=== PATIENT | female | born 1970 | race Caucasian/White ===

== ENCOUNTER → 2016-06-27 | Outpatient (CLI) | payer OTHER ==
[~2016-06-27] MED LIST: ADAL1INJ INJ; AZAT50TA17 PO; CALC-20 PO; CHOL2000 PO; CPR500 PO; DIPH-416 PO; EFF75 PO; FLUD0.1T10 PO; IMD/2 PO; MISCCAP80 PO; MULT-506 PO; OMEP20TA PO; ONDA8TAB7 PO; OXYC-57 PO; PEDICHW50 PO; POLY150C PO; PRD10 PO; PRED20TA PO; RMCI IV; [UNRECOGNIZED DRUG - CODE] PO
[2016-06-27 19:09] LABS: BLOOD UREA NITROGEN 22 mg/dl (7-18); BUN/CREATININE RATIO 31.3 (10-20); CARBON DIOXIDE 25 mmol/L (21-32); CHLORIDE 103 mmol/L (98-107); CREATININE 0.69 mg/dl (0.60-1.20); GLUCOSE 77 mg/dl (70-99); SODIUM 138 mmol/L (136-145)
[2016-06-27 19:10] LABS: PHOSPHORUS 2.8 mg/dl (2.5-4.9)
== END | disposition home or self-care (01) ==
LOC: C.LABSPEC 16:55
PROVIDERS: ATTEND Family Medicine
DX: K51.00 Ulcerative (chronic) pancolitis without complications (principal); K63.2 Fistula of intestine; R19.8 Other specified symptoms and signs involving the digestive system and abdomen

== ENCOUNTER → 2016-07-13 | Outpatient (CLI) | payer OTHER | END | disposition home or self-care (01) | LOC: C.LABSPEC 13:26 | PROVIDERS: ATTEND Obstetrics & Gynecology | DX: N89.8 Other specified noninflammatory disorders of vagina (principal) ==

== ENCOUNTER → 2016-07-18 | Outpatient (CLI) | payer OTHER ==
[2016-07-18 21:28] LABS: ALT/SGPT 40 U/L (12-78); BLOOD UREA NITROGEN 19 mg/dl (7-18); BUN/CREATININE RATIO 27.3 (10-20); CALCIUM 8.8 mg/dl (8.5-10.1); CARBON DIOXIDE 26 mmol/L (21-32); CHLORIDE 101 mmol/L (98-107); GLUCOSE 89 mg/dl (70-99); MAGNESIUM 2.2 mg/dl (1.8-2.4); POTASSIUM 3.7 mmol/L (3.5-5.1); SODIUM 137 mmol/L (136-145)
[2016-07-18 21:30] LABS: ALB/GLOB RATIO 0.6 (0.9-2); ALKALINE PHOSPHATASE 170 U/L (45-117); AST/SGOT 41 U/L (15-37); PHOSPHORUS 3.4 mg/dl (2.5-4.9)
== END | disposition home or self-care (01) ==
LOC: C.LABSPEC 10:23
PROVIDERS: ATTEND Family Medicine
DX: K50.90 Crohn's disease, unspecified, without complications (principal); R19.8 Other specified symptoms and signs involving the digestive system and abdomen; K51.00 Ulcerative (chronic) pancolitis without complications; K63.2 Fistula of intestine

== ENCOUNTER → 2016-08-09 | Outpatient (CLI) | payer OTHER ==
[2016-08-09 22:15] LABS: BLOOD UREA NITROGEN 21 mg/dl (7-18); BUN/CREATININE RATIO 27.9 (10-20); CALCIUM 8.8 mg/dl (8.5-10.1); CARBON DIOXIDE 26 mmol/L (21-32); CHLORIDE 99 mmol/L (98-107); CREATININE 0.76 mg/dl (0.60-1.20); GLUCOSE 109 mg/dl (70-99); MAGNESIUM 1.9 mg/dl (1.8-2.4); PHOSPHORUS 3.3 mg/dl (2.5-4.9); POTASSIUM 3.6 mmol/L (3.5-5.1); SODIUM 134 mmol/L (136-145)
== END | disposition home or self-care (01) ==
LOC: C.LABSPEC 15:15
PROVIDERS: ATTEND Internal Medicine
DX: K50.90 Crohn's disease, unspecified, without complications (principal); R19.8 Other specified symptoms and signs involving the digestive system and abdomen; K51.00 Ulcerative (chronic) pancolitis without complications; K63.2 Fistula of intestine

== ENCOUNTER → 2016-08-29 | Outpatient (CLI) | payer OTHER ==
[2016-08-29 19:36] LABS: BLOOD UREA NITROGEN 19 mg/dl (7-18); BUN/CREATININE RATIO 26.3 (10-20); CALCIUM 8.7 mg/dl (8.5-10.1); CARBON DIOXIDE 31 mmol/L (21-32); CHLORIDE 103 mmol/L (98-107); CREATININE 0.71 mg/dl (0.60-1.20); GLUCOSE 73 mg/dl (70-99); MAGNESIUM 2.3 mg/dl (1.8-2.4); POTASSIUM 3.7 mmol/L (3.5-5.1); SODIUM 139 mmol/L (136-145)
[2016-08-29 19:38] LABS: ALB/GLOB RATIO 0.6 (0.9-2); ALKALINE PHOSPHATASE 111 U/L (45-117); ALT/SGPT 30 U/L (12-78); AST/SGOT 22 U/L (15-37)
== END | disposition home or self-care (01) ==
LOC: C.LABSPEC 16:59
PROVIDERS: ATTEND Family Medicine
DX: K50.90 Crohn's disease, unspecified, without complications (principal); R19.8 Other specified symptoms and signs involving the digestive system and abdomen; K51.00 Ulcerative (chronic) pancolitis without complications; K63.2 Fistula of intestine

== ENCOUNTER → 2016-09-19 | Outpatient (CLI) | payer OTHER ==
[2016-09-19 19:35] LABS: BLOOD UREA NITROGEN 19 mg/dl (7-18); BUN/CREATININE RATIO 23.7 (10-20); CALCIUM 8.6 mg/dl (8.5-10.1); CARBON DIOXIDE 26 mmol/L (21-32); CHLORIDE 104 mmol/L (98-107); CREATININE 0.81 mg/dl (0.60-1.20); GLUCOSE 82 mg/dl (70-99); MAGNESIUM 2.1 mg/dl (1.8-2.4); POTASSIUM 3.7 mmol/L (3.5-5.1); SODIUM 138 mmol/L (136-145)
[2016-09-19 19:36] LABS: PHOSPHORUS 3.3 mg/dl (2.5-4.9)
== END | disposition home or self-care (01) ==
LOC: C.LAB 18:40
PROVIDERS: ATTEND Family Medicine
DX: K51.00 Ulcerative (chronic) pancolitis without complications (principal); K63.2 Fistula of intestine

== ENCOUNTER → 2016-09-20 | Outpatient (CLI) | payer OTHER ==
--- NOTE | 2016-09-21 12:48 | MAMMOGRAPHY REPORT ---
BILATERAL DIGITAL SCREENING MAMMOGRAM TOMOSYNTHESIS WITH CAD: 09/20/2016 CLINICAL HISTORY: Routine screening. Patient has no complaints. TECHNIQUE: Breast tomosynthesis in addition to standard 2D mammography was performed. Current study was also evaluated with a Computer Aided Detection (CAD) system. COMPARISON: Comparison is made to exams dated: 09/15/2015 mammogram, 09/11/2014 mammogram, 09/18/2013 lisette mogram, 09/09/2013 mammogram, 08/31/2011 mammogram, and 02/21/2011 mammogram - [facility] nter. BREAST COMPOSITION: The tissue of both breasts is heterogeneously dense, which may obscure small ma sses. FINDINGS: There are stable benign-appearing calcifications within the left breast. No suspicious sp iculated or irregular mass, architectural distortion or cluster of new, suspicious microcalcificatio ns is seen. IMPRESSION: ACR BI-RADS CATEGORY 1: NEGATIVE There is no mammographic evidence of malignancy. A 1 year screening mammogram is recommended. The p atient will receive written notification of the results. Approximately 10% of breast cancers are not detected with mammography. A negative mammographic repor t should not delay biopsy if a clinically suggestive mass is present. Betty Mak M.D. ay/:09/21/2016 07:32:18 Pulverizer Mill Operator: Diana DUARTE)(Jessica), [facility] letter sent: Normal 1/2 BI-RADS Code: ACR BI-RADS Category 1: Negative
== END | disposition home or self-care (01) ==
LOC: C.MAMM 16:21
PROVIDERS: ATTEND Obstetrics & Gynecology
DX: Z12.31 Encounter for screening mammogram for malignant neoplasm of breast (principal)

== ENCOUNTER → 2016-10-11 | Outpatient (CLI) | payer OTHER ==
[2016-10-11 19:47] LABS: ALT/SGPT 52 U/L (12-78); AST/SGOT 52 U/L (15-37); BLOOD UREA NITROGEN 18 mg/dl (7-18); BUN/CREATININE RATIO 22.7 (10-20); CALCIUM 8.9 mg/dl (8.5-10.1); CARBON DIOXIDE 28 mmol/L (21-32); CHLORIDE 102 mmol/L (98-107); CREATININE 0.79 mg/dl (0.60-1.20); GLUCOSE 86 mg/dl (70-99); MAGNESIUM 2.2 mg/dl (1.8-2.4); POTASSIUM 3.8 mmol/L (3.5-5.1); SODIUM 138 mmol/L (136-145)
[2016-10-11 19:50] LABS: ALB/GLOB RATIO 0.6 (0.9-2); ALKALINE PHOSPHATASE 161 U/L (45-117); PHOSPHORUS 3.5 mg/dl (2.5-4.9)
--- NOTE | 2016-10-24 14:12 | CODING QUERY NO DIAGNOSIS ---
Valid Physician Order Needed A valid physician order must be submitted in order to properly bill for the service(s) provided, including date of service(s), valid diagnosis, and physician signature. If these tests are done on a recurring basis the original physician order must be submitted in order to code and bill for the service(s) provided. Please fax us the original, signed physician order so that we may expedite billing to [phone] DOS 10/11/2016 * SERUM PHOSPHORUS * MAGNESIUM * CMP * CALCIUM, IONIZED (FREE) Thank you José [facility] Information Management
== END | disposition home or self-care (01) ==
LOC: C.LABSPEC 18:45
PROVIDERS: ATTEND Internal Medicine
DX: E46 Unspecified protein-calorie malnutrition (principal)

== ENCOUNTER → 2016-10-31 | Outpatient (CLI) | payer OTHER ==
[2016-10-31 20:25] LABS: BLOOD UREA NITROGEN 15 mg/dl (7-18); BUN/CREATININE RATIO 26.2 (10-20); CALCIUM 8.3 mg/dl (8.5-10.1); CARBON DIOXIDE 26 mmol/L (21-32); CHLORIDE 105 mmol/L (98-107); CREATININE 0.56 mg/dl (0.60-1.20); GLUCOSE 69 mg/dl (70-99); MAGNESIUM 2.1 mg/dl (1.8-2.4); POTASSIUM 3.5 mmol/L (3.5-5.1); SODIUM 139 mmol/L (136-145)
[2016-10-31 20:26] LABS: PHOSPHORUS 3.7 mg/dl (2.5-4.9)
== END | disposition home or self-care (01) ==
LOC: C.LABSPEC 16:03
PROVIDERS: ATTEND Internal Medicine
DX: K50.90 Crohn's disease, unspecified, without complications (principal); R19.8 Other specified symptoms and signs involving the digestive system and abdomen; K51.00 Ulcerative (chronic) pancolitis without complications; K63.2 Fistula of intestine

== ENCOUNTER → 2016-11-28 | Outpatient (CLI) | payer OTHER ==
[~2016-11-28] MED LIST changes: -CPR500 PO; -OMEP20TA PO; -ONDA8TAB7 PO; -OXYC-57 PO; -POLY150C PO; -PRD10 PO; -PRED20TA PO; -RMCI IV
[2016-11-28 19:50] LABS: ALT/SGPT 34 U/L (12-78); AST/SGOT 35 U/L (15-37); BLOOD UREA NITROGEN 17 mg/dl (7-18); BUN/CREATININE RATIO 25.5 (10-20); CALCIUM 8.4 mg/dl (8.5-10.1); CARBON DIOXIDE 25 mmol/L (21-32); CHLORIDE 105 mmol/L (98-107); CREATININE 0.65 mg/dl (0.60-1.20); GLUCOSE 70 mg/dl (70-99); MAGNESIUM 2.1 mg/dl (1.8-2.4); POTASSIUM 3.2 mmol/L (3.5-5.1); SODIUM 139 mmol/L (136-145)
[2016-11-28 19:53] LABS: ALB/GLOB RATIO 0.6 (0.9-2); ALKALINE PHOSPHATASE 138 U/L (45-117); PHOSPHORUS 2.9 mg/dl (2.5-4.9)
== END | disposition home or self-care (01) ==
LOC: C.LABSPEC 19:33
PROVIDERS: ATTEND Family Medicine
DX: R19.8 Other specified symptoms and signs involving the digestive system and abdomen (principal); K51.00 Ulcerative (chronic) pancolitis without complications; K63.2 Fistula of intestine

== ENCOUNTER → 2016-12-23 | Outpatient (CLI) | payer OTHER ==
[2016-12-23 16:44] LABS: BLOOD UREA NITROGEN 15 mg/dl (7-18); BUN/CREATININE RATIO 23.5 (10-20); CALCIUM 8.3 mg/dl (8.5-10.1); CARBON DIOXIDE 26 mmol/L (21-32); CHLORIDE 104 mmol/L (98-107); CREATININE 0.65 mg/dl (0.60-1.20); GLUCOSE 87 mg/dl (70-99); MAGNESIUM 1.9 mg/dl (1.8-2.4); POTASSIUM 3.4 mmol/L (3.5-5.1); SODIUM 139 mmol/L (136-145)
== END | disposition home or self-care (01) ==
LOC: C.LABSPEC 16:14
PROVIDERS: ATTEND Family Medicine
DX: K50.90 Crohn's disease, unspecified, without complications (principal); R19.8 Other specified symptoms and signs involving the digestive system and abdomen

== ENCOUNTER → 2017-01-02 | Outpatient (CLI) | payer OTHER | END | disposition home or self-care (01) | LOC: C.LABSPEC 15:37 | PROVIDERS: ATTEND Obstetrics & Gynecology | DX: N89.8 Other specified noninflammatory disorders of vagina (principal) ==

== ENCOUNTER → 2017-01-23 | Outpatient (CLI) | payer OTHER ==
[2017-01-23 19:54] LABS: ALT/SGPT 33 U/L (12-78); AST/SGOT 32 U/L (15-37); BLOOD UREA NITROGEN 22 mg/dl (7-18); CALCIUM 8.5 mg/dl (8.5-10.1); CARBON DIOXIDE 26 mmol/L (21-32); CHLORIDE 102 mmol/L (98-107); CREATININE 0.84 mg/dl (0.60-1.20); GLUCOSE 127 mg/dl (70-99); POTASSIUM 3.3 mmol/L (3.5-5.1); SODIUM 137 mmol/L (136-145)
[2017-01-23 19:56] LABS: ALB/GLOB RATIO 0.6 (0.9-2); ALKALINE PHOSPHATASE 106 U/L (45-117); PHOSPHORUS 3.4 mg/dl (2.5-4.9)
== END | disposition home or self-care (01) ==
LOC: C.LABSPEC 14:41
PROVIDERS: ATTEND Family Medicine
DX: K50.90 Crohn's disease, unspecified, without complications (principal); R19.8 Other specified symptoms and signs involving the digestive system and abdomen; K51.00 Ulcerative (chronic) pancolitis without complications; K63.2 Fistula of intestine

== ENCOUNTER → 2017-02-22 | Outpatient (CLI) | payer OTHER ==
[2017-02-22 21:16] LABS: ALT/SGPT 29 U/L (12-78); BLOOD UREA NITROGEN 19 mg/dl (7-18); BUN/CREATININE RATIO 30.2 (10-20); CALCIUM 8.9 mg/dl (8.5-10.1); CARBON DIOXIDE 27 mmol/L (21-32); CHLORIDE 106 mmol/L (98-107); CREATININE 0.63 mg/dl (0.60-1.20); GLUCOSE 80 mg/dl (70-99); MAGNESIUM 1.9 mg/dl (1.8-2.4); POTASSIUM 3.6 mmol/L (3.5-5.1); SODIUM 138 mmol/L (136-145)
[2017-02-22 21:19] LABS: ALB/GLOB RATIO 0.5 (0.9-2); ALKALINE PHOSPHATASE 110 U/L (45-117); AST/SGOT 27 U/L (15-37); PHOSPHORUS 2.6 mg/dl (2.5-4.9)
== END | disposition home or self-care (01) ==
LOC: C.LABSPEC 12:36
PROVIDERS: ATTEND Family Medicine
DX: K51.00 Ulcerative (chronic) pancolitis without complications (principal); K63.2 Fistula of intestine

== ENCOUNTER → 2017-03-13 | Outpatient (CLI) | payer OTHER ==
[2017-03-13 19:26] LABS: BLOOD UREA NITROGEN 20 mg/dl (7-18); BUN/CREATININE RATIO 18.3 (10-20); CALCIUM 9.4 mg/dl (8.5-10.1); CARBON DIOXIDE 26 mmol/L (21-32); CHLORIDE 98 mmol/L (98-107); GLUCOSE 145 mg/dl (70-99); MAGNESIUM 1.9 mg/dl (1.8-2.4); PHOSPHORUS 3.1 mg/dl (2.5-4.9); POTASSIUM 3.5 mmol/L (3.5-5.1); SODIUM 134 mmol/L (136-145)
== END | disposition home or self-care (01) ==
LOC: C.LABSPEC 12:19
PROVIDERS: ATTEND Internal Medicine
DX: K50.90 Crohn's disease, unspecified, without complications (principal); R19.8 Other specified symptoms and signs involving the digestive system and abdomen; K51.00 Ulcerative (chronic) pancolitis without complications; K63.2 Fistula of intestine

== ENCOUNTER → 2017-03-27 | Outpatient (CLI) | payer OTHER ==
[2017-03-27 20:10] LABS: ALT/SGPT 28 U/L (12-78); BLOOD UREA NITROGEN 19 mg/dl (7-18); BUN/CREATININE RATIO 18.9 (10-20); CALCIUM 8.6 mg/dl (8.5-10.1); CARBON DIOXIDE 24 mmol/L (21-32); CHLORIDE 103 mmol/L (98-107); CREATININE 1.01 mg/dl (0.60-1.20); GLUCOSE 154 mg/dl (70-99); MAGNESIUM 1.8 mg/dl (1.8-2.4); POTASSIUM 3.4 mmol/L (3.5-5.1); SODIUM 138 mmol/L (136-145)
[2017-03-27 20:12] LABS: ALB/GLOB RATIO 0.6 (0.9-2); ALKALINE PHOSPHATASE 112 U/L (45-117); AST/SGOT 34 U/L (15-37); PHOSPHORUS 3.1 mg/dl (2.5-4.9)
== END | disposition home or self-care (01) ==
LOC: C.LABSPEC 19:51
PROVIDERS: ATTEND Internal Medicine
DX: K50.90 Crohn's disease, unspecified, without complications (principal); R19.8 Other specified symptoms and signs involving the digestive system and abdomen; K51.00 Ulcerative (chronic) pancolitis without complications; K63.2 Fistula of intestine

== ENCOUNTER → 2017-04-10 | Outpatient (CLI) | payer OTHER ==
[2017-04-10 21:30] LABS: BLOOD UREA NITROGEN 19 mg/dl (7-18); BUN/CREATININE RATIO 23.2 (10-20); CALCIUM 8.7 mg/dl (8.5-10.1); CARBON DIOXIDE 25 mmol/L (21-32); CHLORIDE 103 mmol/L (98-107); CREATININE 0.84 mg/dl (0.60-1.20); GLUCOSE 122 mg/dl (70-99); MAGNESIUM 1.8 mg/dl (1.8-2.4); PHOSPHORUS 3.3 mg/dl (2.5-4.9); POTASSIUM 3.3 mmol/L (3.5-5.1); SODIUM 138 mmol/L (136-145)
== END | disposition home or self-care (01) ==
LOC: C.LABSPEC 11:37
PROVIDERS: ATTEND Internal Medicine
DX: K50.90 Crohn's disease, unspecified, without complications (principal); R19.8 Other specified symptoms and signs involving the digestive system and abdomen; K51.00 Ulcerative (chronic) pancolitis without complications; K63.2 Fistula of intestine

== ENCOUNTER → 2017-05-22 | Outpatient (CLI) | payer BC ==
[2017-05-22 21:46] LABS: BLOOD UREA NITROGEN 20 mg/dl (7-18); CALCIUM 9.2 mg/dl (8.5-10.1); CARBON DIOXIDE 21 mmol/L (21-32); CHLORIDE 107 mmol/L (98-107); CREATININE 0.73 mg/dl (0.60-1.20); GLUCOSE 132 mg/dl (70-99); PHOSPHORUS 4.2 mg/dl (2.5-4.9); POTASSIUM 4.2 mmol/L (3.5-5.1); SODIUM 138 mmol/L (136-145)
== END | disposition home or self-care (01) ==
LOC: C.LABSPEC 11:45
PROVIDERS: ATTEND Internal Medicine
DX: K50.90 Crohn's disease, unspecified, without complications (principal); R19.8 Other specified symptoms and signs involving the digestive system and abdomen; K51.00 Ulcerative (chronic) pancolitis without complications; K63.2 Fistula of intestine

== ENCOUNTER → 2017-05-30 | Outpatient (CLI) | payer BC ==
[~2017-05-30] MED LIST changes: +CEFT1INJ57 IV; +CETI10CA PO; +FLUT0.15; +HYDR-5688 PO; +NORETAB29 PO; +POTA10CA28 PO; +[UNRECOGNIZED DRUG - CODE] PO; -[UNRECOGNIZED DRUG - CODE] PO; +[UNRECOGNIZED DRUG - OTHER] SQ
[2017-05-30 17:47] LABS: BLOOD UREA NITROGEN 14 mg/dl (7-18); CALCIUM 8.5 mg/dl (8.5-10.1); CARBON DIOXIDE 26 mmol/L (21-32); CREATININE 0.59 mg/dl (0.60-1.20); GLUCOSE 82 mg/dl (70-99); PHOSPHORUS 2.7 mg/dl (2.5-4.9); POTASSIUM 3.6 mmol/L (3.5-5.1); SODIUM 138 mmol/L (136-145)
== END | disposition home or self-care (01) ==
LOC: C.LABSPEC 12:48
PROVIDERS: ATTEND Internal Medicine
DX: K50.90 Crohn's disease, unspecified, without complications (principal); R19.8 Other specified symptoms and signs involving the digestive system and abdomen; K63.2 Fistula of intestine

== ENCOUNTER → 2017-07-04 | Outpatient (CLI) | payer OTHER ==
[~2017-07-04] MED LIST changes: -CEFT1INJ57 IV; -DIPH-416 PO; -FLUT0.15; -HYDR-5688 PO; -MULT-506 PO; -NORETAB29 PO; +[UNRECOGNIZED DRUG - CODE] PO; -[UNRECOGNIZED DRUG - CODE] PO; -[UNRECOGNIZED DRUG - OTHER] SQ
[2017-07-04 15:41] LABS: ALBUMIN 3.2 gm/dl (3.4-5.0); ALT/SGPT 38 U/L (12-78); BLOOD UREA NITROGEN 15 mg/dl (7-18); CALCIUM 8.9 mg/dl (8.5-10.1); CARBON DIOXIDE 23 mmol/L (21-32); CREATININE 0.63 mg/dl (0.60-1.20); GLUCOSE 85 mg/dl (70-99); POTASSIUM 3.8 mmol/L (3.5-5.1); SODIUM 135 mmol/L (136-145)
[2017-07-04 15:44] LABS: ALKALINE PHOSPHATASE 103 U/L (45-117); AST/SGOT 32 U/L (15-37); TOTAL PROTEIN 8.6 gm/dl (6.4-8.2)
== END | disposition home or self-care (01) ==
LOC: C.LAB 13:00
PROVIDERS: ATTEND Internal Medicine
DX: K91.2 Postsurgical malabsorption, not elsewhere classified (principal); Z78.9 Other specified health status; K50.013 Crohn's disease of small intestine with fistula

== ENCOUNTER → 2017-07-31 | Outpatient (CLI) | payer OTHER | END | disposition home or self-care (01) | LOC: C.LABSPEC 13:11 | PROVIDERS: ATTEND Obstetrics & Gynecology | DX: N89.8 Other specified noninflammatory disorders of vagina (principal) ==

== ENCOUNTER → 2018-01-15 | Outpatient (CLI) | payer OTHER ==
[~2018-01-15] MED LIST changes: -ADAL1INJ INJ; -AZAT50TA17 PO; +CEFT1INJ57 IV; -CETI10CA PO; +FLUT0.15; +HYDR-5688 PO; -MISCCAP80 PO; +NORETAB29 PO; +[UNRECOGNIZED DRUG - CODE] PO; -[UNRECOGNIZED DRUG - CODE] PO; +[UNRECOGNIZED DRUG - OTHER] SQ
[2018-01-15 21:31] LABS: BLOOD UREA NITROGEN 16 mg/dl (7-18); CALCIUM 9.1 mg/dl (8.5-10.1); CARBON DIOXIDE 27 mmol/L (21-32); CREATININE 0.75 mg/dl (0.60-1.20); GLUCOSE 44 mg/dl (70-99); PHOSPHORUS 4.5 mg/dl (2.5-4.9); SODIUM 136 mmol/L (136-145)
== END | disposition home or self-care (01) ==
LOC: C.LABSPEC 10:47
PROVIDERS: ATTEND Family Medicine
DX: Z45.2 Encounter for adjustment and management of vascular access device (principal); K50.90 Crohn's disease, unspecified, without complications; K91.2 Postsurgical malabsorption, not elsewhere classified; R19.8 Other specified symptoms and signs involving the digestive system and abdomen

== ENCOUNTER 2020-05-14 15:34 | Inpatient (IN) ==
[2020-05-14] MEDS ORDERED: DAPTOmycin 350 MG in SYRINGE 0 ML IV STA (16:14)
[2020-05-14] MEDS ORDERED: SODIUM CHLORIDE 0.9% 1000ML 1,000 ML IV SCH (16:15)
--- NOTE | 2020-05-14 16:18 | Emergency Department Note ---
Impression & Plan Bacteremia, Immunocompromised, Anemia, Short gut syndrome ED Provider Note NAME: TIAN MEEK AGE: 49 SEX: F : 1970 ARRIVES VIA: Walk-In INFORMANT: [Patient] ED PROVIDER(S): [Jordi Lui MD] CHIEF COMPLAINT: Infection HISTORY OF PRESENT ILLNESS: The patient is a 49-year-old female with Crohn's disease. She is immunocompromised. She has short gut syndrome and thus, 3 times a week she receives IV TPN. The patient has had a left chest wall port for about a year and a half. Over the last month, the patient has had some fatigue and some intermittent fe vers. She has felt better then felt worse. Yesterday, she had lab work done. She has 2 of 2 cultures obtained yesterday from her port growing gram-positive bacteria. The staph aureus and MRSA PCR's were negative. She was sent to the hospital for admission. There has been no cough or congestion. No urinary complaints. She states that over the same month timeframe, she has had some mouth ulcers. The patient is eating and drinking at baseline. She has had a prior episode of a line infecti on when she had a PICC line in the right arm. Of note, the patient had an outpatient Covid test today, results pending. She has had no known Covid exposures and has had 2 - Covid test previously. REVIEW OF SYSTEMS: See HPI for pertinent positives and negatives. A total of ten systems were reviewed and were otherwise negative. PMHx/PSHx: See Below SOCIAL HISTORY: See Below. PHYSICAL EXAM: GENERAL: Patient is in no acute distress. HEENT: No acute trauma, normocephalic atraumatic, mucous membranes moist, no nasal congestion, no scleral icterus. Few scattered mouth ulcers seen. No throat erythema or exudate. NECK: No stridor, bilateral anterior cervical adenopathy, no meningismus, trachea is midline. LUNGS: No respiratory distress or increased accessory muscle use. No obvious wheezing. HEART: Regular rate and rhythm, equal radial pulses bilaterally. Chest: She has a port in the left chest wall, it is already accessed. There is no surrounding erythema. ABDOMEN: Soft, nontender, bowel sounds positive, no hernias, no peritonitis. EXTREMITIES: No cyanosis or edema, full range of motion of all the joints without pain or difficulty, no signs for acute trauma. NEUROLOGIC: Oriented x 3, no acute motor or sensory deficits, no focal weakness. SKIN: No rash, no jaundice, no diaphoresis. DIFFERENTIAL DIAGNOSIS: Sepsis, UTI, pneumonia, metabolic, electrolyte abnormalities, cardiac sources, port infection, immunocompromise, intracerebral event, toxicologic, neurologic, as well as other pathologies. EMERGENCY DEPARTMENT COURSE/PROCEDURES: ECG: Indication was possible sepsis. The ECG shows a normal sinus rhythm with a rate 83. There is no ST elevation, no PVCs. The QTc is 427. Continuous Cardiac Monitoring: An order was placed for continuous cardiac monitoring. The monitor shows a rate of 75 with normal sinus rhythm. MEDICAL DECISION MAKING: There is no leukocytosis. The patient is anemic. This hemoglobin value is lower than her last values. There is a normal platelet count. No coagulopathy. No significant electrolyte abnormality or kidney failure. Lactic acid level is not elevated making sepsis less likely. There is some elevation to her alk phos, the bilirubin though is normal. Procalcitonin level is not elevated. Urinalysis does not show infection. Coronavirus testing is negative. Chest film does not show pneumonia or CHF. On exam, the patient was not toxic or febrile. I did review the patient's laboratory work performed as an outpatient. She had 2 of 2 blood cultures return positive. These cultures were obtained from her p ort. Gram-positive cocci was seen although, staph aureus and MRSA PCR's were negative. The patient has had fever on and off for a month. She has positive blood cultures as an outpatient. She is immunocompromised. She very well may have a port infection/bacteremia. I do think the patient requires a hospital stay. She was given IV saline for hydration, she received 1 L. She was given IV daptomycin as antibiotic coverage. I spoke to the patient, I talked with case management. The on-call hospitalist was consulted. Past Med/Surg History Medical History Anxiety Crohns disease Depression On total parenteral nutrition 3 nights per week Short bowel syndrome Surgical History History of esophagogastroduodenoscopy (EGD) History of intestinal surgery 1988 - removed rectum, anus and large intestine and 14 inches small intestine and ileostomy 2016 removed small bowel (left 4 ft of bowel) History of vascular access device left side of chest Hx laparoscopic cholecystectomy Hx of colonoscopy Family History (Updated 01/06/20 @ 13:03 by Tanisha Hollis) Grandfather (Paternal) Colorectal cancer, Onset Age: 80 Mother History of thyroid disorder Giron syndrome Grandfather (Maternal) Leukemia Father Hx of CABG Other No pertinent family history Denies family history of Ovarian cancer Breast cancer Social History Smoking Status: Never smoker Second Hand Exposure: No; Hx Alcohol Use: No Hx Substance Use: No Preferred Language: Slovenian Communication Ability: Effective Analytical Engineer Required: No Beliefs That Will Affect Care: None Current Living Situation: Spouse Feels Safe at Home: Yes Assistive Devices: Glasses Allergies Allergies Allergy/AdvReac Type Severity Reaction Status Date / Time Iodinated Contrast Media Allergy Intermediate Hives Verified 05/14/20 17:30 grass pollen-perennial rye, Allergy Unknown Unknown rxn Verified 05/14/20 17:30 standar mold Allergy Unknown Unknown rxn Verified 05/14/20 17:30 vancomycin Allergy Unknown HIVES Verified 05/14/20 17:30 Dust Allergy Unknown Unknown rxn Uncoded 05/14/20 17:30 Home Meds Home Medications Medication Instructions Recorded Confirmed Calcium 600 + D(3) 2 tab PO QAM 05/23/18 05/14/20 [facility] 1 cap PO QAM 05/23/18 05/14/20 azathioprine 50 mg PO QAM 05/23/18 05/14/20 cholecalciferol (vitamin D3) 5,000 units PO QAM 05/23/18 05/14/20 fludrocortisone 0.1 mg PO QAM 05/23/18 05/14/20 potassium chloride 20 meq PO BID 05/23/18 05/14/20 teduglutide 2.76 mg SUBCUT QAM 05/23/18 05/14/20 venlafaxine 75 mg PO BID 05/23/18 05/14/20 acetaminophen [Tylenol Extra 1,000 mg PO Q6 PRN 05/14/20 05/14/20 Strength] adalimumab [Humira(CF) Pen] 0 mg SUBCUT WK 05/14/20 05/14/20 multivitamin 1 tab PO DAILY 05/14/20 05/14/20 Previous Rx's Medication Instructions Recorded loperamide 2 mg capsule 4 mg PO BID #240 cap 07/22/19 losartan 25 mg tablet 25 mg PO DAILY #90 tab 08/28/19 Results & Data (ED) Vital Signs Vital Signs - 24 hr 05/14/20 15:40 05/14/20 16:38 05/14/20 16:40 Temperature 36.4 C L Temperature Source Temporal Artery Scan Pulse Rate 95 H 89 91 H Pulse Rate from SpO2 Sensor Respiratory Rate 18 18 21 Respiratory Effort / Characteristics Non-Labored Spontaneous Respiratory Depth Normal Blood Pressure 127/79 Blood Pressure Mean 95 Blood Pressure Position Sitting Pulse Oximetry 100 Oxygen Delivery Method Room Air Sepsis Recent Fever Within 48 Hours No Sepsis New/Unexplained Change in Mental Status No Sepsis Action Taken by Nursing No Action Required 05/14/20 16:48 05/14/20 16:50 05/14/20 17:00 Temperature Temperature Source Pulse Rate 88 82 85 Pulse Rate from SpO2 Sensor Respiratory Rate 22 18 16 Respiratory Effort / Characteristics Respiratory Depth Blood Pressure 124/84 138/81 Blood Pressure Mean 96 91 Blood Pressure Position Pulse Oximetry Oxygen Delivery Method Sepsis Recent Fever Within 48 Hours Sepsis New/Unexplained Change in Mental Status Sepsis Action Taken by Nursing 05/14/20 17:01 05/14/20 17:10 05/14/20 17:20 Temperature Temperature Source Pulse Rate 84 83 78 Pulse Rate from SpO2 Sensor 82 85 84 Respiratory Rate 21 21 14 Respiratory Effort / Characteristics Respiratory Depth Blood Pressure Blood Pressure Mean Blood Pressure Position Pulse Oximetry 100 Oxygen Delivery Method Sepsis Recent Fever Within 48 Hours Sepsis New/Unexplained Change in Mental Status Sepsis Action Taken by Nursing 05/14/20 17:30 05/14/20 17:31 05/14/20 17:40 Temperature Temperature Source Pulse Rate 87 85 89 Pulse Rate from SpO2 Sensor 82 82 Respiratory Rate 17 24 Respiratory Effort / Characteristics Respiratory Depth Blood Pressure 115/72 Blood Pressure Mean 78 Blood Pressure Position Pulse Oximetry Oxygen Delivery Method Sepsis Recent Fever Within 48 Hours Sepsis New/Unexplained Change in Mental Status Sepsis Action Taken by Nursing 05/14/20 17:50 05/14/20 18:00 05/14/20 18:01 Temperature Temperature Source Pulse Rate 85 82 80 Pulse Rate from SpO2 Sensor 80 82 81 Respiratory Rate 19 15 17 Respiratory Effort / Characteristics Respiratory Depth Blood Pressure 119/74 Blood Pressure Mean 88 Blood Pressure Position Pulse Oximetry 100 100 Oxygen Delivery Method Sepsis Recent Fever Within 48 Hours Sepsis New/Unexplained Change in Mental Status Sepsis Action Taken by Nursing 05/14/20 18:10 05/14/20 18:20 05/14/20 18:30 Temperature Temperature Source Pulse Rate 84 82 83 Pulse Rate from SpO2 Sensor 84 84 83 Respiratory Rate 12 16 17 Respiratory Effort / Characteristics Respiratory Depth Blood Pressure 129/78 Blood Pressure Mean 96 Blood Pressure Position Pulse Oximetry 93 100 97 Oxygen Delivery Method Sepsis Recent Fever Within 48 Hours Sepsis New/Unexplained Change in Mental Status Sepsis Action Taken by Nursing 05/14/20 18:31 05/14/20 18:40 05/14/20 18:50 Temperature Temperature Source Pulse Rate 88 95 H 84 Pulse Rate from SpO2 Sensor 84 83 83 Respiratory Rate 16 13 14 Respiratory Effort / Characteristics Respiratory Depth Blood Pressure Blood Pressure Mean Blood Pressure Position Pulse Oximetry 93 96 100 Oxygen Delivery Method Sepsis Recent Fever Within 48 Hours Sepsis New/Unexplained Change in Mental Status Sepsis Action Taken by Nursing 05/14/20 19:00 05/14/20 19:01 05/14/20 19:10 Temperature Temperature Source Pulse Rate 82 82 80 Pulse Rate from SpO2 Sensor 82 82 81 Respiratory Rate 16 16 15 Respiratory Effort / Characteristics Respiratory Depth Blood Pressure 128/82 Blood Pressure Mean 97 Blood Pressure Position Pulse Oximetry 100 100 100 Oxygen Delivery Method Sepsis Recent Fever Within 48 Hours Sepsis New/Unexplained Change in Mental Status Sepsis Action Taken by Nursing 05/14/20 19:20 05/14/20 19:30 05/14/20 19:31 Temperature Temperature Source Pulse Rate 80 81 82 Pulse Rate from SpO2 Sensor 79 78 76 Respiratory Rate 20 16 19 Respiratory Effort / Characteristics Respiratory Depth Blood Pressure 127/80 Blood Pressure Mean 88 Blood Pressure Position Pulse Oximetry 100 93 Oxygen Delivery Method Sepsis Recent Fever Within 48 Hours Sepsis New/Unexplained Change in Mental Status Sepsis Action Taken by Nursing 05/14/20 19:40 05/14/20 19:50 05/14/20 20:00 Temperature Temperature Source Pulse Rate 78 85 75 Pulse Rate from SpO2 Sensor 78 86 75 Respiratory Rate 17 17 18 Respiratory Effort / Characteristics Respiratory Depth Blood Pressure 122/76 Blood Pressure Mean 89 Blood Pressure Position Pulse Oximetry 100 100 100 Oxygen Delivery Method Sepsis Recent Fever Within 48 Hours Sepsis New/Unexplained Change in Mental Status Sepsis Action Taken by Nursing 05/14/20 20:01 05/14/20 20:10 05/14/20 20:20 Temperature Temperature Source Pulse Rate 79 80 76 Pulse Rate from SpO2 Sensor 78 81 76 Respiratory Rate 17 20 18 Respiratory Effort / Characteristics Respiratory Depth Blood Pressure Blood Pressure Mean Blood Pressure Position Pulse Oximetry 100 100 100 Oxygen Delivery Method Sepsis Recent Fever Within 48 Hours Sepsis New/Unexplained Change in Mental Status Sepsis Action Taken by Nursing 05/14/20 20:30 05/14/20 20:31 Temperature Temperature Source Pulse Rate 76 77 Pulse Rate from SpO2 Sensor 76 77 Respiratory Rate 20 19 Respiratory Effort / Characteristics Respiratory Depth Blood Pressure 133/83 Blood Pressure Mean 99 Blood Pressure Position Pulse Oximetry 100 100 Oxygen Delivery Method Sepsis Recent Fever Within 48 Hours Sepsis New/Unexplained Change in Mental Status Sepsis Action Taken by Retirement Medications Current Medication List: was personally reviewed by me Laboratory Data Attestation: I reviewed the patient's lab results. Result diagrams: 05/14/20 16:54 05/14/20 16:54 Lab Results 05/14/20 05/14/20 05/14/20 Range/Units 16:54 16:54 16:54 WBC 8.45 (4.8-10.8) K/uL RBC 3.49 L (4.2-5.4) M/uL Hgb 9.5 L (12.0-16.0) g/dL Hct 30.0 L (37-47) % MCV 86.0 (80-100) fL MCH 27.2 (25-34) pg MCHC 31.7 L (32-36) g/dL RDW Std Deviation 46.3 (36.4-46.3) fL RDW Coeff of Aleta 14.8 H (11.5-14.5) % Plt Count 318 (130-400) K/uL MPV 9.5 (7.4-10.4) fL Immature Gran % (Auto) 0.1 % Neut % (Auto) 57.4 % Lymph % (Auto) 32.8 % [place] % (Auto) 6.7 % Eos % (Auto) 2.5 % Baso % (Auto) 0.5 % Neut # (Auto) 4.85 (1.4-6.5) K/uL Lymph # (Auto) 2.77 (1.2-3.4) K/uL [place] # (Auto) 0.57 (0.11-0.59) K/uL Eos # (Auto) 0.21 (0-0.5) K/uL Baso # (Auto) 0.04 (0-0.2) K/uL Immature Gran # (Auto) 0.01 (0.00-0.02) K/uL PT 10.2 (9.0-12.0) Seconds INR 1.0 (0.9-1.1) APTT 25.6 (21.0-31.0) Seconds PTT Ratio 0.9 Sodium 135 L (136-145) mmol/L Potassium 3.7 (3.5-5.1) mmol/L Chloride 100 (98-107) mmol/L Carbon Dioxide 32 (21-32) mmol/L Anion Gap 3.0 (3-11) BUN 17 (7-18) mg/dl Creatinine 0.68 (0.6-1.2) mg/dl Est Cr Clr Drug Dosing 86.4 ml/min Est GFR ( Amer) 119.0 Est GFR (Non-Af Amer) 102.7 BUN/Creatinine Ratio 25.4 H (10-20) Glucose 76 (70-99) mg/dl Lactate (0.4-2.0) mmol/L Calcium 9.2 (8.5-10.1) mg/dl Magnesium 1.9 (1.8-2.4) mg/dl Total Bilirubin 0.1 L (0.2-1) mg/dl AST 30 (15-37) U/L ALT 35 (12-78) U/L Alkaline Phosphatase 183 H (45-117) U/L Total Protein 8.2 (6.4-8.2) gm/dl Albumin 2.7 L (3.4-5.0) gm/dl Globulin 5.5 H (2.5-4.0) gm/dl Albumin/Globulin Ratio 0.5 L (0.9-2) Procalcitonin (0-0.5) ng/ml Urine Color Urine Appearance (Clear) Urine pH (4.5-7.5) Ur Specific [place] (1.000-1.030) Urine Protein (Negative) Urine Glucose (UA) (Negative) Urine Ketones (Negative) Urine Blood (Negative) Urine Nitrite (Negative) Urine Bilirubin (Negative) Urine Urobilinogen (Negative) Ur Leukocyte Esterase (Negative) Urine WBC (Auto) (0-5) /hpf Urine RBC (Auto) (0-4) /hpf U Hyaline Cast (Auto) (0-5) /lpf U Epithel Cells (Auto) (0-5) /lpf Urine Bacteria (Auto) (Negative) COVID-19 Eval Order SARS-CoV-2, RNA, NAAT (NEGATIVE) 05/14/20 05/14/20 05/14/20 Range/Units 16:54 16:54 16:54 WBC (4.8-10.8) K/uL RBC (4.2-5.4) M/uL Hgb (12.0-16.0) g/dL Hct (37-47) % MCV (80-100) fL MCH (25-34) pg MCHC (32-36) g/dL RDW Std Deviation (36.4-46.3) fL RDW Coeff of Aleta (11.5-14.5) % Plt Count (130-400) K/uL MPV (7.4-10.4) fL Immature Gran % (Auto) % Neut % (Auto) % Lymph % (Auto) % [place] % (Auto) % Eos % (Auto) % Baso % (Auto) % Neut # (Auto) (1.4-6.5) K/uL Lymph # (Auto) (1.2-3.4) K/uL [place] # (Auto) (0.11-0.59) K/uL Eos # (Auto) (0-0.5) K/uL Baso # (Auto) (0-0.2) K/uL Immature Gran # (Auto) (0.00-0.02) K/uL PT (9.0-12.0) Seconds INR (0.9-1.1) APTT (21.0-31.0) Seconds PTT Ratio Sodium (136-145) mmol/L Potassium (3.5-5.1) mmol/L Chloride (98-107) mmol/L Carbon Dioxide (21-32) mmol/L Anion Gap (3-11) BUN (7-18) mg/dl Creatinine (0.6-1.2) mg/dl Est Cr Clr Drug Dosing ml/min Est GFR ( Amer) Est GFR (Non-Af Amer) BUN/Creatinine Ratio (10-20) Glucose (70-99) mg/dl Lactate 0.9 (0.4-2.0) mmol/L Calcium (8.5-10.1) mg/dl Magnesium (1.8-2.4) mg/dl Total Bilirubin (0.2-1) mg/dl AST (15-37) U/L ALT (12-78) U/L Alkaline Phosphatase (45-117) U/L Total Protein (6.4-8.2) gm/dl Albumin (3.4-5.0) gm/dl Globulin (2.5-4.0) gm/dl Albumin/Globulin Ratio (0.9-2) Procalcitonin 0.07 (0-0.5) ng/ml Urine Color Dark Yellow Urine Appearance Cloudy A (Clear) Urine pH 5.0 (4.5-7.5) Ur Specific [place] 1.020 (1.000-1.030) Urine Protein Negative (Negative) Urine Glucose (UA) Negative (Negative) Urine Ketones Negative (Negative) Urine Blood Negative (Negative) Urine Nitrite Negative (Negative) Urine Bilirubin Negative (Negative) Urine Urobilinogen Negative (Negative) Ur Leukocyte Esterase Negative (Negative) Urine WBC (Auto) 0 (0-5) /hpf Urine RBC (Auto) 0-4 (0-4) /hpf U Hyaline Cast (Auto) 0 (0-5) /lpf U Epithel Cells (Auto) 0-5 (0-5) /lpf Urine Bacteria (Auto) Negative (Negative) COVID-19 Eval Order SARS-CoV-2, RNA, NAAT (NEGATIVE) 05/14/20 05/14/20 Range/Units 16:54 16:54 WBC (4.8-10.8) K/uL RBC (4.2-5.4) M/uL Hgb (12.0-16.0) g/dL Hct (37-47) % MCV (80-100) fL MCH (25-34) pg MCHC (32-36) g/dL RDW Std Deviation (36.4-46.3) fL RDW Coeff of Aleta (11.5-14.5) % Plt Count (130-400) K/uL MPV (7.4-10.4) fL Immature Gran % (Auto) % Neut % (Auto) % Lymph % (Auto) % [place] % (Auto) % Eos % (Auto) % Baso % (Auto) % Neut # (Auto) (1.4-6.5) K/uL Lymph # (Auto) (1.2-3.4) K/uL [place] # (Auto) (0.11-0.59) K/uL Eos # (Auto) (0-0.5) K/uL Baso # (Auto) (0-0.2) K/uL Immature Gran # (Auto) (0.00-0.02) K/uL PT (9.0-12.0) Seconds INR (0.9-1.1) APTT (21.0-31.0) Seconds PTT Ratio Sodium (136-145) mmol/L Potassium (3.5-5.1) mmol/L Chloride (98-107) mmol/L Carbon Dioxide (21-32) mmol/L Anion Gap (3-11) BUN (7-18) mg/dl Creatinine (0.6-1.2) mg/dl Est Cr Clr Drug Dosing ml/min Est GFR ( Amer) Est GFR (Non-Af Amer) BUN/Creatinine Ratio (10-20) Glucose (70-99) mg/dl Lactate (0.4-2.0) mmol/L Calcium (8.5-10.1) mg/dl Magnesium (1.8-2.4) mg/dl Total Bilirubin (0.2-1) mg/dl AST (15-37) U/L ALT (12-78) U/L Alkaline Phosphatase (45-117) U/L Total Protein (6.4-8.2) gm/dl Albumin (3.4-5.0) gm/dl Globulin (2.5-4.0) gm/dl Albumin/Globulin Ratio (0.9-2) Procalcitonin (0-0.5) ng/ml Urine Color Urine Appearance (Clear) Urine pH (4.5-7.5) Ur Specific [place] (1.000-1.030) Urine Protein (Negative) Urine Glucose (UA) (Negative) Urine Ketones (Negative) Urine Blood (Negative) Urine Nitrite (Negative) Urine Bilirubin (Negative) Urine Urobilinogen (Negative) Ur Leukocyte Esterase (Negative) Urine WBC (Auto) (0-5) /hpf Urine RBC (Auto) (0-4) /hpf U Hyaline Cast (Auto) (0-5) /lpf U Epithel Cells (Auto) (0-5) /lpf Urine Bacteria (Auto) (Negative) COVID-19 Eval [facility] [place], RNA, NAAT NEGATIVE (NEGATIVE) Administered Medications Discontinued Medications Daptomycin 350 mg/ Syringe 7 mls @ 3.5 mls/min IV NOW STA; Protocol Stop: 05/14/20 16:15 Last Admin: 05/14/20 16:59 Dose: 3.5 mls/min Documented by: [id number] Sodium Chloride (Nss 1000ml) 1,000 mls @ 999 mls/hr IV .Q1H1M CHELA Stop: 05/14/20 17:15 Last Admin: 05/14/20 16:59 Dose: 999 mls/hr Documented by: [id number] Imaging Data Radiologist's Impression: XR chest 1V portable CLINICAL HISTORY: SEPSIS COMPARISON STUDY: 05/24/2019 FINDINGS: The cardiac and mediastinal contours remain stable. A left subclavian A-Port catheter remains unchanged in position. There is no failure. There is no focal pulmonary consolidation. There are no pleural effusions.[ IMPRESSION: No active disease in the chest. Discharge Plan Visit Data Chief Complaint: Infection Stated Complaint: INFECTION, FEVER ED Provider: Jordi Lui Discharge Problem: Bacteremia, Immunocompromised, Anemia, Short gut syndrome Patient Disposition: Admitted As Inpatient Condition: Good Forms Stand Alone Forms: My [facility] Prescriptions Prescriptions: No Action loperamide 2 mg capsule 4 mg PO BID Qty: 240 RF: 5 losartan 25 mg tablet 25 mg PO DAILY Qty: 90 RF: 3 venlafaxine 75 mg tablet 75 mg PO BID RF: 0 azathioprine 50 mg tablet 50 mg PO QAM RF: 0 fludrocortisone 0.1 mg tablet 0.1 mg PO QAM RF: 0 potassium chloride 10 mEq tablet,ER particles/crystals 20 meq PO BID RF: 0 Calcium 600 + D(3) 600 mg calcium- 200 unit Capsule 2 tab PO QAM RF: 0 cholecalciferol (vitamin D3) 5,000 unit tablet 5,000 units PO QAM RF: 0 teduglutide 5 mg kit 2.76 mg subcut QAM RF: 0 [facility] 10 billion cell -200 mg Capsule 1 cap PO QAM RF: 0 multivitamin Tablet 1 tab PO DAILY RF: 0 acetaminophen [Tylenol Extra Strength] 500 mg Tablet 1,000 mg PO Q6 PRN (Reason: Fever Or Pain) RF: 0 Humira(CF) Pen 40 mg/0.4 mL pen injector kit 0 mg SUBCUT WK RF: 0 Referrals Referrals: Patricio Malhotra III, MD [Primary Care Provider] - Discharge Problem: Anemia Qualifiers: Anemia type: unspecified type Qualified Code(s): D64.9 - Anemia, unspecified
--- NOTE | 2020-05-14 16:46 | XRay Report ---
XR chest 1V portable CLINICAL HISTORY: SEPSIS COMPARISON STUDY: 05/24/2019 FINDINGS: The cardiac and mediastinal contours remain stable. A left subclavian A-Port catheter remai ns unchanged in position. There is no failure. There is no focal pulmonary consolidation. There are n o pleural effusions.[ IMPRESSION: No active disease in the chest. ACT 112: Negative or not required by law. Electronically signed by: Edwin Broderick M.D. 05/14/2020 4:45 PM
[2020-05-14 17:11] LABS: Basophils # (auto) 0.04 K/uL (0-0.2); Basophils % (auto) 0.5 %; Eosinophils # (auto) 0.21 K/uL (0-0.5); Eosinophils % (auto) 2.5 %; Hemoglobin 9.5 g/dL (12.0-16.0); Immature Granulocytes # (auto) 0.01 K/uL (0.00-0.02); Immature Granulocytes % (auto) 0.1 %; Lymphocytes # (auto) 2.77 K/uL (1.2-3.4); Lymphocytes % (auto) 32.8 %; Mean Corpuscular Hemoglobin 27.2 pg (25-34); Mean Corpuscular Hgb Conc 31.7 g/dL (32-36); Mean Platelet Volume 9.5 fL (7.4-10.4); Monocytes # (auto) 0.57 K/uL (0.11-0.59); Monocytes % (auto) 6.7 %; Neutrophils # (auto) 4.85 K/uL (1.4-6.5); Neutrophils % (auto) 57.4 %; Platelet Count 318 K/uL (130-400); RDW Coefficient of Variation 14.8 % (11.5-14.5); RDW Standard Deviation 46.3 fL (36.4-46.3); Red Blood Count 3.49 M/uL (4.2-5.4); White Blood Count 8.45 K/uL (4.8-10.8)
[2020-05-14 17:17] LABS: Appearance Urine Cloudy (Clear); Bacteria Urine Automated Negative (Negative); Bilirubin Urine Negative (Negative); Blood Urine Negative (Negative); Cast Urine Automated 0 /lpf (0-5); Color Urine Dark Yellow; Epithelial Cell Urine Auto 0-5 /lpf (0-5); Glucose Urine UA Negative (Negative); Ketones Urine Negative (Negative); Leukocyte Esterase Urine Negative (Negative); Nitrite Urine Negative (Negative); Protein Urine Negative (Negative); RBC Urine Automated 0-4 /hpf (0-4); Urobilinogen Urine Negative (Negative); WBC Urine Automated 0 /hpf (0-5)
[2020-05-14 17:28] LABS: Partial Thromboplastin Ratio 0.9; Partial Thromboplastin Time 25.6 Seconds (21.0-31.0); Prothrombin Time 10.2 Seconds (9.0-12.0)
[2020-05-14 17:31] LABS: Albumin Level 2.7 gm/dl (3.4-5.0); BUN Creatinine Ratio 25.4 (10-20); Calcium 9.2 mg/dl (8.5-10.1); Creatinine Clr Calc Pharmacy 86.4 ml/min; Est GFR (Non-African American) 102.7; Magnesium 1.9 mg/dl (1.8-2.4); Potassium 3.7 mmol/L (3.5-5.1)
[2020-05-14 17:33] LABS: Albumin Globulin Ratio 0.5 (0.9-2); Bilirubin,Total 0.1 mg/dl (0.2-1); Globulin 5.5 gm/dl (2.5-4.0); Total Protein 8.2 gm/dl (6.4-8.2)
--- NOTE | 2020-05-14 18:05 | History & Physical Report ---
Date of Service May 14, 2020 Assessment & Plan (1) Infected venous access port: 49-year-old female with past medical history Crohn's disease, short bowel syndrome with procedure in 2016 who gets TPN 3 times per week, anxiety, depression, hypertension presents with concerns of L chest wall port infection. L Chest Wall Port Infection Blood cultures 2 of 2 done May 13, 2020 gram-positive cocci clusters preliminary. The Staph Aureus and MRSA PCR's were negative on serology Repeat blood cultures from admission pending IV daptomycin Appreciate vascular surgery consult for placement of new line We will order echo, pending Mouth sores Nystatin swish and swallow 5 mL p.o. 4 times daily Crohn's disease Continue Humira as directed, azathioprine 50 mg daily Short-bowel syndrome Continue teduglutide 2.76 mg SQ daily, calcium/cholecalciferol/potassium chloride/multivitamin/Culturelle/loperamide tabs as directed Patient gets TPN 3 times nightly per week Monday IVF NSS@80 mls/hr Hypertension Continue losartan 25 mg daily Anxiety/depression Continue venlafaxine 75 mg twice daily, FEN/GI: NSS at 80. Regular diet DVT prophylaxis: Lovenox SQ CODE STATUS: Full code Dispo: Med Surg History of Present Illness Chief Complaint: line infection Primary Care Provider: Patricio Malhotra MD 49-year-old female with past medical history Crohn's disease, short bowel syndrome with procedure in 2016 who gets TPN 3 times per week, anxiety, depression presents with concerns of line infection. Patient follows with gastroenterology Dr. Brown. Patient notes that she has had symptoms intermittently for about the past month or so of low grade fevers (high 99F), fatigue, mouth sores (for which Dr. Brown performed EGD to see possible extension of Crohn's, which was negative). Patient notes that she had a line infection in her right arm PICC line about 2 years ago and has had a left chest wall port since December 2017. Blood cultures 2 of 2 done yesterday May 13, 2020 gram-positive cocci clusters preliminary. The Staph Aureus and MRSA PCR's were negative on serology. Patient otherwise denies any chills, sweats, nausea, vomiting, diarrhea, urinary symptoms, urinary symptoms, chest pain, shortness of breath, known sick contacts or recent travel anywhere. Notes some decreased appetite. Patient with no other acute congestive complaints. Pertinent labs: Hemoglobin 9.5, alk phos 183, albumin 2.7. Lactate and pro-Rush WNL. CBC CMP otherwise largely unremarkable. Chest x-ray: No active disease in the chest. UA unremarkable ER course: IV daptomycin, NSS 1 L Allergies Allergy/AdvReac Type Severity Reaction Status Date / Time Iodinated Contrast Media Allergy Intermediate Hives Verified 05/14/20 17:30 grass pollen-perennial rye, Allergy Unknown Unknown rxn Verified 05/14/20 17:30 standar mold Allergy Unknown Unknown rxn Verified 05/14/20 17:30 vancomycin Allergy Unknown HIVES Verified 05/14/20 17:30 Dust Allergy Unknown Unknown rxn Uncoded 05/14/20 17:30 Home Medications Medication Instructions Recorded Confirmed Type Calcium 600 + D(3) 2 tab PO QAM 05/23/18 05/14/20 History [facility] 1 cap PO QAM 05/23/18 05/14/20 History azathioprine 50 mg PO QAM 05/23/18 05/14/20 History cholecalciferol (vitamin D3) 5,000 units PO QAM 05/23/18 05/14/20 History fludrocortisone 0.1 mg PO QAM 05/23/18 05/14/20 History potassium chloride 20 meq PO BID 05/23/18 05/14/20 History teduglutide 2.76 mg SUBCUT QAM 05/23/18 05/14/20 History venlafaxine 75 mg PO BID 05/23/18 05/14/20 History loperamide 2 mg capsule 4 mg PO BID #240 cap 07/22/19 05/14/20 Rx losartan 25 mg tablet 25 mg PO DAILY #90 tab 08/28/19 05/14/20 Rx acetaminophen [Tylenol Extra 1,000 mg PO Q6 PRN 05/14/20 05/14/20 History Strength] adalimumab [Humira(CF) Pen] 0 mg SUBCUT WK 05/14/20 05/14/20 History multivitamin 1 tab PO DAILY 05/14/20 05/14/20 History Past Med/Surg History Medical History Anxiety Crohns disease Depression On total parenteral nutrition 3 nights per week Short bowel syndrome Surgical History History of esophagogastroduodenoscopy (EGD) History of intestinal surgery 1988 - removed rectum, anus and large intestine and 14 inches small intestine and ileostomy 2016 removed small bowel (left 4 ft of bowel) History of vascular access device left side of chest Hx laparoscopic cholecystectomy Hx of colonoscopy Family History (Updated 01/06/20 @ 13:03 by Tanisha Hollis) Grandfather (Paternal) Colorectal cancer, Onset Age: 80 Mother History of thyroid disorder Giron syndrome Grandfather (Maternal) Leukemia Father Hx of CABG Other No pertinent family history Denies family history of Ovarian cancer Breast cancer Social History Smoking Status: Never smoker Second Hand Exposure: No; Do You Dip or Chew Tobacco: No; Hx Alcohol Use: No Hx Substance Use: No Preferred Language: Turkmen Communication Ability: Effective Awning Maker Required: No Beliefs That Will Affect Care: None Current Living Situation: Spouse Other Information That Helps Us Care for You: No Feels Safe at Home: Yes Assistive Devices: None Review of Systems Review of Systems: All systems reviewed & are unremarkable except as noted in HPI & below Physical Exam Constitutional: WD/WN, vitals as above Eyes: PERRL, conjunctivae normal, anicteric sclerae ENMT: Mouth: + oral mucosal abnormality (Mouth sores) Respiratory: normal respiratory effort, lungs clear to auscultation Cardiovascular: RRR, no murmur, no edema Chest (Breasts): Additional Comments: Left chest port without any surrounding erythema, no TTP Gastrointestinal (Abdomen): normal bowel sounds, soft, nontender, no hepatosplenomegaly Skin: no rashes, warm and dry Psychiatric: A+Ox3, euthymic affect Results & Data Results & Data ([facility]) Vital Signs (Past 12 Hours) Vital Signs Temp Pulse Resp BP Pulse Ox 05/14/20 17:40 89 05/14/20 17:31 85 24 05/14/20 17:30 87 17 115/72 05/14/20 17:20 78 14 05/14/20 17:10 83 21 05/14/20 17:01 84 21 100 05/14/20 17:00 85 16 138/81 05/14/20 16:50 82 18 05/14/20 16:48 88 22 124/84 05/14/20 16:40 91 H 21 05/14/20 16:38 89 18 05/14/20 15:40 36.4 C L 95 H 18 127/79 100 Laboratory Results Laboratory Results - last 24 hr 05/14/20 05/14/20 05/14/20 16:54 16:54 16:54 WBC 8.45 RBC 3.49 L Hgb 9.5 L Hct 30.0 L MCV 86.0 MCH 27.2 MCHC 31.7 L RDW Std Deviation 46.3 RDW Coeff of Aleta 14.8 H Plt Count 318 MPV 9.5 Immature Gran % (Auto) 0.1 Neut % (Auto) 57.4 Lymph % (Auto) 32.8 Cecil % (Auto) 6.7 Eos % (Auto) 2.5 Baso % (Auto) 0.5 Neut # (Auto) 4.85 Lymph # (Auto) 2.77 Cecil # (Auto) 0.57 Eos # (Auto) 0.21 Baso # (Auto) 0.04 Immature Gran # (Auto) 0.01 PT 10.2 INR 1.0 APTT 25.6 PTT Ratio 0.9 Sodium 135 L Potassium 3.7 Chloride 100 Carbon Dioxide 32 Anion Gap 3.0 BUN 17 Creatinine 0.68 Est Cr Clr Drug Dosing 86.4 Est GFR ( Amer) 119.0 Est GFR (Non-Af Amer) 102.7 BUN/Creatinine Ratio 25.4 H Glucose 76 Lactate Calcium 9.2 Magnesium 1.9 Total Bilirubin 0.1 L AST 30 ALT 35 Alkaline Phosphatase 183 H Total Protein 8.2 Albumin 2.7 L Globulin 5.5 H Albumin/Globulin Ratio 0.5 L Procalcitonin Urine Color Urine Appearance Urine pH Ur Specific [place] Urine Protein Urine Glucose (UA) Urine Ketones Urine Blood Urine Nitrite Urine Bilirubin Urine Urobilinogen Ur Leukocyte Esterase Urine WBC (Auto) Urine RBC (Auto) U Hyaline Cast (Auto) U Epithel Cells (Auto) Urine Bacteria (Auto) COVID-19 Eval Order SARS-CoV-2, RNA, NAAT 05/14/20 05/14/20 05/14/20 16:54 16:54 16:54 WBC RBC Hgb Hct MCV MCH MCHC RDW Std Deviation RDW Coeff of Aleta Plt Count MPV Immature Gran % (Auto) Neut % (Auto) Lymph % (Auto) Cecil % (Auto) Eos % (Auto) Baso % (Auto) Neut # (Auto) Lymph # (Auto) Cecil # (Auto) Eos # (Auto) Baso # (Auto) Immature Gran # (Auto) PT INR APTT PTT Ratio Sodium Potassium Chloride Carbon Dioxide Anion Gap BUN Creatinine Est Cr Clr Drug Dosing Est GFR ( Amer) Est GFR (Non-Af Amer) BUN/Creatinine Ratio Glucose Lactate 0.9 Calcium Magnesium Total Bilirubin AST ALT Alkaline Phosphatase Total Protein Albumin Globulin Albumin/Globulin Ratio Procalcitonin 0.07 Urine Color Dark Yellow Urine Appearance Cloudy A Urine pH 5.0 Ur Specific [place] 1.020 Urine Protein Negative Urine Glucose (UA) Negative Urine Ketones Negative Urine Blood Negative Urine Nitrite Negative Urine Bilirubin Negative Urine Urobilinogen Negative Ur Leukocyte Esterase Negative Urine WBC (Auto) 0 Urine RBC (Auto) 0-4 U Hyaline Cast (Auto) 0 U Epithel Cells (Auto) 0-5 Urine Bacteria (Auto) Negative COVID-19 Eval Order SARS-CoV-2, RNA, NAAT 05/14/20 05/14/20 16:54 16:54 WBC RBC Hgb Hct MCV MCH MCHC RDW Std Deviation RDW Coeff of Aleta Plt Count MPV Immature Gran % (Auto) Neut % (Auto) Lymph % (Auto) Cecil % (Auto) Eos % (Auto) Baso % (Auto) Neut # (Auto) Lymph # (Auto) Cecil # (Auto) Eos # (Auto) Baso # (Auto) Immature Gran # (Auto) PT INR APTT PTT Ratio Sodium Potassium Chloride Carbon Dioxide Anion Gap BUN Creatinine Est Cr Clr Drug Dosing Est GFR ( Amer) Est GFR (Non-Af Amer) BUN/Creatinine Ratio Glucose Lactate Calcium Magnesium Total Bilirubin AST ALT Alkaline Phosphatase Total Protein Albumin Globulin Albumin/Globulin Ratio Procalcitonin Urine Color Urine Appearance Urine pH Ur Specific [place] Urine Protein Urine Glucose (UA) Urine Ketones Urine Blood Urine Nitrite Urine Bilirubin Urine Urobilinogen Ur Leukocyte Esterase Urine WBC (Auto) Urine RBC (Auto) U Hyaline Cast (Auto) U Epithel Cells (Auto) Urine Bacteria (Auto) COVID-19 Eval [facility] SARS-CoV-2, RNA, NAAT NEGATIVE Code Status & VTE Plan Code Status FULL Supervising Physician Co-Signing Physician Notes Patient seen and examined, chart reviewed, case discussed with and I agree with his assessment and plan as documented above. Briefly, patient is a 49yo female with history of Crohns colitis, short gut syndrome receiving TPN three times weekly. Patient with intermittent fevers ongoing for the last month. Blood cultures drawn yesterday from the port +2/2 for staph aureus. On exam patient is afebrile, HD stable, nontoxic in appearance Port in left chest wall without erythema, nontender No murmur Lungs CTA Abd - +BS, soft, NT/ND Ext - No edema Labs and images reviewed. [id number] Covid-19 Rapid antigen testing NEGATIVE Assessment/Plan - 49yo C female with history of Crohns, short gut syndrome on TPA presenting with bacteremia -Follow cultures until clear -Continue Daptomycin for now, sensitivities/specificities pending - adjust antibiotics accordingly -Vascular surgery consultation appreciated - ?port removal and temporary access placement -Check 2D echo -Remainder of plan as above Resident Activity Tracking Resident Involvement: Resident Care Provided Care Provided: Adult [facility]
[2020-05-14] MEDS ORDERED: ONDANSETRON INJ 2 MG/ML 2 ML VIAL IV PRN (21:33)
[2020-05-14] MEDS ORDERED: ALUMINUM/MAGNESIUM SUSP 30 ML UDC PO PRN (21:33)
--- NOTE | 2020-05-14 21:46 | Billing Data ---
Date of Service May 14, 2020 Coding Level of Care Code 22527 Initial Inpt Care Lvl 3
[2020-05-14] MEDS: SODIUM CHLORIDE 0.9% 1000ML 1,000 ML IV SCH (21:55)
[2020-05-14] MEDS: NYSTATIN SUSP 500,000 U/5 ML UDC PO SCH (22:34)
[2020-05-14] MEDS: LOPERAMIDE HCL 2 MG CAP PO SCH (22:34)
[2020-05-14] MEDS: POTASSIUM CHLORIDE CRTAB 20 MEQ TABCR PO SCH (22:34)
[2020-05-14] MEDS: VENLAFAXINE HCL 37.5 MG TAB PO SCH (22:34)
[2020-05-15 06:59] LABS: Basophils # (auto) 0.04 K/uL (0-0.2); Basophils % (auto) 0.7 %; Eosinophils # (auto) 0.25 K/uL (0-0.5); Eosinophils % (auto) 4.2 %; Hematocrit (blood only) 29.8 % (37-47); Hemoglobin 9.4 g/dL (12.0-16.0); Immature Granulocytes # (auto) 0.01 K/uL (0.00-0.02); Immature Granulocytes % (auto) 0.2 %; Lymphocytes # (auto) 2.48 K/uL (1.2-3.4); Lymphocytes % (auto) 41.6 %; Mean Corpuscular Hemoglobin 27.3 pg (25-34); Mean Corpuscular Hgb Conc 31.5 g/dL (32-36); Mean Corpuscular Volume 86.6 fL (80-100); Mean Platelet Volume 9.6 fL (7.4-10.4); Monocytes # (auto) 0.56 K/uL (0.11-0.59); Monocytes % (auto) 9.4 %; Neutrophils # (auto) 2.62 K/uL (1.4-6.5); Neutrophils % (auto) 43.9 %; Platelet Count 299 K/uL (130-400); RDW Coefficient of Variation 14.9 % (11.5-14.5); RDW Standard Deviation 46.8 fL (36.4-46.3); Red Blood Count 3.44 M/uL (4.2-5.4); White Blood Count 5.96 K/uL (4.8-10.8)
[2020-05-15 07:25] LABS: BUN Creatinine Ratio 16.8 (10-20); Calcium 8.3 mg/dl (8.5-10.1); Creatinine Clr Calc Pharmacy 81.6 ml/min; Est GFR (Non-African American) 98.3; Potassium 3.6 mmol/L (3.5-5.1)
--- NOTE | 2020-05-15 07:45 | Electrocardiogram Report ---
Test Reason : Blood Pressure : / mmHG Vent. Rate : 083 BPM Atrial Rate : 083 BPM P-R Int : 152 ms QRS Dur : 072 ms QT Int : 364 ms P-R-T Axes : 071 081 066 degrees QTc Int : 427 ms Normal sinus rhythm Normal ECG When compared with ECG of 23-MAY-2018 13:18, No significant change was found Confirmed by Sandeep Escamilla ([id number]) on 05/15/2020 7:45:09 AM Referred By: Patricio Malhotra Confirmed By:Fuad Escamilla
[2020-05-15] MEDS: CALCIUM 600MG + VIT D 400 IU TAB PO SCH (08:09)
[2020-05-15] MEDS: LOSARTAN POTASSIUM 25 MG TAB PO SCH (08:10)
[2020-05-15] MEDS: VENLAFAXINE HCL 37.5 MG TAB PO SCH ×2 (08:11→20:39)
[2020-05-15] MEDS: FLUDROCORTISONE ACETATE 0.1 MG TAB PO SCH (08:12)
[2020-05-15] MEDS: POTASSIUM CHLORIDE CRTAB 20 MEQ TABCR PO SCH ×2 (08:13→20:39)
[2020-05-15] MEDS: azaTHIOprine 50 MG TAB PO SCH (08:13)
[2020-05-15] MEDS: NYSTATIN SUSP 500,000 U/5 ML UDC PO SCH ×4 (08:14→20:39)
[2020-05-15] MEDS: MULTIVITAMIN TAB PO SCH (08:14)
[2020-05-15] MEDS: CHOLECALCIFEROL 1,000 UNITS 25 MCG TAB PO SCH (08:15)
[2020-05-15] MEDS: ADVANCED PROBIOTIC 1250 MG CAPSULE PO SCH (08:15)
--- NOTE | 2020-05-15 08:15 | XCELERA ---
[id number]
--- NOTE | 2020-05-15 08:47 | Surgery Consultation ---
Date of Consultation May 15, 2020 Assessment & Plan (1) Bacteremia: Await final culture results, consider ID consult prior to considering port removal. She should have temporary access established, preferably PICC line, with permanent line replacement at a later time. History of Present Illness Attending Physician: Shay Cruz MD History of Present Illness 49 y/o female admitted last evening for bacteremia and A-port. Port was placed 2 years ago for TPN for short gut syndrome resulting from resection for Crohn's. She was having some fevers and malaise a few weeks ago, and had regular appt with Dr. Brown on Monday and cultures were ordered. She has been feeling fine over the past few days. Allergies Allergy/AdvReac Type Severity Reaction Status Date / Time Iodinated Contrast Media Allergy Intermediate Hives Verified 05/14/20 17:30 grass pollen-perennial rye, Allergy Unknown Unknown rxn Verified 05/14/20 17:30 standar mold Allergy Unknown Unknown rxn Verified 05/14/20 17:30 vancomycin Allergy Unknown HIVES Verified 05/14/20 17:30 Dust Allergy Unknown Unknown rxn Uncoded 05/14/20 17:30 Home Medications Medication Instructions Recorded Confirmed Type Calcium 600 + D(3) 2 tab PO QAM 05/23/18 05/14/20 History [facility] 1 cap PO QAM 05/23/18 05/14/20 History azathioprine 50 mg PO QAM 05/23/18 05/14/20 History cholecalciferol (vitamin D3) 5,000 units PO QAM 05/23/18 05/14/20 History fludrocortisone 0.1 mg PO QAM 05/23/18 05/14/20 History potassium chloride 20 meq PO BID 05/23/18 05/14/20 History teduglutide 2.76 mg SUBCUT QAM 05/23/18 05/14/20 History venlafaxine 75 mg PO BID 05/23/18 05/14/20 History loperamide 2 mg capsule 4 mg PO BID #240 cap 07/22/19 05/14/20 Rx losartan 25 mg tablet 25 mg PO DAILY #90 tab 08/28/19 05/14/20 Rx acetaminophen [Tylenol Extra 1,000 mg PO Q6 PRN 05/14/20 05/14/20 History Strength] adalimumab [Humira(CF) Pen] 0 mg SUBCUT WK 05/14/20 05/14/20 History multivitamin 1 tab PO DAILY 05/14/20 05/14/20 History Patient History Medical History Anxiety Crohns disease Depression On total parenteral nutrition 3 nights per week Short bowel syndrome Surgical History History of esophagogastroduodenoscopy (EGD) History of intestinal surgery 1988 - removed rectum, anus and large intestine and 14 inches small intestine and ileostomy 2016 removed small bowel (left 4 ft of bowel) History of vascular access device left side of chest Hx laparoscopic cholecystectomy Hx of colonoscopy Family History Grandfather (Paternal) Colorectal cancer, Onset Age: 80 Mother History of thyroid disorder Giron syndrome Grandfather (Maternal) Leukemia Father Hx of CABG Other No pertinent family history Denies family history of Ovarian cancer Breast cancer Social History Smoking Status: Never smoker Second Hand Exposure: No; Do You Dip or Chew Tobacco: No; Hx Alcohol Use: No Hx Substance Use: No Preferred Language: Nauruan Communication Ability: Effective Pot Lining Supervisor Required: No Beliefs That Will Affect Care: None Current Living Situation: Spouse Other Information That Helps Us Care for You: No Feels Safe at Home: Yes Assistive Devices: None Review of Systems Constitutional: + fever (a few weeks ago) and + fatigue Physical Exam Constitutional: WD/WN, vitals as above Chest (Breasts): Chest: normal inspection of chest and + vascular access device or port (accessed, skin normal) Results & Data ([facility]) Vital Signs (Past 12 Hours) Vital Signs Temp Pulse Resp BP Pulse Ox 05/15/20 07:51 36.7 C 76 16 112/77 100 05/14/20 21:30 37.1 C 83 18 134/81 98 PG Care Time/CCT Total # of Minutes Spent Total Time Spent with Patient: Total time spent is greater than 50% in coordination of care (as documented) at patient's floor/unit and/or counseling patient: Coding Level of Care Code 09174 Office/OBS Consult Lvl 2 Diagnoses Bacteremia R78.81
[2020-05-15] MEDS ORDERED: ENOXAPARIN INJ 40 MG/0.4 ML SYR SQ SCH (09:00)
[2020-05-15] MEDS: SODIUM CHLORIDE 0.9% 1000ML 1,000 ML IV SCH ×2 (09:25→23:20)
--- NOTE | 2020-05-15 09:41 | Hospitalist Progress Note ---
Date of Service May 15, 2020 Assessment & Plan (1) Infected venous access port: 49-year-old female with past medical history Crohn's disease, short bowel syndrome with procedure in 2016 who gets TPN 3 times per week, anxiety, depression, hypertension presents with concerns of L chest wall port infection. Left Chest Wall Port Infection - To note, patient with hx of PICC line in right arm that became infected about 2 years ago --> subsequent placement of the current left chest wall port in L cephalic vein in early December 2017 - Blood cultures / obtained 05/13/20 growing coag neg staph, not lugdunensis - Repeat blood cultures 05/14/20 with gram positive cocci clusters on preliminary results - Plan to follow cultures until clear - IV daptomycin started in ED --> will continue with IV daptomycin pending speciation and sensitivities; plan to adjust accordingly - General surgery consulted, appreciate their recommendations - Per GI 05/15/20: "likely she will need to have her port removed and we are discussing the possibility of a August catheter which may be more beneficial long-term. I do not place these however we will check into the situation with the possibility of it being done here or [place]. Normally she would require 5 to 7 days of antibiotics with the port removed prior to placing any new access." - TTE 05/15/20: there is no evidence of a mass or vegetation. This does not rule out endocarditis. Left ventricular systolic function is normal. Right ventricular systolic pressure is normal. No significant valvular heart disease. EF 60-65%. - CBC qAM Mouth sores - Per patient, at appointment on 05/13/20, Dr. Brown ordered an inhaled corticosteroid that patient is to inhale into her mouth but not inhale into the lungs to help control the mouth lesions Crohn's disease - Continue Humira as directed, azathioprine 50 mg daily Short-bowel syndrome - Continue teduglutide 2.76 mg SQ daily, calcium/cholecalciferol/potassium chloride/multivitamin/Culturelle/loperamide tabs as directed - Patient gets TPN 3x per week () - Will plan to hold TPN at this time given the bacteremia; encouraged patient to eat PO as able - Pt agreeable to consult with nutrition to determine best options for po intake given short-bowel syndrome and current hold of TPN - IVF 80cc/hr - May consider PICC if needed for TPN pending plan for port salvage vs removal - BMP qAM Hypertension - Continue losartan 25 mg daily Anxiety/depression - Continue venlafaxine 75 mg twice daily FEN/GI: NSS at 80. Regular diet; nutrition consult DVT prophylaxis: Lovenox SQ CODE STATUS: Full code Dispo: Med Surg Admission and Anticipated Discharge Date Admission Date: May 14, 2020 Supervising Physician Co-Signing Physician Notes Attending attestation Pt seen and examined in concert with Dr. Alaniz. In agreement with the documented findings as noted in the resident documentation with any exceptions or additions as noted here. 49 y/o female h/o Crohn's dz w/ short bowel and ileostomy on TPN w/ bacteremia Sitting in bed without acute complaint. On examination, S1/S2 nl RRR no MCG. CTAB. Abd NT/ND BS+ve. Mild port wall erythema L chest wall port infection - surgical consultation appreciated - direction re: port management will determine further access, TPN due next on Monday. Continue daptomycin, f/u BCx Oral ulcerations - likely 2/2 Crohn's considering course. Symptomatic management and ICS per GI recs Else see resident documentation as noted. Subjective Cathi Phillips is a 49 yo female with PMHx of Crohn's disease, short bowel syndrome with procedure in 2015 who gets TPN 3x/week (TPN administered through port in left lateral chest wall; port originally placed in December 2017), anxiety, depression, hypertension, who was admitted to the hospital with bacteremia secondary to left chest wall port infection. Patient states that for the past month, she has had multiple vague intermittent symptoms including fatigue. The fatigue has been worsening. On April 08, patient noted that she was febrile with Tmax of 101.2; the fever resolved that day. She also had a day of nausea w/ one episode of vomiting around the time of the fever. Patient has been overall doing fair and just monitoring her symptoms. She typically gets TPN on and states that M/W/F are her "good days;" however, over the past 1-2 weeks she has noted that even M/W/F have not been very good days due to fatigue and overall malaise. Patient had a regularly scheduled f/u appointment with her GI physician, Dr. Brown, 2 days ago (12/2) and at that time she brought these concerns/symptoms to his attention. Patient states that she had blood cultures ordered by him that day and was then notified that 2/2 of the blood cultures were positive for gram-positive cocci clusters on preliminary testing. She was then sent to the hospital for admission for further evaluation and treatment. While in the ED, patient was started on IV daptomycin. She was seen and evaluated at bedside this morning. Patient states that she overall feels fair. She does report some persistent fatigue. She also complains of mouth sores; patient does note that these lesions have been evaluated by Dr. Brown and "she was prescribed an inhaled corticosteroid that she should not completely inhale but just keep in her mouth." She denies current fever, chills, CP, SOB, abdominal pain, nausea, vomiting, leg pain, leg weakness, numbness, or tingling. Review of Systems Constitutional: + fatigue; no fever, no chills and no weakness Ear, Nose, Mouth, Throat: + mouth lesions Respiratory: no cough and no dyspnea Cardiovascular: no chest pain Gastrointestinal: no abdominal pain, no nausea and no vomiting Integumentary: no rash, no erythema and no skin swelling Neurologic: no dizziness, no headache(s) and no confusion Physical Exam Physical Exam: GENERAL: No acute distress. Well developed and well nourished. Vital signs reviewed. EYES: EOMI. Anicteric sclerae. HENT: Moist mucous membranes. There are 2 distinct mouth ulcerated, non- bleeding, lesions noted - 1 on the inner bottom lip and 1 on the left inner buccal mucosa. RESPIRATORY: Clear to auscultation bilaterally. No wheezing, rales, or rhonchi. CARDIOVASCULAR: Regular rate and rhythm. No murmurs. CHEST WALL: Port in place in left lateral upper chest wall. There is no surrounding erythema, swelling, rash, or irritation noted. ABDOMEN: Soft and non-tender. There is an ileostomy bag in place in the RLQ with normal stool output per patient. Normal bowel sounds. EXTREMITIES: No edema. Non-tender. SKIN: Warm, dry. No rashes or lesions. NEUROLOGIC: A/O x4. No focal neurological deficits. PSYCHIATRIC: Cooperative. Appropriate mood and affect. Results & Data Results & Data ([facility]) Vital Signs (Past 12 Hours) Vital Signs Temp Pulse Resp BP Pulse Ox 05/15/20 07:51 36.7 C 76 16 112/77 100 Resident Activity Tracking Resident Involvement: Resident Care Provided Care Provided: Adult Hospital Medicine
[2020-05-15] MEDS: LOPERAMIDE HCL 2 MG CAP PO SCH ×2 (11:05→20:39)
[2020-05-15] MEDS ORDERED: TEDUGLUTIDE 5 MG SQ SCH ×4 (13:00)
[2020-05-15] MEDS: TEDUGLUTIDE 5 MG SQ SCH (14:34)
[2020-05-15] MEDS: DAPTOmycin 325 MG in SYRINGE 0 ML IV SCH (16:12)
[2020-05-15] MEDS ORDERED: TPN/PPN CONSULT PHARMACY STA (18:39)
[2020-05-16] MEDS: TEDUGLUTIDE 5 MG SQ SCH (16:00)
[2020-05-16] MEDS: DAPTOmycin 325 MG in SYRINGE 0 ML IV SCH (17:00)
[2020-05-16] MEDS: NYSTATIN SUSP 500,000 U/5 ML UDC PO SCH ×4 (17:12→21:35)
--- NOTE | 2020-05-16 17:19 | Hospitalist Progress Note ---
Date of Service May 16, 2020 Assessment & Plan (1) Infected venous access port: 49 y/o F w/ hx of short bowel syndrome s/p resection (2016) 2/2 Crohn disease (home TPN 3x/wk, currently held), anxiety, depression, hypertension who presents with coag neg staph likely from L chest wall A port infection. left chest wall venous access port infection - hx of R PICC line infection ~2 years ago --> placement of the current left chest wall port in L cephalic vein in early December 2017 - Blood cultures outpatient 05/13/20 growing coag neg staph, not staph lugdunensis - Repeat blood cultures 05/14/20 also growing coag neg staph. sensitivities result: resistant to erythromycin, otherwise sensitive to other antibiotics - IV daptomycin started in ED --> will continue with IV daptomycin pending speciation and sensitivities; plan to adjust accordingly - General surgery consulted, appreciate their recommendations - "likely she will need to have her port removed and we are discussing thepossibility of a August catheter which may be more beneficial long-term. I do not place these however we will check into the situation with the possibility of it being done here or [place]. Normally she would require 5 to 7 days of antibiotics with the port removed prior to placing any new access." - TTE 05/15/20: there is no evidence of a mass or vegetation. This does not rule out endocarditis. Left ventricular systolic function is normal. Right ventricular systolic pressure is normal. No significant valvular heart disease. EF 60-65%. - 05/16/20. ID consult placed. will obtain a set of BC both at peripheral and at port site to check for colonization of the port since patient has been on IV abx now. ID consult will likely be on 05/18/20. Discussed plan w/ gen surg. - sensitivities as per above. will consider narrowing from IV dapto Crohn disease, on immunosuppression - continue home azathioprine. outpatient schedule [facility] short-bowel syndrome - continue teduglutide 2.76 mg SQ daily and multivitamins - had been on //Mon TPN, held at this time given the bacteremia hypertension - continue losartan 25 mg PO daily anemia - Hb 10.2 today, 9.4 yesterday. stable. daily cbc anxiety/depression - continue home venlafaxine 75 mg BID mouth sores - continue analgesic mouth spray FEN/GI: NSS at 80. Regular diet; nutrition consult DVT prophylaxis: Lovenox SQ CODE STATUS: Full code Dispo: Med Surg (2) Short gut syndrome: (3) Sore mouth: (4) Bacteremia: (5) Hypertension: (6) Crohns disease: (7) Anxiety: (8) Depression: (9) Immunocompromised: Admission and Anticipated Discharge Date Admission Date: May 14, 2020 Supervising Physician Co-Signing Physician Notes Attending attestation Pt seen and examined in concert with Dr. Weller. In agreement with the documented findings as noted in the resident documentation with any exceptions or additions as noted here. 49 y/o female h/o Crohn's dz w/ short bowel and ileostomy on TPN w/ bacteremia Sitting in bed without acute complaint. On examination, S1/S2 nl RRR no MCG. CTAB. Abd NT/ND BS+ve. Mild port wall erythema improving L chest wall port infection - surgical consultation appreciated - ID consultation for support. Follow up final C/S today and narrow abx per ID direction. TPN due next on Monday. Continue daptomycin. Oral ulcerations - likely 2/2 Crohn's considering course. Symptomatic management and ICS per GI recs Else see resident documentation as noted. Subjective Fatigue is improved today. No new complaints. States that ostomy output feels slightly increased, w/ somewhat-liquid consistency output. No fever/chills, headache, numbness, or tingling. Tolerating PO intake. Review of Systems Review of Systems: Constitutional: Denies fever, chills Cardiovascular: Denies chest pain Respiratory: Denies shortness of breath, difficulty breathing Gastrointestinal: Denies abdominal pain, nausea, vomiting, constipation, diarrhea, bloody stool. Genitourinary: Denies urinary symptoms, dysuria, hematuria Musculoskeletal: Denies weakness, muscle aches/pain Neurological: Denies headache, numbness, tingling Physical Exam Physical Exam: General: Alert and oriented, No acute distress. HEENT: Normocephalic, normal gross hearing, moist oral mucosa. Cardiovascular: Normal rate, Regular rhythm, No murmurs, rubs, or gallops. Respiratory: Clear to auscultation bilaterally. Breath sounds are equal. No respiratory distress. Gastrointestinal: Soft, Non-tender, Non-distended. Ileostomy in right abdomen. No erythema or leakage. Integumentary: Very mild erythema at L chest wall port site, slightly improved from prior day's exam. Results & Data Results & Data ([facility]) Vital Signs (Past 12 Hours) 36.7C. 64 pulse. 16 respiratory rate. 110/72. Laboratory Results CBC: Hb 10.2. no leukocytosis. BMP: normal electrolytes. normal kidney function Resident Activity Tracking Resident Involvement: Resident Care Provided Care Provided: Adult Hospital Medicine
[2020-05-16 17:35] LABS: BUN Creatinine Ratio 16.8 (10-20); Calcium 8.8 mg/dl (8.5-10.1); Creatinine Clr Calc Pharmacy 74.4 ml/min; Est GFR (African American) 101.9; Est GFR (Non-African American) 87.9; Potassium 3.8 mmol/L (3.5-5.1)
[2020-05-16 18:11] LABS: Basophils # (auto) 0.04 K/uL (0-0.2); Basophils % (auto) 0.5 %; Eosinophils # (auto) 0.31 K/uL (0-0.5); Eosinophils % (auto) 4.1 %; Hemoglobin 10.2 g/dL (12.0-16.0); Immature Granulocytes # (auto) 0.01 K/uL (0.00-0.02); Immature Granulocytes % (auto) 0.1 %; Lymphocytes # (auto) 3.26 K/uL (1.2-3.4); Lymphocytes % (auto) 42.7 %; Mean Corpuscular Hemoglobin 27.3 pg (25-34); Mean Corpuscular Hgb Conc 31.9 g/dL (32-36); Mean Corpuscular Volume 85.8 fL (80-100); Mean Platelet Volume 9.4 fL (7.4-10.4); Monocytes # (auto) 0.69 K/uL (0.11-0.59); Neutrophils # (auto) 3.33 K/uL (1.4-6.5); Neutrophils % (auto) 43.6 %; Platelet Count 342 K/uL (130-400); RDW Coefficient of Variation 14.9 % (11.5-14.5); RDW Standard Deviation 46.5 fL (36.4-46.3); Red Blood Count 3.73 M/uL (4.2-5.4); White Blood Count 7.64 K/uL (4.8-10.8)
[2020-05-16] MEDS: HEPARIN 100 UNIT/ML 5ML FLUSH FLUSH PRN (19:11)
[2020-05-16] MEDS: POTASSIUM CHLORIDE CRTAB 20 MEQ TABCR PO SCH ×2 (21:15→21:33)
[2020-05-16] MEDS: CALCIUM 600MG + VIT D 400 IU TAB PO SCH (21:15)
[2020-05-16] MEDS: VENLAFAXINE HCL 37.5 MG TAB PO SCH ×2 (21:16→21:30)
[2020-05-16] MEDS: LOPERAMIDE HCL 2 MG CAP PO SCH ×2 (21:21→21:32)
[2020-05-16] MEDS: LOSARTAN POTASSIUM 25 MG TAB PO SCH (21:26)
[2020-05-16] MEDS: FLUDROCORTISONE ACETATE 0.1 MG TAB PO SCH (21:30)
[2020-05-16] MEDS: azaTHIOprine 50 MG TAB PO SCH (21:32)
[2020-05-16] MEDS: MULTIVITAMIN TAB PO SCH (21:33)
[2020-05-16] MEDS: ADVANCED PROBIOTIC 1250 MG CAPSULE PO SCH (21:35)
[2020-05-16] MEDS: SODIUM CHLORIDE 0.9% 1000ML 1,000 ML IV SCH ×2 (21:36→23:07)
[2020-05-16] MEDS: CHOLECALCIFEROL 1,000 UNITS 25 MCG TAB PO SCH (21:36)
--- NOTE | 2020-05-17 06:44 | Surgery Progress Note ---
Date of Service May 17, 2020 Assessment & Plan (1) Bacteremia: Patient continues on IV antibiotics Repeat blood cultures have been performedperipherally and via the port If positive we will likely have to remove her port Continue IV antibiotics for now as ordered-prior cultures do not show MRSA but do show coag negative formerly [facility], [facility] Infectious disease consult pending Admission and Anticipated Discharge Date Admission Date: May 14, 2020 Results & Data ([facility]) Vital Signs (Past 12 Hours) Vital Signs Temp Pulse Resp BP Pulse Ox 05/16/20 23:07 37.1 C 79 16 115/76 98 PG Care Time/CCT Total # of Minutes Spent Total Time Spent with Patient: Total time spent is greater than 50% in coordination of care (as documented) at patient's floor/unit and/or counseling patient: Coding Level of Care Code None Diagnoses Bacteremia R78.81
--- NOTE | 2020-05-17 07:24 | Hospitalist Progress Note ---
Date of Service May 17, 2020 Assessment & Plan (1) Infected venous access port: Cathi Phillips is a 49 y/o female with h/o short bowel syndrome (s/p resection in 2015 2/2 Crohn disease - home TPN 3x/wk), anxiety, depression and hypertension who was admitted with bacteremia. Bacteremia - most likely source: left chest wall port - hx of R PICC line infection ~2 years ago --> placement of the current left chest wall port in L cephalic vein in early December 2017 - Blood cultures outpatient 05/13/20 growing coag neg staph - Repeat blood cultures 05/14/20 also growing coag neg staph sensitive to daptomycin - repeat blood cx obtained from peripheral IV site as well as port to assess for port colonization - IV daptomycin started in ED --> will continue with IV daptomycin, pending new cx results - TTE 05/15/20 showed no evidence of mass or vegetation, otherwise normal with EF 60-65% - General surgery consulted, appreciate recs, considering port replacement - ID consulted, will likely assess patient on 05/18 - trend CBC daily, follow cx's as above Short-Bowel Syndrome, Crohn's disease - s/p short bowel resection due to Crohn's disease - continue teduglutide 2.76 mg SQ daily and multivitamins - had been on TPN, held at this time given the bacteremia and possible port colonization - continue home azathioprine. outpatient schedule Humira HTN - continue losartan 25 mg PO daily Chronic Normocytic Anemia - Hgb 10.2 --> 9.9 today, stable - baseline Hgb 10-11 - likely anemia of chronic disease, as she is on chronic TPN and getting necessary vitamins/nutrients from that - no signs of active bleeding - trend CBC daily Anxiety/Depression - continue home venlafaxine 75 mg BID Oral Ulcerations - suspect 2/2 Crohn's disease, continue analgesic mouth spray FEN/GI: NSS at 80. Regular diet; nutrition consult DVT prophylaxis: Lovenox SQ CODE STATUS: Full code Dispo: Med Surg (2) Short gut syndrome: (3) Sore mouth: (4) Bacteremia: (5) Hypertension: (6) Crohns disease: (7) Anxiety: (8) Depression: (9) Immunocompromised: Admission and Anticipated Discharge Date Admission Date: May 14, 2020 Supervising Physician Co-Signing Physician Notes Attending attestation Pt seen and examined in concert with Dr. Allison. In agreement with the documented findings as noted in the resident documentation with any exceptions or additions as noted here. 49 y/o female h/o Crohn's dz w/ short bowel and ileostomy on TPN w/ bacteremia Resting in chair without complaint. On examination, S1/S2 nl RRR no MCG. CTAB. Abd NT/ND BS+ve. Mild port wall erythema resolved L chest wall port infection - surgical consultation - ID consultation pending. Repeated Cx from port and periphery pending. Continue daptomycin. Oral ulcerations - likely 2/2 Crohn's considering course. Symptomatic management and ICS per GI recs Else see resident documentation as noted. Subjective No acute events overnight. Patient reports tolerating full diet overall but is happy she has IVFs to supplement. She is also trying to mix isotonic fluids to drink, using water/Gatorade/salt mixture. Ambulating and voiding without difficulty. Denies fever/chills, chest pain, SOB, pain/redness around port site, N/V, abdominal pain. Review of Systems Review of Systems: Pertinent positives and negatives mentioned in HPI Physical Exam Constitutional: WD/WN, vitals as above sitting comfortably in chair reading a book Respiratory: normal respiratory effort, lungs clear to auscultation Cardiovascular: RRR, no murmur, no edema Chest (Breasts): Additional Comments: left chest port in place without drainage, no surrounding erythema, no TTP Gastrointestinal (Abdomen): normal bowel sounds, soft, nontender, no hepatosplenomegaly Skin: no rashes, warm and dry Psychiatric: A+Ox3, euthymic affect Results & Data Results & Data ([facility]) Vital Signs (Past 12 Hours) Vital Signs Temp Pulse Resp BP Pulse Ox 05/17/20 07:19 36.7 C 76 16 110/67 99 05/16/20 23:07 37.1 C 79 16 115/76 98 Resident Activity Tracking Resident Involvement: Resident Care Provided Care Provided: Adult Hospital Medicine
[2020-05-17 07:38] LABS: Basophils # (auto) 0.04 K/uL (0-0.2); Basophils % (auto) 0.7 %; Eosinophils # (auto) 0.24 K/uL (0-0.5); Hematocrit (blood only) 31.1 % (37-47); Hemoglobin 9.9 g/dL (12.0-16.0); Immature Granulocytes # (auto) 0.01 K/uL (0.00-0.02); Immature Granulocytes % (auto) 0.2 %; Lymphocytes # (auto) 2.15 K/uL (1.2-3.4); Lymphocytes % (auto) 35.7 %; Mean Corpuscular Hemoglobin 27.2 pg (25-34); Mean Corpuscular Hgb Conc 31.8 g/dL (32-36); Mean Corpuscular Volume 85.4 fL (80-100); Mean Platelet Volume 9.1 fL (7.4-10.4); Monocytes # (auto) 0.51 K/uL (0.11-0.59); Monocytes % (auto) 8.5 %; Neutrophils # (auto) 3.07 K/uL (1.4-6.5); Neutrophils % (auto) 50.9 %; Platelet Count 291 K/uL (130-400); RDW Coefficient of Variation 14.7 % (11.5-14.5); Red Blood Count 3.64 M/uL (4.2-5.4); White Blood Count 6.02 K/uL (4.8-10.8)
[2020-05-17 08:19] LABS: BUN Creatinine Ratio 16.3 (10-20); Calcium 8.9 mg/dl (8.5-10.1); Creatinine Clr Calc Pharmacy 81.6 ml/min; Est GFR (Non-African American) 98.3; Potassium 3.9 mmol/L (3.5-5.1)
[2020-05-17] MEDS: CALCIUM 600MG + VIT D 400 IU TAB PO SCH (08:36)
[2020-05-17] MEDS: POTASSIUM CHLORIDE CRTAB 20 MEQ TABCR PO SCH ×2 (08:37→20:59)
[2020-05-17] MEDS: VENLAFAXINE HCL 37.5 MG TAB PO SCH ×2 (08:37→20:59)
[2020-05-17] MEDS: azaTHIOprine 50 MG TAB PO SCH (08:38)
[2020-05-17] MEDS: LOSARTAN POTASSIUM 25 MG TAB PO SCH (08:38)
[2020-05-17] MEDS: ADVANCED PROBIOTIC 1250 MG CAPSULE PO SCH (08:39)
[2020-05-17] MEDS: CHOLECALCIFEROL 1,000 UNITS 25 MCG TAB PO SCH (08:39)
[2020-05-17] MEDS: FLUDROCORTISONE ACETATE 0.1 MG TAB PO SCH (08:40)
[2020-05-17] MEDS: MULTIVITAMIN TAB PO SCH (08:41)
[2020-05-17] MEDS: NYSTATIN SUSP 500,000 U/5 ML UDC PO SCH ×4 (08:42→20:59)
[2020-05-17] MEDS: LOPERAMIDE HCL 2 MG CAP PO SCH ×2 (08:44→21:01)
[2020-05-17] MEDS: SODIUM CHLORIDE 0.9% 1000ML 1,000 ML IV SCH ×2 (10:56→21:05)
[2020-05-17] MEDS: DAPTOmycin 325 MG in SYRINGE 0 ML IV SCH (15:31)
[2020-05-18 06:33] LABS: Basophils # (auto) 0.04 K/uL (0-0.2); Basophils % (auto) 0.6 %; Eosinophils # (auto) 0.33 K/uL (0-0.5); Eosinophils % (auto) 4.7 %; Hematocrit (blood only) 30.8 % (37-47); Hemoglobin 9.3 g/dL (12.0-16.0); Immature Granulocytes # (auto) 0.02 K/uL (0.00-0.02); Immature Granulocytes % (auto) 0.3 %; Mean Corpuscular Hemoglobin 26.1 pg (25-34); Mean Corpuscular Hgb Conc 30.2 g/dL (32-36); Mean Corpuscular Volume 86.3 fL (80-100); Mean Platelet Volume 9.2 fL (7.4-10.4); Monocytes # (auto) 0.52 K/uL (0.11-0.59); Monocytes % (auto) 7.3 %; Neutrophils # (auto) 3.27 K/uL (1.4-6.5); Neutrophils % (auto) 46.1 %; Platelet Count 309 K/uL (130-400); RDW Coefficient of Variation 14.6 % (11.5-14.5); RDW Standard Deviation 45.9 fL (36.4-46.3); Red Blood Count 3.57 M/uL (4.2-5.4); White Blood Count 7.08 K/uL (4.8-10.8)
[2020-05-18 06:57] LABS: BUN Creatinine Ratio 15.1 (10-20); Calcium 8.6 mg/dl (8.5-10.1); Creatinine Clr Calc Pharmacy 77.3 ml/min; Est GFR (African American) 106.8; Est GFR (Non-African American) 92.1; Potassium 3.7 mmol/L (3.5-5.1)
[2020-05-18] MEDS: SODIUM CHLORIDE 0.9% 1000ML 1,000 ML IV SCH ×2 (09:24→15:44)
[2020-05-18] MEDS: TEDUGLUTIDE 5 MG SQ SCH (09:55)
--- NOTE | 2020-05-18 10:26 | Surgery Progress Note ---
Date of Service May 18, 2020 Assessment & Plan (1) Bacteremia: Distant positive blood cultures For ID consult later this morning Tentatively scheduled for port removal later today and will need IV/p.o. antibiotics and reculturing When negative we will asked Dr. Stevenson to proceed with catheter placement I have discussed this with his PA Candis but no official consult is in Admission and Anticipated Discharge Date Admission Date: May 14, 2020 Results & Data ([facility]) Vital Signs (Past 12 Hours) Vital Signs Temp Pulse Resp BP Pulse Ox 05/18/20 07:33 36.6 C 81 16 126/77 99 05/18/20 00:46 37.2 C 85 14 116/74 98 PG Care Time/CCT Total # of Minutes Spent Total Time Spent with Patient: Total time spent is greater than 50% in coordination of care (as documented) at patient's floor/unit and/or counseling patient: Coding Level of Care Code 99422 Inpt Consult Level 3 Diagnoses Bacteremia R78.81
[2020-05-18] MEDS ORDERED: fentaNYL citrate 100 MCG/2 ML VIAL ONE (11:46)
[2020-05-18] MEDS ORDERED: MIDAZOLAM HCL 1 MG/ML 2ML VIAL ONE (11:46)
[2020-05-18] MEDS ORDERED: PROPOFOL IV EMULSION 10 MG/ML 20 ML VIAL IV ONE (11:46)
--- NOTE | 2020-05-18 12:33 | Anesthesiology Consultation ---
Date of Service May 18, 2020 Assessment & Plan Chart Review Chart Review: Acceptable Risk for Surgery and Patient NOT seen in Pre Admission Testing Consults Requested none ASA ASA3 Proposed Anesthesia Anesthesia Type: MAC History Surgery Operation Date: 05/18/20 14:00 Proposed Procedures p Infusaport Removal - Lucius Gary MD, FACS Height/Weight Height: 5 ft 4 in Weight: 58 kg Allergies Allergy/AdvReac Type Severity Reaction Status Date / Time Iodinated Contrast Media Allergy Intermediate Hives Verified 05/14/20 17:30 grass pollen-perennial rye, Allergy Unknown Unknown rxn Verified 05/14/20 17:30 standar mold Allergy Unknown Unknown rxn Verified 05/14/20 17:30 vancomycin Allergy Unknown HIVES Verified 05/14/20 17:30 Dust Allergy Unknown Unknown rxn Uncoded 05/14/20 17:30 Medications Home Medications Medication Instructions Recorded Confirmed Last Taken Calcium 600 + D(3) 2 tab PO QAM 05/23/18 05/14/20 05/14/20 09:00 [facility] 1 cap PO QAM 05/23/18 05/14/20 05/14/20 09:00 azathioprine 50 mg PO QAM 05/23/18 05/14/20 05/24/19 cholecalciferol (vitamin D3) 5,000 units PO QAM 05/23/18 05/14/20 05/14/20 09:00 fludrocortisone 0.1 mg PO QAM 05/23/18 05/14/20 05/14/20 09:00 potassium chloride 20 meq PO BID 05/23/18 05/14/20 05/14/20 09:00 teduglutide 2.76 mg SUBCUT QAM 05/23/18 05/14/20 05/14/20 09:00 venlafaxine 75 mg PO BID 05/23/18 05/14/20 05/14/20 09:00 loperamide 2 mg capsule 4 mg PO BID #240 cap 07/22/19 05/14/20 05/14/20 09:00 losartan 25 mg tablet 25 mg PO DAILY #90 tab 08/28/19 05/14/20 05/14/20 09:00 acetaminophen [Tylenol Extra 1,000 mg PO Q6 PRN 05/14/20 05/14/20 Unknown Strength] adalimumab [Humira(CF) Pen] 0 mg SUBCUT WK 05/14/20 05/14/20 05/11/20 multivitamin 1 tab PO DAILY 05/14/20 05/14/20 Unknown Active Medications Generic Name Dose Route Start Last Admin Trade Name Freq PRN Reason Stop Dose Admin Azathioprine 50 mg 05/15/20 09:00 05/17/20 08:38 Azathioprine 50 Mg Tab PO 06/14/20 08:59 50 mg QAM CHELA Administration Fludrocortisone Acetate 0.1 mg 05/15/20 09:00 05/17/20 08:40 Fludrocortisone Acetate 0.1 Mg Tab PO 06/14/20 08:59 0.1 mg QAM CHELA Administration Heparin Sodium (Porcine) 5 ml 05/15/20 22:56 05/16/20 19:11 Heparin 100 Unit/Ml 5ml Flush FLUSH 06/14/20 22:55 5 ml PRN PRN Administration Flush Daptomycin 325 mg/ Syringe 6.5 mls @ 3.25 mls/min 05/15/20 16:00 05/17/20 15:31 IV 05/29/20 15:59 3.25 mls/min Q24H CHELA Administration Protocol Sodium Chloride 1,000 mls @ 80 mls/hr 05/14/20 21:33 05/18/20 09:24 Nss 1000ml IV 06/13/20 21:32 80 mls/hr .[id number] CHELA Administration Lactobacillus Acidoph/Casei/Rhamnos 2 cap 05/15/20 09:00 05/17/20 08:39 Advanced Probiotic 1250 Mg Capsule PO 06/14/20 08:59 2 cap QAM CHELA Administration Loperamide HCl 4 mg 05/14/20 21:33 05/17/20 21:01 Loperamide Hcl 2 Mg Cap PO 06/13/20 21:32 4 mg BID CHELA Administration Losartan Potassium 25 mg 05/15/20 09:00 05/17/20 08:38 Losartan Potassium 25 Mg Tab PO 06/14/20 08:59 25 mg DAILY CHELA Administration Miscellaneous 1 ea 05/15/20 08:00 05/17/20 22:16 Teduglutide (Do Not Tube): Order Awaiting Action N/A 06/14/20 07:59 Not Given QS CHELA Multivitamins 1 tab 05/15/20 09:00 05/17/20 08:41 Multivitamin Tab PO 06/14/20 08:59 1 tab DAILY CHELA Administration Multivitamins/Minerals 2 tab 05/15/20 09:00 05/17/20 08:36 Calcium 600mg + Vit D 400 Iu Tab PO 06/14/20 08:59 2 tab QAM CHELA Administration Nystatin 5 ml 05/14/20 21:33 05/17/20 20:59 Nystatin Susp 500,000 U/5 Ml Udc PO 06/13/20 21:32 5 ml QID CHELA Administration Potassium Chloride 20 meq 05/14/20 21:33 05/17/20 20:59 Potassium Chloride Crtab 20 Meq Tabcr PO 06/13/20 21:32 20 meq BID CHELA Administration Teduglutide 2.76 mg 05/18/20 10:00 05/18/20 09:55 Teduglutide 5mg Kit SQ 05/19/20 23:59 2.76 mg DAILY CHELA Administration Venlafaxine HCl 75 mg 05/14/20 21:33 05/17/20 20:59 Venlafaxine Hcl 37.5 Mg Tab PO 06/13/20 21:32 75 mg BID CHELA Administration Vitamin D 5,000 units 05/15/20 09:00 05/17/20 08:39 Cholecalciferol 1,000 Units 25 Mcg Tab PO 06/14/20 08:59 5,000 units QAM CHELA Administration NPO Date Last Intake of Fluids: 05/18/20 Time Last Intake of Fluids: 06:00 Date Last Intake of Solids: 05/17/20 Time Last Intake of Solids: 18:00 Past Medical History Medical History Anxiety Crohns disease Depression On total parenteral nutrition 3 nights per week Short bowel syndrome Exercise / Class Metabolic Activity III < 4 Walking/Shop/Light housework Past Family History Family History Grandfather (Paternal) Colorectal cancer, Onset Age: 80 Mother History of thyroid disorder Giron syndrome Grandfather (Maternal) Leukemia Father Hx of CABG Other No pertinent family history Denies family history of Ovarian cancer Breast cancer Past Surgical History Surgical History History of esophagogastroduodenoscopy (EGD) History of intestinal surgery 1988 - removed rectum, anus and large intestine and 14 inches small intestine and ileostomy 2016 removed small bowel (left 4 ft of bowel) History of vascular access device left side of chest Hx laparoscopic cholecystectomy Hx of colonoscopy Past Anesthesia History No Hx of Anesthesia Complications and No Family Hx of Anesthesia Complications History of PONV No Hx of PONV and No Hx of Motion Sickness Social History Smoking Status: Never smoker Do You Dip or Chew Tobacco: No Hx Alcohol Use: No Hx Substance Use: No substance use type: does not use Physical Exam Vital Signs Last Vital Signs Temp 36.6 C 05/18/20 07:33 Pulse 81 05/18/20 07:33 Resp 16 05/18/20 07:33 BP 126/77 05/18/20 07:33 Pulse Ox 99 05/18/20 07:33 Testing Laboratory Results 05/18/20 06:10 05/18/20 06:10 PT 10.2 Seconds (9.0-12.0) 05/14/20 16:54 INR 1.0 (0.9-1.1) 05/14/20 16:54 APTT 25.6 Seconds (21.0-31.0) 05/14/20 16:54 Urine Color Dark Yellow 05/14/20 16:54 Urine Appearance Cloudy (Clear) A 05/14/20 16:54 Urine pH 5.0 (4.5-7.5) 05/14/20 16:54 Ur Specific [place] 1.020 (1.000-1.030) 05/14/20 16:54 Urine Protein Negative (Negative) 05/14/20 16:54 Urine Glucose (UA) Negative (Negative) 05/14/20 16:54 Urine Ketones Negative (Negative) 05/14/20 16:54 Urine Nitrite Negative (Negative) 05/14/20 16:54 Ur Leukocyte Esterase Negative (Negative) 05/14/20 16:54 Urine WBC (Auto) 0 /hpf (0-5) 05/14/20 16:54 Urine RBC (Auto) 0-4 /hpf (0-4) 05/14/20 16:54 U Hyaline Cast (Auto) 0 /lpf (0-5) 05/14/20 16:54 U Epithel Cells (Auto) 0-5 /lpf (0-5) 05/14/20 16:54 Urine Bacteria (Auto) Negative (Negative) 05/14/20 16:54 05/16/20 19:05 Aerobic Blood Culture - Preliminary Blood Coag negative Staphylococcus Anaerobic Blood Culture - Preliminary No growth in Anaerobic bottle after 24 hours. 05/16/20 19:10 Aerobic Blood Culture - Preliminary Blood Coag negative Staphylococcus Anaerobic Blood Culture - Preliminary No growth in Anaerobic bottle after 24 hours. 05/14/20 16:54 Aerobic Blood Culture - Final Blood Coag neg staph not lugdunensis Anaerobic Blood Culture - Final Coag neg staph not lugdunensis 05/14/20 16:47 Aerobic Blood Culture - Final Blood Coag neg staph not lugdunensis Anaerobic Blood Culture - Final Coag neg staph not lugdunensis
[2020-05-18] MEDS ORDERED: ATROPINE SULFATE 0.1 MG/ML 10ML SYR IV PRN (13:28)
[2020-05-18] MEDS ORDERED: ePHEDrine sulfate 50 MG/ML AMP IV PRN (13:28)
[2020-05-18] MEDS ORDERED: LIDOCAINE HCL 1% 20 ML VIAL ONE (14:05)
[2020-05-18] MEDS ORDERED: LIDOCAINE HCL 2% 2 ML VIAL/AMP(20MG/ML) INFIL ONE (14:31)
[2020-05-18] MEDS ORDERED: ONDANSETRON INJ 2 MG/ML 2 ML VIAL ONE (14:31)
--- NOTE | 2020-05-18 14:46 | Post Operative Brief Note ---
PG Immediate Post Op with CF Date of Surgery May 18, 2020 Pre & Post Diagnosis Operation Date: 05/18/20 14:00 Pre-Op Diagnosis: Bacteremia Post-Op Diagnosis: Bacteremia I identified the patient and participated in the time-out.: Yes Procedure Operation Date: 05/18/20 14:00 Actual Procedures p Infusaport Removal(Left) - Lucius Gary MD, FACS Surgeon Lucius Gary MD, FACS Director Of Alumni Relations nurses Estimated Blood Loss 5 Findings Consistent with Post-Op Diagnosis Specimens Specimen Description: Culture 1: Catheter Tip A: Port
--- NOTE | 2020-05-18 15:06 | Anesthesiology Progress Note ---
Date of Service May 18, 2020 Anesthesia Post Procedure Vital Signs Vital Signs: Temp Pulse Pulse Resp BP BP Pulse Ox 05/18/20 15:00 72 15 100/60 100 05/18/20 14:50 36.4 C L 78 10 L 99/54 L 100 05/18/20 12:57 36.9 C 86 18 115/72 100 05/18/20 07:33 36.6 C 81 16 126/77 99 05/18/20 00:46 37.2 C 85 14 116/74 98 05/17/20 15:32 37.6 C H 90 18 104/69 97 Transfer of Care Handoff Completed per policy Notes Mental Status: alert / awake / arousable Patient Amnestic to Procedure: Yes Nausea / Vomiting: adequately controlled Pain: adequately controlled Airway Patency, RR, SpO2: stable & adequate BP & HR: stable & adequate Hydration State: stable & adequate Anesthetic Complications: no major complications apparent
[2020-05-18] MEDS ORDERED: HYDROCODONE/ACETAMOPHEN 5/325MG TAB PO PRN ×2 (15:32)
[2020-05-18] MEDS ORDERED: ONDANSETRON INJ 2 MG/ML 2 ML VIAL IV PRN (15:32)
[2020-05-18] MEDS: DAPTOmycin 325 MG in SYRINGE 0 ML IV SCH (15:43)
[2020-05-18] MEDS: NYSTATIN SUSP 500,000 U/5 ML UDC PO SCH ×4 (15:44→21:22)
[2020-05-18] MEDS: CALCIUM 600MG + VIT D 400 IU TAB PO SCH (16:27)
[2020-05-18] MEDS: LOSARTAN POTASSIUM 25 MG TAB PO SCH (16:27)
[2020-05-18] MEDS: VENLAFAXINE HCL 37.5 MG TAB PO SCH ×2 (16:28→21:22)
[2020-05-18] MEDS: FLUDROCORTISONE ACETATE 0.1 MG TAB PO SCH (16:28)
[2020-05-18] MEDS: POTASSIUM CHLORIDE CRTAB 20 MEQ TABCR PO SCH ×2 (16:29→21:22)
[2020-05-18] MEDS: azaTHIOprine 50 MG TAB PO SCH (16:29)
[2020-05-18] MEDS: MULTIVITAMIN TAB PO SCH (16:30)
[2020-05-18] MEDS: ADVANCED PROBIOTIC 1250 MG CAPSULE PO SCH (16:30)
[2020-05-18] MEDS: CHOLECALCIFEROL 1,000 UNITS 25 MCG TAB PO SCH (16:30)
--- NOTE | 2020-05-18 16:32 | Hospitalist Progress Note ---
Date of Service May 18, 2020 Assessment & Plan (1) Infected venous access port: Cathi Phillips is a 49 y/o female with h/o short bowel syndrome (s/p resection in 2016 2/2 Crohn disease - home TPN 3x/wk), anxiety, depression and hypertension who was admitted with bacteremia. Bacteremia - most likely source: left chest wall port - hx of R PICC line infection ~2 years ago --> placement of the current left chest wall port in L cephalic vein in early December 2017 - Blood cultures outpatient 05/13/20 growing coag neg staph - Repeat blood cultures 05/14/20 also growing coag neg staph sensitive to daptomycin - repeat blood cx obtained from peripheral IV site as well as port to assess for port colonization - IV daptomycin started in ED --> will continue with IV daptomycin, pending new cx results - TTE 05/15/20 showed no evidence of mass or vegetation, otherwise normal with EF 60-65% - General surgery consulted, appreciate recs, considering port replacement - Per surgery recommendatiosn 05/18: tentatively scheduled for port removal later today, IV/PO abx and reculturing, when cultures neg will ask Dr. Stevenson to proceed w/ cath placement - ID consulted 05/18 and recommendations as follows: "- D/C daptomycin, start Cefazolin 2g IV q8h - Central venous catheter removal (completed 05/18 per gen surg) - Repeat blood cx after line removal (tomorrow). Assuming they remain negative, anticipate a 14 day course of therapy. If they continue to be positive, then would sugest JUAN. she may need an even more prolonged course of therapy (hopefully not). - Hold Humira unti abx course compeltion. Probably OK to continue azathioprine given her normal WBC." - trend CBC daily, follow cx's as above Short-Bowel Syndrome, Crohn's disease - s/p short bowel resection due to Crohn's disease - continue teduglutide 2.76 mg SQ daily and multivitamins - had been on //Mon TPN, held at this time given the bacteremia and possible port colonization - continue home azathioprine. outpatient schedule Humira (see recommendations per ID above) HTN - continue losartan 25 mg PO daily Chronic Normocytic Anemia - Hgb 10.2 --> 9.9 today, stable - baseline Hgb 10-11 - likely anemia of chronic disease, as she is on chronic TPN and getting necessary vitamins/nutrients from that - no signs of active bleeding - trend CBC daily Anxiety/Depression - continue home venlafaxine 75 mg BID Oral Ulcerations - suspect 2/2 Crohn's disease, continue analgesic mouth spray FEN/GI: NSS at 80. Regular diet; nutrition consult DVT prophylaxis: Lovenox SQ CODE STATUS: Full code Dispo: Med Surg (2) Short gut syndrome: (3) Sore mouth: (4) Bacteremia: (5) Hypertension: (6) Crohns disease: (7) Anxiety: (8) Depression: (9) Immunocompromised: Admission and Anticipated Discharge Date Admission Date: May 14, 2020 Supervising Physician Co-Signing Physician Notes I personally examined the patient and verified all marcos points of history and exam, discussed case, and agree with decision making with Dr Alaniz. feeling ok post op vitals noted nad heent nc at mmm breathing unlabored no accessory muscles good effort skin no rashes no pallor or icterus chest wall dressing c/d/i no tracking erythema. no joint pain no neck/back pain (did have some neck pain last week but got better on its own and with manipulative medicine) staph bacteremia - clinically improving. awaiting ID input. continue abx. strongly consider JUAN. Subjective Patient was seen and evaluated at bedside this morning. Reports no acute events overnight. She has no new complaints or concerns today. Patient denies fever/chills, chest pain, SOB, pain/redness around port site, N/V, abdominal pain, lightheadedness, dizziness, leg pain, or leg swelling. Review of Systems Constitutional: no fever and no chills Respiratory: no cough and no dyspnea Cardiovascular: no chest pain Gastrointestinal: no abdominal pain, no nausea and no vomiting Musculoskeletal: no joint pain and no swelling Physical Exam Physical Exam: GENERAL: No acute distress. Well developed and well nourished. Vital signs reviewed. EYES: EOMI. Anicteric sclerae. HENT: Moist mucous membranes. RESPIRATORY: Clear to auscultation bilaterally. No wheezing, rales, or rhonchi. CARDIOVASCULAR: Regular rate and rhythm. No murmurs. CHEST WALL: Port in place in left lateral upper chest wall. There is no surrounding erythema, swelling, rash, or irritation noted. ABDOMEN: Soft and non-tender. Normal bowel sounds. EXTREMITIES: No edema. Non-tender. NEUROLOGIC: A/O x4. No focal neurological deficits. PSYCHIATRIC: Cooperative. Appropriate mood and affect. Results & Data Results & Data ([facility]) Vital Signs (Past 12 Hours) Vital Signs Temp Pulse Pulse Pulse Pulse Resp BP 05/18/20 15:52 37 C 81 16 05/18/20 15:25 36.7 C 74 16 05/18/20 15:10 36.7 C 71 18 05/18/20 15:00 72 15 05/18/20 14:50 36.4 C L 78 10 L 05/18/20 12:57 36.9 C 86 18 115/72 05/18/20 07:33 36.6 C 81 16 126/77 BP Pulse Ox 05/18/20 15:52 118/74 100 05/18/20 15:25 101/57 L 05/18/20 15:10 101/60 100 05/18/20 15:00 100/60 100 05/18/20 14:50 99/54 L 100 05/18/20 12:57 100 05/18/20 07:33 99 Resident Activity Tracking Resident Involvement: Resident Care Provided Care Provided: Adult Hospital Medicine
[2020-05-18] MEDS: LOPERAMIDE HCL 2 MG CAP PO SCH ×2 (16:40→21:22)
--- NOTE | 2020-05-18 16:53 | Billing Data ---
Date of Service May 18, 2020 Coding Level of Care Code 27686 Subseq Hosp Care Lvl 3
--- NOTE | 2020-05-18 19:07 | Operative Report (OR) ---
DATE OF OPERATION: 05/18/2020 NAME OF OPERATION: Port removal. PREOPERATIVE DIAGNOSIS: Bacteremia. POSTOPERATIVE DIAGNOSIS: Bacteremia. STAFF SURGEON: Lucius Gary MD. ANESTHESIA: 1% plain lidocaine with sedation. DESCRIPTION OF PROCEDURE: The patient was brought in the operating room and placed on the operating table in supine position. Her left chest was prepped and draped in usual fashion. She was given sedation, 1% plain lidocaine was used to anesthetize skin and subcutaneous tissue. Incision made through the old scar, carrying dissection down removing the catheter, oversewing the tunnel, sending the tip of the catheter for culture. Port was dissected away from surrounding subcutaneous tissue. It was well incorporated in the pocket. There was an opening in the skin where the needle had been placed almost creating a sinus tract to the port. The deep tissue was reapproximated using 2-0 plain suture and then the skin reapproximated using 5-0 Prolene suture. Dressing applied and patient was transferred to recovery room in stable condition. I attest to the content of the Intraoperative Record and any orders documented therein. Any exception s are noted below.
[2020-05-18] MEDS: ACETAMINOPHEN 325 MG TAB PO PRN (23:25)
[2020-05-19] MEDS: SODIUM CHLORIDE 0.9% 1000ML 1,000 ML IV SCH ×2 (04:02→13:53)
[2020-05-19] MEDS: ceFAZolin 2000MG 2,000 MG/15 ML SYR IV SCH ×3 (05:59→21:41)
[2020-05-19 06:44] LABS: Basophils # (auto) 0.02 K/uL (0-0.2); Basophils % (auto) 0.3 %; Eosinophils # (auto) 0.25 K/uL (0-0.5); Eosinophils % (auto) 3.2 %; Hematocrit (blood only) 32.3 % (37-47); Hemoglobin 10.2 g/dL (12.0-16.0); Immature Granulocytes # (auto) 0.02 K/uL (0.00-0.02); Immature Granulocytes % (auto) 0.3 %; Lymphocytes # (auto) 2.68 K/uL (1.2-3.4); Lymphocytes % (auto) 34.2 %; Mean Corpuscular Hemoglobin 27.1 pg (25-34); Mean Corpuscular Hgb Conc 31.6 g/dL (32-36); Mean Corpuscular Volume 85.9 fL (80-100); Mean Platelet Volume 9.5 fL (7.4-10.4); Monocytes # (auto) 0.55 K/uL (0.11-0.59); Neutrophils # (auto) 4.32 K/uL (1.4-6.5); Platelet Count 334 K/uL (130-400); RDW Coefficient of Variation 14.7 % (11.5-14.5); RDW Standard Deviation 46.2 fL (36.4-46.3); Red Blood Count 3.76 M/uL (4.2-5.4); White Blood Count 7.84 K/uL (4.8-10.8)
[2020-05-19 07:12] LABS: BUN Creatinine Ratio 11.7 (10-20); Calcium 8.8 mg/dl (8.5-10.1); Creatinine Clr Calc Pharmacy 61.2 ml/min; Est GFR (African American) 80.5; Est GFR (Non-African American) 69.4; Potassium 3.6 mmol/L (3.5-5.1)
[2020-05-19] MEDS: VENLAFAXINE HCL 37.5 MG TAB PO SCH ×2 (09:31→21:43)
[2020-05-19] MEDS: TEDUGLUTIDE 5 MG SQ SCH (09:31)
[2020-05-19] MEDS: NYSTATIN SUSP 500,000 U/5 ML UDC PO SCH ×4 (09:32→21:42)
[2020-05-19] MEDS: POTASSIUM CHLORIDE CRTAB 20 MEQ TABCR PO SCH ×2 (09:32→21:42)
[2020-05-19] MEDS: LOPERAMIDE HCL 2 MG CAP PO SCH ×2 (09:36→21:45)
[2020-05-19] MEDS: FLUDROCORTISONE ACETATE 0.1 MG TAB PO SCH (10:30)
[2020-05-19] MEDS: CHOLECALCIFEROL 1,000 UNITS 25 MCG TAB PO SCH (10:30)
[2020-05-19] MEDS: CALCIUM 600MG + VIT D 400 IU TAB PO SCH (10:30)
[2020-05-19] MEDS: MULTIVITAMIN TAB PO SCH (10:31)
[2020-05-19] MEDS: LOSARTAN POTASSIUM 25 MG TAB PO SCH (10:31)
[2020-05-19] MEDS: ADVANCED PROBIOTIC 1250 MG CAPSULE PO SCH (10:32)
[2020-05-19] MEDS: ACETAMINOPHEN 325 MG TAB PO PRN (10:36)
[2020-05-19] MEDS: azaTHIOprine 50 MG TAB PO SCH (12:39)
--- NOTE | 2020-05-19 14:08 | Hospitalist Progress Note ---
Date of Service May 19, 2020 Assessment & Plan (1) Infected venous access port: Cathi Phillips is a 49 y/o female with h/o short bowel syndrome (s/p resection in 2016 2/2 Crohn disease - home TPN 3x/wk), anxiety, depression and hypertension who was admitted with bacteremia. Bacteremia - most likely source: left chest wall port - hx of R PICC line infection ~2 years ago --> placement of the current left chest wall port in L cephalic vein in early December 2017 - Blood cultures outpatient 05/13/20 growing coag neg staph - Repeat blood cultures 05/14/20 also growing coag neg staph sensitive to daptomycin - repeat blood cx obtained from peripheral IV site as well as port to assess for port colonization - IV daptomycin started in ED --> will continue with IV daptomycin, pending new cx results - TTE 05/15/20 showed no evidence of mass or vegetation, otherwise normal with EF 60-65% - General surgery consulted, appreciate recs, considering port replacement - Per surgery recommendations 05/18: tentatively scheduled for port removal later today, IV/PO abx and reculturing, when cultures neg will ask Dr. Stevenson to proceed w/ cath placement - Port removed 05/18 per general surgery - ID consulted 05/18 and recommendations as follows: "- D/C daptomycin, start Cefazolin 2g IV q8h - Central venous catheter removal (completed 05/18 per gen surg) - Repeat blood cx after line removal (tomorrow). Assuming they remain negative, anticipate a 14 day course of therapy. If they continue to be positive, then would sugest JUAN. she may need an even more prolonged course of therapy (hopefully not). - Hold Humira unti abx course compeltion. Probably OK to continue azathioprine given her normal WBC." - trend CBC daily, follow cx's as above - Repeat blood cultures obtained this morning (05/19) -- if negative, will plan to place PICC tomorrow with plan for 14 day course of abx therapy; if positive, will consider JUAN. Patient acknowledges and agrees with plan. Short-Bowel Syndrome, Crohn's disease - s/p short bowel resection due to Crohn's disease - continue teduglutide 2.76 mg SQ daily and multivitamins - had been on TPN, held at this time given the bacteremia and possible port colonization - continue home azathioprine. outpatient schedule Humira (see recommendations per ID above) - Patient states that she is optimistic and hopeful to be able to ultimately decrease need for TPN and to rely more heavily on PO nutritional intake. Will continue to work with nutrition/dietian. HTN - continue losartan 25 mg PO daily Chronic Normocytic Anemia - Hgb 10.2 --> 9.9 today, stable - baseline Hgb 10-11 - likely anemia of chronic disease, as she is on chronic TPN and getting necessary vitamins/nutrients from that - no signs of active bleeding - trend CBC daily Anxiety/Depression - continue home venlafaxine 75 mg BID Oral Ulcerations - suspect 2/2 Crohn's disease, continue analgesic mouth spray FEN/GI: NSS at 80. Regular diet; nutrition consult DVT prophylaxis: Lovenox SQ CODE STATUS: Full code Dispo: Med Surg (2) Short gut syndrome: (3) Sore mouth: (4) Bacteremia: (5) Hypertension: (6) Crohns disease: (7) Anxiety: (8) Depression: (9) Immunocompromised: Admission and Anticipated Discharge Date Admission Date: May 14, 2020 Supervising Physician Co-Signing Physician Notes I personally examined the patient and verified all marcos points of history and exam, discussed case, and agree with decision making with Dr Alaniz. feeling fairly well. just waiting on repeat blood cultures vitals noted nad heent nc at mmm breathing unlabored no accessory muscles good effort skin no rashes no pallor or icterus no focal neuro deficits staph bacteremia - clinically improving. follow blood cultures from today - if (+) then JUAN if (-) then hopefully home tomorrow 14 days ancef. otherwise as above Subjective Patient was seen and evaluated at bedside this morning. Reports no acute events overnight. She does report some "generalized puffiness" this morning but attributes this to the IVF. She does report doing ~15 minutes of aerobic exercise in room yesterday w/o symptoms. Patient denies fever/chills, chest pain, SOB, dyspnea on exertion, N/V, abdominal pain, lightheadedness, dizziness, leg pain, or leg swelling. She has been tolerating PO intake well w/o difficulty; she would like to discuss with nutrition/dietitian recommendations to optimize nutrition again. She otherwise has no new complaints or concerns today. Review of Systems Constitutional: no fever, no chills and no fatigue Respiratory: no cough and no dyspnea Cardiovascular: no chest pain Gastrointestinal: no abdominal pain, no nausea and no vomiting Musculoskeletal: no joint pain and no swelling Physical Exam Physical Exam: GENERAL: No acute distress. Well developed and well nourished. Vital signs reviewed. EYES: EOMI. Anicteric sclerae. HENT: Moist mucous membranes. RESPIRATORY: Clear to auscultation bilaterally. No wheezing, rales, or rhonchi. CARDIOVASCULAR: Regular rate and rhythm. No murmurs. ABDOMEN: Soft and non-tender. Normal bowel sounds. EXTREMITIES: No edema. Non-tenderness to deep palpation/squeeze to bilateral calf. NEUROLOGIC: A/O x4. No focal neurological deficits. PSYCHIATRIC: Cooperative. Appropriate mood and affect. Results & Data Results & Data ([facility]) Vital Signs (Past 12 Hours) Vital Signs Temp Pulse Pulse Resp BP Pulse Ox 05/19/20 07:54 36.6 C 74 16 115/71 100 05/19/20 03:54 36.6 C 80 14 105/66 100 Resident Activity Tracking Resident Involvement: Resident Care Provided Care Provided: Adult Hospital Medicine
--- NOTE | 2020-05-19 18:06 | Billing Data ---
Date of Service May 19, 2020 Coding Level of Care Code 43390 Subseq Hosp Care Lvl 3
[2020-05-20] MEDS: SODIUM CHLORIDE 0.9% 1000ML 1,000 ML IV SCH ×2 (02:28→13:28)
[2020-05-20] MEDS: ceFAZolin 2000MG 2,000 MG/15 ML SYR IV SCH ×3 (05:28→21:40)
[2020-05-20 06:16] LABS: Basophils # (auto) 0.04 K/uL (0-0.2); Basophils % (auto) 0.6 %; Eosinophils % (auto) 4.4 %; Hematocrit (blood only) 29.7 % (37-47); Hemoglobin 9.4 g/dL (12.0-16.0); Immature Granulocytes # (auto) 0.01 K/uL (0.00-0.02); Immature Granulocytes % (auto) 0.1 %; Lymphocytes # (auto) 2.65 K/uL (1.2-3.4); Lymphocytes % (auto) 38.5 %; Mean Corpuscular Hgb Conc 31.6 g/dL (32-36); Mean Corpuscular Volume 85.3 fL (80-100); Mean Platelet Volume 9.1 fL (7.4-10.4); Monocytes # (auto) 0.74 K/uL (0.11-0.59); Monocytes % (auto) 10.8 %; Neutrophils # (auto) 3.14 K/uL (1.4-6.5); Neutrophils % (auto) 45.6 %; Platelet Count 273 K/uL (130-400); RDW Coefficient of Variation 14.5 % (11.5-14.5); RDW Standard Deviation 45.2 fL (36.4-46.3); Red Blood Count 3.48 M/uL (4.2-5.4); White Blood Count 6.88 K/uL (4.8-10.8)
[2020-05-20 07:00] LABS: BUN Creatinine Ratio 14.9 (10-20); Calcium 8.4 mg/dl (8.5-10.1); Creatinine Clr Calc Pharmacy 73.5 ml/min; Est GFR (African American) 100.3; Est GFR (Non-African American) 86.6; Potassium 3.8 mmol/L (3.5-5.1)
[2020-05-20] MEDS: LOSARTAN POTASSIUM 25 MG TAB PO SCH (09:06)
[2020-05-20] MEDS: azaTHIOprine 50 MG TAB PO SCH (09:07)
[2020-05-20] MEDS: VENLAFAXINE HCL 37.5 MG TAB PO SCH ×2 (09:07→21:34)
[2020-05-20] MEDS: LOPERAMIDE HCL 2 MG CAP PO SCH ×2 (09:07→21:39)
[2020-05-20] MEDS: CHOLECALCIFEROL 1,000 UNITS 25 MCG TAB PO SCH (09:07)
[2020-05-20] MEDS: FLUDROCORTISONE ACETATE 0.1 MG TAB PO SCH (09:08)
[2020-05-20] MEDS: MULTIVITAMIN TAB PO SCH (09:08)
[2020-05-20] MEDS: POTASSIUM CHLORIDE CRTAB 20 MEQ TABCR PO SCH ×2 (09:08→21:35)
[2020-05-20] MEDS: CALCIUM 600MG + VIT D 400 IU TAB PO SCH (09:09)
[2020-05-20] MEDS: NYSTATIN SUSP 500,000 U/5 ML UDC PO SCH ×4 (09:09→21:34)
[2020-05-20] MEDS: ADVANCED PROBIOTIC 1250 MG CAPSULE PO SCH (09:09)
[2020-05-20] MEDS: TEDUGLUTIDE 5 MG SQ SCH (10:13)
--- NOTE | 2020-05-20 12:50 | Discharge Summary ---
Date of Service May 21, 2020 Admission HPI Per Admitting Provider 49-year-old female with past medical history Crohn's disease, short bowel syndrome with procedure in 2016 who gets TPN 3 times per week, anxiety, depression presents with concerns of line infection. Patient follows with gastroenterology Dr. Brown. Patient notes that she has had symptoms intermittently for about the past month or so of low grade fevers (high 99F), fatigue, mouth sores (for which Dr. Brown performed EGD to see possible extension of Crohn's, which was negative). Patient notes that she had a line infection in her right arm PICC line about 2 years ago and has had a left chest wall port since December 2017. Blood cultures 2 of 2 done yesterday May 13, 2020 gram-positive cocci clusters preliminary. The Staph Aureus and MRSA PCR's were negative on serology. Patient otherwise denies any chills, sweats, nausea, vomiting, diarrhea, urinary symptoms, urinary symptoms, chest pain, shortness of breath, known sick contacts or recent travel anywhere. Notes some decreased appetite. Patient with no other acute congestive complaints. Pertinent labs: Hemoglobin 9.5, alk phos 183, albumin 2.7. Lactate and pro-Rush WNL. CBC CMP otherwise largely unremarkable. Chest x-ray: No active disease in the chest. UA unremarkable ER course: IV daptomycin, NSS 1 L Admission Exam Per Admitting Provider Constitutional: WD/WN, vitals as above Eyes: PERRL, conjunctivae normal, anicteric sclerae ENMT: Mouth: + oral mucosal abnormality (Mouth sores) Respiratory: normal respiratory effort, lungs clear to auscultation Cardiovascular: RRR, no murmur, no edema Chest (Breasts): Additional Comments: Left chest port without any surrounding erythema, no TTP Gastrointestinal (Abdomen): normal bowel sounds, soft, nontender, no hepatosplenomegaly Skin: no rashes, warm and dry Psychiatric: A+Ox3, euthymic affect Principal Diagnosis bacteremia Discharge Exam GENERAL: No acute distress. Well developed and well nourished. Vital signs reviewed. EYES: EOMI. Anicteric sclerae. HENT: Moist mucous membranes. RESPIRATORY: Able to speak in full sentences without increased respiratory effort. No respiratory distress. NEUROLOGIC: A/O x4. No focal neurological deficits. PSYCHIATRIC: Cooperative. Appropriate mood and affect. Discharge Data Allergies Allergy/AdvReac Type Severity Reaction Status Date / Time Iodinated Contrast Media Allergy Intermediate Hives Verified 05/14/20 17:30 grass pollen-perennial rye, Allergy Unknown Unknown rxn Verified 05/14/20 17:30 standar mold Allergy Unknown Unknown rxn Verified 05/14/20 17:30 vancomycin Allergy Unknown HIVES Verified 05/14/20 17:30 Dust Allergy Unknown Unknown rxn Uncoded 05/14/20 17:30 Consultations 05/14/20 17:01 ED Decision to Admit Stat 05/14/20 21:47 Consult General Surgery Routine 05/16/20 17:49 Consult Infectious Diseases Routine Procedures Performed Operation Date: 05/18/20 14:00 Actual Procedures p Infusaport Removal(Left) - Lucius Gary MD, [facility] Hospital Course (1) Infected venous access port: Cathi Phillips is a 49 y/o female with h/o short bowel syndrome (s/p resection in 2015 2/2 Crohn disease - home TPN 3x/wk), anxiety, depression and hypertension who was admitted with bacteremia. Bacteremia - most likely source: left chest wall port - hx of R PICC line infection ~2 years ago --> placement of the current left chest wall port in L cephalic vein in early December 2017 - Blood cultures outpatient 05/13/20 growing coag neg staph - Repeat blood cultures 05/14/20 also growing coag neg staph sensitive to daptomycin - repeat blood cx obtained from peripheral IV site as well as port to assess for port colonization 05/15 - both positive - TTE 05/15/20 showed no evidence of mass or vegetation, otherwise normal with EF 60-65% - IV daptomycin started in ED continued until 05/18 after ID consult and recommendations to change abx from IV daptomycin to IV Cefazolin - General surgery consulted during hospitalization and left chest wall port removed 05/18/20 - ID consulted 05/18 and recommended removal of catheter/port, change of abx from daptomycin to Cefazolin, repeat blood cultures, and if blood cx (-) then completing 14 day course of abx but if blood cx (+) pursuing JUAN for possible extended duration of therapy - Hold Humira until abx course compeltion. Probably OK to continue azathioprine given her normal WBC. - Repeat blood cultures obtained morning of 05/19 were negative at 48 hours - PICC line placed 05/21/20; will continue with IV Cefazolin 2g IV q8h for duration of tx to total 14 days as outpatient - Discussed possible catheter placement next week with patient; thorough discussion with patient and patient would like to delay placement of new catheter (currently scheduled for 05/25/20) for the following reasons: 1. She would like to try to decrease the need for TPN and encourage more nutrition PO 2. Patient would like to be further out from the tx of bacteremia prior to new long-term catheter placement - Patient was advised that she needs to follow up in 1 month and the PICC line needs to be removed prior to August 19, 2020. Patient acknowledges and agrees with plan. Short-Bowel Syndrome, Crohn's disease - s/p short bowel resection due to Crohn's disease - continue teduglutide 2.76 mg SQ daily and multivitamins - had been on T//Mon TPN, held during admission. - continued home azathioprine. outpatient schedule [facility] (see recommendations per ID above) - Nutrition/dietary services was consulted and met with patient to discuss optimization of nutrition - Patient states that she is optimistic and hopeful to be able to ultimately de crease need for TPN and to rely more heavily on PO nutritional intake. HTN - continue losartan 25 mg PO daily Chronic Normocytic Anemia - Hgb 10.2 --> 9.9 today, stable - baseline Hgb 10-11 - likely anemia of chronic disease, as she is on chronic TPN and getting necessary vitamins/nutrients from that - no signs of active bleeding throughout hospitalization Anxiety/Depression - continue home venlafaxine 75 mg BID Oral Ulcerations - suspect 2/2 Crohn's disease, continue analgesic mouth spray FEN/GI: NSS at 80. Regular diet; nutrition consult DVT prophylaxis: Lovenox SQ CODE STATUS: Full code Dispo: Med Surg (2) Short gut syndrome: (3) Sore mouth: (4) Bacteremia: (5) Hypertension: (6) Crohns disease: (7) Anxiety: (8) Depression: (9) Immunocompromised: Total Time Total Time Spent Total Time Spent (In Minutes): <30 Discharge Plan Discharge Items Patient Disposition: Home - Home Health Services Reason For Visit: LINE INFECTION Discharge Diagnosis: bacteremia Condition on Discharge: Good Activity: Resume your previous activity Bathing Comment: may shower Non-emergency contact: Primary Care Provider Call non-emergency contact if: you have any medication questions, your symptoms worsen, your pain is worsening and you have a fever Follow-up/Referrals: Lucius Gary MD, FACS [Physician] - 06/03/20 10:30 am (Please call to schedule follow up in clinic with Dr. Gary within 2 weeks) Patricio Malhotra III, MD [Primary Care Provider] - Moise Quintero MD [Physician] - (Office will call to schedule for TPN cath placement.Need to stop at out pt. lab to get COVID swab before leaving hospital DR QUINTERO'S OFFICE WITH CALL WITH HOSPITAL FOLLOW UP VISIT.) Diet: Regular Addtl Attending Provider Instructions: Cathi Phillips, It was our pleasure to care for you at [facility] from 05/14/20-05/21/20. You presented to the hospital after having positive blood cultures as ordered by Dr. Brown due to approximately one month of vague symptoms including fever. You were started on IV antibiotics (daptomycin) for the bacteremia, which is a bacterial infection in the blood. You were seen and evaluated by general surgery, who removed the infected left chest wall port. You were also evaluated by infectious disease, virtually, and their recommendations included switching the antibiotic from IV Daptomycin to IV Cefazolin. As we discussed, your most recent blood cultures (drawn yesterday, 05/19) have come back negative after preliminary evaluation. At that point, we discussed with you the risks/benefits of proceeding with PICC line placement. You now have a PICC line which will allow you to continue to receive the IV antibiotics and also restart TPN as needed; the PICC line should be removed by August 19, 2020. At this point, we feel that it is safe for you to be discharged. Please continue the IV antibiotics, Cefazolin 2g IV every 8 hours for a total duration of 14 days. You should hold your Humira until the antibiotics are completed. If the blood cultures that were negative today end up turning positive within the next few days, you will be contacted and it would be recommended that you follow up with cardiology to receive a JUAN, the ultrasound of your heart through the esophagus, to evaluate for extension of the infection into a heart valve. As we have discussed, this would not change your treatment but it would extended the needed duration of IV antibiotic therapy. Please follow up with your primary care physician within 1 week. Return to the ED if you develop a fever, worsening pain, nausea, vomiting, or concerning symptoms. Regarding the port removal/post-surgical care: Please change your dressing daily with dry gauze and adhere with medical tape. Call your doctor if: * Temperature above 101 degrees * Pain not relieved by pain medicine ordered * There is increased drainage or redness from any incision * You have any unanswered questions or concerns [phone]. FOLLOW UP VISIT: If not already scheduled, please call the office for a follow-up visit within 2 weeks OFFICE PHONE NUMBER: Dr. Gary Office Pending Studies at Discharge: Yes Studies:: blood cultures, final results pending Stand-Alone Forms: My [facility] Medications and DC Order Prescriptions: New cefazolin 1 gram recon soln 2 g IV Q8H 14 Days RF: 0 Continued loperamide 2 mg capsule 4 mg PO BID Qty: 240 RF: 5 losartan 25 mg tablet 25 mg PO DAILY Qty: 90 RF: 3 venlafaxine 75 mg tablet 75 mg PO BID RF: 0 azathioprine 50 mg tablet 50 mg PO QAM RF: 0 fludrocortisone 0.1 mg tablet 0.1 mg PO QAM RF: 0 potassium chloride 10 mEq tablet,ER particles/crystals 20 meq PO BID RF: 0 Calcium 600 + D(3) 600 mg calcium- 200 unit Capsule 2 tab PO QAM RF: 0 cholecalciferol (vitamin D3) 5,000 unit tablet 5,000 units PO QAM RF: 0 teduglutide 5 mg kit 2.76 mg subcut QAM RF: 0 Culturelle Digestive Health 10 billion cell -200 mg Capsule 1 cap PO QAM RF: 0 multivitamin Tablet 1 tab PO DAILY RF: 0 acetaminophen [Tylenol Extra Strength] 500 mg Tablet 1,000 mg PO Q6 PRN (Reason: Fever Or Pain) RF: 0 Discontinued Humira(CF) Pen 40 mg/0.4 mL pen injector kit 0 mg SUBCUT WK RF: 0 Discharge Orders: Discharge Order (Routine); Ordered 05/21/20 Ordered By: Hue Pickering/Other Patient Handouts: Peripherally Inserted Central ..., Cefazolin injection Admission Data Admit Date/Time: 05/14/20 18:45 Attending Provider: Minesh Mac Admit Provider: Dipak Patel Primary Care Provider: Patricio Malhotra III Other Providers: [place] ; Shay Cruz ; Genoveva Holloway ; Lucius Gary ; Vasquez Garcia ; Lino Mcgowan ; Josue Holloway I. ; Luigi Levy II ; Pily Rascon ; Homer Santillan Other Interventions: Discharge Summary Assessment (RN) Last Done: 05/21/20 12:16 Supervising Physician Co-Signing Physician Notes I personally examined the patient and verified all marcos points of history and exam, discussed case, and agree with decision making with Dr Alaniz. feeling good. picc in. vitals noted nad heent nc at mmm breathing unlabored no accessory muscles good effort skin no rashes no pallor or icterus no focal neuro deficits staph bacteremia - stable for home. ancef x14 days. outpt f/u otherwise as above Resident Activity Tracking Resident Involvement: Resident Care Provided Care Provided: Adult Hospital Medicine
--- NOTE | 2020-05-20 18:50 | Hospitalist Progress Note ---
Date of Service May 20, 2020 Assessment & Plan (1) Infected venous access port: Cathi Phillips is a 49 y/o female with h/o short bowel syndrome (s/p resection in 2016 2/2 Crohn disease - home TPN 3x/wk), anxiety, depression and hypertension who was admitted with bacteremia. Bacteremia - most likely source: left chest wall port - hx of R PICC line infection ~2 years ago --> placement of the current left chest wall port in L cephalic vein in early December 2017 - Blood cultures outpatient 05/13/20 growing coag neg staph - Repeat blood cultures 05/14/20 also growing coag neg staph sensitive to daptomycin - repeat blood cx obtained from peripheral IV site as well as port to assess for port colonization - IV daptomycin started in ED --> will continue with IV daptomycin, pending new cx results - TTE 05/15/20 showed no evidence of mass or vegetation, otherwise normal with EF 60-65% - General surgery consulted, appreciate recs, considering port replacement - Per surgery recommendations 05/18: tentatively scheduled for port removal later today, IV/PO abx and reculturing, when cultures neg will ask Dr. Stevenson to proceed w/ cath placement - Port removed 05/18 per general surgery - ID consulted 05/18 and recommendations as follows: "- D/C daptomycin, start Cefazolin 2g IV q8h - Central venous catheter removal (completed 05/18 per gen surg) - Repeat blood cx after line removal (tomorrow). Assuming they remain negative, anticipate a 14 day course of therapy. If they continue to be positive, then would sugest JUAN. she may need an even more prolonged course of therapy (hopefully not). - Hold Humira unti abx course compeltion. Probably OK to continue azathioprine given her normal WBC." - trend CBC daily, follow cx's as above - Repeat blood cultures obtained 05/19, preliminary results show no growth - Plan to place PICC and d/c home with 14 day course of abx - PICC unable to be placed today (05/20) per IV team; will attempt PICC placement again tomorrow - per IV team, encourage PO hydration tonight - Patient advised that she will be called if the blood cultures obtained 05/19 result in positive growth; at that time, would recommend outpatient JUAN to determine ? seeding vs vegetation and need for prolonged course of IV abx Short-Bowel Syndrome, Crohn's disease - s/p short bowel resection due to Crohn's disease - continue teduglutide 2.76 mg SQ daily and multivitamins - had been on //Mon TPN, held at this time given the bacteremia and possible port colonization - continue home azathioprine. outpatient schedule [facility] (see recommendations per ID above) - Patient states that she is optimistic and hopeful to be able to ultimately decrease need for TPN and to rely more heavily on PO nutritional intake. Will continue to work with nutrition/dietitian. HTN - continue losartan 25 mg PO daily Chronic Normocytic Anemia - Hgb 9.4 today, stable - baseline Hgb 10-11 - likely anemia of chronic disease, as she is on chronic TPN and getting necessary vitamins/nutrients from that - no signs of active bleeding - trend CBC daily Anxiety/Depression - continue home venlafaxine 75 mg BID Oral Ulcerations - suspect 2/2 Crohn's disease, continue analgesic mouth spray FEN/GI: NSS at 80. Regular diet; nutrition consult DVT prophylaxis: Lovenox SQ CODE STATUS: Full code Dispo: Med Surg (2) Short gut syndrome: (3) Sore mouth: (4) Bacteremia: (5) Hypertension: (6) Crohns disease: (7) Anxiety: (8) Depression: (9) Immunocompromised: Admission and Anticipated Discharge Date Admission Date: May 14, 2020 Supervising Physician Co-Signing Physician Notes I personally examined the patient and verified all marcos points of history and exam, discussed case, and agree with decision making with Dr Alaniz. feeling fairly well. discussed PICC again. blood cultures negative thus far. IV abx can start at home tomorrow. vitals noted nad heent nc at mmm breathing unlabored no accessory muscles good effort skin no rashes no pallor or icterus no focal neuro deficits staph bacteremia - clinically improving. follow blood cultures from yesterday - but so far appearing that 14 days ancef will suffice. home once IV access and abx set up. 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 otherwise as above Subjective Patient seen and evaluated at bedside this morning. She has no specific concerns, complaints, or questions at this time. Patient states that she feels well. Denies SOB, CP, fever, chills, abdominal pain, n/v, leg pain, or leg s welling. Review of Systems Constitutional: no fever and no chills Respiratory: no cough and no dyspnea Cardiovascular: no chest pain Gastrointestinal: no abdominal pain, no nausea and no vomiting Musculoskeletal: no joint pain and no swelling Physical Exam Physical Exam: GENERAL: No acute distress. Well developed and well nourished. Vital signs reviewed. EYES: EOMI. Anicteric sclerae. HENT: Moist mucous membranes. RESPIRATORY: Able to speak in full sentences without increased respiratory effort. No respiratory distress. NEUROLOGIC: A/O x4. No focal neurological deficits. PSYCHIATRIC: Cooperative. Appropriate mood and affect. Results & Data Results & Data ([facility]) Vital Signs (Past 12 Hours) Vital Signs Temp Pulse Pulse Resp BP BP Pulse Ox 05/20/20 15:30 37.1 C 93 H 16 108/71 100 05/20/20 07:45 37.1 C 82 16 110/69 98 Resident Activity Tracking Resident Involvement: Resident Care Provided Care Provided: Adult [facility] Medicine
--- NOTE | 2020-05-20 19:20 | Billing Data ---
Date of Service May 20, 2020 Coding Level of Care Code 22997 Subseq Hosp Care Lvl 2
[2020-05-21] MEDS: SODIUM CHLORIDE 0.9% 1000ML 1,000 ML IV SCH (02:07)
[2020-05-21] MEDS: ceFAZolin 2000MG 2,000 MG/15 ML SYR IV SCH ×2 (05:15→13:06)
[2020-05-21] MEDS: CALCIUM 600MG + VIT D 400 IU TAB PO SCH (08:08)
[2020-05-21] MEDS: NYSTATIN SUSP 500,000 U/5 ML UDC PO SCH (08:08)
[2020-05-21] MEDS: FLUDROCORTISONE ACETATE 0.1 MG TAB PO SCH (08:09)
[2020-05-21] MEDS: azaTHIOprine 50 MG TAB PO SCH (08:09)
[2020-05-21] MEDS: VENLAFAXINE HCL 37.5 MG TAB PO SCH (08:09)
[2020-05-21] MEDS: ADVANCED PROBIOTIC 1250 MG CAPSULE PO SCH (08:09)
[2020-05-21] MEDS: CHOLECALCIFEROL 1,000 UNITS 25 MCG TAB PO SCH (08:10)
[2020-05-21] MEDS: POTASSIUM CHLORIDE CRTAB 20 MEQ TABCR PO SCH (08:10)
[2020-05-21] MEDS: LOSARTAN POTASSIUM 25 MG TAB PO SCH (08:10)
[2020-05-21] MEDS: MULTIVITAMIN TAB PO SCH (08:10)
[2020-05-21] MEDS: LOPERAMIDE HCL 2 MG CAP PO SCH (08:12)
[2020-05-21] MEDS: TEDUGLUTIDE 5 MG SQ SCH (08:57)
[2020-05-21] MEDS: HEPARIN 100 UNIT/ML 5ML FLUSH FLUSH PRN (13:07)
--- NOTE | 2020-05-21 19:46 | Billing Data ---
Date of Service May 21, 2020 Coding Level of Care Code D/C Day Management <30 mins
== END 2020-05-21 13:35 | disposition home health service (06) | DRG 315 ==
LOC: ED 15:34 → 3N 18:45 → SUATTDRO 18:45 → 3N 21:06

== ENCOUNTER 2020-11-12 11:40 | Inpatient (IN) ==
[2020-11-12] MEDS ORDERED: SODIUM CHLORIDE 0.9% 1000ML 2,000 ML IV ONE (12:07)
[2020-11-12] MEDS ORDERED: ACETAMINOPHEN 1,000 MG/100 ML VIAL IV STA (12:07)
[2020-11-12] MEDS ORDERED: methylPREDNISolone 125 MG/2 ML VIAL IV STA (12:30)
[2020-11-12] MEDS ORDERED: diphenhydrAMINE 50 MG/ML VIAL IV STA (12:30)
[2020-11-12 12:44] LABS: Basophils # (auto) 0.02 K/uL (0-0.2); Basophils % (auto) 0.3 %; Eosinophils # (auto) 0.06 K/uL (0-0.5); Eosinophils % (auto) 0.9 %; Hematocrit (blood only) 37.9 % (37-47); Hemoglobin 12.3 g/dL (12.0-16.0); Immature Granulocytes # (auto) 0.01 K/uL (0.00-0.02); Immature Granulocytes % (auto) 0.2 %; Lymphocytes % (auto) 4.7 %; Mean Corpuscular Hemoglobin 26.1 pg (25-34); Mean Corpuscular Hgb Conc 32.5 g/dL (32-36); Mean Corpuscular Volume 80.3 fL (80-100); Mean Platelet Volume 9.3 fL (7.4-10.4); Monocytes # (auto) 0.34 K/uL (0.11-0.59); Monocytes % (auto) 5.4 %; Neutrophils % (auto) 88.5 %; Platelet Count 214 K/uL (130-400); RDW Coefficient of Variation 17.3 % (11.5-14.5); RDW Standard Deviation 51.6 fL (36.4-46.3); Red Blood Count 4.72 M/uL (4.2-5.4); White Blood Count 6.33 K/uL (4.8-10.8)
[2020-11-12 12:45] LABS: iSTAT Creatinine 0.8 mg/dl (0.6-1.3); iSTAT Hemoglobin 13.6 g/dl (12.0-16.0); iSTAT Ionized Calcium 1.17 mmol/l (1.12-1.32); iSTAT Potassium 3.9 mmol/L (3.3-5.0)
[2020-11-12 12:54] LABS: Partial Thromboplastin Ratio 0.9; Partial Thromboplastin Time 22.8 Seconds (21.0-31.0)
[2020-11-12 13:01] LABS: Alanine Aminotransferase 33 U/L (12-78); Aspartate Aminotransferase 30 U/L (15-37); BUN Creatinine Ratio 19.5 (10-20); Blood Urea Nitrogen 18 mg/dl (7-18); Calcium 9.4 mg/dl (8.5-10.1); Carbon Dioxide 27 mmol/L (21-32); Chloride 101 mmol/L (98-107); Creatinine Clr Calc Pharmacy 62.5 ml/min; Est GFR (African American) 83.1 ml/min; Est GFR (Non-African American) 71.7 ml/min; Glucose 140 mg/dl (70-99); Magnesium 1.6 mg/dl (1.8-2.4); Potassium 3.9 mmol/L (3.5-5.1); Sodium 136 mmol/L (136-145)
--- NOTE | 2020-11-12 13:04 | Electrocardiogram Report ---
Test Reason : Blood Pressure : / mmHG Vent. Rate : 129 BPM Atrial Rate : 129 BPM P-R Int : 138 ms QRS Dur : 072 ms QT Int : 290 ms P-R-T Axes : 068 081 072 degrees QTc Int : 424 ms Sinus tachycardia Biatrial enlargement Abnormal ECG When compared with ECG of 19-JUN-2020 23:10, No significant change was found Confirmed by Rene Brown ([id number]) on 11/12/2020 1:04:25 PM Referred By: Confirmed By:Rene Brown
[2020-11-12 13:06] LABS: Albumin Globulin Ratio 0.5 (0.9-2); Alkaline Phosphatase 150 U/L (45-117); Bilirubin,Total 0.2 mg/dl (0.2-1); Globulin 5.5 gm/dl (2.5-4.0); Total Protein 8.5 gm/dl (6.4-8.2); Troponin I < 0.015 ng/ml (0-0.045)
--- NOTE | 2020-11-12 13:43 | Emergency Department Note ---
History of Present Illness General Chief complaint: Illness Stated complaint: CHILLS,FEVER,BODY ACHE,VOMITING,SEVERE PAIN,VAG DC Time Seen by Provider: 11/12/20 12:07 History of Present Illness Provider complaint: Fever and chills Onset (ago): day(s) 2 Maximum Pain Intensity: 2 Current Pain Intensity: 2 Quality: + aching Associated symptoms: + fever/chills (T max 102) and + nausea/vomiting (nausea no vomitting) 50-year-old female presents emergency department for fever. Patient reports her fever began yesterday. Patient reports a T-max of 1-2.2. Patient is reporting abdominal pain. Pain is located in the left lower quadrant. Patient is also reporting vaginal discharge. No cough. Patient is vaccinated against COVID-19 however she is on immunosuppressants. Patient has had a history of line sepsis in the past. Home Medications Medication Instructions Recorded Confirmed Type [facility] 1 cap PO QAM 05/23/18 11/12/20 History azathioprine [Imuran] 50 mg PO QAM 05/23/18 11/12/20 History cholecalciferol (vitamin D3) 5,000 units PO QAM 05/23/18 11/12/20 History potassium chloride 20 meq PO BID 05/23/18 11/12/20 History venlafaxine 75 mg PO BID 05/23/18 11/12/20 History acetaminophen [Tylenol Extra 1,000 mg PO Q6 PRN 05/14/20 11/12/20 History Strength] Gattex 30-Vial 5 mg SUBCUT QAM 06/20/20 11/12/20 History Humira(CF) Pen 40 mg SUBCUT WK 06/20/20 11/12/20 History Total Parenteral Nutrition 1 dose PO [id number] 06/29/20 11/12/20 History loperamide 2 mg capsule 4 mg PO BID #240 cap 07/29/20 11/12/20 Rx metronidazole 0.75 % vaginal gel 1 appful VAGINAL DAILY 5 Days #70 g 10/07/20 11/12/20 Rx pediatric multivitamin no.76 1 tab PO QAM 11/12/20 11/12/20 History [Flintstones Complete] Allergies Allergy/AdvReac Type Severity Reaction Status Date / Time Iodinated Contrast Media Allergy Intermediate Hives Verified 07/31/20 07:02 grass pollen-perennial rye, Allergy Unknown Unknown rxn Verified 07/31/20 07:02 standar mold Allergy Unknown Unknown rxn Verified 07/31/20 07:02 vancomycin Allergy Unknown HIVES Verified 07/31/20 07:02 Dust Allergy Unknown Unknown rxn Uncoded 07/30/20 09:00 Past Med/Surg History Medical History Anemia Anxiety Crohns disease Depression History of esophageal ulcer HTN (hypertension) Ileostomy in place On total parenteral nutrition 3 nights per week Restless legs syndrome Rosacea Short bowel syndrome Vitamin B12 deficiency Surgical History History of esophagogastroduodenoscopy (EGD) History of intestinal surgery 1988 - removed rectum, anus and large intestine and 14 inches small intestine and ileostomy 2015 removed small bowel (left 4 ft of bowel) History of removal of Port-a-Cath (05/18/20) Port removal. Dr. Gary 05/18/2020 History of vascular access device left chest port - recently removed r/t bacteremia (hospitalized [facility] 05/2020) Hx laparoscopic cholecystectomy Hx of colonoscopy S/P PICC central line placement Rt arm Family History Grandfather (Paternal) Colorectal cancer, Onset Age: 80 Mother History of thyroid disorder Giron syndrome Grandfather (Maternal) Leukemia Father Hx of CABG Other No pertinent family history Denies family history of Ovarian cancer Breast cancer Social History Smoking Status: Never smoker Second Hand Exposure: No; Hx Alcohol Use: No Hx Substance Use: No Preferred Language: Tamazight Communication Ability: Effective Visual Impairment: No Limitations Information Technology Analyst Required: No Beliefs That Will Affect Care: None marital status: Current Living Situation: Spouse Feels Safe at Home: Yes Assistive Devices: Glasses Review of Systems A total of 10 systems reviewed and were otherwise negative Physical Exam Vital Signs Vital Signs - 24 hr 11/12/20 12:00 11/12/20 12:14 11/12/20 12:16 Temperature 38.1 C H Temperature Source Temporal Artery Scan Pulse Rate 154 H 130 H 128 H Pulse Rate [Left Finger] Pulse Rate from SpO2 Sensor 131 H 128 H Pulse Rhythm Pulse Rhythm [Left Finger] Pulse Strength [Left Finger] Respiratory Rate 18 24 20 Respiratory Effort / Characteristics Respiratory Depth Respiratory Pattern Blood Pressure 138/87 151/86 H Blood Pressure [Left Arm] Blood Pressure Mean 104 107 Blood Pressure Mean [Left Arm] Blood Pressure Position [Left Arm] Pulse Oximetry 98 97 97 Oxygen Delivery Method Room Air Sepsis Recent Fever Within 48 Hours Yes Sepsis New/Unexplained Change in Mental Status N/A Sepsis Action Taken by Nursing No Action Required 11/12/20 12:20 11/12/20 12:22 11/12/20 12:23 Temperature Temperature Source Pulse Rate 140 H 141 H Pulse Rate [Left Finger] 140 H Pulse Rate from SpO2 Sensor 140 H Pulse Rhythm Regular Pulse Rhythm [Left Finger] Pulse Strength [Left Finger] Respiratory Rate 22 21 22 Respiratory Effort / Characteristics Non-Labored Spontaneous Respiratory Depth Normal Respiratory Pattern Regular Blood Pressure Blood Pressure [Left Arm] 151/86 H Blood Pressure Mean Blood Pressure Mean [Left Arm] 107 Blood Pressure Position [Left Arm] Sitting Pulse Oximetry 97 97 97 Oxygen Delivery Method Room Air Room Air Sepsis Recent Fever Within 48 Hours Sepsis New/Unexplained Change in Mental Status Sepsis Action Taken by Nursing 11/12/20 12:25 11/12/20 12:30 11/12/20 12:31 Temperature Temperature Source Pulse Rate 130 H 129 H Pulse Rate [Left Finger] Pulse Rate from SpO2 Sensor 130 H 130 H Pulse Rhythm Pulse Rhythm [Left Finger] Pulse Strength [Left Finger] Respiratory Rate 20 19 23 Respiratory Effort / Characteristics Non-Labored Spontaneous Respiratory Depth Respiratory Pattern Blood Pressure 154/83 H Blood Pressure [Left Arm] Blood Pressure Mean 106 Blood Pressure Mean [Left Arm] Blood Pressure Position [Left Arm] Pulse Oximetry 97 96 96 Oxygen Delivery Method Room Air Sepsis Recent Fever Within 48 Hours Sepsis New/Unexplained Change in Mental Status Sepsis Action Taken by Nursing 11/12/20 12:40 11/12/20 12:50 11/12/20 13:00 Temperature Temperature Source Pulse Rate 126 H 130 H 124 H Pulse Rate [Left Finger] Pulse Rate from SpO2 Sensor 125 H 129 H 125 H Pulse Rhythm Pulse Rhythm [Left Finger] Pulse Strength [Left Finger] Respiratory Rate 19 27 H 25 H Respiratory Effort / Characteristics Non-Labored Spontaneous Respiratory Depth Respiratory Pattern Blood Pressure 150/81 H Blood Pressure [Left Arm] Blood Pressure Mean 104 Blood Pressure Mean [Left Arm] Blood Pressure Position [Left Arm] Pulse Oximetry 98 97 97 Oxygen Delivery Method Room Air Sepsis Recent Fever Within 48 Hours Sepsis New/Unexplained Change in Mental Status Sepsis Action Taken by Nursing 11/12/20 13:01 11/12/20 13:10 11/12/20 13:30 Temperature Temperature Source Pulse Rate 125 H 130 H Pulse Rate [Left Finger] Pulse Rate from SpO2 Sensor 125 H 131 H Pulse Rhythm Pulse Rhythm [Left Finger] Pulse Strength [Left Finger] Respiratory Rate 27 H 26 H 20 Respiratory Effort / Characteristics Non-Labored Spontaneous Non-Labored Spontaneous Respiratory Depth Respiratory Pattern Blood Pressure Blood Pressure [Left Arm] Blood Pressure Mean Blood Pressure Mean [Left Arm] Blood Pressure Position [Left Arm] Pulse Oximetry 97 96 98 Oxygen Delivery Method Room Air Room Air Sepsis Recent Fever Within 48 Hours Sepsis New/Unexplained Change in Mental Status Sepsis Action Taken by Nursing 11/12/20 13:32 11/12/20 13:40 11/12/20 14:19 Temperature Temperature Source Pulse Rate 124 H 126 H Pulse Rate [Left Finger] Pulse Rate from SpO2 Sensor 124 H 126 H Pulse Rhythm Pulse Rhythm [Left Finger] Pulse Strength [Left Finger] Respiratory Rate 30 H 23 20 Respiratory Effort / Characteristics Non-Labored Spontaneous Respiratory Depth Respiratory Pattern Blood Pressure Blood Pressure [Left Arm] Blood Pressure Mean Blood Pressure Mean [Left Arm] Blood Pressure Position [Left Arm] Pulse Oximetry 95 95 98 Oxygen Delivery Method Room Air Sepsis Recent Fever Within 48 Hours Sepsis New/Unexplained Change in Mental Status Sepsis Action Taken by Nursing 11/12/20 14:30 11/12/20 14:47 11/12/20 14:50 Temperature Temperature Source Pulse Rate 115 H 115 H Pulse Rate [Left Finger] Pulse Rate from SpO2 Sensor 115 H 114 H Pulse Rhythm Pulse Rhythm [Left Finger] Pulse Strength [Left Finger] Respiratory Rate 20 14 15 Respiratory Effort / Characteristics Non-Labored Spontaneous Respiratory Depth Respiratory Pattern Blood Pressure 133/77 Blood Pressure [Left Arm] Blood Pressure Mean 95 Blood Pressure Mean [Left Arm] Blood Pressure Position [Left Arm] Pulse Oximetry 98 96 95 Oxygen Delivery Method Room Air Sepsis Recent Fever Within 48 Hours Sepsis New/Unexplained Change in Mental Status Sepsis Action Taken by Nursing 11/12/20 14:51 11/12/20 15:00 11/12/20 15:01 Temperature 37.7 C H Temperature Source Oral Pulse Rate 119 H 115 H Pulse Rate [Left Finger] Pulse Rate from SpO2 Sensor 119 H 115 H Pulse Rhythm Pulse Rhythm [Left Finger] Pulse Strength [Left Finger] Respiratory Rate 22 17 Respiratory Effort / Characteristics Respiratory Depth Respiratory Pattern Blood Pressure 127/74 Blood Pressure [Left Arm] Blood Pressure Mean 91 Blood Pressure Mean [Left Arm] Blood Pressure Position [Left Arm] Pulse Oximetry 96 95 Oxygen Delivery Method Sepsis Recent Fever Within 48 Hours Sepsis New/Unexplained Change in Mental Status Sepsis Action Taken by Nursing 11/12/20 15:10 11/12/20 15:13 11/12/20 15:20 Temperature Temperature Source Pulse Rate 115 H 116 H Pulse Rate [Left Finger] Pulse Rate from SpO2 Sensor 115 H 115 H Pulse Rhythm Pulse Rhythm [Left Finger] Pulse Strength [Left Finger] Respiratory Rate 13 20 20 Respiratory Effort / Characteristics Non-Labored Spontaneous Respiratory Depth Respiratory Pattern Blood Pressure Blood Pressure [Left Arm] Blood Pressure Mean Blood Pressure Mean [Left Arm] Blood Pressure Position [Left Arm] Pulse Oximetry 94 95 97 Oxygen Delivery Method Room Air Sepsis Recent Fever Within 48 Hours Sepsis New/Unexplained Change in Mental Status Sepsis Action Taken by Nursing 11/12/20 15:30 11/12/20 15:31 11/12/20 15:40 Temperature Temperature Source Pulse Rate 113 H 114 H 113 H Pulse Rate [Left Finger] Pulse Rate from SpO2 Sensor 113 H 114 H 113 H Pulse Rhythm Pulse Rhythm [Left Finger] Pulse Strength [Left Finger] Respiratory Rate 17 20 15 Respiratory Effort / Characteristics Non-Labored Respiratory Depth Respiratory Pattern Blood Pressure 120/75 Blood Pressure [Left Arm] Blood Pressure Mean 90 Blood Pressure Mean [Left Arm] Blood Pressure Position [Left Arm] Pulse Oximetry 95 95 96 Oxygen Delivery Method Room Air Sepsis Recent Fever Within 48 Hours Sepsis New/Unexplained Change in Mental Status Sepsis Action Taken by Nursing 11/12/20 16:00 11/12/20 16:28 11/12/20 16:30 Temperature Temperature Source Pulse Rate 107 H 101 H Pulse Rate [Left Finger] Pulse Rate from SpO2 Sensor Pulse Rhythm Pulse Rhythm [Left Finger] Pulse Strength [Left Finger] Respiratory Rate 18 20 16 Respiratory Effort / Characteristics Non-Labored Spontaneous Non-Labored Spontaneous Respiratory Depth Respiratory Pattern Blood Pressure 127/73 133/80 Blood Pressure [Left Arm] Blood Pressure Mean 91 97 Blood Pressure Mean [Left Arm] Blood Pressure Position [Left Arm] Pulse Oximetry 98 98 Oxygen Delivery Method Room Air Room Air Sepsis Recent Fever Within 48 Hours Sepsis New/Unexplained Change in Mental Status Sepsis Action Taken by Nursing 11/12/20 16:31 11/12/20 16:40 11/12/20 16:50 Temperature Temperature Source Pulse Rate 103 H 110 H 107 H Pulse Rate [Left Finger] Pulse Rate from SpO2 Sensor Pulse Rhythm Pulse Rhythm [Left Finger] Pulse Strength [Left Finger] Respiratory Rate 15 17 16 Respiratory Effort / Characteristics Respiratory Depth Respiratory Pattern Blood Pressure Blood Pressure [Left Arm] Blood Pressure Mean Blood Pressure Mean [Left Arm] Blood Pressure Position [Left Arm] Pulse Oximetry Oxygen Delivery Method Sepsis Recent Fever Within 48 Hours Sepsis New/Unexplained Change in Mental Status Sepsis Action Taken by Nursing 11/12/20 17:00 11/12/20 17:01 11/12/20 17:10 Temperature Temperature Source Pulse Rate 106 H 105 H 104 H Pulse Rate [Left Finger] Pulse Rate from SpO2 Sensor Pulse Rhythm Pulse Rhythm [Left Finger] Pulse Strength [Left Finger] Respiratory Rate 11 L 13 17 Respiratory Effort / Characteristics Non-Labored Respiratory Depth Respiratory Pattern Blood Pressure 126/80 Blood Pressure [Left Arm] Blood Pressure Mean 95 Blood Pressure Mean [Left Arm] Blood Pressure Position [Left Arm] Pulse Oximetry 98 Oxygen Delivery Method Room Air Sepsis Recent Fever Within 48 Hours Sepsis New/Unexplained Change in Mental Status Sepsis Action Taken by Nursing 11/12/20 17:24 11/12/20 17:30 11/12/20 17:40 Temperature Temperature Source Pulse Rate 95 H 97 H 98 H Pulse Rate [Left Finger] Pulse Rate from SpO2 Sensor Pulse Rhythm Pulse Rhythm [Left Finger] Pulse Strength [Left Finger] Respiratory Rate 19 17 20 Respiratory Effort / Characteristics Non-Labored Spontaneous Respiratory Depth Respiratory Pattern Blood Pressure Blood Pressure [Left Arm] Blood Pressure Mean Blood Pressure Mean [Left Arm] Blood Pressure Position [Left Arm] Pulse Oximetry 98 Oxygen Delivery Method Room Air Sepsis Recent Fever Within 48 Hours Sepsis New/Unexplained Change in Mental Status Sepsis Action Taken by Nursing 11/12/20 17:50 11/12/20 18:00 11/12/20 18:08 Temperature Temperature Source Pulse Rate 91 H 99 H 91 H Pulse Rate [Left Finger] 91 H Pulse Rate from SpO2 Sensor Pulse Rhythm Pulse Rhythm [Left Finger] Regular Pulse Strength [Left Finger] Normal Respiratory Rate 15 19 15 Respiratory Effort / Characteristics Non-Labored Spontaneous Non-Labored Spontaneous Respiratory Depth Normal Respiratory Pattern Regular Blood Pressure 122/72 Blood Pressure [Left Arm] 122/72 Blood Pressure Mean 88 Blood Pressure Mean [Left Arm] 88 Blood Pressure Position [Left Arm] Lying Pulse Oximetry 98 99 Oxygen Delivery Method Room Air Room Air Sepsis Recent Fever Within 48 Hours Sepsis New/Unexplained Change in Mental Status Sepsis Action Taken by Nursing 11/12/20 18:10 11/12/20 18:30 11/12/20 18:36 Temperature 36.9 C Temperature Source Oral Pulse Rate 93 H Pulse Rate [Left Finger] Pulse Rate from SpO2 Sensor Pulse Rhythm Pulse Rhythm [Left Finger] Pulse Strength [Left Finger] Respiratory Rate 18 18 Respiratory Effort / Characteristics Non-Labored Spontaneous Respiratory Depth Respiratory Pattern Blood Pressure Blood Pressure [Left Arm] Blood Pressure Mean Blood Pressure Mean [Left Arm] Blood Pressure Position [Left Arm] Pulse Oximetry 98 Oxygen Delivery Method Room Air Sepsis Recent Fever Within 48 Hours Sepsis New/Unexplained Change in Mental Status Sepsis Action Taken by Nursing Physical Exam GENERAL: She is oriented to person, place, and time. She appears well-developed and well-nourished. She does not appear distressed. HENT: Exam performed. -Head: Normocephalic and atraumatic. -Right Ear: External ear normal. No mastoid tenderness. -Left Ear: External ear normal. No mastoid tenderness. -Mouth/Throat: The oropharynx is clear and moist. No trismus in the jaw. No dental abscesses or uvula swelling. No oropharyngeal exudate or tonsillar abscesses. EYES: Conjunctivae and EOM are normal. Pupils are equal, round, and reactive to light. Right eye exhibits no discharge. Left eye exhibits no discharge. No scleral icterus. NECK: Normal range of motion. Neck supple. No JVD present. No spinous process tenderness present. No carotid bruit present. No rigidity. No tracheal deviation and normal range of motion present. No Brudzinski's sign and no Kernig's sign noted. CV: Tachycardic rate, regular rhythm, normal heart sounds and intact distal pulses. There is no peripheral edema. Palpable radial pulses bue. PULM/CHEST: Effort normal and breath sounds normal. No respiratory distress. No stridor. She has no wheezes. She has no rales. -Chest Wall: Port in the right chest with no surrounding erythema or discharge. ABD: The abdomen is soft. Ileostomy present. Pain on palpation of the left lower quadrant. MUSC/SKEL: Normal range of motion. There is no peripheral edema, tenderness or deformity. LYMPH: No cervical adenopathy. NEURO: She is alert and oriented to person, place, and time. She has normal strength. No cranial nerve deficit or sensory deficit. Coordination and gait normal. GCS eye subscore is 4. GCS verbal subscore is 5. GCS motor subscore is 6. Cerebellar tests wnl. SKIN: Skin is warm and dry. She is not diaphoretic. PSYCH: She has a normal mood and affect. Behavior is normal. Judgment and thought content normal. Course Course 1207: The patient was evaluated in room A4. A complete history and physical exam was performed Cardiac monitoring: An order was placed for continuous cardiac monitoring. The monitor shows a rate of 140 with sinus tachycardia rhythm Sepsis protocols initiated. 1515: Patient's vitals have improved, tachycardia improved. Labs are within normal limits with the exception of a lactic acid of 2.9. Magnesium 1.6. Procalcitonin 0.3. Urinalysis within normal limits. CT of the abdomen showed hyperemia consistent with enteritis. There is also esophagitis. There is a marked bilateral hydrosalpinx.Chest x-ray negative. Pelvic exam was conducted with nursing female director of technology Aidee and showed copious amounts of white vaginal discharge. Patient states she is and does not think she is at risk for STI. Cultures for gonorrhea and chlamydia were sent. Given the patient's copious amount of white discharge And hydrosalpinx on CT, pelvic ultrasound will be ordered. Patient will be treated empirically for STI as well as line sepsis. Patient be treated with daptomycin IV piggyback, cefepime IV piggyback, and doxycycline IV piggyback. 1755: Vital signs stable. Repeat lactic acid within normal limits status post 30 cc/kg bolus. Ultrasound does show hydrosalpinx. Discussed case with Dr. Young Deluca [employer]. She agrees with the antibiotic choice for possible coverage against gonorrhea and chlamydia. I did explain to her that I thought it is more likely that the patient has a line sepsis and that I admit the patient to internal medicine with her on consult, she is in agreement. She does agree to be on consult. She does state that in a woman her age with a bilateral hydrosalpinx it could represent a malignancy. She states there is no emergent surgical intervention needed and she would evaluate the patient when the patient reaches the floor. Dr. Alex beltran any hospitalist team with patient Ruiz who accept the patient. Administered Medications Sodium Chloride (Nss 1000ml) 1,000 mls @ 80 mls/hr IV .[id number] CHELA Stop: 12/12/20 14:44 Last Admin: 11/12/20 14:49 Dose: 80 mls/hr Documented by: [id number] Discontinued Medications Diphenhydramine HCl (Diphenhydramine 50 Mg/Ml Vial) 25 mg IV NOW STA Stop: 11/12/20 12:31 Last Admin: 11/12/20 13:19 Dose: 25 mg Documented by: [id number] Acetaminophen (Ofirmev) 1,000 mg in 100 mls @ 400 mls/hr IV NOW STA Stop: 11/12/20 12:21 Last Infusion: 11/12/20 13:09 Dose: 0 mls/hr Documented by: [id number] Admin: 11/12/20 12:38 Dose: 400 mls/hr Documented by: [id number] Sodium Chloride (Nss 1000ml) 2,000 mls @ 999 mls/hr IV .[id number] ONE Stop: 11/12/20 14:07 Last Infusion: 11/12/20 13:13 Dose: 0 mls/hr Documented by: [id number] Admin: 11/12/20 12:27 Dose: 999 mls/hr Documented by: [id number] Daptomycin 350 mg/ Syringe 7 mls @ 3.5 mls/min IV NOW ONE; Protocol Stop: 11/12/20 15:13 Last Admin: 11/12/20 15:34 Dose: 3.5 mls/min Documented by: [id number] Cefepime HCl (Maxipime) 2,000 mg in 20 mls @ 5 mls/min IV NOW STA; Protocol Stop: 11/12/20 15:15 Last Admin: 11/12/20 15:19 Dose: 5 mls/min Documented by: [id number] Doxycycline Hyclate 100 mg/ (Dextrose) 110 mls @ 50 mls/hr IV NOW STA Stop: 11/12/20 17:23 Last Infusion: 11/12/20 18:03 Dose: 0 mls/hr Documented by: [id number] Admin: 11/12/20 15:36 Dose: 50 mls/hr Documented by: [id number] Magnesium Sulfate/Dextrose (Magnesium Sulfate / D5w) 1 gm in 100 mls @ 100 mls/hr IV NOW STA Stop: 11/12/20 17:12 Last Admin: 11/12/20 18:07 Dose: 100 mls/hr Documented by: [id number] Ioversol (Optiray 320 150ml) 89 ml IV ONCE ONE Stop: 11/12/20 13:45 Last Admin: 11/12/20 13:44 Dose: 89 ml Documented by: [id number] Ketorolac Tromethamine (Ketorolac Tromethamine 15 Mg/Ml Vial) 15 mg IV NOW STA Stop: 11/12/20 15:44 Last Admin: 11/12/20 16:28 Dose: 15 mg Documented by: [id number] Methylprednisolone (Methylprednisolone 125 Mg/2 Ml Vial) 125 mg IV NOW STA Stop: 11/12/20 12:31 Last Admin: 11/12/20 13:19 Dose: 125 mg Documented by: [id number] Critical Care Time Critical Care Time: Yes Total Critical Care Time: 64 I have personally spent greater than 64 minutes of critical care time in the direct management of this patient. This includes bedside care, interpretation of diagnostic studies, and testing, discussion with consultants, patient, and family members, and other required patient management activities. This 64 minutes is in excess of all separately billable procedures. Medical Decision Making Laboratory Data Result diagrams: 11/12/20 12:20 11/12/20 12:20 Lab Results 11/12/20 11/12/20 11/12/20 Range/Units 12:20 12:20 12:20 WBC 6.33 (4.8-10.8) K/uL RBC 4.72 (4.2-5.4) M/uL Hgb 12.3 (12.0-16.0) g/dL POC Hgb (12.0-16.0) g/dl Hct 37.9 (37-47) % POC Hct (37-47) % MCV 80.3 (80-100) fL MCH 26.1 (25-34) pg MCHC 32.5 (32-36) g/dL RDW Std Deviation 51.6 H (36.4-46.3) fL RDW Coeff of Aleta 17.3 H (11.5-14.5) % Plt Count 214 (130-400) K/uL MPV 9.3 (7.4-10.4) fL Immature Gran % (Auto) 0.2 % Neut % (Auto) 88.5 % Lymph % (Auto) 4.7 % [place] % (Auto) 5.4 % Eos % (Auto) 0.9 % Baso % (Auto) 0.3 % Neut # (Auto) 5.60 (1.4-6.5) K/uL Lymph # (Auto) 0.30 L (1.2-3.4) K/uL [place] # (Auto) 0.34 (0.11-0.59) K/uL Eos # (Auto) 0.06 (0-0.5) K/uL Baso # (Auto) 0.02 (0-0.2) K/uL Immature Gran # (Auto) 0.01 (0.00-0.02) K/uL PT (9.0-12.0) Seconds INR (0.9-1.1) APTT (21.0-31.0) Seconds PTT Ratio POC Sodium (135-144) mmol/L Sodium 136 (136-145) mmol/L POC Potassium (3.3-5.0) mmol/L Potassium 3.9 (3.5-5.1) mmol/L POC Chloride (101-112) mmol/L Chloride 101 (98-107) mmol/L Carbon Dioxide 27 (21-32) mmol/L POC Total CO2 (24-31) mmol/L Anion Gap 8.0 (3-11) POC Anion Gap (16-25) mmol/L POC BUN (7-18) mg/dl BUN 18 (7-18) mg/dl Creatinine 0.93 (0.6-1.2) mg/dl POC Creatinine (0.6-1.3) mg/dl Est Cr Clr Drug Dosing 62.5 ml/min Est GFR ( Amer) 83.1 ml/min Est GFR (Non-Af Amer) 71.7 ml/min BUN/Creatinine Ratio 19.5 (10-20) Glucose 140 H (70-99) mg/dl POC Glucose (other) (70-99) mg/dl Lactate (0.4-2.0) mmol/L Calcium 9.4 (8.5-10.1) mg/dl POC Ioniz Calcium [place] (1.12-1.32) mmol/l Magnesium 1.6 L (1.8-2.4) mg/dl Total Bilirubin 0.2 (0.2-1) mg/dl AST 30 (15-37) U/L ALT 33 (12-78) U/L Alkaline Phosphatase 150 H (45-117) U/L Troponin I < 0.015 (0-0.045) ng/ml Total Protein 8.5 H (6.4-8.2) gm/dl Albumin 3.0 L (3.4-5.0) gm/dl Globulin 5.5 H (2.5-4.0) gm/dl Albumin/Globulin Ratio 0.5 L (0.9-2) Procalcitonin 0.30 (0-0.5) ng/ml Urine Color Urine Appearance (Clear) Urine pH (4.5-7.5) Ur Specific [place] (1.000-1.030) Urine Protein (Negative) Urine Glucose (UA) (Negative) Urine Ketones (Negative) Urine Blood (Negative) Urine Nitrite (Negative) Urine Bilirubin (Negative) Urine Urobilinogen (Negative) Ur Leukocyte Esterase (Negative) Urine WBC (Auto) (0-5) /hpf Urine RBC (Auto) (0-4) /hpf U Hyaline Cast (Auto) (0-5) /lpf U Epithel Cells (Auto) (0-5) /lpf Urine Bacteria (Auto) (Negative) COVID-19 Eval Order SARS-CoV-2 (PCR) (Negative) Influ A Molecular Assay (Negative) Influ B Molecular Assay (Negative) 11/12/20 11/12/20 11/12/20 Range/Units 12:20 12:20 12:32 WBC (4.8-10.8) K/uL RBC (4.2-5.4) M/uL Hgb (12.0-16.0) g/dL POC Hgb 13.6 (12.0-16.0) g/dl Hct (37-47) % POC Hct 40 (37-47) % MCV (80-100) fL MCH (25-34) pg MCHC (32-36) g/dL RDW Std Deviation (36.4-46.3) fL RDW Coeff of Aleta (11.5-14.5) % Plt Count (130-400) K/uL MPV (7.4-10.4) fL Immature Gran % (Auto) % Neut % (Auto) % Lymph % (Auto) % [place] % (Auto) % Eos % (Auto) % Baso % (Auto) % Neut # (Auto) (1.4-6.5) K/uL Lymph # (Auto) (1.2-3.4) K/uL [place] # (Auto) (0.11-0.59) K/uL Eos # (Auto) (0-0.5) K/uL Baso # (Auto) (0-0.2) K/uL Immature Gran # (Auto) (0.00-0.02) K/uL PT 10.0 (9.0-12.0) Seconds INR 1.0 (0.9-1.1) APTT 22.8 (21.0-31.0) Seconds PTT Ratio 0.9 POC Sodium 137 (135-144) mmol/L Sodium (136-145) mmol/L POC Potassium 3.9 (3.3-5.0) mmol/L Potassium (3.5-5.1) mmol/L POC Chloride 97 L (101-112) mmol/L Chloride (98-107) mmol/L Carbon Dioxide (21-32) mmol/L POC Total CO2 27 (24-31) mmol/L Anion Gap (3-11) POC Anion Gap 18.0 (16-25) mmol/L POC BUN 18 (7-18) mg/dl BUN (7-18) mg/dl Creatinine (0.6-1.2) mg/dl POC Creatinine 0.8 (0.6-1.3) mg/dl Est Cr Clr Drug Dosing ml/min Est GFR ( Amer) ml/min Est GFR (Non-Af Amer) ml/min BUN/Creatinine Ratio (10-20) Glucose (70-99) mg/dl POC Glucose (other) 144 H (70-99) mg/dl Lactate 2.9 H* (0.4-2.0) mmol/L Calcium (8.5-10.1) mg/dl POC Ioniz Calcium Tamica 1.17 (1.12-1.32) mmol/l Magnesium (1.8-2.4) mg/dl Total Bilirubin (0.2-1) mg/dl AST (15-37) U/L ALT (12-78) U/L Alkaline Phosphatase (45-117) U/L Troponin I (0-0.045) ng/ml Total Protein (6.4-8.2) gm/dl Albumin (3.4-5.0) gm/dl Globulin (2.5-4.0) gm/dl Albumin/Globulin Ratio (0.9-2) Procalcitonin (0-0.5) ng/ml Urine Color Urine Appearance (Clear) Urine pH (4.5-7.5) Ur Specific [place] (1.000-1.030) Urine Protein (Negative) Urine Glucose (UA) (Negative) Urine Ketones (Negative) Urine Blood (Negative) Urine Nitrite (Negative) Urine Bilirubin (Negative) Urine Urobilinogen (Negative) Ur Leukocyte Esterase (Negative) Urine WBC (Auto) (0-5) /hpf Urine RBC (Auto) (0-4) /hpf U Hyaline Cast (Auto) (0-5) /lpf U Epithel Cells (Auto) (0-5) /lpf Urine Bacteria (Auto) (Negative) COVID-19 Eval Order SARS-CoV-2 (PCR) (Negative) Influ A Molecular Assay (Negative) Influ B Molecular Assay (Negative) 11/12/20 11/12/20 11/12/20 Range/Units 12:52 12:52 12:54 WBC (4.8-10.8) K/uL RBC (4.2-5.4) M/uL Hgb (12.0-16.0) g/dL POC Hgb (12.0-16.0) g/dl Hct (37-47) % POC Hct (37-47) % MCV (80-100) fL MCH (25-34) pg MCHC (32-36) g/dL RDW Std Deviation (36.4-46.3) fL RDW Coeff of Aleta (11.5-14.5) % Plt Count (130-400) K/uL MPV (7.4-10.4) fL Immature Gran % (Auto) % Neut % (Auto) % Lymph % (Auto) % [place] % (Auto) % Eos % (Auto) % Baso % (Auto) % Neut # (Auto) (1.4-6.5) K/uL Lymph # (Auto) (1.2-3.4) K/uL [place] # (Auto) (0.11-0.59) K/uL Eos # (Auto) (0-0.5) K/uL Baso # (Auto) (0-0.2) K/uL Immature Gran # (Auto) (0.00-0.02) K/uL PT (9.0-12.0) Seconds INR (0.9-1.1) APTT (21.0-31.0) Seconds PTT Ratio POC Sodium (135-144) mmol/L Sodium (136-145) mmol/L POC Potassium (3.3-5.0) mmol/L Potassium (3.5-5.1) mmol/L POC Chloride (101-112) mmol/L Chloride (98-107) mmol/L Carbon Dioxide (21-32) mmol/L POC Total CO2 (24-31) mmol/L Anion Gap (3-11) POC Anion Gap (16-25) mmol/L POC BUN (7-18) mg/dl BUN (7-18) mg/dl Creatinine (0.6-1.2) mg/dl POC Creatinine (0.6-1.3) mg/dl Est Cr Clr Drug Dosing ml/min Est GFR ( Amer) ml/min Est GFR (Non-Af Amer) ml/min BUN/Creatinine Ratio (10-20) Glucose (70-99) mg/dl POC Glucose (other) (70-99) mg/dl Lactate (0.4-2.0) mmol/L Calcium (8.5-10.1) mg/dl POC Ioniz Calcium Tamica (1.12-1.32) mmol/l Magnesium (1.8-2.4) mg/dl Total Bilirubin (0.2-1) mg/dl AST (15-37) U/L ALT (12-78) U/L Alkaline Phosphatase (45-117) U/L Troponin I (0-0.045) ng/ml Total Protein (6.4-8.2) gm/dl Albumin (3.4-5.0) gm/dl Globulin (2.5-4.0) gm/dl Albumin/Globulin Ratio (0.9-2) Procalcitonin (0-0.5) ng/ml Urine Color Urine Appearance (Clear) Urine pH (4.5-7.5) Ur Specific [place] (1.000-1.030) Urine Protein (Negative) Urine Glucose (UA) (Negative) Urine Ketones (Negative) Urine Blood (Negative) Urine Nitrite (Negative) Urine Bilirubin (Negative) Urine Urobilinogen (Negative) Ur Leukocyte Esterase (Negative) Urine WBC (Auto) (0-5) /hpf Urine RBC (Auto) (0-4) /hpf U Hyaline Cast (Auto) (0-5) /lpf U Epithel Cells (Auto) (0-5) /lpf Urine Bacteria (Auto) (Negative) COVID-19 Eval Order Covid19 at [facility] SARS-CoV-2 (PCR) NEGATIVE (Negative) Influ A Molecular Assay Negative (Negative) Influ B Molecular Assay Negative (Negative) 11/12/20 11/12/20 Range/Units 13:32 14:18 WBC (4.8-10.8) K/uL RBC (4.2-5.4) M/uL Hgb (12.0-16.0) g/dL POC Hgb (12.0-16.0) g/dl Hct (37-47) % POC Hct (37-47) % MCV (80-100) fL MCH (25-34) pg MCHC (32-36) g/dL RDW Std Deviation (36.4-46.3) fL RDW Coeff of Aleta (11.5-14.5) % Plt Count (130-400) K/uL MPV (7.4-10.4) fL Immature Gran % (Auto) % Neut % (Auto) % Lymph % (Auto) % [place] % (Auto) % Eos % (Auto) % Baso % (Auto) % Neut # (Auto) (1.4-6.5) K/uL Lymph # (Auto) (1.2-3.4) K/uL [place] # (Auto) (0.11-0.59) K/uL Eos # (Auto) (0-0.5) K/uL Baso # (Auto) (0-0.2) K/uL Immature Gran # (Auto) (0.00-0.02) K/uL PT (9.0-12.0) Seconds INR (0.9-1.1) APTT (21.0-31.0) Seconds PTT Ratio POC Sodium (135-144) mmol/L Sodium (136-145) mmol/L POC Potassium (3.3-5.0) mmol/L Potassium (3.5-5.1) mmol/L POC Chloride (101-112) mmol/L Chloride (98-107) mmol/L Carbon Dioxide (21-32) mmol/L POC Total CO2 (24-31) mmol/L Anion Gap (3-11) POC Anion Gap (16-25) mmol/L POC BUN (7-18) mg/dl BUN (7-18) mg/dl Creatinine (0.6-1.2) mg/dl POC Creatinine (0.6-1.3) mg/dl Est Cr Clr Drug Dosing ml/min Est GFR ( Amer) ml/min Est GFR (Non-Af Amer) ml/min BUN/Creatinine Ratio (10-20) Glucose (70-99) mg/dl POC Glucose (other) (70-99) mg/dl Lactate 1.9 (0.4-2.0) mmol/L Calcium (8.5-10.1) mg/dl POC Ioniz Calcium Tamica (1.12-1.32) mmol/l Magnesium (1.8-2.4) mg/dl Total Bilirubin (0.2-1) mg/dl AST (15-37) U/L ALT (12-78) U/L Alkaline Phosphatase (45-117) U/L Troponin I (0-0.045) ng/ml Total Protein (6.4-8.2) gm/dl Albumin (3.4-5.0) gm/dl Globulin (2.5-4.0) gm/dl Albumin/Globulin Ratio (0.9-2) Procalcitonin (0-0.5) ng/ml Urine Color Yellow Urine Appearance Clear (Clear) Urine pH 6.5 (4.5-7.5) Ur Specific [place] 1.015 (1.000-1.030) Urine Protein Negative (Negative) Urine Glucose (UA) Negative (Negative) Urine Ketones Negative (Negative) Urine Blood Trace H (Negative) Urine Nitrite Negative (Negative) Urine Bilirubin Negative (Negative) Urine Urobilinogen Negative (Negative) Ur Leukocyte Esterase Negative (Negative) Urine WBC (Auto) 0 (0-5) /hpf Urine RBC (Auto) 0-4 (0-4) /hpf U Hyaline Cast (Auto) 1-5 (0-5) /lpf U Epithel Cells (Auto) 0-5 (0-5) /lpf Urine Bacteria (Auto) Negative (Negative) COVID-19 Eval Order SARS-CoV-2 (PCR) (Negative) Influ A Molecular Assay (Negative) Influ B Molecular Assay (Negative) Imaging Data Radiologist's Impression: Chest X-Ray 11/12/20 12:08 SINGLE VIEW CHEST CLINICAL HISTORY: Sepsis. FINDINGS: An AP, portable, upright chest radiograph is compared to study dated 06/19/2020. A right-sided central venous catheter is new from previous. The cardiomediastinal silhouette is unremarkable. The lungs and pleural spaces are clear. No pneumothorax is seen. The bony thorax is grossly intact. IMPRESSION: No active disease in the chest. ACT 112: Negative or not required by law. Electronically signed by: Jordi Bailey M.D. 11/12/2020 3:43 PM Abdomen/Pelvis CT 11/12/20 12:28 CT SCAN OF THE ABDOMEN AND PELVIS WITH IV CONTRAST CLINICAL HISTORY: Left lower quadrant abdominal pain. Fever and tachycardia. COMPARISON STUDY: Abdominal CT dated 12/05/2017. TECHNIQUE: Following the IV administration of 89 cc of Optiray 320, CT scan of the abdomen and pelvis is performed from the lung bases to the proximal femora. Images are reviewed in the axial, sagittal, and coronal planes. IV contrast was administered without complication. A dose lowering technique was utilized adhering to the principles of ALARA. CT DOSE: 328.57 mGycm FINDINGS: Lung bases: The heart is normal in size and without pericardial effusion. The lung bases are clear. Circumferential wall thickening is noted in the distal esophagus. Liver: The contrast-enhanced liver is normal in size, contour, and attenuation. There is mild central intrahepatic biliary ductal dilatation. The hepatic veins and portal veins are patent. Gallbladder: Surgically absent noting clips in the gallbladder fossa. Spleen: Normal in size and attenuation. Pancreas: Unremarkable. Adrenal glands: Unremarkable. Kidneys: The contrast enhanced kidneys are normal in size and without hydrone phrosis. The kidneys enhance symmetrically. Abdominal vasculature: The abdominal aorta is normal in course and caliber. 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 A small parastomal hernia contains nonobstructed small bowel. There is no evidence of bowel obstruction. Mild distention of the small bowel is similar to previous and likely related to proctocolectomy. Question full thickening of the small bowel with mucosal hyperemia. Peritoneum: There is no intraperitoneal free air or abdominal ascites. Lymphadenopathy: There are numerous prominent mesenteric lymph nodes which measure up to 8 mm in short axis. Pelvic viscera: The bladder is distended but otherwise normal in appearance. The uterus is heterogeneous. There is evidence of bilateral hydrosalpinx in the pelvis. The left tube measures up to 3 cm diameter. Skeletal structures: No lytic or blastic lesions are seen. IMPRESSION: 1. There is postoperative change from proctocolectomy with right lower quadrant ileostomy. 2. There is no evidence of high-grade bowel obstruction. 3. There is nonspecific distention of the small bowel loops, likely related to previous proctocolectomy. 4. Fold thickening is suggested throughout the small bowel with mild mucosal hyperemia. Additionally, there are numerous prominent mesenteric lymph nodes. These findings are of indeterminant significance and similar to the 12/05/2017 examination. Correlate clinically for evidence of a nonspecific enteritis. 5. Circumferential wall thickening is noted in the distal esophagus. Correlate clinically for evidence of esophagitis. 6. There is marked bilateral hydrosalpinx, which represents a significant change from 2018. Consider gynecology assessment and pelvic ultrasound in follow-up. 7. A small parastomal hernia contains a segment of small bowel. 8. Additional findings as above. ACT 112: Negative or not required by law. Electronically signed by: Jordi Bailey M.D. 11/12/2020 2:21 PM Pelvis Ultrasound 11/12/20 14:32 ULTRASOUND OF THE PELVIS CLINICAL HISTORY: Hydrosalpinx. COMPARISON STUDY: Pelvic CT dated 11/12/2020. TECHNIQUE: Real-time, grayscale, and color flow sonography of the pelvis is performed both transabdominally and endovaginally. Images are reviewed in the transverse and longitudinal planes. The endovaginal examination was performed for better assessment of the adnexa. FINDINGS: Uterus: The uterus is normal in size and echotexture, measuring 8.3 x 4.2 x 5.6 cm. Nabothian cysts are noted in the cervix. There is trace fluid within the cervix. Endometrium: The endometrium is normal in appearance, and the endometrial stripe is normal in thickness measuring up to 0.7 cm. Ovaries: The right ovary was not visualized due to overlying bowel. The left ovary is normal as imaged, measuring 1.9 x 1.5 x 1.2 cm. There are small left ovarian follicles. Normal Doppler waveforms are shown within the left ovary. Pelvis: There is no free fluid in the cul-de-sac. There are markedly dilated tubular structures seen in the adnexa bilaterally, likely corresponding to hydrosalpinx seen by CT. IMPRESSION: 1. There are large dilated tubular structures in the adnexa bilaterally, likely representing hydrosalpinx. Nonemergent gynecology follow-up is recommended. 2. The uterus and left ovary are normal as imaged. 3. The right ovary was not visualized. ACT 112: Negative or not required by law. Electronically signed by: Jordi Bailey M.D. 11/12/2020 5:48 PM Transvaginal US 11/12/20 14:32 ULTRASOUND OF THE PELVIS CLINICAL HISTORY: Hydrosalpinx. COMPARISON STUDY: Pelvic CT dated 11/12/2020. TECHNIQUE: Real-time, grayscale, and color flow sonography of the pelvis is performed both transabdominally and endovaginally. Images are reviewed in the transverse and longitudinal planes. The endovaginal examination was performed for better assessment of the adnexa. FINDINGS: Uterus: The uterus is normal in size and echotexture, measuring 8.3 x 4.2 x 5.6 cm. Nabothian cysts are noted in the cervix. There is trace fluid within the cervix. Endometrium: The endometrium is normal in appearance, and the endometrial stripe is normal in thickness measuring up to 0.7 cm. Ovaries: The right ovary was not visualized due to overlying bowel. The left ovary is normal as imaged, measuring 1.9 x 1.5 x 1.2 cm. There are small left ovarian follicles. Normal Doppler waveforms are shown within the left ovary. Pelvis: There is no free fluid in the cul-de-sac. There are markedly dilated tubular structures seen in the adnexa bilaterally, likely corresponding to hydrosalpinx seen by CT. IMPRESSION: 1. There are large dilated tubular structures in the adnexa bilaterally, likely representing hydrosalpinx. Nonemergent gynecology follow-up is recommended. 2. The uterus and left ovary are normal as imaged. 3. The right ovary was not visualized. ACT 112: Negative or not required by law. Electronically signed by: Jordi Bailey M.D. 11/12/2020 5:48 PM ECG Data Indication: + other (sepsis) Rate (beats per minute): 129 Rhythm: + sinus tachycardia ECG Intervals/blocks: + Normal NE and + Normal QT-c ECG ST segments: + Normal ST segments MDM Narrative 1207: The patient was evaluated in room A4. A complete history and physical exam was performed Cardiac monitoring: An order was placed for continuous cardiac monitoring. The monitor shows a rate of 140 with sinus tachycardia rhythm Sepsis protocols initiated. 1515: Patient's vitals have improved, tachycardia improved. Labs are within normal limits with the exception of a lactic acid of 2.9. Magnesium 1.6. Procalcitonin 0.3. Urinalysis within normal limits. CT of the abdomen showed hyperemia consistent with enteritis. There is also esophagitis. There is a marked bilateral hydrosalpinx.Chest x-ray negative. Pelvic exam was conducted with nursing female director of technology Aidee and showed copious amounts of white vaginal discharge. Patient states she is and does not think she is at risk for STI. Cultures for gonorrhea and chlamydia were sent. Given the patient's copious amount of white discharge And hydrosalpinx on CT, pelvic ultrasound will be ordered. Patient will be treated empirically for STI as well as line sepsis. Patient be treated with daptomycin IV piggyback, cefepime IV piggyback, and doxycycline IV piggyback. 1755: Vital signs stable. Repeat lactic acid within normal limits status post 30 cc/kg bolus. Ultrasound does show hydrosalpinx. Discussed case with Dr. Young Deluca [employer]. She agrees with the antibiotic choice for possible coverage against gonorrhea and chlamydia. I did explain to her that I thought it is more likely that the patient has a line sepsis and that I admit the patient to internal medicine with her on consult, she is in agreement. She does agree to be on consult. She does state that in a woman her age with a bilateral hydrosalpinx it could represent a malignancy. She states there is no emergent surgical intervention needed and she would evaluate the patient when the patient reaches the floor. Dr. Alex beltran any hospitalist team with patient [facility] who accept the patient. Impression & Plan Sepsis, Hydrosalpinx, Vaginal discharge, Hypomagnesemia Discharge Plan Visit Data Chief Complaint: Illness Stated Complaint: CHILLS,FEVER,BODY ACHE,VOMITING,SEVERE PAIN,VAG DC ED Provider: Peewee Goldstein Discharge Problem: Sepsis, Hydrosalpinx, Vaginal discharge, Hypomagnesemia Forms Stand Alone Forms: [facility] Prescriptions Prescriptions: No Action loperamide 2 mg capsule 4 mg PO BID Qty: 240 RF: 5 metronidazole [Metrogel Vaginal] 0.75 % gel 1 appful vaginal DAILY 5 Days Qty: 70 RF: 0 Gattex 30-Vial 5 mg kit 5 mg SUBCUT QAM RF: 0 Humira(CF) Pen 40 mg/0.4 mL pen injector kit 40 mg SUBCUT WK RF: 0 venlafaxine 75 mg tablet 75 mg PO BID RF: 0 azathioprine [Imuran] 50 mg tablet 50 mg PO QAM RF: 0 potassium chloride 10 mEq tablet,ER particles/crystals 20 meq PO BID RF: 0 cholecalciferol (vitamin D3) 5,000 unit tablet 5,000 units PO QAM RF: 0 [facility] 10 billion cell -200 mg Capsule 1 cap PO QAM RF: 0 acetaminophen [Tylenol Extra Strength] 500 mg Tablet 1,000 mg PO Q6 PRN (Reason: Fever Or Pain) RF: 0 Total Parenteral Nutrition 1 dose PO 4XWK RF: 0 Flintstones Complete Tablet,Chewable 1 tab PO QAM RF: 0 Referrals Referrals: Patricio Malhotra III, MD [Primary Care Provider] - Discharge Problem: Sepsis Qualifiers: Sepsis type: sepsis due to unspecified organism Sepsis acute organ dysfunction status: unspecified Qualified Code(s): A41.9 - Sepsis, unspecified organism
[2020-11-12] MEDS ORDERED: OPTIRAY 320 150ml IV ONE (13:44)
[2020-11-12 13:46] LABS: Appearance Urine Clear (Clear); Bacteria Urine Automated Negative (Negative); Bilirubin Urine Negative (Negative); Blood Urine Trace (Negative); Color Urine Yellow; Epithelial Cell Urine Auto 0-5 /lpf (0-5); Glucose Urine UA Negative (Negative); Ketones Urine Negative (Negative); Leukocyte Esterase Urine Negative (Negative); Nitrite Urine Negative (Negative); Protein Urine Negative (Negative); RBC Urine Automated 0-4 /hpf (0-4); Specific Gravity Urine 1.015 (1.000-1.030); Urobilinogen Urine Negative (Negative); WBC Urine Automated 0 /hpf (0-5); pH Urine 6.5 (4.5-7.5)
[2020-11-12 13:50] LABS: Influenza A virus by PCR Negative (Negative); Influenza B virus by PCR Negative (Negative)
--- NOTE | 2020-11-12 14:22 | CT Scan Report ---
CT SCAN OF THE ABDOMEN AND PELVIS WITH IV CONTRAST CLINICAL HISTORY: Left lower quadrant abdominal pain. Fever and tachycardia. COMPARISON STUDY: Abdominal CT dated 12/05/2017. TECHNIQUE: Following the IV administration of 89 cc of Optiray 320, CT scan of the abdomen and pelvi s is performed from the lung bases to the proximal femora. Images are reviewed in the axial, sagittal , and coronal planes. IV contrast was administered without complication. A dose lowering technique wa s utilized adhering to the principles of ALARA. CT DOSE: 328.57 mGycm FINDINGS: Lung bases: The heart is normal in size and without pericardial effusion. The lung bases are clear. C ircumferential wall thickening is noted in the distal esophagus. Liver: The contrast-enhanced liver is normal in size, contour, and attenuation. There is mild central intrahepatic biliary ductal dilatation. The hepatic veins and portal veins are patent. Gallbladder: Surgically absent noting clips in the gallbladder fossa. Spleen: Normal in size and attenuation. Pancreas: Unremarkable. Adrenal glands: Unremarkable. Kidneys: The contrast enhanced kidneys are normal in size and without hydronephrosis. The kidneys enh ance symmetrically. Abdominal vasculature: The abdominal aorta is normal in course and caliber. Bowel: There is postoperative change consistent with proctocolectomy and right lower quadrant ileosto my. A small parastomal hernia contains nonobstructed small bowel. There is no evidence of bowel obstr uction. Mild distention of the small bowel is similar to previous and likely related to proctocolecto my. Question full thickening of the small bowel with mucosal hyperemia. Peritoneum: There is no intraperitoneal free air or abdominal ascites. Lymphadenopathy: There are numerous prominent mesenteric lymph nodes which measure up to 8 mm in shor t axis. Pelvic viscera: The bladder is distended but otherwise normal in appearance. The uterus is heterogene ous. There is evidence of bilateral hydrosalpinx in the pelvis. The left tube measures up to 3 cm kimberly meter. Skeletal structures: No lytic or blastic lesions are seen. IMPRESSION: 1. There is postoperative change from proctocolectomy with right lower quadrant ileostomy. 2. There is no evidence of high-grade bowel obstruction. 3. There is nonspecific distention of the small bowel loops, likely related to previous proctocolecto my. 4. Fold thickening is suggested throughout the small bowel with mild mucosal hyperemia. Additionally, there are numerous prominent mesenteric lymph nodes. These findings are of indeterminant significanc e and similar to the 12/05/2017 examination. Correlate clinically for evidence of a nonspecific enteri tis. 5. Circumferential wall thickening is noted in the distal esophagus. Correlate clinically for evidenc e of esophagitis. 6. There is marked bilateral hydrosalpinx, which represents a significant change from 2018. Consider gynecology assessment and pelvic ultrasound in follow-up. 7. A small parastomal hernia contains a segment of small bowel. 8. Additional findings as above. ACT 112: Negative or not required by law. Electronically signed by: Jordi Bailey M.D. 11/12/2020 2:21 PM
[2020-11-12] MEDS: SODIUM CHLORIDE 0.9% 1000ML 1,000 ML IV SCH (14:49)
[2020-11-12] MEDS ORDERED: CEFEPIME 2,000 MG/20 ML VIAL IV STA (15:12)
[2020-11-12] MEDS ORDERED: DOXYCYCLINE HYCLATE 100 MG in DEXTROSE 5% 100 ML IV STA (15:12)
[2020-11-12] MEDS ORDERED: DAPTOmycin 350 MG in SYRINGE 0 ML IV ONE (15:12)
[2020-11-12] MEDS ORDERED: KETOROLAC TROMETHAMINE 15 MG/ML VIAL IV STA (15:43)
--- NOTE | 2020-11-12 15:45 | XRay Report ---
SINGLE VIEW CHEST CLINICAL HISTORY: Sepsis. FINDINGS: An AP, portable, upright chest radiograph is compared to study dated 06/19/2020. A right-side d central venous catheter is new from previous. The cardiomediastinal silhouette is unremarkable. The lungs and pleural spaces are clear. No pneumothorax is seen. The bony thorax is grossly intact. IMPRESSION: No active disease in the chest. ACT 112: Negative or not required by law. Electronically signed by: Jordi Bailey M.D. 11/12/2020 3:43 PM
[2020-11-12] MEDS ORDERED: MAGNESIUM SULFATE / D5W 1 GM/100 ML BAG IV STA (16:13)
--- NOTE | 2020-11-12 17:50 | Ultrasound Report ---
ULTRASOUND OF THE PELVIS CLINICAL HISTORY: Hydrosalpinx. COMPARISON STUDY: Pelvic CT dated 11/12/2020. TECHNIQUE: Real-time, grayscale, and color flow sonography of the pelvis is performed both transabdom inally and endovaginally. Images are reviewed in the transverse and longitudinal planes. The endovagi nal examination was performed for better assessment of the adnexa. FINDINGS: Uterus: The uterus is normal in size and echotexture, measuring 8.3 x 4.2 x 5.6 cm. Nabothian cysts a re noted in the cervix. There is trace fluid within the cervix. Endometrium: The endometrium is normal in appearance, and the endometrial stripe is normal in thickne ss measuring up to 0.7 cm. Ovaries: The right ovary was not visualized due to overlying bowel. The left ovary is normal as image d, measuring 1.9 x 1.5 x 1.2 cm. There are small left ovarian follicles. Normal Doppler waveforms are shown within the left ovary. Pelvis: There is no free fluid in the cul-de-sac. There are markedly dilated tubular structures seen in the adnexa bilaterally, likely corresponding to hydrosalpinx seen by CT. IMPRESSION: 1. There are large dilated tubular structures in the adnexa bilaterally, likely representing hydrosal pinx. Nonemergent gynecology follow-up is recommended. 2. The uterus and left ovary are normal as imaged. 3. The right ovary was not visualized. ACT 112: Negative or not required by law. Electronically signed by: Jordi Bailey M.D. 11/12/2020 5:48 PM
--- NOTE | 2020-11-12 19:42 | History & Physical Report ---
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 Sepsis H/o line infection in 05/2020, immunocompromised due to Crohn's/immunomodulatory meds, presented with fever 38.1C and tachycardic 150s, VS improved since started on IVFs --> sepsis, suspect (i.e. PID) vs August catheter as source. - continue with broad-spectrum coverage given concern for line infection vs PID in immunocompromised host: - Daptomycin 350mg IV Q24H (6mg/kg) - Cefepime 2g IV Q8H - Doxycycline 100mg IV Q12H - Added Caspofungin (70mg IV x1 now followed by 50mg IV daily starting tomorrow) for fungal coverage - continue with mIVFs - NSS @100cc/hr - ordered blood cx through August catheter, as this was not obtained - follow all blood cx and adjust abx as necessary, would consider ID consult if there is line infection - CBC, CRP, procalcitonin in the AM Abnormal Vaginal Discharge/Hydrosalpinx Six weeks relapsing/remitting symptoms, acute-onset lower abdominal pain with bilateral LE joint pain, copious thick white vaginal discharge on speculum exam, hydrosalpinx on imaging --> suspect GC/CT infection with possible PID, is on differential for source of sepsis. - GC/CT pending - Tylenol 650mg PO Q6H PRN for abdominal pain - continue all abx as stated above (Cefepime/Doxycycline to cover for GC/CT) - COMPOUND MIXER consulted - appreciate recs Crohn's Disease - last Humira on 11/09, next not due until 11/16 (qweek injections) - hold Azathioprine for now in light of sepsis - continue home Loperamide 2mg PO BID - continue home KCl 20mEq PO BID TPN-dependent s/p bowel resections - hold TPN for now, pending w/u for line infection - continue with mIVFs as stated above Depression/Anxiety - continue home Venlafaxine 75mg PO BID FEN/GI: NPO, NSS @100cc/hr DVT Prophylaxis: Lovenox 40mg SQ Q24H Code Status: Full code Disposition: med/surg with tele (2) Vaginal discharge: (3) Hydrosalpinx: (4) Crohns disease: (5) Depression: (6) Anxiety: (7) On total parenteral nutrition: (8) Hypertension: (9) Short gut syndrome: (10) Hypomagnesemia: History of Present Illness Chief Complaint: fever, abdominal pain, abnormal vaginal discharge Primary Care Provider: Patricio Malhotra MD Cathi Phillips is a 50 yo female with PMHx that includes Crohn's disease (s/p proctocolectomy ~20 years ago and significant small bowel resection in 2015), short bowel syndrome, 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 Cathi reports onset of thick/white vaginal discharge and vaginal pruritus that she thought was a yeast infection. She took Monostat x1 but symptoms persisted so she saw WAX PATTERN ASSEMBLER ~1 month ago and was given Metronidazole intravaginally x1; symptoms persisted despite this, and despite another Monostat x1 several weeks ago. Then patient reports increase in amount of thick white discharge x several days, followed by acute-onset lower abdominal pain with associated bilateral hip/knee/ankle pain last night. She had NBNB emesis x1 and took Tylenol; all symptoms resolved within 1 hour and she was able to fall asleep. She then woke up this morning with fever of 101F and mild lower abdominal pain and bilateral hip pain that has persisted throughout the day, which prompted her to go to the ED for further evaluation. Patient reports irregular menstrual cycles for the last several years - LMP in 06/2020 with very light bleeding. In a monogamous relationship with x23 years; last sexually active ~6 weeks ago. Patient reports no recent changes to medications. Takes Humira weekly (last injection on Thursday 11/09). Denies previous/current tobacco use, reports occasional alcohol use every month, denies other drug use. In the ED, the patient was febrile to 38.1 and tachycardic to 154 bpm. There was copious thick, white vaginal discharge on speculum exam. Laboratory work-up was significant for lactate 2.9 (no leukocytosis), Procalcitonin .3, Mg 1.6 - CBC/CMP otherwise WNL. UA without signs of infection, vaginal GC/CT drawn and pending. Blood cx x2 drawn from peripheral sites but no blood cx drawn from August before starting broad spectrum abx. Imaging was significant for bilateral hydrosalpynx which was confirmed on pelvic/vaginal US. Patient was given Daptomycin/Cefepime/Doxycycline x1. Was also given 2L NSS bolus x1. VS subsequently improved; not febrile since admission and HR down to 90s. Allergies Allergy/AdvReac Type Severity Reaction Status Date / Time Iodinated Contrast Media Allergy Intermediate Hives Verified 07/31/20 07:02 grass pollen-perennial rye, Allergy Unknown Unknown rxn Verified 07/31/20 07:02 standar mold Allergy Unknown Unknown rxn Verified 07/31/20 07:02 vancomycin Allergy Unknown HIVES Verified 07/31/20 07:02 Dust Allergy Unknown Unknown rxn Uncoded 07/30/20 09:00 Home Medications Medication Instructions Recorded Confirmed Type [facility] 1 cap PO QAM 05/23/18 11/12/20 History azathioprine [Imuran] 50 mg PO QAM 05/23/18 11/12/20 History cholecalciferol (vitamin D3) 5,000 units PO QAM 05/23/18 11/12/20 History potassium chloride 20 meq PO BID 05/23/18 11/12/20 History venlafaxine 75 mg PO BID 05/23/18 11/12/20 History acetaminophen [Tylenol Extra 1,000 mg PO Q6 PRN 05/14/20 11/12/20 History Strength] Gattex 30-Vial 5 mg SUBCUT QAM 06/20/20 11/12/20 History Humira(CF) Pen 40 mg SUBCUT WK 06/20/20 11/12/20 History Total Parenteral Nutrition 1 dose PO 4XWK 06/29/20 11/12/20 History loperamide 2 mg capsule 4 mg PO BID #240 cap 07/29/20 11/12/20 Rx metronidazole 0.75 % vaginal gel 1 appful VAGINAL DAILY 5 Days #70 g 10/07/20 11/12/20 Rx pediatric multivitamin no.76 1 tab PO QAM 11/12/20 11/12/20 History [Flintstones Complete] Past Med/Surg History Medical History Anemia Anxiety Crohns disease Depression History of esophageal ulcer HTN (hypertension) Ileostomy in place On total parenteral nutrition 3 nights per week Restless legs syndrome Rosacea Short bowel syndrome Vitamin B12 deficiency Surgical History History of esophagogastroduodenoscopy (EGD) History of intestinal surgery 1988 - removed rectum, anus and large intestine and 14 inches small intestine and ileostomy 2015 removed small bowel (left 4 ft of bowel) History of removal of Port-a-Cath (05/18/20) Port removal. Dr. Gary 05/18/2020 History of vascular access device left chest port - recently removed r/t bacteremia (hospitalized [facility] 05/2020) Hx laparoscopic cholecystectomy Hx of colonoscopy S/P PICC central line placement Rt arm Family History Grandfather (Paternal) Colorectal cancer, Onset Age: 80 Mother History of thyroid disorder Giron syndrome Grandfather (Maternal) Leukemia Father Hx of CABG Other No pertinent family history Denies family history of Ovarian cancer Breast cancer Social History Smoking Status: Never smoker Second Hand Exposure: No; Hx Alcohol Use: Yes Hx Substance Use: No Preferred Language: Romanian Communication Ability: Effective Visual Impairment: No Limitations Wholesale Parts Salesperson Required: No Beliefs That Will Affect Care: None marital status: Current Living Situation: Spouse Other Information That Helps Us Care for You: No Feels Safe at Home: Yes Safety Concerns: Feels Safe At This Time Assistive Devices: Glasses Review of Systems Review of Systems: All systems reviewed & are unremarkable except as noted in HPI & below Physical Exam Constitutional: WD/WN, vitals as above Neck: trachea midline, no thyromegaly Respiratory: normal respiratory effort, lungs clear to auscultation Cardiovascular: RRR, no murmur, no edema Chest (Breasts): Chest: + vascular access device or port (August catheter with overlying dressing c/d/i, no surrounding erythema) Gastrointestinal (Abdomen): colostomy bag without surrounding erythema/discharge Skin: no rashes, warm and dry Psychiatric: A+Ox3, euthymic affect Results & Data Results & Data ([facility]) Vital Signs (Past 12 Hours) Vital Signs Temp Pulse Pulse Resp BP BP Pulse Ox 11/12/20 19:12 95 H 14 145/87 H 98 11/12/20 18:36 36.9 C 11/12/20 18:30 18 98 11/12/20 18:10 93 H 18 11/12/20 18:08 91 H 91 H 15 122/72 122/72 99 11/12/20 18:00 99 H 19 98 11/12/20 17:50 91 H 15 11/12/20 17:40 98 H 20 11/12/20 17:30 97 H 17 98 11/12/20 17:24 95 H 19 11/12/20 17:10 104 H 17 11/12/20 17:01 105 H 13 11/12/20 17:00 106 H 11 L 126/80 98 11/12/20 16:50 107 H 16 11/12/20 16:40 110 H 17 11/12/20 16:31 103 H 15 11/12/20 16:30 101 H 16 133/80 98 11/12/20 16:28 107 H 20 127/73 11/12/20 16:00 18 98 11/12/20 15:40 113 H 15 96 11/12/20 15:31 114 H 20 95 11/12/20 15:30 113 H 17 120/75 95 11/12/20 15:20 116 H 20 97 11/12/20 15:13 20 95 11/12/20 15:10 115 H 13 94 11/12/20 15:01 115 H 17 95 11/12/20 15:00 119 H 22 127/74 96 11/12/20 14:51 37.7 C H 11/12/20 14:50 115 H 15 95 11/12/20 14:47 115 H 14 133/77 96 06/03/21 14:30 20 98 11/12/20 14:19 20 98 11/12/20 13:40 126 H 23 95 11/12/20 13:32 124 H 30 H 95 11/12/20 13:30 20 98 11/12/20 13:10 130 H 26 H 96 11/12/20 13:01 125 H 27 H 97 11/12/20 13:00 124 H 25 H 150/81 H 97 11/12/20 12:50 130 H 27 H 97 11/12/20 12:40 126 H 19 98 11/12/20 12:31 129 H 23 96 11/12/20 12:30 130 H 19 154/83 H 96 11/12/20 12:25 20 97 11/12/20 12:23 140 H 22 151/86 H 97 11/12/20 12:22 141 H 21 97 11/12/20 12:20 140 H 22 97 11/12/20 12:16 128 H 20 97 11/12/20 12:14 130 H 24 151/86 H 97 11/12/20 12:00 38.1 C H 154 H 18 138/87 98 Code Status & VTE Plan Code Status Full code VTE Prophylaxis Plan VTE Prophylaxis will be ordered: Yes Supervising Physician Co-Signing Physician Notes Attending addendum: I have physically seen this patient, have supervised the medical residents activities, and agree with the H&P unless as otherwise noted. Assessment and Plan: Sepsis/history of line sepsis 05/2020/immunocompromised Blood cultures through August and peripherally Follow culture and sensitivity results Empiric treatment with daptomycin 350 mg IV every 24 hours, cefepime 2 g IV every 8 hours, doxycycline 100 mg IV every 12 hours. Caspofungin 70 mg IV now then 50 mg IV daily. History of TPN 4 times per week, and noted large volume vaginal discharge IV fluids Abnormal vaginal discharge/hydrosalpinx- Follow GC/CT studies Antibiotics and antifungals as noted above WAX PATTERN ASSEMBLER aware and will follow Crohn's disease- Next Humira dosing due on 11/16, will likely need to be delayed Hold azathioprine for now Remaining orders and notations as noted Resident Activity Tracking Resident Involvement: Resident Care Provided Care Provided: Adult Hospital Medicine (1) Sepsis Sepsis acute organ dysfunction status: unspecified Sepsis type: sepsis due to unspecified organism Qualified Code(s): A41.9 - Sepsis, unspecified organism
[2020-11-12] MEDS ORDERED: CASPOFUNGIN 70 MG in SODIUM CHLORIDE 0.9% 250 ML IV STA (20:03)
[2020-11-12] MEDS: ACETAMINOPHEN 325 MG TAB PO PRN (21:56)
[2020-11-12] MEDS: CEFEPIME 2,000 MG in SYRINGE 0 ML IV SCH (23:50)
[2020-11-12] MEDS: POTASSIUM CHLORIDE CRTAB 20 MEQ TABCR PO SCH (23:51)
[2020-11-12] MEDS: LOPERAMIDE HCL 2 MG CAP PO SCH (23:52)
[2020-11-12] MEDS: VENLAFAXINE HCL 37.5 MG TAB PO SCH (23:52)
[2020-11-12] MEDS: ENOXAPARIN INJ 40 MG/0.4 ML SYR SQ SCH (23:54)
--- NOTE | 2020-11-13 00:29 | OB/GYN Consultation ---
Date of Consultation November 13, 2020 Assessment & Plan (1) Hydrosalpinx: Upon my visit with patient and examination, she is already beginning to feel much better with the antibiotic regimen started in the ER (cefepime, daptomycin, doxycycline. She does not present as a typical PID case, given age, lack of recent intercourse, lack of high-risk sexual activity, monogamous relationship. We are pending a swab for gonorrhea chlamydia, however it is also possible for pelvic inflammatory disease to arise from the natural vaginal tino. It does sound like she has a history of PID from her remote IVF attempt. Would expect that the current broad-spectrum antibiotic regimen would be sufficient coverage if her pain is indeed from PID. It is unclear whether her hydrosalpinx is a new finding or developed because of pelvic adhesive disease. She is currently afebrile, vitals are stable, does not show leukocytosis, and there is no evidence of a pelvic abscess or tubo-ovarian abscess. In a case of tubo-ovarian abscess, would also raise concerns for malignancy as a causative factor of the TOA in a patient of her age. I do not suspect TOA in this patient given her imaging findings of hydrosalpinx rather than abscess or pyosalpinx. She already seems to be showing clinical improvement with the antibiotics. If she does not continue to improve, then should consider a repeat pelvic ultrasound to reevaluate the hydrosalpinx. However, if she continues to feel better, I would recommend routine outpatient follow-up with JOB PRINTER APPRENTICE after hospital discharge. JOB PRINTER APPRENTICE will continue to follow. Please call on-call SYSTEMS PROTECTION TECHNICIAN with questions. (2) Vaginal discharge: History of Present Illness Reason for Consultation: Pelvic pain Requesting Physician: Dr. Peewee Goldstein Attending Physician: Ovidio Garzon MD History of Present Illness 50-year-old G0 who presented to the emergency department today with complaints of fever, chills, nausea, left lower quadrant abdominal pain. Has also had vaginal discharge. Patient has a significant abdominal surgical history, with intestinal surgery in 1988, removing rectum anus and large intestine and 14 inches of small intestine and ileostomy. In 2015, she had another surgery removing small bowel, leaving 4 feet of bowel remaining. She had a central line infection 05/2020. Regarding her gynecologic history, she underwent attempt at in vitro fertilization in [place] in 1998. She was told that her cervix was shaped like a W, and therefore her physician was unable to implant the embryo. She states that because of these attempts, she developed a pelvic inflammatory disease at the time. She has a longstanding history of vaginal discharge. In reviewing notes from the JOB PRINTER APPRENTICE office, she was evaluated multiple times for copious malodorous vaginal discharge. She was referred to urogynecology and JOB PRINTER APPRENTICE oncology for evaluation of potential fistula. These results seem to have been inconclusive. More recently, she called the JOB PRINTER APPRENTICE office about a month ago to request treatment for her vaginal discharge. She had been using Monistat to no avail, and she tried vaginal MetroGel, which also did not help much. She states that the current vaginal discharge does not have the same terrible smell some previous episodes of discharge have had. She describes this discharge as coming and going. She is monogamous with her , last intercourse over 6 weeks ago. Does not feel like the discharge is related to intercourse. Welty itself is not pleasant, and has always been uncomfortable for her. She is not sure when her last period was, states this is also irregular. Allergies Allergy/AdvReac Type Severity Reaction Status Date / Time Iodinated Contrast Media Allergy Intermediate Hives Verified 07/31/20 07:02 grass pollen-perennial rye, Allergy Unknown Unknown rxn Verified 07/31/20 07:02 standar mold Allergy Unknown Unknown rxn Verified 07/31/20 07:02 vancomycin Allergy Unknown HIVES Verified 07/31/20 07:02 Dust Allergy Unknown Unknown rxn Uncoded 07/30/20 09:00 Home Medications Medication Instructions Recorded Confirmed Type [facility] 1 cap PO QAM 05/23/18 11/12/20 History azathioprine [Imuran] 50 mg PO QAM 05/23/18 11/12/20 History cholecalciferol (vitamin D3) 5,000 units PO QAM 05/23/18 11/12/20 History potassium chloride 20 meq PO BID 05/23/18 11/12/20 History venlafaxine 75 mg PO BID 05/23/18 11/12/20 History acetaminophen [Tylenol Extra 1,000 mg PO Q6 PRN 05/14/20 11/12/20 History Strength] Gattex 30-Vial 5 mg SUBCUT QAM 06/20/20 11/12/20 History Humira(CF) Pen 40 mg SUBCUT WK 06/20/20 11/12/20 History Total Parenteral Nutrition 1 dose PO 4XWK 06/29/20 11/12/20 History loperamide 2 mg capsule 4 mg PO BID #240 cap 07/29/20 11/12/20 Rx metronidazole 0.75 % vaginal gel 1 appful VAGINAL DAILY 5 Days #70 g 10/07/20 11/12/20 Rx pediatric multivitamin no.76 1 tab PO QAM 11/12/20 11/12/20 History [Flintstones Complete] Patient History Medical History Anemia Anxiety Crohns disease Depression History of esophageal ulcer HTN (hypertension) Ileostomy in place On total parenteral nutrition 3 nights per week Restless legs syndrome Rosacea Short bowel syndrome Vitamin B12 deficiency Surgical History History of esophagogastroduodenoscopy (EGD) History of intestinal surgery 1988 - removed rectum, anus and large intestine and 14 inches small intestine and ileostomy 2015 removed small bowel (left 4 ft of bowel) History of removal of Port-a-Cath (05/18/20) Port removal. Dr. Gary 05/18/2020 History of vascular access device left chest port - recently removed r/t bacteremia (hospitalized [facility] 05/2020) Hx laparoscopic cholecystectomy Hx of colonoscopy S/P PICC central line placement Rt arm Family History Grandfather (Paternal) Colorectal cancer, Onset Age: 80 Mother History of thyroid disorder Giron syndrome Grandfather (Maternal) Leukemia Father Hx of CABG Other No pertinent family history Denies family history of Ovarian cancer Breast cancer Social History Smoking Status: Never smoker Second Hand Exposure: No; Hx Alcohol Use: No Hx Substance Use: No Preferred Language: Barbadian Communication Ability: Effective Visual Impairment: No Limitations 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 ileostomy present. Pelvic exam: small amount of white vaginal discharge. Bladder is tender on bimanual exam. No blood. No cervical motion tenderness. Cervix/uterus feels like it is sitting against sacrum in the pelvis. Ext: no edema, no calf tenderness. Results & Data ([facility]) Vital Signs (Past 12 Hours) Vital Signs Temp Pulse Pulse Resp BP BP Pulse Ox 11/12/20 23:00 36.9 C 80 18 113/65 97 11/12/20 19:12 95 H 14 145/87 H 98 11/12/20 18:36 36.9 C 11/12/20 18:30 18 98 11/12/20 18:10 93 H 18 11/12/20 18:08 91 H 91 H 15 122/72 122/72 99 11/12/20 18:00 99 H 19 98 11/12/20 17:50 91 H 15 11/12/20 17:40 98 H 20 11/12/20 17:30 97 H 17 98 11/12/20 17:24 95 H 19 11/12/20 17:10 104 H 17 11/12/20 17:01 105 H 13 11/12/20 17:00 106 H 11 L 126/80 98 11/12/20 16:50 107 H 16 11/12/20 16:40 110 H 17 11/12/20 16:31 103 H 15 11/12/20 16:30 101 H 16 133/80 98 11/12/20 16:28 107 H 20 127/73 11/12/20 16:00 18 98 11/12/20 15:40 113 H 15 96 11/12/20 15:31 114 H 20 95 11/12/20 15:30 113 H 17 120/75 95 11/12/20 15:20 116 H 20 97 11/12/20 15:13 20 95 11/12/20 15:10 115 H 13 94 11/12/20 15:01 115 H 17 95 11/12/20 15:00 119 H 22 127/74 96 11/12/20 14:51 37.7 C H 11/12/20 14:50 115 H 15 95 11/12/20 14:47 115 H 14 133/77 96 11/12/20 14:30 20 98 11/12/20 14:19 20 98 11/12/20 13:40 126 H 23 95 11/12/20 13:32 124 H 30 H 95 11/12/20 13:30 20 98 11/12/20 13:10 130 H 26 H 96 11/12/20 13:01 125 H 27 H 97 11/12/20 13:00 124 H 25 H 150/81 H 97 11/12/20 12:50 130 H 27 H 97 11/12/20 12:40 126 H 19 98 11/12/20 12:31 129 H 23 96 11/12/20 12:30 130 H 19 154/83 H 96 Ultrasound shows bilateral hydrosalpinx. Right ovary not visualized due to overlying bowel. Left ovary appears normal. No free fluid in the cul-de-sac. CT scan reveals distended bladder, otherwise bladder is normal. Bilateral hydrosalpinx, left tube measuring up to 3 cm in diameter. Bowel shows postoperative changes consistent with proctocolectomy and right lower quadrant ileostomy. No bowel obstruction. Numerous prominent mesenteric lymph nodes which measure up to 8 mm. PG Care Time/CCT Total # of Minutes Spent Total Time Spent with Patient: Total time spent is greater than 50% in coordination of care (as documented) at patient's floor/unit and/or counseling patient: Coding Level of Care Code 24166 Inpt Consult Level 3 Diagnoses Hydrosalpinx N70.11 Vaginal discharge N89.8
[2020-11-13] MEDS: SODIUM CHLORIDE 0.9% 1000ML 1,000 ML IV SCH (03:14)
[2020-11-13] MEDS: DOXYCYCLINE HYCLATE 100 MG in DEXTROSE 5% 100 ML IV SCH ×2 (03:15→14:26)
[2020-11-13] MEDS: ACETAMINOPHEN 325 MG TAB PO PRN (04:17)
[2020-11-13] MEDS: CEFEPIME 2,000 MG in SYRINGE 0 ML IV SCH ×2 (06:40→14:26)
[2020-11-13 07:16] LABS: Basophils # (auto) 0.01 K/uL (0-0.2); Basophils % (auto) 0.2 %; Hematocrit (blood only) 32.9 % (37-47); Hemoglobin 10.4 g/dL (12.0-16.0); Immature Granulocytes # (auto) 0.01 K/uL (0.00-0.02); Immature Granulocytes % (auto) 0.2 %; Lymphocytes # (auto) 0.86 K/uL (1.2-3.4); Lymphocytes % (auto) 16.8 %; Mean Corpuscular Hemoglobin 25.9 pg (25-34); Mean Corpuscular Hgb Conc 31.6 g/dL (32-36); Mean Corpuscular Volume 81.8 fL (80-100); Mean Platelet Volume 9.4 fL (7.4-10.4); Monocytes # (auto) 0.17 K/uL (0.11-0.59); Monocytes % (auto) 3.3 %; Neutrophils # (auto) 4.07 K/uL (1.4-6.5); Neutrophils % (auto) 79.5 %; Platelet Count 231 K/uL (130-400); RDW Coefficient of Variation 17.8 % (11.5-14.5); RDW Standard Deviation 53.6 fL (36.4-46.3); Red Blood Count 4.02 M/uL (4.2-5.4); White Blood Count 5.12 K/uL (4.8-10.8)
--- NOTE | 2020-11-13 07:56 | Hospitalist Progress Note ---
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 Sepsis H/o line infection in 05/2020, immunocompromised due to Crohn's/immunomodulatory meds, presented with fever 38.1C and tachycardic 150s, VS improved since started on IVFs --> sepsis, suspect (i.e. PID) vs August catheter as source. - continue with broad-spectrum coverage given concern for line infection in immunocompromised host: day 2 - Daptomycin 350mg IV Q24H (6mg/kg) - Zosyn - Doxycycline 100mg IV Q12H - Fluconazole - ordered blood cx through August catheter, as this was not obtained -NGTD -follow all blood cx and adjust abx as necessary, would consider ID consult if there is line infection Abnormal Vaginal Discharge/Hydrosalpinx Six weeks relapsing/remitting symptoms, acute-onset lower abdominal pain with bilateral LE joint pain, copious thick white vaginal discharge on speculum exam, hydrosalpinx on imaging --> suspect GC/CT infection with possible PID, is on differential for source of sepsis. COMPOSING MACHINE OPERATOR was consulted -further imaging was obtained, confirming hydrosalpinx, -do not think PID is likely given lack of significant risk factors, -GC chlamydia pending. -Do not feel tubo-ovarian abscess is likely at this time. -Continue antibiotics as above Crohn's Disease - last Humira on 11/09, next not due until 11/16 (qweek injections) - hold Azathioprine for now in light of sepsis - continue home Loperamide 2mg PO BID - continue home KCl 20mEq PO BID - GI consulted following recommendations -Do not think patient's current presentation is related to her Crohn's disease flare -No expiration fever today weekend will perform EGD dysphagia grams TPN-dependent s/p bowel resections - hold TPN for now, pending w/u for line infection - continue with mIVFs as stated above Depression/Anxiety - continue home Venlafaxine 75mg PO BID FENa: N.p.o., LR at 100 Code Status: Full code DVT PPX: Lovenox 40 mg every 24 PT/OT: Not indicated at present Dispo: Pending clinical improvement Domenico Holloway MD PGY 2, FCM This chart was completed utilizing [employer] voice recognition software. Grammatical errors, random word insertions, pronoun errors, and in complete sentences are an occasional consequence of the system. Any questions or concerns about the content, text, or information contained within the body of this dictation should be addressed directly to the physician for clarification. FEN/GI: NPO, NSS @100cc/hr DVT Prophylaxis: Lovenox 40mg SQ Q24H Code Status: Full code Disposition: med/surg with tele (2) Vaginal discharge: (3) Hydrosalpinx: (4) Crohns disease: (5) Depression: (6) Anxiety: (7) On total parenteral nutrition: (8) Hypertension: (9) Short gut syndrome: (10) Hypomagnesemia: Admission and Anticipated Discharge Date Admission Date: November 12, 2020 Supervising Physician Co-Signing Physician Notes Resident Physician Supervision Note: I independently interviewed and examined the patient and verified the marcos history and physical, reviewed labs and image studies and agree with resident Dr. Domenico Holloway findings and care plan. Subjective Patient lying in bed this morning in no acute distress. Patient reports tolerating diet, voiding, stooling, sleeping well. Patient repeated a history similar to that as described in history and physical. Patient notes she been having abnormal vaginal discharge since her prior surgery and has had no significant changes. As noted in the COMPOSING MACHINE OPERATOR progress note she has no high risk behaviors or other indications of PID. Patient has never had extraintestinal manifestations of her Crohn's disease, but is reporting joint tenderness. Acute concerns relate diagnosis. Physical Exam Physical Exam: General: No acute distress HEENT: Normocephalic atraumatic Neck: No significant lymphadenopathy, trachea midline, normal to visual inspection Cardiac: Regular rate and rhythm, normal S1, normal S2, I did not appreciated any significant murmurs rubs or gallops, I did not appreciate any significant pedal edema, No calf tenderness, capillary refill is less than 3 seconds Respiratory: Clear to auscultation bilaterally with symmetrical chest rise, I did not appreciate any significant wheezes, rales, rhonchi, no increased work of breathing GI: Normal bowel sounds, soft, tender to palpation in the midline MSK: No sensory or motor changes, moves all extremities without issue, extremities are warm and well-perfused Skin: [place], clean, dry, intact. Results & Data Results & Data ([facility]) Vital Signs (Past 12 Hours) Vital Signs Temp Pulse Pulse Resp BP Pulse Ox 11/13/20 07:47 37.3 C 96 H 20 108/67 100 11/13/20 07:20 94 H 11/13/20 03:28 36.9 C 89 18 98/55 L 100 11/13/20 00:30 84 11/12/20 23:08 97 H 11/12/20 23:00 36.9 C 80 18 113/65 97 11/12/20 21:46 36.8 C 93 H 16 120/73 97 Laboratory Results 11/13/20 11/13/20 11/13/20 Range/Units 11:30 06:45 06:45 WBC (4.8-10.8) K/uL RBC (4.2-5.4) M/uL Hgb (12.0-16.0) g/dL Hct (37-47) % MCV (80-100) fL MCH (25-34) pg MCHC (32-36) g/dL RDW Std Deviation (36.4-46.3) fL RDW Coeff of Aleta (11.5-14.5) % Plt Count (130-400) K/uL MPV (7.4-10.4) fL Immature Gran % (Auto) % Neut % (Auto) % Lymph % (Auto) % Gage % (Auto) % Eos % (Auto) % Baso % (Auto) % Neut # (Auto) (1.4-6.5) K/uL Lymph # (Auto) (1.2-3.4) K/uL Gage # (Auto) (0.11-0.59) K/uL Eos # (Auto) (0-0.5) K/uL Baso # (Auto) (0-0.2) K/uL Immature Gran # (Auto) (0.00-0.02) K/uL Sodium 136 (136-145) mmol/L Potassium 3.1 L D (3.5-5.1) mmol/L Chloride 104 (98-107) mmol/L Carbon Dioxide 27 (21-32) mmol/L Anion Gap 5.0 (3-11) BUN 13 (7-18) mg/dl Creatinine 0.66 (0.6-1.2) mg/dl Est Cr Clr Drug Dosing 88.1 ml/min Est GFR ( Amer) 119.4 ml/min Est GFR (Non-Af Amer) 103.0 ml/min BUN/Creatinine Ratio 19.3 (10-20) Glucose 87 (70-99) mg/dl Calcium 8.0 L (8.5-10.1) mg/dl Phosphorus 2.1 L (2.5-4.9) mg/dl Magnesium 1.8 (1.8-2.4) mg/dl Total Bilirubin 0.2 (0.2-1) mg/dl AST 29 (15-37) U/L ALT 26 (12-78) U/L Alkaline Phosphatase 110 (45-117) U/L C-Reactive Protein 3.89 H (0-0.29) mg/dl Total Protein 7.0 (6.4-8.2) gm/dl Albumin 2.5 L (3.4-5.0) gm/dl Globulin 4.5 H (2.5-4.0) gm/dl Albumin/Globulin Ratio 0.6 L (0.9-2) Procalcitonin 0.45 (0-0.5) ng/ml C.trachomatis RNA Pending N.gonorrhoeae RNA Pending Reference Lab Comment Pending 11/13/20 11/12/20 Range/Units 06:45 14:40 WBC 5.12 (4.8-10.8) K/uL RBC 4.02 L (4.2-5.4) M/uL Hgb 10.4 L (12.0-16.0) g/dL Hct 32.9 L (37-47) % MCV 81.8 (80-100) fL MCH 25.9 (25-34) pg MCHC 31.6 L (32-36) g/dL RDW Std Deviation 53.6 H (36.4-46.3) fL RDW Coeff of Aleta 17.8 H (11.5-14.5) % Plt Count 231 (130-400) K/uL MPV 9.4 (7.4-10.4) fL Immature Gran % (Auto) 0.2 % Neut % (Auto) 79.5 % Lymph % (Auto) 16.8 % Gage % (Auto) 3.3 % Eos % (Auto) 0.0 % Baso % (Auto) 0.2 % Neut # (Auto) 4.07 (1.4-6.5) K/uL Lymph # (Auto) 0.86 L (1.2-3.4) K/uL Gage # (Auto) 0.17 (0.11-0.59) K/uL Eos # (Auto) 0.00 (0-0.5) K/uL Baso # (Auto) 0.01 (0-0.2) K/uL Immature Gran # (Auto) 0.01 (0.00-0.02) K/uL Sodium (136-145) mmol/L Potassium (3.5-5.1) mmol/L Chloride (98-107) mmol/L Carbon Dioxide (21-32) mmol/L Anion Gap (3-11) BUN (7-18) mg/dl Creatinine (0.6-1.2) mg/dl Est Cr Clr Drug Dosing ml/min Est GFR ( Amer) ml/min Est GFR (Non-Af Amer) ml/min BUN/Creatinine Ratio (10-20) Glucose (70-99) mg/dl Calcium (8.5-10.1) mg/dl Phosphorus (2.5-4.9) mg/dl Magnesium (1.8-2.4) mg/dl Total Bilirubin (0.2-1) mg/dl AST (15-37) U/L ALT (12-78) U/L Alkaline Phosphatase (45-117) U/L C-Reactive Protein (0-0.29) mg/dl Total Protein (6.4-8.2) gm/dl Albumin (3.4-5.0) gm/dl Globulin (2.5-4.0) gm/dl Albumin/Globulin Ratio (0.9-2) Procalcitonin (0-0.5) ng/ml C.trachomatis RNA Pending N.gonorrhoeae RNA Pending Reference Lab Comment Pending Medications Administered Current Inpatient Medications Acetaminophen (Acetaminophen 500 Mg Tab) 1,000 mg PO Q8H PRN PRN Reason: Pain or Fever Stop: 12/12/20 21:45 Enoxaparin Sodium (Enoxaparin Inj 40 Mg/0.4 Ml Syr) 40 mg SQ Q24H [facility]LA Stop: 12/12/20 21:59 Last Admin: 11/12/20 23:54 Dose: 40 mg Documented by: Fluconazole (Fluconazole 100 Mg Tab) 150 mg PO Q72H [facility]LA Stop: 11/16/20 20:01 Doxycycline Hyclate 100 mg/ (Dextrose) 110 mls @ 50 mls/hr IV Q12H [facility]LA Stop: 11/23/20 02:59 Last Admin: 11/13/20 14:26 Dose: 50 mls/hr Documented by: Piperacillin Sod/Tazobactam (Sod 3.375 gm/ Dextrose) 115 mls @ 28.75 mls/hr IV Q8H [facility]LA; Protocol Stop: 11/23/20 19:59 Daptomycin 350 mg/ Syringe 7 mls @ 3.5 mls/min IV Q24H [facility]LA; Protocol Stop: 11/16/20 14:59 Loperamide HCl (Loperamide Hcl 2 Mg Cap) 4 mg PO BID [facility] Stop: 12/12/20 21:59 Last Admin: 11/13/20 08:42 Dose: 4 mg Documented by: Miscellaneous Information (Daptomycin Consult Active) 1 ea N/A UD PRN PRN Reason: Consult Stop: 12/12/20 21:45 Miscellaneous Information (Piperacill/Tazobac Consult Active) 1 ea N/A UD PRN PRN Reason: Consult Stop: 12/13/20 14:14 Pantoprazole Sodium (Pantoprazole 40 Mg Tab) 40 mg PO QAM [facility] Stop: 12/13/20 11:59 Last Admin: 11/13/20 13:46 Dose: 40 mg Documented by: Potassium Chloride (Potassium Chloride Crtab 20 Meq Tabcr) 20 meq PO BID [facility]LA Stop: 12/12/20 21:59 Last Admin: 11/13/20 08:42 Dose: 20 meq Documented by: Teduglutide (Teduglutide 5mg Kit) 5 mg SQ QAM [facility] Stop: 12/13/20 08:59 Last Admin: 11/13/20 08:43 Dose: 5 mg Documented by: Venlafaxine HCl (Venlafaxine Hcl 37.5 Mg Tab) 75 mg PO BID [facility] Stop: 12/12/20 22:59 Last Admin: 11/13/20 08:42 Dose: 75 mg Documented by: Resident Activity Tracking Resident Involvement: Resident Care Provided Care Provided: Adult Hospital Medicine (1) Sepsis Sepsis acute organ dysfunction status: unspecified Sepsis type: sepsis due to unspecified organism Qualified Code(s): A41.9 - Sepsis, unspecified organism
[2020-11-13 08:11] LABS: Albumin Globulin Ratio 0.6 (0.9-2); Albumin Level 2.5 gm/dl (3.4-5.0); BUN Creatinine Ratio 19.3 (10-20); Bilirubin,Total 0.2 mg/dl (0.2-1); C Reactive Protein 3.89 mg/dl (0-0.29); Creatinine Clr Calc Pharmacy 88.1 ml/min; Est GFR (African American) 119.4 ml/min; Globulin 4.5 gm/dl (2.5-4.0); Magnesium 1.8 mg/dl (1.8-2.4); Phosphorus 2.1 mg/dl (2.5-4.9); Potassium 3.1 mmol/L (3.5-5.1)
[2020-11-13] MEDS ORDERED: LACTATED RINGER'S 1,000 ML IV SCH (08:15)
[2020-11-13] MEDS: VENLAFAXINE HCL 37.5 MG TAB PO SCH ×2 (08:42→20:18)
[2020-11-13] MEDS: POTASSIUM CHLORIDE CRTAB 20 MEQ TABCR PO SCH ×2 (08:42→20:17)
[2020-11-13] MEDS: LOPERAMIDE HCL 2 MG CAP PO SCH ×2 (08:42→20:17)
[2020-11-13] MEDS: TEDUGLUTIDE 5 MG SQ SCH (08:43)
[2020-11-13] MEDS ORDERED: ACETAMINOPHEN 500 MG TAB ONE (10:33)
--- NOTE | 2020-11-13 13:29 | Billing Data ---
Date of Service November 13, 2020 Coding Level of Care Code 65901 Initial Inpt Care Lvl 3
[2020-11-13] MEDS: PANTOprazole 40 MG TAB PO SCH (13:46)
[2020-11-13] MEDS ORDERED: PIPERACILLIN/TAZOBACTAM 3.375 GM in DEXTROSE 5% 100 ML IV ONE (14:15)
[2020-11-13] MEDS ORDERED: PIPERACILL/TAZOBAC CONSULT ACTIVE PRN (14:15)
[2020-11-13] MEDS ORDERED: DAPTOmycin 350 MG in SYRINGE 0 ML IV ONE (15:00)
--- NOTE | 2020-11-13 15:44 | Gastrointestinal Consultation ---
Date of Consultation November 13, 2020 Assessment & Plan (1) Crohns disease: Crohns flaring by itself does not typically manifest as fever. I would favor fever be some type of infectious process such as deep submergence vehicle operator given pelvic pain of line infection as before. If no explanation of fever over the weekend then can do EGD and Ileoscopy to stage crohns on Monday. Would not recommend initiation of steroids or change of crohns meds at this time. fever --as above. Also check Cdiff as I have seen that in patient on immunosuppression with ileostomy pelvic pain/hydrosalpinx per deep submergence vehicle operator short gut syndrome--continue Gattex and TPN History of Present Illness Reason for Consultation: Crohns flare Requesting Physician: DR Domenico Holloway Attending Physician: Noelle Huddleston MD History of Present Illness CC pelvic pain, fever HPI Reviewed [facility] chart and discussed with DR Brown also who is her GI and saw her last 11/11/20. She has longstanding crohns with esophageal and bowel disease. She has been on half-way remicade and switched to Humira since about 2015. She had multiple bowel surgeries with total colectomy and ileostomy but resultant short gut syndrome. She is on Gattex for short gut and TPN on certain night of the week. She had a line infection 05/2020 and was off Humira about 8 weeks and developed odynophagia symptoms. EGD 06/2020 esophageal ulceration neg for fungal and viral elements thought to be crohns. Once back on humira her esophageal symptoms improved. Other than recent potassium pill sticking in esophagus, she can eat without difficulty or pain on swallowing. Pt has acute pelvic pain and fever and admited to hospital. She has chronic vaginal discharge also. CT a/p diffuse wall thickening and hyperemia of small bowel similar to 2018 and esoophageal thickenign and hydrosalpinx. WBC normal. Allergies Allergy/AdvReac Type Severity Reaction Status Date / Time Iodinated Contrast Media Allergy Intermediate Hives Verified 07/31/20 07:02 grass pollen-perennial rye, Allergy Unknown Unknown rxn Verified 07/31/20 07:02 standar mold Allergy Unknown Unknown rxn Verified 07/31/20 07:02 vancomycin Allergy Unknown HIVES Verified 07/31/20 07:02 Dust Allergy Unknown Unknown rxn Uncoded 07/30/20 09:00 Home Medications Medication Instructions Recorded Confirmed Type [facility] 1 cap PO QAM 05/23/18 11/12/20 History azathioprine [Imuran] 50 mg PO QAM 05/23/18 11/12/20 History cholecalciferol (vitamin D3) 5,000 units PO QAM 05/23/18 11/12/20 History potassium chloride 20 meq PO BID 05/23/18 11/12/20 History venlafaxine 75 mg PO BID 05/23/18 11/12/20 History acetaminophen [Tylenol Extra 1,000 mg PO Q6 PRN 05/14/20 11/12/20 History Strength] Gattex 30-Vial 5 mg SUBCUT QAM 06/20/20 11/12/20 History Humira(CF) Pen 40 mg SUBCUT WK 06/20/20 11/12/20 History Total Parenteral Nutrition 1 dose PO 4XWK 06/29/20 11/12/20 History loperamide 2 mg capsule 4 mg PO BID #240 cap 07/29/20 11/12/20 Rx metronidazole 0.75 % vaginal gel 1 appful VAGINAL DAILY 5 Days #70 g 10/07/20 11/12/20 Rx pediatric multivitamin no.76 1 tab PO QAM 11/12/20 11/12/20 History [Flintstones Complete] Patient History Medical History Anemia Anxiety Crohns disease Depression History of esophageal ulcer HTN (hypertension) Ileostomy in place On total parenteral nutrition 3 nights per week Restless legs syndrome Rosacea Short bowel syndrome Vitamin B12 deficiency Surgical History History of esophagogastroduodenoscopy (EGD) History of intestinal surgery 1988 - removed rectum, anus and large intestine and 14 inches small intestine and ileostomy 2016 removed small bowel (left 4 ft of bowel) History of removal of Port-a-Cath (05/18/20) Port removal. Dr. Gary 05/18/2020 History of vascular access device left chest port - recently removed r/t bacteremia (hospitalized [facility] 05/2020) Hx laparoscopic cholecystectomy Hx of colonoscopy S/P PICC central line placement Rt arm Family History Grandfather (Paternal) Colorectal cancer, Onset Age: 80 Mother History of thyroid disorder Giron syndrome Grandfather (Maternal) Leukemia Father Hx of CABG Other No pertinent family history Denies family history of Ovarian cancer Breast cancer Social History Smoking Status: Never smoker Second Hand Exposure: No; Hx Alcohol Use: Yes Hx Substance Use: No Preferred Language: Palestinian Communication Ability: Effective Visual Impairment: No Limitations Seismograph Observer Required: No Beliefs That Will Affect Care: None marital status: Current Living Situation: Spouse Other Information That Helps Us Care for You: No Feels Safe at Home: Yes Safety Concerns: Feels Safe At This Time Assistive Devices: Glasses Review of Systems Review of Systems: All systems reviewed & are unremarkable except as noted in HPI & below Results & Data ([facility]) Vital Signs (Past 12 Hours) Vital Signs Temp Pulse Pulse Resp BP Pulse Ox 11/13/20 15:04 37.1 C 90 20 117/77 96 11/13/20 13:47 37.1 C 87 20 103/61 97 11/13/20 11:52 37.6 C H 93 H 20 115/76 97 11/13/20 10:29 39.0 C H 11/13/20 08:49 38.5 C H 11/13/20 07:47 37.3 C 96 H 20 108/67 100 11/13/20 07:20 94 H
[2020-11-13] MEDS: ACETAMINOPHEN 500 MG TAB PO PRN (18:35)
[2020-11-13] MEDS ORDERED: FLUCONAZOLE 100 MG TAB PO SCH (20:00)
[2020-11-13] MEDS: PIPERACILLIN/TAZOBACTAM 3.375 GM in DEXTROSE 5% 100 ML IV SCH (20:11)
[2020-11-13] MEDS ORDERED: CASPOFUNGIN 50 MG in SODIUM CHLORIDE 0.9% 250 ML IV SCH (21:00)
[2020-11-13] MEDS: ENOXAPARIN INJ 40 MG/0.4 ML SYR SQ SCH (21:49)
[2020-11-14] MEDS: PIPERACILLIN/TAZOBACTAM 3.375 GM in DEXTROSE 5% 100 ML IV SCH ×4 (03:00→21:36)
[2020-11-14] MEDS: DOXYCYCLINE HYCLATE 100 MG in DEXTROSE 5% 100 ML IV SCH ×2 (03:34→15:19)
[2020-11-14] MEDS: ACETAMINOPHEN 500 MG TAB PO PRN ×2 (04:21→21:28)
--- NOTE | 2020-11-14 07:24 | Hospitalist Progress Note ---
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 ED on 11/12/2020 for fever 101F x1 day, 6 weeks of relapsing/remitting abnormal vaginal discharge, and acute-onset lower abdominal pain 1 day prior to admission. Sepsis -Fever /5 to 37.6C -Cultures continue to be negative, - d/c caspfungin and doxycycine. - provide second dose of fluconazole.. - continue Daptomycin 350mg IV Q24H (6mg/kg) - continue Zosyn - blood cx through August catheter -NGTD -Reports improvement in abdominal pain status post antibiotic therapy, potentially indicating source was abdominal - anticipate d/c home in am if fever free and cultures continue to be neg. Abnormal Vaginal Discharge/Hydrosalpinx - G/C negative - potato chip processing supervisor consulted - not potato chip processing supervisor source contributing to presentation. Crohn's Disease - last Humira on 11/09, next not due until 11/16 (qweek injections) - hold Azathioprine for now in light of sepsis - continue home Loperamide 2mg PO BID - continue home KCl 20mEq PO BID - GI consulted following recommendations -Do not think patient's current presentation is related to her Crohn's disease flare -No expiration fever today weekend will perform EGD dysphagia grams TPN-dependent s/p bowel resections -Continue holding TPN until 24 hours afebrile then resume. - continue with mIVFs as stated above Electrolyte abnormalities Daily BMP, replete electrolytes as indicated Depression/Anxiety - continue home Venlafaxine 75mg PO BID FENa: Regular diet Code Status: Full code DVT PPX: Lovenox 40 mg every 24 PT/OT: Not indicated at present Dispo: Pending clinical improvement Domenico Holloway MD PGY 2, FCM This chart was completed utilizing [employer] voice recognition software. Grammatical errors, random word insertions, pronoun errors, and in complete sentences are an occasional consequence of the system. Any questions or concerns about the content, text, or information contained within the body of this dictation should be addressed directly to the physician for clarification. (2) Vaginal discharge: (3) Hydrosalpinx: (4) Crohns disease: (5) Depression: (6) Anxiety: (7) On total parenteral nutrition: (8) Hypertension: (9) Short gut syndrome: (10) Hypomagnesemia: Admission and Anticipated Discharge Date Admission Date: November 12, 2020 Supervising Physician Co-Signing Physician Notes Resident Physician Supervision Note: I independently interviewed and examined the patient and verified the marcos history and physical, reviewed labs and image studies and agree with resident Dr. Domenico Holloway findings and care plan. Subjective Patient sitting up in bed this morning in no acute distress. Reports increased output from her ostomy, voiding well, sleeping well, tolerating her diet. Patient reports significant improvement in her abdominal pain and decrease in her vaginal discharge. All questions answered, acute concerns related to origin of the fever. Physical Exam Physical Exam: General: No acute distress HEENT: Normocephalic atraumatic Neck: No significant lymphadenopathy, trachea midline, normal to visual inspection Cardiac: Regular rate and rhythm, normal S1, normal S2, I did not appreciated any significant murmurs rubs or gallops, I did not appreciate any significant pedal edema, No calf tenderness, capillary refill is less than 3 seconds Respiratory: Clear to auscultation bilaterally with symmetrical chest rise, I did not appreciate any significant wheezes, rales, rhonchi, no increased work of breathing GI: Normal bowel sounds, soft, tender to palpation in the midline MSK: No sensory or motor changes, moves all extremities without issue, extremities are warm and well-perfused Skin: [place], clean, dry, intact. Results & Data Results & Data ([facility]) Vital Signs (Past 12 Hours) Vital Signs Temp Pulse Pulse Resp BP Pulse Ox 11/14/20 07:15 72 11/14/20 04:00 37.5 C 83 18 123/75 99 11/13/20 23:00 36.9 C 75 20 119/70 97 11/13/20 22:19 78 Laboratory Results 11/13/20 11/13/20 11/13/20 Range/Units 11:30 06:45 06:45 Sodium 136 (136-145) mmol/L Potassium 3.1 L D (3.5-5.1) mmol/L Chloride 104 (98-107) mmol/L Carbon Dioxide 27 (21-32) mmol/L Anion Gap 5.0 (3-11) BUN 13 (7-18) mg/dl Creatinine 0.66 (0.6-1.2) mg/dl Est Cr Clr Drug Dosing 88.1 ml/min Est GFR ( Amer) 119.4 ml/min Est GFR (Non-Af Amer) 103.0 ml/min BUN/Creatinine Ratio 19.3 (10-20) Glucose 87 (70-99) mg/dl Calcium 8.0 L (8.5-10.1) mg/dl Phosphorus 2.1 L (2.5-4.9) mg/dl Magnesium 1.8 (1.8-2.4) mg/dl Total Bilirubin 0.2 (0.2-1) mg/dl AST 29 (15-37) U/L ALT 26 (12-78) U/L Alkaline Phosphatase 110 (45-117) U/L C-Reactive Protein 3.89 H (0-0.29) mg/dl Total Protein 7.0 (6.4-8.2) gm/dl Albumin 2.5 L (3.4-5.0) gm/dl Globulin 4.5 H (2.5-4.0) gm/dl Albumin/Globulin Ratio 0.6 L (0.9-2) Procalcitonin 0.45 (0-0.5) ng/ml C.trachomatis RNA Pending N.gonorrhoeae RNA Pending Reference Lab Comment Pending 11/12/20 Range/Units 14:40 Sodium (136-145) mmol/L Potassium (3.5-5.1) mmol/L Chloride (98-107) mmol/L Carbon Dioxide (21-32) mmol/L Anion Gap (3-11) BUN (7-18) mg/dl Creatinine (0.6-1.2) mg/dl Est Cr Clr Drug Dosing ml/min Est GFR ( Amer) ml/min Est GFR (Non-Af Amer) ml/min BUN/Creatinine Ratio (10-20) Glucose (70-99) mg/dl Calcium (8.5-10.1) mg/dl Phosphorus (2.5-4.9) mg/dl Magnesium (1.8-2.4) mg/dl Total Bilirubin (0.2-1) mg/dl AST (15-37) U/L ALT (12-78) U/L Alkaline Phosphatase (45-117) U/L C-Reactive Protein (0-0.29) mg/dl Total Protein (6.4-8.2) gm/dl Albumin (3.4-5.0) gm/dl Globulin (2.5-4.0) gm/dl Albumin/Globulin Ratio (0.9-2) Procalcitonin (0-0.5) ng/ml C.trachomatis RNA Pending N.gonorrhoeae RNA Pending Reference Lab Comment Pending Medications Administered Current Inpatient Medications Acetaminophen (Acetaminophen 500 Mg Tab) 1,000 mg PO Q8H PRN PRN Reason: Pain or Fever Stop: 12/12/20 21:45 Last Admin: 11/14/20 04:21 Dose: 1,000 mg Documented by: Enoxaparin Sodium (Enoxaparin Inj 40 Mg/0.4 Ml Syr) 40 mg SQ Q24H [facility] Stop: 12/12/20 21:59 Last Admin: 11/13/20 21:49 Dose: 40 mg Documented by: Fluconazole (Fluconazole 100 Mg Tab) 150 mg PO Q72H [facility] Stop: 11/16/20 20:01 Last Admin: 11/13/20 20:00 Dose: 150 mg Documented by: Doxycycline Hyclate 100 mg/ (Dextrose) 110 mls @ 50 mls/hr IV Q12H [facility] Stop: 11/23/20 02:59 Last Infusion: 11/14/20 05:46 Dose: Infused Documented by: Piperacillin Sod/Tazobactam (Sod 3.375 gm/ Dextrose) 115 mls @ 28.75 mls/hr IV Q8H [facility]; Protocol Stop: 11/23/20 19:59 Last Admin: 11/14/20 04:06 Dose: 28.8 mls/hr Documented by: Daptomycin 350 mg/ Syringe 7 mls @ 3.5 mls/min IV Q24H [facility]; Protocol Stop: 11/16/20 14:59 Loperamide HCl (Loperamide Hcl 2 Mg Cap) 4 mg PO BID [facility] Stop: 12/12/20 21:59 Last Admin: 11/13/20 20:17 Dose: 4 mg Documented by: Miscellaneous Information (Daptomycin Consult Active) 1 ea N/A UD PRN PRN Reason: Consult Stop: 12/12/20 21:45 Miscellaneous Information (Piperacill/Tazobac Consult Active) 1 ea N/A UD PRN PRN Reason: Consult Stop: 12/13/20 14:14 Pantoprazole Sodium (Pantoprazole 40 Mg Tab) 40 mg PO QAM [facility] Stop: 12/13/20 11:59 Last Admin: 11/13/20 13:46 Dose: 40 mg Documented by: Potassium Chloride (Potassium Chloride Crtab 20 Meq Tabcr) 20 meq PO BID [facility] Stop: 12/12/20 21:59 Last Admin: 11/13/20 20:17 Dose: 20 meq Documented by: Teduglutide (Teduglutide 5mg Kit) 5 mg SQ QAM [facility] Stop: 12/13/20 08:59 Last Admin: 11/13/20 08:43 Dose: 5 mg Documented by: Venlafaxine HCl (Venlafaxine Hcl 37.5 Mg Tab) 75 mg PO BID [facility] Stop: 12/12/20 22:59 Last Admin: 11/13/20 20:18 Dose: 75 mg Documented by: Resident Activity Tracking Resident Involvement: Resident Care Provided Care Provided: Adult Hospital Medicine (1) Sepsis Sepsis acute organ dysfunction status: unspecified Sepsis type: sepsis due to unspecified organism Qualified Code(s): A41.9 - Sepsis, unspecified organism
[2020-11-14] MEDS: TEDUGLUTIDE 5 MG SQ SCH (08:17)
[2020-11-14] MEDS: VENLAFAXINE HCL 37.5 MG TAB PO SCH ×2 (08:17→21:28)
[2020-11-14] MEDS: LOPERAMIDE HCL 2 MG CAP PO SCH ×2 (08:17→21:29)
[2020-11-14] MEDS: POTASSIUM CHLORIDE CRTAB 20 MEQ TABCR PO SCH ×2 (08:17→21:29)
[2020-11-14] MEDS: PANTOprazole 40 MG TAB PO SCH (08:17)
[2020-11-14 12:59] LABS: Chlamydia Trach RNA NOT DETECTED (NOT DETECTED); GC (Neis gonorrhoeae) RNA NOT DETECTED (NOT DETECTED)
[2020-11-14 12:59] LABS: Chlamydia Trach RNA NOT DETECTED (NOT DETECTED); GC (Neis gonorrhoeae) RNA NOT DETECTED (NOT DETECTED)
[2020-11-14] MEDS ORDERED: DAPTOmycin 350 MG in SYRINGE 0 ML IV SCH (15:00)
[2020-11-14 16:53] LABS: BUN Creatinine Ratio 16.5 (10-20); Calcium 8.7 mg/dl (8.5-10.1); Creatinine Clr Calc Pharmacy 92.3 ml/min; Est GFR (African American) 121.2 ml/min; Est GFR (Non-African American) 104.6 ml/min; Potassium 3.7 mmol/L (3.5-5.1)
--- NOTE | 2020-11-14 17:20 | Gastroenterology Progress Note ---
Date of Service November 14, 2020 Assessment & Plan (1) Fever: No obvious crohns flare. Cdiff negative. Cultures neg so far. If pt still and inpt monday and etiology of fever not explained by other etiology then could do EGD and Ileoscopy. Crohns disease- would not escalate treatment at present. Humira on hold at present. pelvic pain/hydrosalpinx per webmaster short gut syndrome--continue Gattex and TPN Admission and Anticipated Discharge Date Admission Date: November 12, 2020 Subjective cc f/u abd pain and fever HPI T max 38.3. Pt states eating well and denies odynophagia. Some mild epi pressure only. No pelvic pain. Physical Exam Gastrointestinal (Abdomen): pos bs, soft, no guarding nor rebound Results & Data ([facility]) Vital Signs (Past 12 Hours) Vital Signs Temp Pulse Pulse Resp BP Pulse Ox 11/14/20 16:16 93 H 11/14/20 15:06 37.6 C H 98 H 20 122/75 98 11/14/20 12:16 36.9 C 84 20 117/71 99 11/14/20 07:21 36.7 C 76 20 125/76 98 11/14/20 07:15 72
[2020-11-14] MEDS: ENOXAPARIN INJ 40 MG/0.4 ML SYR SQ SCH (21:29)
[2020-11-15] MEDS: PIPERACILLIN/TAZOBACTAM 3.375 GM in DEXTROSE 5% 100 ML IV SCH ×2 (03:50→11:43)
[2020-11-15 06:50] LABS: Basophils # (auto) 0.03 K/uL (0-0.2); Basophils % (auto) 0.8 %; Eosinophils % (auto) 2.8 %; Hematocrit (blood only) 38.1 % (37-47); Hemoglobin 12.2 g/dL (12.0-16.0); Lymphocytes # (auto) 1.06 K/uL (1.2-3.4); Lymphocytes % (auto) 29.9 %; Mean Corpuscular Hemoglobin 26.1 pg (25-34); Mean Corpuscular Volume 81.6 fL (80-100); Monocytes # (auto) 0.46 K/uL (0.11-0.59); Neutrophils # (auto) 1.89 K/uL (1.4-6.5); Neutrophils % (auto) 53.5 %; Platelet Count 174 K/uL (130-400); RDW Coefficient of Variation 17.7 % (11.5-14.5); RDW Standard Deviation 53.1 fL (36.4-46.3); Red Blood Count 4.67 M/uL (4.2-5.4); White Blood Count 3.54 K/uL (4.8-10.8)
[2020-11-15 07:20] LABS: BUN Creatinine Ratio 16.8 (10-20); Calcium 9.3 mg/dl (8.5-10.1); Creatinine Clr Calc Pharmacy 79.6 ml/min; Est GFR (African American) 111.3 ml/min
[2020-11-15] MEDS: TEDUGLUTIDE 5 MG SQ SCH (08:06)
[2020-11-15] MEDS: PANTOprazole 40 MG TAB PO SCH (08:06)
[2020-11-15] MEDS: LOPERAMIDE HCL 2 MG CAP PO SCH (08:06)
[2020-11-15] MEDS: VENLAFAXINE HCL 37.5 MG TAB PO SCH (08:06)
[2020-11-15] MEDS: POTASSIUM CHLORIDE CRTAB 20 MEQ TABCR PO SCH (08:06)
--- NOTE | 2020-11-15 15:25 | Discharge Summary ---
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 Cathi reports onset of thick/white vaginal discharge and vaginal pruritus that she thought was a yeast infection. She took Monostat x1 but symptoms persisted so she saw CLINICAL CONSULTANT ~1 month ago and was given Metronidazole intravaginally x1; symptoms persisted despite this, and despite another Monostat x1 several weeks ago. Then patient reports increase in amount of thick white discharge x several days, followed by acute-onset lower abdominal pain with associated bilateral hip/knee/ankle pain last night. She had NBNB emesis x1 and took Tylenol; all symptoms resolved within 1 hour and she was able to fall asleep. She then woke up this morning with fever of 101F and mild lower abdominal pain and bilateral hip pain that has persisted throughout the day, which prompted her to go to the ED for further evaluation. Patient reports irregular menstrual cycles for the last several years - LMP in 06/2020 with very light bleeding. In a monogamous relationship with x23 years; last sexually active ~6 weeks ago. Patient reports no recent changes to medications. Takes Humira weekly (last injection on Thursday 11/09). Denies previous/current tobacco use, reports occasional alcohol use every month, denies other drug use. In the ED, the patient was febrile to 38.1 and tachycardic to 154 bpm. There was copious thick, white vaginal discharge on speculum exam. Laboratory work-up was significant for lactate 2.9 (no leukocytosis), Procalcitonin .3, Mg 1.6 - CBC/CMP otherwise WNL. UA without signs of infection, vaginal GC/CT drawn and pending. Blood cx x2 drawn from peripheral sites but no blood cx drawn from August before starting broad spectrum abx. Imaging was significant for bilateral hydrosalpynx which was confirmed on pelvic/vaginal US. Patient was given Daptomycin/Cefepime/Doxycycline x1. Was also given 2L NSS bolus x1. VS subsequently improved; not febrile since admission and HR down to 90s. Admission Exam Per Admitting Provider Constitutional: WD/WN, vitals as above Neck: trachea midline, no thyromegaly Respiratory: normal respiratory effort, lungs clear to auscultation Cardiovascular: RRR, no murmur, no edema Chest (Breasts): Chest: + vascular access device or port (August catheter with overlying dressing c/d/i, no surrounding erythema) Gastrointestinal (Abdomen): colostomy bag without surrounding erythema/discharge Skin: no rashes, warm and dry Psychiatric: A+Ox3, euthymic affect Principal Diagnosis Sepsis secondary to fever of unknown origin complicated by immunocompromise status, history of Crohn's disease, history of hydrosalpinx Discharge Data Allergies Allergy/AdvReac Type Severity Reaction Status Date / Time Iodinated Contrast Media Allergy Intermediate Hives Verified 07/31/20 07:02 grass pollen-perennial rye, Allergy Unknown Unknown rxn Verified 07/31/20 07:02 standar mold Allergy Unknown Unknown rxn Verified 07/31/20 07:02 vancomycin Allergy Unknown HIVES Verified 07/31/20 07:02 Dust Allergy Unknown Unknown rxn Uncoded 07/30/20 09:00 Consultations 11/12/20 17:52 ED Decision to Admit Stat 11/12/20 21:46 Consult Gynecology Routine 11/13/20 11:18 Consult Gastroenterology Routine Ordered Studies 11/12/20 12:28 CT abd pelvis IV con only Stat 11/12/20 14:32 US pelvic complete Stat US transvaginal Stat Hospital Course (1) Sepsis: Cathi Phillips is a 50 yo female with PMHx that includes Crohn's disease (s/p proctocolectomy ~20 years ago and significant small bowel resection in 2016), short bowel syndrome, 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 Sepsis Patient presented to the hospital with a fever of unknown origin, feelings of malaise, weakness, abdominal pain and tenderness, and history of imm unocompromise status. On presentation she was tachycardic tachypneic and febrile. Given her immunocompromise status she was started on empiric caspofungin, doxycycline, daptomycin, and cefepime and she was admitted to the medicine service for further evaluation and management. She improved from a clinical standpoint overnight and no longer met septic criteria. However she continued to have fevers. Her antimicrobials were narrowed to Zosyn, daptomycin, and fluconazole. She continued to have fevers in the afternoons however her T-max decreased each day. She was provided intravenous antimicrobial therapy until she was afebrile for 24 hours. Throughout her admission her cultures continue to demonstrate no growth, and there were no significant biochemical markers of bacterial infection. Thus it was concluded that her fevers were likely secondary to a viral infection versus her underlying rheumatological process. The patient was extensively counseled counseled to be alert for concerning signs or symptoms including but not limited to fevers unresponsive to NSAIDs, shaking chills, persistent nausea, vomiting, or diarrhea, significant unrelenting pain, severe headache, chest pain, chest pressure, worsening or lack of improvement of the symptoms for which they presented. Should the patient experience any of these they are to contact our office for further instruction, return for follow- up, or proceed directly to the emergency department for further evaluation and management. She verbalized understanding and requested discharge. We recommend she resume all of the medications she was on prior to admission, and follow-up with her primary care provider, staff assistant, and corporate human resources manager on discharge. Abnormal Vaginal Discharge/Hydrosalpinx Patient with longstanding history of abnormal vaginal discharge and associated hydrosalpinx. On admission CHIEF PHARMACIST was consulted out of concern for PID versus tubo-ovarian abscess secondary to imaging findings. CHIEF PHARMACIST did not feel as if the patient's gynecological symptoms or history of hydrosalpinx were contributing to her current presentation. GC was negative. Recommend outpatient follow-up with CHIEF PHARMACIST for further evaluation of abnormal vaginal discharge and hydrosalpinx. Crohn's Disease Patient with extensive severe Crohn's disease history see above. Her azat hioprine was held throughout her admission. Her last dose of Humira was on 11/09 prior to admission, her next dose is due tomorrow on 11/16. We recommend she resume both of these medications. Additionally she should continue to take her home loperamide, potassium chloride. As noted above gastroenterology was consulted during this admission. TPN-dependent s/p bowel resections Resume TPN on discharge Depression/Anxiety Continued home Venlafaxine 75mg PO BID Domenico Holloway MD PGY 2, FCM This chart was completed utilizing [employer] voice recognition software. Grammatical errors, random word insertions, pronoun errors, and in complete sentences are an occasional consequence of the system. Any questions or concerns about the content, text, or information contained within the body of this dictation should be addressed directly to the physician for clarification. Total Time Total Time Spent Total Time Spent (In Minutes): 62 Discharge Plan Discharge Items Patient Disposition: Home - Self-Care Reason For Visit: sepsis, vaginal discharge Discharge Diagnosis: Sepsis secondary to fever of unknown origin complicated by immunocompromise status, history of Crohn's disease, history of hydrosalpinx Activity: Resume your previous activity Non-emergency contact: Primary Care Provider Call non-emergency contact if: you have any medication questions, your pain is not controlled and your temperature is above 101 Follow-up/Referrals: Patricio Malhotra III, MD [Primary Care Provider] - Diet: Regular Addtl Attending Provider Instructions: Care instructions: You were admitted to [facility] for treatment of fever of unknown origin and vital signs meeting criteria for sepsis. Upon presentation the hospital you were evaluated for possible sources of infection, blood cultures were obtained, urine cultures were obtained, and your biochemical lab values were evaluated. Initially your labs and vital signs in the emergency department were suspicious for infection given her immunocompromised status we treated you empirically with broad-spectrum antibiotics to cover any potential sources of infection. Throughout your hospital stay your microbiology cultures continued to demonstrate no growth, you improved from a clinical standpoint, and were afebrile for 24 hours while intravenous antibiotics. Given your clinical improvement and lack of biochemical evidence of infection through shared decision making we elected to discharge you with close monitoring of your subjective constitutional symptoms. As we discussed it is not important that you monitor your symptoms, due to the medications that you are on symptoms of infection may be more nuanced for you. It is important that you monitor your temperature at least once daily and should you have a fever greater than 101 you contact your primary care provider for further instructions. Otherwise please resume all medications you were taking prior to admission to the hospital and follow-up with your primary care provider as soon as practical. Specifically you should be alert for signs or symptoms including but not limited to fevers unresponsive to NSAIDs, shaking chills, persistent nausea, vomiting, or diarrhea, significant unrelenting pain, severe headache, chest pain, chest pressure, worsening or lack of improvement of the symptoms for which you presented. Should you experience any of these please contact your primary care providers office for further instruction, return for follow-up, or proceed directly to the emergency department for further evaluation and management. A discharge summary will be sent to your primary care physician to ensure continuity of care. Please bring this discharge summary with you to your next office appointment so that your provider can review it at that time. Follow-up appointments: - Keep all your follow-up appointments as already scheduled. If you cannot make an appointment, notify your provider. - Please call to request a follow-up appointment with your primary care physician within one week of discharge. Please let us know if you are unable to obtain an appointment Medications: - Your medication list has been reviewed and reconciled upon discharge to ensure accuracy and continuity of care. - You are provided with a list of all your current medications at this time. Please review this list closely and make note of any changes. - Please take all of your medications exactly as prescribed. - Tell your primary care provider if you cannot afford your medications. - Call your primary care provider if you are having any side effects or any other problems. - Call your primary care provider before taking any over the counter medications or supplements, including herbals and vitamins, because some of these may interact with your current medications and/or make your symptoms worse. Symptoms: Please call your primary care provider for symptoms including, but not limited to: fevers (temperatures greater than 100.4), chills, intractable nausea or vomiting, diarrhea, rash, shortness of breath, bleeding, pain, or if you experience any worsening of the symptoms that brought you to the hospital. For EMERGENCY and VERY SERIOUS health-related issues, such as chest pain, shortness of breath, or sudden onset of the symptoms that brought you to the hospital, you may need to call 911 or go directly to the Emergency Room It has been our privilege to take care of you during your hospital stay. And Above All Else Feel Better! Best Wishes, Domenico Holloway MD PGY2 Resident, Family & Community Medicine [facility] FCM Residency at [facility] [place] [id number], [address] : [place] [address] Pending Studies at Discharge: No Stand-Alone Forms: My [facility], Smoking Cessation Medications and DC Order Prescriptions: Continued loperamide 2 mg capsule 4 mg PO BID Qty: 240 RF: 5 metronidazole [Metrogel Vaginal] 0.75 % gel 1 appful vaginal DAILY 5 Days Qty: 70 RF: 0 Gattex 30-Vial 5 mg kit 5 mg SUBCUT QAM RF: 0 Humira(CF) Pen 40 mg/0.4 mL pen injector kit 40 mg SUBCUT WK RF: 0 venlafaxine 75 mg tablet 75 mg PO BID RF: 0 azathioprine [Imuran] 50 mg tablet 50 mg PO QAM RF: 0 potassium chloride 10 mEq tablet,ER particles/crystals 20 meq PO BID RF: 0 cholecalciferol (vitamin D3) 5,000 unit tablet 5,000 units PO QAM RF: 0 Culturelle Digestive Health 10 billion cell -200 mg Capsule 1 cap PO QAM RF: 0 acetaminophen [Tylenol Extra Strength] 500 mg Tablet 1,000 mg PO Q6 PRN (Reason: Fever Or Pain) RF: 0 Total Parenteral Nutrition 1 dose PO 4XWK RF: 0 Flintstones Complete Tablet,Chewable 1 tab PO QAM RF: 0 Discharge Orders: Discharge Order (Routine); Ordered 11/15/20 Ordered By: Domenico Holloway Admission Data Admit Date/Time: 11/12/20 20:04 Attending Provider: Noelle Huddleston Admit Provider: Will Allison Primary Care Provider: Patricio Malhotra III Other Providers: Ovidio Garzon ; Sultana Vidal ; Daniele Brown ; [place] Other Interventions: Discharge Summary Assessment (RN) Last Done: 11/15/20 15:39 Supervising Physician Co-Signing Physician Notes Resident Physician Supervision Note: I independently interviewed and examined the patient and verified the marcos history and physical, reviewed labs and image studies and agree with resident Dr. Domenico Holloway findings and care plan. Resident Activity Tracking Resident Involvement: Resident Care Provided Care Provided: Adult [facility]
== END 2020-11-15 16:45 | disposition home health service (06) | DRG 872 ==
LOC: ED 11:40 → SUATTDRO 20:04 → 2N 20:04

== ENCOUNTER 2025-01-31 15:43 | Observation (INO) ==
--- NOTE | 2025-01-31 16:24 | Emergency Department Note ---
Impression & Plan Hypotension, TEA (acute kidney injury), Hyponatremia, Dehydration, Acute hyperkalemia ED Provider Note NAME: TIAN MEEK AGE: 54 SEX: F : 1970 ARRIVES VIA: Walk-In INFORMANT: [Patient] ED PROVIDER(S): [Jordi Lui MD] CHIEF COMPLAINT: Dehydration HISTORY OF PRESENT ILLNESS: Patient is a 54-year-old female who has been feeling poorly for around 3 days. She states that she feels she is dehydrated. She has had increased ostomy output, nausea and vomiting. She had a low-grade fever initially but this has resolved. There is no abdominal pain, no headache. No blood in the stool or vomit. The patient states that she has not noticed any urinary burning, there has been no shortness of breath, no cough or congestion. No sick contacts. Patient has a jejunostomy, it does not take much for her to be dehydrated. She has had increased output from the jejunostomy. Today, the patient felt fatigued and her muscles began cramping, this is how she feels when she is dehydrated. PMHx/PSHx/Social Hx: See Below PHYSICAL EXAM: GENERAL: Patient is in no acute distress. HEENT: No acute trauma, normocephalic atraumatic, mucous membranes moist, no nasal congestion. NECK: No stridor, no adenopathy, no meningismus, trachea is midline. LUNGS: Clear to auscultation bilaterally, no wheeze, no rhonchi, breath sounds equal. HEART: Mildly tachycardic, regular rhythm, no murmurs. ABDOMEN: Soft, nontender, no peritonitis. Ostomy noted in the right mid abdomen. He bag was partially full. EXTREMITIES: No cyanosis, full range of motion of all the joints without pain or difficulty. NEUROLOGIC: Oriented x 3, no acute motor or sensory deficits, no focal weakness. SKIN: No jaundice, no diaphoresis. DIFFERENTIAL DIAGNOSIS: Dehydration, electrolyte imbalance, foodborne or viral illness, among others. EMERGENCY DEPARTMENT PROCEDURES: MEDICAL DECISION MAKING: There is no leukocytosis or concerning anemia. There is a normal platelet count. Renal panel testing shows hyponatremia, hyperkalemia, acute kidney injury. There were some liver enzyme elevations, the bilirubin was normal. Urinalysis is suggestive of infection versus contamination. COVID, influenza and RSV tests were negative. Chest x-ray does not show pneumonia or CHF. On exam, the patient appeared dehydrated. She was at times, hypotensive. She was tachycardic. The patient was aggressively managed. She received 2 L of IV saline. She was given IV Phenergan and IV Zofran for nausea. She received IV Pepcid. Patient presents with increased ostomy output. She has felt weak and crampy and by workup, is quite dehydrated. The patient is in need of a hospital stay. She will require electrolyte replacement, hydration, close monitoring. I did speak with the patient, I spoke with case management, the on-call hospitalist was consulted. Of note, the patient's blood pressure is improved, her heart rate is improved and she is feeling better since treatment here in the ED. Prior/Outside records/notes reviewed: None ECG per my interpretation: Indication was tachycardia and weakness. The ECG she shows a sinus tachycardia with a rate of 109. There is no ST elevation, no PVCs. The QTc is 404. Continuous Cardiac Monitoring per my interpretation: An order was placed for continuous cardiac monitoring. The monitor shows a rate of 114 with sinus tachycardia. Imaging/x-ray results per my interpretation: Chest x-ray does not show pneumonia or CHF. Chronic Medical/Social conditions affecting care: History of jejunostomy and short gut syndrome. Care/Management discussed with: Case management, the on-call hospitalist. Level of care consideration(s): After review of the information above and other included data: --I believe the patient requires escalation of care to admission Critical Care Note: I have personally spent 42 minutes of critical care time in the direct management of this patient. This includes bedside care, interpretation of diagnostic studies, and testing, discussion with consultants, patient, and family members, and other required patient management activities. This 42 minutes is in excess of all separately billable procedures. DISPOSITION: Admission Past Med/Surg History Problem List (Updated 02/01/25 @ 01:26 by Jordi Lui MD) Acute hyperkalemia (Acute) Dehydration (Acute) Hyponatremia (Acute) TEA (acute kidney injury) (Acute) Hypotension (Acute) Crohn's disease Hyponatremia Acute kidney injury Volume depletion Viral gastroenteritis Carpal tunnel syndrome, right Cervical radicular pain Adalimumab (Humira) long-term use RLS (restless legs syndrome) Numbness and tingling in both hands Sensorineural hearing loss (SNHL) of both ears Central venous catheter in place Hydrosalpinx (Acute) Vaginal discharge (Acute) Hypomagnesemia (Acute) Short gut syndrome (Acute) Restless legs syndrome Rosacea (Acute) Vitamin B12 deficiency (Acute) Anemia (Acute) Hypercalcemia Encounter for pre-operative examination H/O ileostomy (Chronic) Fever (Acute) Klebsiella sepsis Leukocytosis (Acute) PICC line infection SIRS (systemic inflammatory response syndrome) (Acute) Sepsis (Acute) Small bowel obstruction (Acute) Vomiting (Acute) Microcytic hypochromic anemia (Acute) Iron deficiency anemia (Acute) High output ileostomy (Acute) Hyperlipidemia (Acute) Borderline high blood pressure Skin lesion of back Angular cheilitis Sore mouth (Acute) Infected venous access port (Acute) Bacteremia (Acute) Immunocompromised (Chronic) Hypertension (Chronic) Depression (Chronic) Anxiety (Chronic) Crohns disease (Chronic) On total parenteral nutrition 3 nights per week Medical History Ileostomy in place HTN (hypertension) History of esophageal ulcer Short bowel syndrome Surgical History History of esophagogastroduodenoscopy (EGD) History of intestinal surgery 1988 - removed rectum, anus and large intestine and 14 inches small intestine and ileostomy 2016 removed small bowel (left 4 ft of bowel) History of removal of Port-a-Cath (05/18/20) Port removal. Dr. Gary 05/18/2020 History of vascular access device left chest port - recently removed r/t bacteremia (hospitalized [facility] 05/2020) Hx laparoscopic cholecystectomy Hx of colonoscopy S/P PICC central line placement Rt arm Family History Grandfather (Paternal) Colorectal cancer, Onset Age: 80 Mother History of thyroid disorder Giron syndrome Grandfather (Maternal) Leukemia Father Hx of CABG Other No pertinent family history Denies family history of Ovarian cancer Breast cancer Social History Smoking Status: Never smoker Second Hand Exposure: No; Do You Dip or Chew Tobacco: No; Hx Alcohol Use: No Hx Substance Use: No Preferred Language: Greenlandic Communication Ability: Effective Visual Impairment: No Limitations Editor In Chief Required: No Beliefs That Will Affect Care: None marital status: Current Living Situation: Spouse Feels Safe at Home: Yes Assistive Devices: Glasses and Hearing Aid - Bilateral Allergies Allergies Allergy/AdvReac Type Severity Reaction Status Date / Time grass pollen-perennial rye, Allergy Intermediate HAYFEVER Verified 01/08/25 08:11 standar SYMPTOMS house dust Allergy Intermediate HAYFEVER Verified 01/08/25 08:11 SYMPTOMS Iodinated Contrast Media Allergy Intermediate Hives Verified 01/08/25 08:11 mold Allergy Intermediate HAYFEVER Verified 01/08/25 08:11 SYMPTOMS vancomycin Allergy Intermediate HIVES Verified 01/08/25 08:11 Home Meds Home Medications Medication Instructions Recorded Confirmed Lactobacillus rhamnosus GG 10 1 cap PO QAM 05/23/18 01/31/25 billion cell-inulin 200 mg capsule ([facility] [employer] [facility]) cholecalciferol (vitamin D3) 125 5,000 units PO QAM 05/23/18 01/31/25 mcg (5,000 unit) tablet potassium chloride 10 mEq 10 meq PO QAM 05/23/18 01/31/25 tablet,extended release(part/cryst) venlafaxine 75 mg tablet 75 mg PO BID 05/23/18 01/31/25 acetaminophen 500 mg tablet 1,000 mg PO Q6 PRN Fever Or Pain 05/14/20 01/31/25 (Tylenol Extra Strength) adalimumab 40 mg/0.4 mL 40 mg subcut WK 06/20/20 01/31/25 subcutaneous pen kit (Humira(CF) Pen) teduglutide 5 mg subcutaneous kit 0.345 mg subcut QAM 06/20/20 01/31/25 (Gattex 30-Vial) multivitamin (Daily Multi-Vitamin 1 tab PO QAM 02/16/21 01/31/25 tablet) azathioprine 50 mg tablet (Imuran) 100 mg PO QAM 04/09/21 01/31/25 alpha lipoic acid 200 mg tablet 400 mg PO QAM 06/27/24 01/31/25 loperamide 2 mg capsule 4 mg PO BID PRN Diarrhea 06/27/24 01/31/25 pantoprazole 40 mg granules 40 mg PO DAILYBB 06/27/24 01/31/25 delayed-release for susp in packet ascorbic acid (vitamin C) 500 mg 500 mg PO QAM 12/05/24 01/31/25 chewable tablet (Vitamin C) ketoconazole 2 % topical cream 1 applic topical QA 01/31/25 01/31/25 magnesium oxide 200 mg PO HS 01/31/25 01/31/25 vitamin B complex 1 tab PO QAM 01/31/25 01/31/25 Results & Data (ED) Vital Signs Vital Signs - 24 hr 01/31/25 15:46 01/31/25 16:29 01/31/25 17:15 Temperature 36.0 C L Temperature Source Temporal Artery Scan Pulse Rate 114 H 108 H 104 H Pulse Rate [Apical] Pulse Rate from SpO2 Sensor 104 H Respiratory Rate 18 21 Respiratory Effort / Characteristics Non-Labored Spontaneous Respiratory Depth Normal Blood Pressure 92/54 L 109/73 Blood Pressure [Right Arm] Blood Pressure Mean 66 85 Blood Pressure Mean [Right Arm] Pulse Oximetry 100 97 Oxygen Delivery Method Room Air Sepsis Recent Fever Within 48 Hours No Sepsis New/Unexplained Change in Mental Status N/A Sepsis Action Taken by Nursing No Action Required 01/31/25 17:23 Temperature Temperature Source Pulse Rate Pulse Rate [Apical] 101 H Pulse Rate from SpO2 Sensor Respiratory Rate 20 Respiratory Effort / Characteristics Non-Labored Respiratory Depth Normal Blood Pressure Blood Pressure [Right Arm] 109/73 Blood Pressure Mean Blood Pressure Mean [Right Arm] 85 Pulse Oximetry 97 Oxygen Delivery Method Room Air Sepsis Recent Fever Within 48 Hours Sepsis New/Unexplained Change in Mental Status Sepsis Action Taken by Long-Term Medications Current Medication List: was personally reviewed by me Laboratory Data Attestation: I reviewed the patient's lab results. 01/31/25 16:13 01/31/25 16:13 Lab Results 01/31/25 01/31/25 Range/Units 16:13 16:15 WBC 6.97 (4.8-10.8) K/ul RBC 4.91 (4.20-5.40) M/uL Hgb 14.6 (12.0-16.0) g/dl Hct 43.6 (37.0-47.0) % MCV 88.8 (80.0-100.0) fL MCH 29.7 (25.0-34.0) pg MCHC 33.5 (32.0-36.0) g/dL RDW Std Deviation 45.1 (36.4-46.3) fL RDW Coeff of Aleta 14.0 (11.5-14.5) % Plt Count 370 (130-400) K/uL MPV 10.0 (9.4-12.4) fL Immature Gran % (Auto) 0.3 % Neut % (Auto) 62.0 % Lymph % (Auto) 13.3 % Merrick % (Auto) 18.9 % Eos % (Auto) 4.6 % Baso % (Auto) 0.9 % Neut # (Auto) 4.32 (1.40-6.50) K/uL Lymph # (Auto) 0.93 L (1.20-3.40) K/uL Merrick # (Auto) 1.32 H (0.11-0.59) K/uL Eos # (Auto) 0.32 (0.00-0.50) K/uL Baso # (Auto) 0.06 (0.00-0.20) K/uL Immature Gran # (Auto) 0.02 (0.01-0.20) K/uL Toxic Vacuolation 1+ Sodium 127 L (136-145) mmol/L Potassium 5.4 H (3.5-5.1) mmol/L Chloride 90 L (98-107) mmol/L Carbon Dioxide 24 (21-32) mmol/L Anion Gap 13 H (3-11) BUN 38 H (6-23) mg/dl Creatinine 1.85 H (0.6-1.2) mg/dl Est Cr Clr Drug Dosing 30.0 ml/min eGFR 32.00 BUN/Creatinine Ratio 20.5 H (10-20) Glucose 169 H (70-99(Fasting)) mg/dl Osmolality 295 (280-300) mOsm/kg Calcium 10.9 H (8.6-10.3) mg/dl Magnesium 2.0 (1.7-2.4) mg/dl Total Bilirubin 0.8 (0.2-1.0) mg/dl AST 102 H (13-39) U/L ALT 81 H (7-52) U/L Alkaline Phosphatase 165 H (34-104) U/L Total Protein 11.0 H (6.0-8.3) gm/dl Albumin 5.2 H (3.4-5.0) gm/dl Globulin 5.8 H (2.5-4.0) gm/dl Albumin/Globulin Ratio 0.9 (0.9-2) SARS-CoV-2 (PCR) NEGATIVE (Negative) Influenza Type A (PCR) Negative (Neg) Influenza Type B (PCR) Negative (Neg) RSV (RT-PCR) Negative (Neg) Administered Medications Sodium Chloride (Nss) 1,000 mls @ 125 mls/hr IV .Q8H CHELA Stop: 02/03/25 20:45 Last Admin: 01/31/25 21:04 Dose: 125 mls/hr Documented By: STIVEN Methylprednisolone 40 mg/ (Syringe) 0.64 mls @ 1.5 mls/min IV Q8H CHELA Stop: 03/02/25 20:59 Last Admin: 01/31/25 21:07 Dose: 1.5 mls/min Documented By: STIVEN Venlafaxine HCl (Venlafaxine Hcl 37.5 Mg Tab) 75 mg PO BID CHELA Stop: 03/02/25 20:59 Last Admin: 01/31/25 21:08 Dose: 75 mg Documented By: STIVEN Discontinued Medications Famotidine (Pepcid 20mg Iv Push) 20 mg in 5 mls @ 2.5 mls/min IV NOW STA Stop: 01/31/25 16:21 Last Admin: 01/31/25 16:36 Dose: 2.5 mls/min Documented By: CHARLETTE Promethazine HCl (Phenergan) 6.25 mg in 50.25 mls @ 201 mls/hr IV NOW STA Stop: 01/31/25 16:34 Last Infusion: 01/31/25 17:00 Dose: Infused Documented By: Admin: 01/31/25 16:36 Dose: 201 mls/hr Documented By: CHARLETTE Sodium Chloride (Nss) 1,000 mls @ 999 mls/hr IV .Q1H1M ONE Stop: 01/31/25 17:20 Last Infusion: 01/31/25 18:16 Dose: Infused Documented By: Admin: 01/31/25 16:36 Dose: 999 mls/hr Documented By: CHARLETTE Sodium Chloride (Nss) 1,000 mls @ 999 mls/hr IV .Q1H1M ONE Stop: 01/31/25 18:13 Last Infusion: 01/31/25 18:33 Dose: Infused Documented By: Admin: 01/31/25 17:26 Dose: 999 mls/hr Documented By: CLARIBEL Ondansetron HCl (Ondansetron Inj 2 Mg/Ml 2 Ml Vial) 4 mg IV NOW STA Stop: 01/31/25 16:21 Last Admin: 01/31/25 16:36 Dose: 4 mg Documented By: CHARLETTE Imaging Data Radiologist's Impression: Chest X-Ray 01/31/25 15:52 Chest radiograph, one view History: Dizziness Comparison: 12/05/2024 Findings: Single AP view of the chest performed. No focal consolidation or pleural effusion. No pneumothorax. The cardiomediastinal silhouette is within normal limits. Normal pulmonary vascularity. No evidence for lymphadenopathy. No visualized bony or soft tissue abnormality. Impression: Normal chest radiograph Electronically signed by Sandeep Benitez 01-31-2025 4:59 PM Discharge Plan Visit Data Chief Complaint: Dehydration Stated Complaint: DEHYDRATION, NAUSEA, VOMITING, FEVER YESTERDAY ED Provider: Jordi Lui Discharge Problem: Hypotension, TEA (acute kidney injury), Hyponatremia, Dehydration, Acute hyperkalemia Patient Disposition: Admitted As Inpatient Condition: Serious Discharge Instructions Interventions: ED Discharge Assessment Last Done: 01/31/25 20:33 Discharge Problem: Hypotension Qualifiers: Hypotension type: unspecified hypotension type Qualified Code(s): I95.9 - Hypotension, unspecified
[2025-01-31 16:29] LABS: Hematocrit (blood only) 43.6 % (37.0-47.0); Hemoglobin 14.6 g/dl (12.0-16.0); Mean Corpuscular Hemoglobin 29.7 pg (25.0-34.0); Mean Corpuscular Volume 88.8 fL (80.0-100.0); Platelet Count 370 K/uL (130-400); RDW Standard Deviation 45.1 fL (36.4-46.3); Red Blood Count 4.91 M/uL (4.20-5.40); White Blood Count 6.97 K/ul (4.8-10.8)
[2025-01-31] MEDS: PROMETHAZINE 6.25 MG/50.25 ML BAG IV STA (16:36)
[2025-01-31] MEDS: SODIUM CHLORIDE 0.9% 1,000 ML IV ONE ×2 (16:36→17:26)
[2025-01-31] MEDS: ONDANSETRON INJ 2 MG/ML 2 ML VIAL IV STA (16:36)
[2025-01-31] MEDS: FAMOTIDINE 20MG IV PUSH 20 MG/5 ML SYR IV STA (16:36)
[2025-01-31 16:46] LABS: Alanine Aminotransferase 81.0 U/L (7-52); Albumin Globulin Ratio 0.9 (0.9-2); Alkaline Phosphatase 165.0 U/L (34-104); Anion Gap 13.0 (3-11); Bilirubin,Total 0.8 mg/dl (0.2-1.0); Blood Urea Nitrogen 38.0 mg/dl (6-23); Calcium 10.9 mg/dl (8.6-10.3); Carbon Dioxide 24.0 mmol/L (21-32); Chloride 90.0 mmol/L (98-107); Creatinine Clr Calc Pharmacy 30.0 ml/min; Globulin 5.8 gm/dl (2.5-4.0); Glucose 169.0 mg/dl (70-99(Fasting)); Magnesium 2.0 mg/dl (1.7-2.4); Potassium 5.4 mmol/L (3.5-5.1); Sodium 127.0 mmol/L (136-145); Total Protein 11.0 gm/dl (6.0-8.3)
[2025-01-31 16:59] LABS: Immature Granulocytes # (auto) 0.02 K/uL (0.01-0.20); Immature Granulocytes % (auto) 0.3 %; Toxic Vacuolation 1+
--- NOTE | 2025-01-31 16:59 | XRay Report ---
Chest radiograph, one view History: Dizziness Comparison: 12/05/2024 Findings: Single AP view of the chest performed. No focal consolidation or pleural effusion. No pneumothorax. The cardiomediastinal silhouette is within normal limits. Normal pulmonary vascularity. No evidence for lymphadenopathy. No visualized bony or soft tissue abnormality. Impression: Normal chest radiograph Electronically signed by Sandeep Benitez 01-31-2025 4:59 PM
[2025-01-31 17:09] LABS: Influenza A virus by PCR Negative (Neg); Influenza B virus by PCR Negative (Neg); SARS CoV2 RNA(COVID-19) Ceph NEGATIVE (Negative)
--- NOTE | 2025-01-31 17:57 | History & Physical Report ---
Date of Service January 31, 2025 Assessment & Plan (1) Viral gastroenteritis: Plan: IV fluids. Antiemetic. Full liquid diet as tolerated (2) Volume depletion: Plan: IV fluids. Monitor intake and output. Serial labs (3) Acute kidney injury: Plan: IV fluids. Monitor urine output. Serial labs (4) Hyponatremia: Plan: Measure serum osmolarity. IV fluids ordered for volume depletion. Serial labs (5) Crohn's disease: Plan: By history. Previous colectomy with jejunostomy. Supportive care Plan Hopeful discharge to home within the next day or 2 depending on clinical course History of Present Illness Chief Complaint: Nausea and vomiting, excess fluid in jejunostomy bag, weakness Primary Care Provider: Homer Hernandez 54-year-old white female with a history of Crohn's disease and previous colectomy with a jejunostomy bag. She is exhibiting signs and symptoms of a viral gastroenteritis with nausea vomiting and increased fluid output in the change in ostomy bag. She was seen in the ED for evaluation. Sodium is low at 127 and potassium 5.4. Serum osmolarity is pending. She has acute kidney injury with creatinine 1.8. Baseline creatinine is 0.7. Liver enzymes are mildly elevated. She is admitted for further evaluation and treatment. She denies hematemesis or bloody ostomy bag fluid Allergies Allergy/AdvReac Type Severity Reaction Status Date / Time grass pollen-perennial rye, Allergy Intermediate HAYFEVER Verified 01/08/25 08:11 standar SYMPTOMS house dust Allergy Intermediate HAYFEVER Verified 01/08/25 08:11 SYMPTOMS Iodinated Contrast Media Allergy Intermediate Hives Verified 01/08/25 08:11 mold Allergy Intermediate HAYFEVER Verified 01/08/25 08:11 SYMPTOMS vancomycin Allergy Intermediate HIVES Verified 01/08/25 08:11 Home Medications Medication Instructions Recorded Confirmed Type Lactobacillus rhamnosus GG 10 1 cap PO QAM 05/23/18 01/31/25 History billion cell-inulin 200 mg capsule ([employer]) cholecalciferol (vitamin D3) 125 5,000 units PO QAM 05/23/18 01/31/25 History mcg (5,000 unit) tablet potassium chloride 10 mEq 20 meq PO BID 05/23/18 01/08/25 History tablet,extended release(part/cryst) venlafaxine 75 mg tablet 75 mg PO BID 05/23/18 01/31/25 History acetaminophen 500 mg tablet 1,000 mg PO Q6 PRN Fever Or Pain 05/14/20 01/31/25 History (Tylenol Extra Strength) adalimumab 40 mg/0.4 mL 40 mg subcut WK 06/20/20 01/31/25 History subcutaneous pen kit (Humira(CF) Pen) teduglutide 5 mg subcutaneous kit 0.345 mg subcut QAM 06/20/20 01/31/25 History (Gattex 30-Vial) multivitamin (Daily Multi-Vitamin 1 tab PO DAILY 02/16/21 01/31/25 History tablet) azathioprine 50 mg tablet (Imuran) 100 mg PO QAM 04/09/21 01/31/25 History alpha lipoic acid 200 mg tablet 600 mg PO BID 06/27/24 01/31/25 History loperamide 2 mg capsule 4 mg PO BID PRN Diarrhea 06/27/24 01/31/25 History magnesium 200 mg tablet 800 mg PO DAILY 06/27/24 01/08/25 History pantoprazole 40 mg granules 40 mg PO DAILY 06/27/24 01/31/25 History delayed-release for susp in packet ascorbic acid (vitamin C) 500 mg 500 mg PO DAILY 12/05/24 01/31/25 History chewable tablet (Vitamin C) ketoconazole 2 % topical cream 1 applic topical QAM 01/31/25 01/31/25 History Past Med/Surg History Problem List (Updated 01/31/25 @ 17:55 by Lucius Lyn MD) Crohn's disease Hyponatremia Acute kidney injury Volume depletion Viral gastroenteritis Carpal tunnel syndrome, right Cervical radicular pain Adalimumab (Humira) long-term use RLS (restless legs syndrome) Numbness and tingling in both hands Sensorineural hearing loss (SNHL) of both ears Central venous catheter in place Hydrosalpinx (Acute) Vaginal discharge (Acute) Hypomagnesemia (Acute) Short gut syndrome (Acute) Restless legs syndrome Rosacea (Acute) Vitamin B12 deficiency (Acute) Anemia (Acute) Hypercalcemia Encounter for pre-operative examination H/O ileostomy (Chronic) Fever (Acute) Klebsiella sepsis Leukocytosis (Acute) PICC line infection SIRS (systemic inflammatory response syndrome) (Acute) Sepsis (Acute) Small bowel obstruction (Acute) Vomiting (Acute) Microcytic hypochromic anemia (Acute) Iron deficiency anemia (Acute) High output ileostomy (Acute) Hyperlipidemia (Acute) Borderline high blood pressure Skin lesion of back Angular cheilitis Sore mouth (Acute) Infected venous access port (Acute) Bacteremia (Acute) Immunocompromised (Chronic) Hypertension (Chronic) Depression (Chronic) Anxiety (Chronic) Crohns disease (Chronic) On total parenteral nutrition 3 nights per week Medical History Ileostomy in place HTN (hypertension) History of esophageal ulcer Short bowel syndrome Surgical History History of esophagogastroduodenoscopy (EGD) History of intestinal surgery 1988 - removed rectum, anus and large intestine and 14 inches small intestine and ileostomy 2015 removed small bowel (left 4 ft of bowel) History of removal of Port-a-Cath (05/18/20) Port removal. Dr. Gary 05/18/2020 History of vascular access device left chest port - recently removed r/t bacteremia (hospitalized [facility] 05/2020) Hx laparoscopic cholecystectomy Hx of colonoscopy S/P PICC central line placement Rt arm Family History Grandfather (Paternal) Colorectal cancer, Onset Age: 80 Mother History of thyroid disorder Giron syndrome Grandfather (Maternal) Leukemia Father Hx of CABG Other No pertinent family history Denies family history of Ovarian cancer Breast cancer Social History Smoking Status: Never smoker Second Hand Exposure: No; Do You Dip or Chew Tobacco: No; Hx Alcohol Use: No Hx Substance Use: No Preferred Language: Guyanese Communication Ability: Effective Visual Impairment: No Limitations [employer] Required: No Beliefs That Will Affect Care: None marital status: Current Living Situation: Spouse Feels Safe at Home: Yes Assistive Devices: None Review of Systems 2 Review of Systems: Constitutionalintermittent low-grade fever. Malaise ENTno blurred vision, no double vision, no epistaxis, no sore throat Respiratoryno cough, no wheezing, no shortness of breath Cardiacno palpitations, no chest pain, no syncope GInausea and occasional vomiting. No hematemesis. Increased fluid output into the jejunostomy bag. No signs of bleeding. GUno urinary retention, no urinary incontinence, no dysuria, no hematuria Musculoskeletalno joint pain, no muscle tenderness Skinno bruising, no rashes, no pruritus Neurono isolated weakness, no paresthesia Psychno depression, no anxiety Physical Exam 2 Physical Exam: General-alert and oriented x3, no fever, no chills HEENT-head atraumatic and normocephalic, pupils equal and reactive to light, extraocular muscles intact Neck-no lymphadenopathy or thyromegaly, trachea midline Chest-clear to auscultation. No rales, wheezing or rhonchi Cardiac-mildly tachycardic regular rhythm. Grade 1/6 blowing systolic murmur. Negative S3. Abdomen-normal bowel sounds, no hepatosplenomegaly Extremities-no cyanosis, clubbing, or edema Neuro-cranial nerves II through XII intact, motor and sensory function within normal limits, strength symmetrical, no focal deficits Psych-normal affect, normal mood Results & Data Results & Data Vital Signs (Past 12 Hours) Vital Signs Temp Pulse Pulse Resp BP BP Pulse Ox 01/31/25 17:23 101 H 20 109/73 97 01/31/25 16:29 108 H 01/31/25 15:46 36.0 C L 114 H 18 92/54 L 100 O2 Del Method 01/31/25 17:23 Room Air 01/31/25 16:29 01/31/25 15:46 Room Air Laboratory Results 01/31/25 16:13 01/31/25 16:13 Code Status & VTE Plan Code Status Full code PG Care Time/CCT Total # of Minutes Spent Total Time Spent with Patient: Total time spent is greater than 50% in coordination of care (as documented) at patient's floor/unit and/or counseling patient: Coding Level of Care Code 71039 INT INP/OBS CARE 3/75MIN Diagnoses Viral gastroenteritis A08.4 Volume depletion E86.9 Acute kidney injury N17.9 Hyponatremia E87.1 Crohn's disease K50.90
[2025-01-31 18:42] LABS: Appearance Urine Turbid (Clear); Bacteria Urine Automated 2+ (None Seen); Cast Urine Automated >20 /lpf (0-2); Glucose Urine UA Negative (Negative); WBC Urine Automated >50 /hpf (0-5)
[2025-01-31 19:52] VITALS: RESP 18
[2025-01-31] MEDS ORDERED: ONDANSETRON INJ 2 MG/ML 2 ML VIAL IV PRN (20:46)
[2025-01-31] MEDS ORDERED: methylPREDNISolone 10 mg/mL (For Ped Dose < 7mg) IV SCH (20:46)
[2025-01-31] MEDS ORDERED: ACETAMINOPHEN 1,000 MG/100 ML VIAL IV PRN (20:46)
[2025-01-31] MEDS: SODIUM CHLORIDE 0.9% 1,000 ML IV SCH (21:04)
[2025-01-31] MEDS: VENLAFAXINE HCL 37.5 MG TAB PO SCH (21:08)
[2025-02-01 00:09] VITALS: TEMP 97.5
--- NOTE | 2025-02-01 06:21 | Electrocardiogram Report ---
Test Reason : Blood Pressure : */* mmHG Vent. Rate : 109 BPM Atrial Rate : 109 BPM P-R Int : 132 ms QRS Dur : 68 ms QT Int : 300 ms P-R-T Axes : 56 76 55 degrees QTcB Int : 404 ms Sinus tachycardia Possible Left atrial enlargement Borderline ECG When compared with ECG of 05-Dec-2024 23:05, Vent. rate has increased by 36 bpm Confirmed by Alex Huizar ([id number]) on 02/01/2025 6:21:27 AM Referred By: Saima Keith Confirmed By: Alex Huizar
[2025-02-01 06:47] LABS: Hematocrit (blood only) 36.1 % (37.0-47.0); Hemoglobin 11.5 g/dl (12.0-16.0); Mean Corpuscular Hemoglobin 28.8 pg (25.0-34.0); Mean Corpuscular Volume 90.5 fL (80.0-100.0); Platelet Count 270 K/uL (130-400); RDW Standard Deviation 44.9 fL (36.4-46.3); Red Blood Count 3.99 M/uL (4.20-5.40); White Blood Count 4.51 K/ul (4.8-10.8)
[2025-02-01 07:00] LABS: Anion Gap 6.0 (3-11); Blood Urea Nitrogen 28.0 mg/dl (6-23); Calcium 9.5 mg/dl (8.6-10.3); Carbon Dioxide 26.0 mmol/L (21-32); Chloride 103.0 mmol/L (98-107); Creatinine Clr Calc Pharmacy 58.5 ml/min; Glucose 125.0 mg/dl (70-99(Fasting)); Potassium 5.1 mmol/L (3.5-5.1); Sodium 135.0 mmol/L (136-145)
[2025-02-01 07:32] LABS: Immature Granulocytes # (auto) 0.01 K/uL (0.01-0.20); Immature Granulocytes % (auto) 0.2 %
[2025-02-01 07:56] VITALS: BP 108/71; PULSE 78; O2SAT 100
[2025-02-01] MEDS: MULTIVITAMIN TAB PO SCH (08:58)
[2025-02-01] MEDS: CHOLECALCIFEROL 125 MCG (5,000 UNITS) TAB PO SCH (08:59)
--- NOTE | 2025-02-01 11:29 | Discharge Summary ---
Discharge Summary Date of Service February 01, 2025 Principal Dx & Hospital Course #1 = Principal Diagnosis (1) Viral gastroenteritis: Her symptoms have resolved with IV fluids. Diet has been advanced. (2) Volume depletion: Resolved with IV fluids. Monitor intake and output. Serial labs (3) Acute kidney injury: Resolved with IV fluids. Monitor urine output. Serial labs (4) Hyponatremia: Serum osmolarity 295. IV fluids given for volume depletion. Serial labs (5) Crohn's disease: By history. Previous colectomy with jejunostomy. Supportive care Plan Home today, February 01. Prednisone tapering dose at discharge Admission HPI Per Admitting Provider 54-year-old white female with a history of Crohn's disease and previous colectomy with a jejunostomy bag. She is exhibiting signs and symptoms of a viral gastroenteritis with nausea vomiting and increased fluid output in the change in ostomy bag. She was seen in the ED for evaluation. Sodium is low at 127 and potassium 5.4. Serum osmolarity is pending. She has acute kidney injury with creatinine 1.8. Baseline creatinine is 0.7. Liver enzymes are mildly elevated. She is admitted for further evaluation and treatment. She denies hematemesis or bloody ostomy bag fluid Discharge Exam General-alert and oriented x3, no fever, no chills HEENT-head atraumatic and normocephalic, pupils equal and reactive to light, extraocular muscles intact Neck-no lymphadenopathy or thyromegaly, trachea midline Chest-clear to auscultation. No rales, wheezing or rhonchi Cardiac-mildly tachycardic regular rhythm. Grade 1/6 blowing systolic murmur. Negative S3. Abdomen-normal bowel sounds, no hepatosplenomegaly Extremities-no cyanosis, clubbing, or edema Neuro-cranial nerves II through XII intact, motor and sensory function within normal limits, strength symmetrical, no focal deficits Psych-normal affect, normal mood Discharge Plan Discharge Items Patient Disposition: Home - Self-Care Reason For Visit: VIRAL GE, VOLUME DEPLETION Discharge Diagnosis: Viral gastroenteritis, hyponatremia, acute kidney injury Condition on Discharge: Good Activity: Resume your previous activity Non-emergency contact: Primary Care Provider Call non-emergency contact if: your symptoms worsen Follow-up/Referrals: Homer Hernandez MD [Primary Care Provider] - Diet: Regular Addtl Attending Provider Instructions: Take prednisone in a tapering dose fashion as directed. A prescription has been sent to [facility] pharmacy on [facility]. All other medications remain the same. See your primary care provider soon as possible for follow-up Pending Studies at Discharge: No Stand-Alone Forms: [facility], Smoking Cessation Medications and DC Order Prescriptions: New prednisone 10 mg tablet See Rx Instructions .ROUTE .COMPLEX Qty: 12 0RF Rx Instructions: 10 mg orally 3 times a day for 2 days, then 10 mg twice a day for 2 days, then 10 mg once a day for 2 days, then stop Continued multivitamin [Daily Multi-Vitamin] Tablet 1 tab PO QAM Gattex 30-Vial 5 mg kit 0.345 mg SUBCUT QAM Humira(CF) Pen 40 mg/0.4 mL pen injector kit 40 mg SUBCUT WK Rx Instructions: monday am venlafaxine 75 mg tablet 75 mg PO BID potassium chloride 10 mEq tablet,ER particles/crystals 10 meq PO QAM cholecalciferol (vitamin D3) 5,000 unit tablet 5,000 units PO QAM [facility] 10 billion cell -200 mg Capsule 1 cap PO QAM azathioprine [Imuran] 50 mg tablet 100 mg PO QAM acetaminophen [Tylenol Extra Strength] 500 mg Tablet 1,000 mg PO Q6 PRN (Reason: Fever Or Pain) pantoprazole [address] For Susp In Packet 40 mg PO DAILYBB loperamide 2 mg capsule 4 mg PO BID PRN (Reason: Diarrhea) alpha lipoic acid 200 mg Tablet 400 mg PO QAM ascorbic acid (vitamin C) [Vitamin C] 500 mg Tablet,Chewable 500 mg PO QAM ketoconazole 2 % cream 1 applic TOPICAL QAM Rx Instructions: apply to both feet vitamin B complex Tablet 1 tab PO QAM Rx Instructions: uses gummies magnesium oxide 200 mg magnesium Tablet,Chewable 200 mg PO HS Rx Instructions: uses gummies Discharge Orders: Discharge Order (Routine); Ordered 02/01/25 Ordered By: Lucius Lyn Admission Data Admit Date/Time: 01/31/25 17:45 Attending Provider: Lucius Lyn Admit Provider: Lucius Lyn Primary Care Provider: Homer Hernandez Other Providers: Lucius Lyn Hospital Stay Data Consultations 01/31/25 17:16 ED Decision to Admit Stat Pending Results Patient Have Any Pending Studies at Discharge: No Discharge Instructions Given to Patient (Per Discharging Provider) Take prednisone in a tapering dose fashion as directed. A prescription has been sent to [facility] pharmacy on [facility]. All other medications remain the same. See your primary care provider soon as possible for follow-up Total Time Total Time Spent Total Time Spent (In Minutes): 45 minutes Coding Level of Care Code 54647 INP/OBS DISCH >30 MIN Diagnoses Viral gastroenteritis A08.4 Volume depletion E86.9 Acute kidney injury N17.9 Hyponatremia E87.1 Crohn's disease K50.90
--- NOTE | 2025-02-01 13:20 | Gastrointestinal Consultation ---
Date of Consultation February 01, 2025 Assessment & Plan (1) High output ileostomy: Potentially viral. Differential for ostomy outputs can be dietary viral small bowel bacterial overgrowth excetra. Seems to responded well to IV fluid she has a standing order for this. She has a oral homemade electrolyte and fluid concoction that works well for her. Only input I would have here is I believe she should take her Lomotil at least twice a day. Follow-up with her usual treating gastroenterology. GI signs off (2) Dehydration: (3) Ileostomy in place: History of Present Illness Reason for Consultation: High ileostomy outputs Attending Physician: Lucius Lyn MD History of Present Illness 54-year-old female with a previous history of total proctocolectomy and ileostomy jejunostomy. 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 Seems to do reasonably well she has a standing order for IV fluids. She comes in now with increased ostomy outputs. She believes it may be viral. She is responded to IV fluids. She came because she was unable to get IV fluids in the infusion center in timely fashion. Patient has a homemade concoction of electrolyte and fluid supplementation. On review she does not take a PPI to decrease gastric fluid secretion and for history of esophagitis. She takes Lomotil 2 tablets 1 time per day. She does not get bloated with increased Lomotil. Duration of action Lomotil may be 4 to 6 hours. She should take it minimally of twice a day to decrease ostomy outputs. Patient is active for discharge feeling well. Can follow-up with her usual GI. Allergies Allergy/AdvReac Type Severity Reaction Status Date / Time grass pollen-perennial rye, Allergy Intermediate HAYFEVER Verified 01/08/25 08:11 standar SYMPTOMS house dust Allergy Intermediate HAYFEVER Verified 01/08/25 08:11 SYMPTOMS Iodinated Contrast Media Allergy Intermediate Hives Verified 01/08/25 08:11 mold Allergy Intermediate HAYFEVER Verified 01/08/25 08:11 SYMPTOMS vancomycin Allergy Intermediate HIVES Verified 01/08/25 08:11 Home Medications Medication Instructions Recorded Confirmed Type Lactobacillus rhamnosus GG 10 1 cap PO QAM 05/23/18 01/31/25 History billion cell-inulin 200 mg capsule ([facility] CleveX) cholecalciferol (vitamin D3) 125 5,000 units PO QAM 05/23/18 01/31/25 History mcg (5,000 unit) tablet potassium chloride 10 mEq 10 meq PO QAM 05/23/18 01/31/25 History tablet,extended release(part/cryst) venlafaxine 75 mg tablet 75 mg PO BID 05/23/18 01/31/25 History acetaminophen 500 mg tablet 1,000 mg PO Q6 PRN Fever Or Pain 05/14/20 01/31/25 History (Tylenol Extra Strength) adalimumab 40 mg/0.4 mL 40 mg subcut WK 06/20/20 01/31/25 History subcutaneous pen kit (Humira(CF) Pen) teduglutide 5 mg subcutaneous kit 0.345 mg subcut QAM 06/20/20 01/31/25 History (Gattex 30-Vial) multivitamin (Daily Multi-Vitamin 1 tab PO QAM 02/16/21 01/31/25 History tablet) azathioprine 50 mg tablet (Imuran) 100 mg PO QAM 04/09/21 01/31/25 History alpha lipoic acid 200 mg tablet 400 mg PO QAM 06/27/24 01/31/25 History loperamide 2 mg capsule 4 mg PO BID PRN Diarrhea 06/27/24 01/31/25 History pantoprazole 40 mg granules 40 mg PO DAILYBB 06/27/24 01/31/25 History delayed-release for susp in packet ascorbic acid (vitamin C) 500 mg 500 mg PO QAM 12/05/24 01/31/25 History chewable tablet (Vitamin C) ketoconazole 2 % topical cream 1 applic topical QA 01/31/25 01/31/25 History magnesium oxide 200 mg PO HS 01/31/25 01/31/25 History vitamin B complex 1 tab PO QAM 01/31/25 01/31/25 History prednisone 10 mg tablet See Rx Instructions .Route 02/01/25 Rx .COMPLEX #12 tabs Patient History Medical History Ileostomy in place HTN (hypertension) History of esophageal ulcer Short bowel syndrome Surgical History History of esophagogastroduodenoscopy (EGD) History of intestinal surgery 1988 - removed rectum, anus and large intestine and 14 inches small intestine and ileostomy 2016 removed small bowel (left 4 ft of bowel) History of removal of Port-a-Cath (05/18/20) Port removal. Dr. Gary 05/18/2020 History of vascular access device left chest port - recently removed r/t bacteremia (hospitalized [facility] 05/2020) Hx laparoscopic cholecystectomy Hx of colonoscopy S/P PICC central line placement Rt arm Family History Grandfather (Paternal) Colorectal cancer, Onset Age: 80 Mother History of thyroid disorder Giron syndrome Grandfather (Maternal) Leukemia Father Hx of CABG Other No pertinent family history Denies family history of Ovarian cancer Breast cancer Social History Smoking Status: Never smoker Second Hand Exposure: No; Do You Dip or Chew Tobacco: No; Hx Alcohol Use: No Hx Substance Use: No Preferred Language: Yemeni Communication Ability: Effective Visual Impairment: No Limitations Head Piece Assembler Required: No Beliefs That Will Affect Care: None marital status: Current Living Situation: Spouse Feels Safe at Home: Yes Assistive Devices: Glasses and Hearing Aid - Bilateral Review of Systems Review of Systems: Currently denies any fevers chills cramping abdominal pain. Physical Exam Physical Exam: Sitting up in a chair dressed to leave. Some fluid in her ostomy. Emptied 1 time per day. States this is not a typical [place] amount Otherwise appears well Results & Data Vital Signs (Past 12 Hours) Vital Signs Temp Pulse Resp BP Pulse Ox O2 Del Method 02/01/25 07:54 36.4 C L 78 18 108/71 100 Room Air PG Care Time/CCT Total # of Minutes Spent Total Time Spent with Patient: Total time spent is greater than 50% in coordination of care (as documented) at patient's floor/unit and/or counseling patient: Coding Level of Care Code 31681 INT INP/OBS CARE 1/40MIN Diagnoses High output ileostomy R19.8; Z93.2 Dehydration E86.[address] Z93.2
== END 2025-02-01 13:46 | disposition home or self-care (01) | DRG 392 ==
LOC: SUATTDRO → ED 15:43 → 3W 17:45 → INTOOBSV 17:45 → 3W 20:33

== ENCOUNTER 2025-02-02 11:52 | Inpatient (IN) ==
[2025-02-02] MEDS: ONDANSETRON INJ 2 MG/ML 2 ML VIAL IV STA (12:22)
[2025-02-02] MEDS: SODIUM CHLORIDE 0.9% 1,000 ML IV ONE ×2 (12:22→13:46)
[2025-02-02] MEDS: MAGNESIUM SULFATE / D5W 1 GM/100 ML BAG IV SCH (12:50)
[2025-02-02] MEDS: ACETAMINOPHEN 1,000 MG/100 ML VIAL IV STA (12:50)
[2025-02-02] MEDS: CYCLOBENZAPRINE HCL 10 MG TAB PO STA (12:50)
[2025-02-02 12:51] LABS: Hematocrit (blood only) 46.3 % (37.0-47.0); Hemoglobin 15.2 g/dl (12.0-16.0); Mean Corpuscular Hemoglobin 28.8 pg (25.0-34.0); Mean Corpuscular Volume 87.9 fL (80.0-100.0); Platelet Count 534 K/uL (130-400); RDW Standard Deviation 44.8 fL (36.4-46.3); Red Blood Count 5.27 M/uL (4.20-5.40); White Blood Count 8.67 K/ul (4.8-10.8)
[2025-02-02 13:04] LABS: Alanine Aminotransferase 98.0 U/L (7-52); Alkaline Phosphatase 204.0 U/L (34-104); Anion Gap 17.0 (3-11); Bilirubin,Total 0.4 mg/dl (0.2-1.0); Blood Urea Nitrogen 49.0 mg/dl (6-23); Calcium 11.9 mg/dl (8.6-10.3); Carbon Dioxide 20.0 mmol/L (21-32); Chloride 91.0 mmol/L (98-107); Creatinine Clr Calc Pharmacy 24.5 ml/min; Glucose 113.0 mg/dl (70-99(Fasting)); Lipase 356.0 U/L (11-82); Potassium 4.6 mmol/L (3.5-5.1); Sodium 128.0 mmol/L (136-145); Total Protein 11.3 gm/dl (6.0-8.3)
[2025-02-02 13:18] LABS: Immature Granulocytes # (auto) 0.08 K/uL (0.01-0.20); Immature Granulocytes % (auto) 0.9 %
--- NOTE | 2025-02-02 13:52 | Emergency Department Note ---
Impression & Plan TEA (acute kidney injury), Dehydration, Gastroenteritis ED Provider Note NAME: TIAN MEEK AGE: 54 SEX: F : 1970 ARRIVES VIA: Walk-In INFORMANT: Patient, ED PROVIDER(S): Shadi Patel MD CHIEF COMPLAINT: Dehydration HPI: This is a 54-year-old female presents for dehydration. Patient was here previously for significant output from ostomy. She was discharged yesterday patient notes since being discharged, he has had profuse output from this ostomy and it is straight liquid. She feels more dehydrated than when she came in initially. She reports muscle cramps and nausea. She reports no vomiting. Reports crampy abdominal pain. This is similar to her previous ER visit but worse. No chest pain or shortness of breath. ROS: See above HPI for pertinent positives & negatives. A total of 10 systems reviewed and were otherwise negative. PAST MEDICAL HISTORY: See Below PAST SURGICAL HISTORY: See Below FAMILY HISTORY: See Below SOCIAL HISTORY: See Below HOME MEDICATIONS: See Below ALLERGIES: See Below VITALS: See Below PHYSICAL EXAMINATION: General: Diaphoretic, toxic appearing Head: Normocephalic and atraumatic Eyes: Normal inspection, extraocular muscles intact Ear, nose, throat: Normal external exam Neck: Normal range of motion Respiratory: lungs clear to auscultation bilaterally Cardiovascular: Regular rate/rhythm, no murmur GI: Minimal tenderness without rebound, ostomy in place full of liquid Extremities: nontender, moves all extremities Neuro: The patient awake and alert, appropriately conversive, no focal deficits, symmetric faces Skin: Warm, dry, and intact MEDICAL DECISION MAKING: This is a 54-year-old female presenting for dehydration. Patient has history of an ostomy. She does appear acutely unwell with diaphoresis, pale discoloration. Will do screening blood work to assess for dehydration will CT imaging. - Bloodwork is significantly abnormal and change from discharge yesterday. She has not significant hemoconcentration with hemoglobin going from 11.5-15.2. Her platelet count more from 270 today 534. - Electrolytes are significantly abnormal with hyponatremia 128. Hypochloremia is anion gap is 17. BUN is 49 up from 28. Creatinine 2.27 up from 0.95. - Patient with 2 L resuscitation so far as well as magnesium for muscle cramps per patient cyclobenzaprine for severe muscle cramps as well patient was found screaming in bed due to muscle cramps in her legs. - CT imaging reveals no acute process aside from possible ileus versus nonspecific gastroenteritis. Differential diagnosis: SBO, gastroenteritis, dehydration, TEA, colitis Independent History obtained from: Diagnostics interpreted by me: ECG: None Cardiac Monitoring: An order was placed for continuous cardiac monitoring. The monitor shows a rate of 83 with sinus rhythm. Past Med/Surg History Problem List (Updated 02/02/25 @ 16:05 by Shadi Patel MD) Gastroenteritis (Acute) Dehydration (Acute) TEA (acute kidney injury) (Acute) Urinary tract infection Volume depletion Transaminitis Viral illness Acute hyperkalemia (Acute) Dehydration (Acute) Hyponatremia (Acute) TEA (acute kidney injury) (Acute) Hypotension (Acute) Crohn's disease Hyponatremia Acute kidney injury Volume depletion Viral gastroenteritis Carpal tunnel syndrome, right Cervical radicular pain Adalimumab (Humira) long-term use RLS (restless legs syndrome) Numbness and tingling in both hands Sensorineural hearing loss (SNHL) of both ears Central venous catheter in place Hydrosalpinx (Acute) Vaginal discharge (Acute) Hypomagnesemia (Acute) Short gut syndrome (Acute) Restless legs syndrome Rosacea (Acute) Vitamin B12 deficiency (Acute) Anemia (Acute) Hypercalcemia Encounter for pre-operative examination H/O ileostomy (Chronic) Fever (Acute) Klebsiella sepsis Leukocytosis (Acute) PICC line infection SIRS (systemic inflammatory response syndrome) (Acute) Sepsis (Acute) Small bowel obstruction (Acute) Vomiting (Acute) Microcytic hypochromic anemia (Acute) Iron deficiency anemia (Acute) High output ileostomy (Acute) Hyperlipidemia (Acute) Borderline high blood pressure Skin lesion of back Angular cheilitis Sore mouth (Acute) Infected venous access port (Acute) Bacteremia (Acute) Immunocompromised (Chronic) Hypertension (Chronic) Depression (Chronic) Anxiety (Chronic) Crohns disease (Chronic) On total parenteral nutrition 3 nights per week Medical History Ileostomy in place HTN (hypertension) History of esophageal ulcer Short bowel syndrome Surgical History History of esophagogastroduodenoscopy (EGD) History of intestinal surgery 1988 - removed rectum, anus and large intestine and 14 inches small intestine and ileostomy 2016 removed small bowel (left 4 ft of bowel) History of removal of Port-a-Cath (05/18/20) Port removal. Dr. Gary 05/18/2020 History of vascular access device left chest port - recently removed r/t bacteremia (hospitalized [facility] 05/2020) Hx laparoscopic cholecystectomy Hx of colonoscopy S/P PICC central line placement Rt arm Family History Grandfather (Paternal) Colorectal cancer, Onset Age: 80 Mother History of thyroid disorder Giron syndrome Grandfather (Maternal) Leukemia Father Hx of CABG Other No pertinent family history Denies family history of Ovarian cancer Breast cancer Social History Smoking Status: Never smoker Second Hand Exposure: No; Do You Dip or Chew Tobacco: No; Hx Alcohol Use: No Hx Substance Use: No Preferred Language: Pry[place]in[place] Communication Ability: Effective Visual Impairment: No Limitations Video Coordinator Required: No Beliefs That Will Affect Care: None marital status: Current Living Situation: Spouse Feels Safe at Home: Yes Assistive Devices: Glasses and Hearing Aid - Bilateral Allergies Allergies Allergy/AdvReac Type Severity Reaction Status Date / Time grass pollen-perennial rye, Allergy Intermediate HAYFEVER Verified 02/02/25 14:12 standar SYMPTOMS house dust Allergy Intermediate HAYFEVER Verified 02/02/25 14:12 SYMPTOMS Iodinated Contrast Media Allergy Intermediate Hives Verified 02/02/25 14:12 mold Allergy Intermediate HAYFEVER Verified 02/02/25 14:12 SYMPTOMS vancomycin Allergy Intermediate HIVES Verified 02/02/25 14:12 Home Meds Home Medications Medication Instructions Recorded Confirmed Lactobacillus rhamnosus GG 10 1 cap PO QAM 05/23/18 02/02/25 billion cell-inulin 200 mg capsule ([employer]) cholecalciferol (vitamin D3) 125 5,000 units PO QAM 05/23/18 02/02/25 mcg (5,000 unit) tablet potassium chloride 10 mEq 10 meq PO QAM 05/23/18 02/02/25 tablet,extended release(part/cryst) venlafaxine 75 mg tablet 75 mg PO BID 05/23/18 02/02/25 acetaminophen 500 mg tablet 1,000 mg PO Q6 PRN Fever Or Pain 05/14/20 02/02/25 (Tylenol Extra Strength) adalimumab 40 mg/0.4 mL 40 mg subcut WK 06/20/20 02/02/25 subcutaneous pen kit (Humira(CF) Pen) teduglutide 5 mg subcutaneous kit 0.345 mg subcut QAM 06/20/20 02/02/25 (Gattex 30-Vial) multivitamin (Daily Multi-Vitamin 1 tab PO QAM 02/16/21 02/02/25 tablet) azathioprine 50 mg tablet (Imuran) 100 mg PO QAM 04/09/21 02/02/25 alpha lipoic acid 200 mg tablet 400 mg PO QAM 06/27/24 02/02/25 loperamide 2 mg capsule 4 mg PO BID Diarrhea 06/27/24 02/02/25 pantoprazole 40 mg granules 40 mg PO DAILYBB 06/27/24 02/02/25 delayed-release for susp in packet ascorbic acid (vitamin C) 500 mg 500 mg PO QAM 12/05/24 02/02/25 chewable tablet (Vitamin C) ketoconazole 2 % topical cream 1 applic topical QA 01/31/25 02/02/25 magnesium oxide 200 mg PO HS 01/31/25 02/02/25 vitamin B complex 1 tab PO QAM 01/31/25 02/02/25 ferrous sulfate 325 mg (65 mg 325 mg PO QAM 02/02/25 02/02/25 iron) tablet Results & Data (ED) Vital Signs Vital Signs - 24 hr 02/02/25 11:54 02/02/25 12:22 02/02/25 13:52 Temperature 36.4 C L Temperature Source Oral Pulse Rate 121 H 108 H Pulse Rate [Apical] 86 Pulse Rhythm [Apical] Regular Pulse Strength [Apical] Normal Respiratory Rate 22 16 Respiratory Effort / Characteristics Non-Labored Spontaneous Non-Labored Spontaneous Respiratory Depth Normal Normal Respiratory Pattern Regular Regular Blood Pressure 101/75 Blood Pressure [Right Arm] 120/74 Blood Pressure Mean 83 Blood Pressure Mean [Right Arm] 89 Pulse Oximetry 100 98 Oxygen Delivery Method Room Air Room Air Sepsis Recent Fever Within 48 Hours No Sepsis New/Unexplained Change in Mental Status N/A Sepsis Action Taken by Nursing No Action Required 02/02/25 15:00 Temperature Temperature Source Pulse Rate Pulse Rate [Apical] 83 Pulse Rhythm [Apical] Regular Pulse Strength [Apical] Normal Respiratory Rate 20 Respiratory Effort / Characteristics Non-Labored Spontaneous Respiratory Depth Normal Respiratory Pattern Regular Blood Pressure Blood Pressure [Right Arm] 107/68 Blood Pressure Mean Blood Pressure Mean [Right Arm] 81 Pulse Oximetry 99 Oxygen Delivery Method Room Air Sepsis Recent Fever Within 48 Hours Sepsis New/Unexplained Change in Mental Status Sepsis Action Taken by Nursing Laboratory Data 02/02/25 12:08 02/02/25 12:08 Lab Results 02/02/25 02/02/25 Range/Units 12:08 14:46 WBC 8.67 (4.8-10.8) K/ul RBC 5.27 (4.20-5.40) M/uL Hgb 15.2 D (12.0-16.0) g/dl Hct 46.3 (37.0-47.0) % MCV 87.9 (80.0-100.0) fL MCH 28.8 (25.0-34.0) pg MCHC 32.8 (32.0-36.0) g/dL RDW Std Deviation 44.8 (36.4-46.3) fL RDW Coeff of Aleta 13.9 (11.5-14.5) % Plt Count 534 H D (130-400) K/uL MPV 10.1 (9.4-12.4) fL Immature Gran % (Auto) 0.9 % Neut % (Auto) 58.0 % Lymph % (Auto) 23.0 % Hoke % (Auto) 13.0 % Eos % (Auto) 4.2 % Baso % (Auto) 0.9 % Neut # (Auto) 5.03 (1.40-6.50) K/uL Lymph # (Auto) 1.99 (1.20-3.40) K/uL Hoke # (Auto) 1.13 H (0.11-0.59) K/uL Eos # (Auto) 0.36 (0.00-0.50) K/uL Baso # (Auto) 0.08 (0.00-0.20) K/uL Immature Gran # (Auto) 0.08 (0.01-0.20) K/uL Sodium 128 L (136-145) mmol/L Potassium 4.6 (3.5-5.1) mmol/L Chloride 91 L (98-107) mmol/L Carbon Dioxide 20 L (21-32) mmol/L Anion Gap 17 H (3-11) BUN 49 H D (6-23) mg/dl Creatinine 2.27 H D (0.6-1.2) mg/dl Est Cr Clr Drug Dosing 24.5 ml/min eGFR 25.03 BUN/Creatinine Ratio 21.6 H (10-20) Glucose 113 H (70-99(Fasting)) mg/dl Calcium 11.9 H D (8.6-10.3) mg/dl Total Bilirubin 0.4 (0.2-1.0) mg/dl Direct Bilirubin 0.1 (0-0.2) mg/dl AST 122 H (13-39) U/L ALT 98 H (7-52) U/L Alkaline Phosphatase 204 H (34-104) U/L Total Protein 11.3 H (6.0-8.3) gm/dl Albumin 5.2 H (3.4-5.0) gm/dl Lipase 356 H (11-82) U/L Urine Color Dark Yellow Urine Appearance Cloudy A (Clear) Urine pH 5.0 (4.5-7.5) Ur Specific Lolo 1.022 (1.000-1.030) Urine Protein 2+ H (Negative) Urine Glucose (UA) Negative (Negative) Urine Ketones Trace H (Negative) Urine Blood Negative (Negative) Urine Nitrite Negative (Negative) Urine Bilirubin 1+ H (Negative) Urine Urobilinogen Negative (Negative) Ur Leukocyte Esterase Trace H (Negative) Urine WBC (Auto) 6-10 H (0-5) /hpf Urine RBC (Auto) 0-2 (0-2) /hpf U Hyaline Cast (Auto) >20 H (0-2) /lpf U Epithel Cells (Auto) 3-5 H (0-2) /hpf Urine Bacteria (Auto) None Seen (None Seen) Calcium Oxalate Crystal Present A (None Prsent) Urine Comment Administered Medications Discontinued Medications Cyclobenzaprine HCl (Cyclobenzaprine Hcl 10 Mg Tab) 10 mg PO NOW STA Stop: 02/02/25 12:39 Last Admin: 02/02/25 12:50 Dose: 10 mg Documented By: MR Sodium Chloride (Nss) 1,000 mls @ 999 mls/hr IV .Q1H1M ONE Stop: 02/02/25 13:12 Last Infusion: 02/02/25 13:37 Dose: Infused Documented By: Admin: 02/02/25 12:22 Dose: 999 mls/hr Documented By: TDM Magnesium Sulfate/Dextrose (Magnesium Sulfate / D5w) 1 gm in 100 mls @ 200 mls/hr IV Q30M CHELA Stop: 02/02/25 13:37 Last Infusion: 02/02/25 15:14 Dose: Infused Documented By: Admin: 02/02/25 13:46 Dose: 200 mls/hr Documented By: Infusion: 02/02/25 13:36 Dose: Infused Documented By: Admin: 02/02/25 12:50 Dose: 200 mls/hr Documented By: MR Acetaminophen (Ofirmev) 1,000 mg in 100 mls @ 400 mls/hr IV NOW STA Stop: 02/02/25 12:53 Last Infusion: 02/02/25 13:37 Dose: Infused Documented By: Admin: 02/02/25 12:50 Dose: 400 mls/hr Documented By: MR Sodium Chloride (Nss) 1,000 mls @ 999 mls/hr IV .Q1H1M ONE Stop: 02/02/25 14:28 Last Infusion: 02/02/25 15:15 Dose: Infused Documented By: Admin: 02/02/25 13:46 Dose: 999 mls/hr Documented By: TDM Ampicillin Sodium/Sulbactam Sodium (Unasyn) 1,500 mg in 100 mls @ 200 mls/hr IV NOW STA Stop: 02/02/25 15:49 Last Admin: 02/02/25 15:51 Dose: 200 mls/hr Documented By: TDM Ondansetron HCl (Ondansetron Inj 2 Mg/Ml 2 Ml Vial) 4 mg IV NOW STA Stop: 02/02/25 12:13 Last Admin: 02/02/25 12:22 Dose: 4 mg Documented By: TDM Imaging Data Radiologist's Impression: Abdomen/Pelvis CT 02/02/25 12:39 CT SCAN OF THE ABDOMEN AND PELVIS WITHOUT IV CONTRAST CLINICAL HISTORY: Generalized abdominal pain. Diarrhea. COMPARISON STUDY: Abdominal CT scans dated 06/29/2023 and 11/12/2020 TECHNIQUE: CT scan of the abdomen and pelvis is performed from the lung bases to the proximal femora. Images are reviewed in the axial, sagittal, and coronal planes. IV contrast was not administered for this examination. Note the examination was performed in suboptimal fashion without oral and IV contrast A dose lowering technique was utilized adhering to the principles of ALARA. CT DOSE: 624.62 mGy.cm FINDINGS: Lung bases: The heart is normal in size and without pericardial effusion. The lung bases are clear. There is a small hiatal hernia. Liver: The unenhanced liver is enlarged, measuring 18.6 cm in length. The liver is otherwise normal in contour and attenuation. There is no intrahepatic biliary ductal dilatation. Gallbladder: Surgically absent noting clips in the gallbladder fossa. Spleen: Normal in size and attenuation. Pancreas: The unenhanced pancreas is grossly unremarkable. Adrenal glands: Unremarkable. Kidneys: The unenhanced kidneys are normal in size and without hydronephrosis. There are no renal calculi identified. There is no evidence of contour deforming renal mass lesion. Abdominal vasculature: The abdominal aorta is normal in course and caliber noting mild atherosclerotic calcification. Bowel: There is postsurgical change from proctocolectomy with right lower quadrant ileostomy. The small bowel loops are mildly distended and fluid-filled, measuring up to 4.2 cm diameter. There is no transition point, as the loops are dilated to the ileostomy. There is no evidence of high-grade obstruction this is similar in appearance to the 06/29/2023 examination. Chronic fold thickening of the small bowel loops is similar to previous. Peritoneum: There is no intraperitoneal free air or abdominal ascites. Lymphadenopathy: There are numerous prominent mesenteric lymph nodes which measure up to 14 mm. Pelvic viscera: The bladder is decompressed and grossly unremarkable. The Uterus and adnexa are normal as visualized. Skeletal structures: No lytic or blastic lesions are seen. IMPRESSION: 1. There is postsurgical change from proctocolectomy with right lower quadrant ileostomy. 2. There is diffuse mild dilatation of the small bowel loops which are fluid- filled, and this is similar in appearance to the 06/29/2023 examination. There is no evidence of high-grade bowel obstruction, as the bowel loops are dilated to the level of the ileostomy. Some of this could represent a reservoir effect related to prior colectomy. A nonspecific gastroenteritis could have this appearance, and this may be chronic. An ileus would be impossible to exclude. Clinical correlation will be essential. 3. There are numerous prominent mesenteric lymph nodes which may be reactive. These have modestly increase in size from 06/29/2023 but are similar in appearance to the 11/12/2020 examination. 4. Hepatomegaly. 5. Additional findings as above. ACT 112: Negative or not required by law. Electronically signed by: Jordi Bailey M.D. 02/02/2025 2:00 PM Discharge Plan Visit Data Chief Complaint: Dehydration Stated Complaint: DEHYDRATION ED Provider: Shadi Patel Discharge Problem: TEA (acute kidney injury), Dehydration, Gastroenteritis Patient Disposition: Admitted As Inpatient Condition: Fair Forms Stand Alone Forms: [facility] Prescriptions Prescriptions: No Action multivitamin [Daily Multi-Vitamin] Tablet 1 tab PO QAM Gattex 30-Vial 5 mg kit 0.345 mg SUBCUT QAM Humira(CF) Pen 40 mg/0.4 mL pen injector kit 40 mg SUBCUT WK Rx Instructions: monday am venlafaxine 75 mg tablet 75 mg PO BID potassium chloride 10 mEq tablet,ER particles/crystals 10 meq PO QAM cholecalciferol (vitamin D3) 5,000 unit tablet 5,000 units PO QAM [facility] 10 billion cell -200 mg Capsule 1 cap PO QAM azathioprine [Imuran] 50 mg tablet 100 mg PO QAM acetaminophen [Tylenol Extra Strength] 500 mg Tablet 1,000 mg PO Q6 PRN (Reason: Fever Or Pain) pantoprazole [address] For Susp In Packet 40 mg PO DAILYBB loperamide 2 mg capsule 4 mg PO BID alpha lipoic acid 200 mg Tablet 400 mg PO QAM ascorbic acid (vitamin C) [Vitamin C] 500 mg Tablet,Chewable 500 mg PO QAM ketoconazole 2 % cream 1 applic TOPICAL QAM Rx Instructions: apply to both feet vitamin B complex Tablet 1 tab PO QAM Rx Instructions: uses gummies magnesium oxide 200 mg magnesium Tablet,Chewable 200 mg PO HS Rx Instructions: uses gummies ferrous sulfate 325 mg (65 mg iron) Tablet 325 mg PO QAM Referrals Referrals: Homer Hernandez MD [Primary Care Provider] -
--- NOTE | 2025-02-02 14:02 | CT Scan Report ---
CT SCAN OF THE ABDOMEN AND PELVIS WITHOUT IV CONTRAST CLINICAL HISTORY: Generalized abdominal pain. Diarrhea. COMPARISON STUDY: Abdominal CT scans dated 06/29/2023 and 11/12/2020 TECHNIQUE: CT scan of the abdomen and pelvis is performed from the lung bases to the proximal femora. Images are reviewed in the axial, sagittal, and coronal planes. IV contrast was not administered for this examination. Note the examination was performed in suboptimal fashion without oral and IV contr ast A dose lowering technique was utilized adhering to the principles of ALARA. CT DOSE: 624.62 mGy.cm FINDINGS: Lung bases: The heart is normal in size and without pericardial effusion. The lung bases are clear. T here is a small hiatal hernia. Liver: The unenhanced liver is enlarged, measuring 18.6 cm in length. The liver is otherwise normal i n contour and attenuation. There is no intrahepatic biliary ductal dilatation. Gallbladder: Surgically absent noting clips in the gallbladder fossa. Spleen: Normal in size and attenuation. Pancreas: The unenhanced pancreas is grossly unremarkable. Adrenal glands: Unremarkable. Kidneys: The unenhanced kidneys are normal in size and without hydronephrosis. There are no renal tessa culi identified. There is no evidence of contour deforming renal mass lesion. Abdominal vasculature: The abdominal aorta is normal in course and caliber noting mild atheroscleroti c calcification. Bowel: There is postsurgical change from proctocolectomy with right lower quadrant ileostomy. The sma ll bowel loops are mildly distended and fluid-filled, measuring up to 4.2 cm diameter. There is no tr ansition point, as the loops are dilated to the ileostomy. There is no evidence of high-grade obstruc tion this is similar in appearance to the 06/29/2023 examination. Chronic fold thickening of the small bowel loops is similar to previous. Peritoneum: There is no intraperitoneal free air or abdominal ascites. Lymphadenopathy: There are numerous prominent mesenteric lymph nodes which measure up to 14 mm. Pelvic viscera: The bladder is decompressed and grossly unremarkable. The Uterus and adnexa are preston l as visualized. Skeletal structures: No lytic or blastic lesions are seen. IMPRESSION: 1. There is postsurgical change from proctocolectomy with right lower quadrant ileostomy. 2. There is diffuse mild dilatation of the small bowel loops which are fluid-filled, and this is shereen lar in appearance to the 06/29/2023 examination. There is no evidence of high-grade bowel obstruction, as the bowel loops are dilated to the level of the ileostomy. Some of this could represent a reservo ir effect related to prior colectomy. A nonspecific gastroenteritis could have this appearance, and t his may be chronic. An ileus would be impossible to exclude. Clinical correlation will be essential. 3. There are numerous prominent mesenteric lymph nodes which may be reactive. These have modestly inc rease in size from 06/29/2023 but are similar in appearance to the 11/12/2020 examination. 4. Hepatomegaly. 5. Additional findings as above. ACT 112: Negative or not required by law. Electronically signed by: Jordi Bailey M.D. 02/02/2025 2:00 PM
[2025-02-02 15:19] LABS: Appearance Urine Cloudy (Clear); Bacteria Urine Automated None Seen (None Seen); Cast Urine Automated >20 /lpf (0-2); Glucose Urine UA Negative (Negative); RBC Urine Automated 0-2 /hpf (0-2)
--- NOTE | 2025-02-02 15:39 | History & Physical Report ---
Date of Service February 02, 2025 Assessment & Plan (1) Viral illness: Plan: Suspected viral gastroenteritis but this could be a medication reaction. IV fluids ordered along with antiemetics as needed. Parenteral steroid therapy which helped before. Supportive care (2) Transaminitis: Plan: Mildly elevated on admission along with mildly elevated lipase. Serial labs. Appears to be due to a viral illness although Gattex reaction remains a possibility (3) Volume depletion: Plan: With hyponatremia and acute kidney injury. IV fluids. Monitor intake and output. Serial labs (4) Urinary tract infection: Plan: Group B strep isolated in recent urine culture. Unasyn has been started, day 1. Await blood culture results (5) Crohn's disease: Plan: By history. History of colectomy and jejunostomy. Humira and Gattex are on hold Plan Hopeful discharge to home sometime this week pending clinical course and improvement History of Present Illness Chief Complaint: Recurrent symptoms of viral illness with flushing, dry heaves, weakness Primary Care Provider: Homer Hernandez 54-year-old white female who was just discharged yesterday, February 01, with suspected viral illness. She responded quickly to parenteral steroid therapy and IV fluids. Her symptoms recurred today with flushing, nausea, dry heaves. She has yet to take her scheduled prednisone tapering dose as an outpatient. LFTs are noted to be slightly elevated and lipase is mildly elevated. CT of the abdomen reveals previous colectomy and cholecystectomy with presence of ileostomy and dilated small bowel loops but no obvious obstruction. Urine culture obtained on January 31 is growing group B strep. Blood cultures ordered and pending. This may be a persistent viral illness but recurrent symptoms raise the question of possible medication allergic reaction with transaminitis and mild pancreatitis. Her daily teduglutide( Gattix) injections could possibly be the culprit. She also takes Humira subcutaneously but only on a weekly basis. Stool BioFire pending on the ileostomy bag output. Unasyn has been started for the strep isolated in the urine. Blood cultures are pending. She is admitted for further evaluation and treatment. Allergies Allergy/AdvReac Type Severity Reaction Status Date / Time grass pollen-perennial rye, Allergy Intermediate HAYFEVER Verified 02/02/25 14:12 standar SYMPTOMS house dust Allergy Intermediate HAYFEVER Verified 02/02/25 14:12 SYMPTOMS Iodinated Contrast Media Allergy Intermediate Hives Verified 02/02/25 14:12 mold Allergy Intermediate HAYFEVER Verified 02/02/25 14:12 SYMPTOMS vancomycin Allergy Intermediate HIVES Verified 02/02/25 14:12 Home Medications Medication Instructions Recorded Confirmed Type Lactobacillus rhamnosus GG 10 1 cap PO QAM 05/23/18 02/02/25 History billion cell-inulin 200 mg capsule ([facility] [employer] [facility]) cholecalciferol (vitamin D3) 125 5,000 units PO QAM 05/23/18 02/02/25 History mcg (5,000 unit) tablet potassium chloride 10 mEq 10 meq PO QAM 05/23/18 02/02/25 History tablet,extended release(part/cryst) venlafaxine 75 mg tablet 75 mg PO BID 05/23/18 02/02/25 History acetaminophen 500 mg tablet 1,000 mg PO Q6 PRN Fever Or Pain 05/14/20 02/02/25 History (Tylenol Extra Strength) adalimumab 40 mg/0.4 mL 40 mg subcut WK 06/20/20 02/02/25 History subcutaneous pen kit (Humira(CF) Pen) teduglutide 5 mg subcutaneous kit 0.345 mg subcut QAM 06/20/20 02/02/25 History (Gattex 30-Vial) multivitamin (Daily Multi-Vitamin 1 tab PO QAM 02/16/21 02/02/25 History tablet) azathioprine 50 mg tablet (Imuran) 100 mg PO QAM 04/09/21 02/02/25 History alpha lipoic acid 200 mg tablet 400 mg PO QAM 06/27/24 02/02/25 History loperamide 2 mg capsule 4 mg PO BID Diarrhea 06/27/24 02/02/25 History pantoprazole 40 mg granules 40 mg PO DAILYBB 06/27/24 02/02/25 History delayed-release for susp in packet ascorbic acid (vitamin C) 500 mg 500 mg PO QAM 12/05/24 02/02/25 History chewable tablet (Vitamin C) ketoconazole 2 % topical cream 1 applic topical QA 01/31/25 02/02/25 History magnesium oxide 200 mg PO HS 01/31/25 02/02/25 History vitamin B complex 1 tab PO QAM 01/31/25 02/02/25 History ferrous sulfate 325 mg (65 mg 325 mg PO QAM 02/02/25 02/02/25 History iron) tablet Past Med/Surg History Problem List (Updated 02/02/25 @ 15:37 by Lucius Lyn MD) Urinary tract infection Volume depletion Transaminitis Viral illness Acute hyperkalemia (Acute) Dehydration (Acute) Hyponatremia (Acute) TEA (acute kidney injury) (Acute) Hypotension (Acute) Crohn's disease Hyponatremia Acute kidney injury Volume depletion Viral gastroenteritis Carpal tunnel syndrome, right Cervical radicular pain Adalimumab (Humira) long-term use RLS (restless legs syndrome) Numbness and tingling in both hands Sensorineural hearing loss (SNHL) of both ears Central venous catheter in place Hydrosalpinx (Acute) Vaginal discharge (Acute) Hypomagnesemia (Acute) Short gut syndrome (Acute) Restless legs syndrome Rosacea (Acute) Vitamin B12 deficiency (Acute) Anemia (Acute) Hypercalcemia Encounter for pre-operative examination H/O ileostomy (Chronic) Fever (Acute) Klebsiella sepsis Leukocytosis (Acute) PICC line infection SIRS (systemic inflammatory response syndrome) (Acute) Sepsis (Acute) Small bowel obstruction (Acute) Vomiting (Acute) Microcytic hypochromic anemia (Acute) Iron deficiency anemia (Acute) High output ileostomy (Acute) Hyperlipidemia (Acute) Borderline high blood pressure Skin lesion of back Angular cheilitis Sore mouth (Acute) Infected venous access port (Acute) Bacteremia (Acute) Immunocompromised (Chronic) Hypertension (Chronic) Depression (Chronic) Anxiety (Chronic) Crohns disease (Chronic) On total parenteral nutrition 3 nights per week Medical History Ileostomy in place HTN (hypertension) History of esophageal ulcer Short bowel syndrome Surgical History History of esophagogastroduodenoscopy (EGD) History of intestinal surgery 1988 - removed rectum, anus and large intestine and 14 inches small intestine and ileostomy 2016 removed small bowel (left 4 ft of bowel) History of removal of Port-a-Cath (05/18/20) Port removal. Dr. Gary 05/18/2020 History of vascular access device left chest port - recently removed r/t bacteremia (hospitalized [facility] 05/2020) Hx laparoscopic cholecystectomy Hx of colonoscopy S/P PICC central line placement Rt arm Family History Grandfather (Paternal) Colorectal cancer, Onset Age: 80 Mother History of thyroid disorder Giron syndrome Grandfather (Maternal) Leukemia Father Hx of CABG Other No pertinent family history Denies family history of Ovarian cancer Breast cancer Social History Smoking Status: Never smoker Second Hand Exposure: No; Do You Dip or Chew Tobacco: No; Hx Alcohol Use: No Hx Substance Use: No Preferred Language: Upper Sorbian Communication Ability: Effective Visual Impairment: No Limitations Montessori Lead [employer] Required: No Beliefs That Will Affect Care: None marital status: Current Living Situation: Spouse Feels Safe at Home: Yes Assistive Devices: Glasses and Hearing Aid - Bilateral Review of Systems 2 Review of Systems: Constitutionalno fever or chills ENTno blurred vision, no double vision, no epistaxis, no sore throat Respiratoryno cough, no wheezing, no shortness of breath Cardiacno palpitations, no chest pain, no syncope GIintermittent nausea and dry heaves. No hematemesis. No overt vomiting. Increase fluid output and the change in ostomy bag. No bloody output. GUno urinary retention, no urinary incontinence, no dysuria, no hematuria Musculoskeletalno joint pain, no muscle tenderness Skinno bruising, no rashes, no pruritus. She appears flushed Neurono isolated weakness, no paresthesia, no weakness Psychno depression, no anxiety Physical Exam 2 Physical Exam: General-alert and oriented x3, no fever, no chills HEENT-head atraumatic and normocephalic, pupils equal and reactive to light, extraocular muscles intact Neck-no lymphadenopathy or thyromegaly, trachea midline Chest-clear to auscultation. No rales, wheezing or rhonchi Cardiac-regular rate and rhythm, normal S1 and S2 Abdomen-normal bowel sounds, no hepatosplenomegaly. Nondistended. Normally functioning jejunostomy. Extremities-no cyanosis, clubbing, or edema Neuro-cranial nerves II through XII intact, motor and sensory function within normal limits, strength symmetrical, no focal deficits Psych-normal affect, normal mood Results & Data Results & Data Vital Signs (Past 12 Hours) Vital Signs Temp Pulse Pulse Resp BP BP Pulse Ox 02/02/25 15:00 83 20 107/68 99 02/02/25 13:52 86 16 120/74 98 02/02/25 12:22 108 H 02/02/25 11:54 36.4 C L 121 H 22 101/75 100 O2 Del Method 02/02/25 15:00 Room Air 02/02/25 13:52 Room Air 02/02/25 12:22 02/02/25 11:54 Room Air Laboratory Results 02/02/25 12:08 02/02/25 12:08 Code Status & VTE Plan Code Status Full code PG Care Time/CCT Total # of Minutes Spent Total Time Spent with Patient: Total time spent is greater than 50% in coordination of care (as documented) at patient's floor/unit and/or counseling patient: Coding Level of Care Code 53976 INT INP/OBS CARE 3/75MIN Diagnoses Viral illness B34.9 Transaminitis R74.01 Volume depletion E86.9 Urinary tract infection N39.0 Crohn's disease K50.90
[2025-02-02] MEDS: AMPICILLIN/SULBACTAM SOD 1,500 MG/100 ML BAG IV STA (15:51)
[2025-02-02 17:03] LABS: Adenovirus F 40/41 PCR Not Detected (NotDetected); Campylobacter PCR Not Detected (NotDetected); Enteroaggregative E.coli(EAEC) Not Detected (NotDetected); Shiga-like Toxin E.coli (STEC) Not Detected (NotDetected); Vibrio species PCR Not Detected (NotDetected)
[2025-02-02] MEDS ORDERED: methylPREDNISolone 10 mg/mL (For Ped Dose < 7mg) IV SCH (17:42)
[2025-02-02] MEDS ORDERED: ONDANSETRON INJ 2 MG/ML 2 ML VIAL IV PRN (17:42)
[2025-02-02] MEDS: SODIUM CHLORIDE 0.9% 1,000 ML IV SCH (18:06)
[2025-02-02] MEDS: VENLAFAXINE HCL 37.5 MG TAB PO SCH (21:02)
[2025-02-02] MEDS: HEPARIN SOD 5,000 UNIT/0.5 ML VIAL SQ SCH (21:02)
[2025-02-02] MEDS: MAGNESIUM OXIDE 400 MG TAB PO SCH (21:03)
[2025-02-02] MEDS: ACETAMINOPHEN 500 MG TAB PO PRN (21:05)
[2025-02-03] MEDS: AMPICILLIN/SULBACTAM SOD 1,500 MG/100 ML BAG IV SCH (02:34)
[2025-02-03 06:48] LABS: A calco-baum cmplx NotReported Not Detected (NotDetected); Bact fragilis Not Reported Not Detected (NotDetected); Blood Culture Id Panel See PCR Comment (NotDetected); C auris Not Reported Not Detected (NotDetected); Calbicans Not Reported Not Detected (NotDetected); Candida glabrata Not Reported Not Detected (NotDetected); Candida krusei Not Reported Not Detected (NotDetected); Cneoformans/gatti Not Reported Not Detected (NotDetected); Cparapsilosis Not Reported Not Detected (NotDetected); Ctropicalis Not Reported Not Detected (NotDetected); E cloacae compx Not Reported Not Detected (NotDetected); Efaecalis Not Reported Not Detected (NotDetected); Efaecium Not Reported Not Detected (NotDetected); Enterobacterales Not Reported Not Detected (NotDetected); Escherichia coli Not Reported Not Detected (NotDetected); H influenzae Not Reported Not Detected (NotDetected); K aerogenes Not Reported Not Detected (NotDetected); Koxytoca Not Reported Not Detected (NotDetected); Kpneumoniae grp Not Reported Not Detected (NotDetected); Lmonocyt Not Reported Not Detected (NotDetected); N meningitidis Not Reported Not Detected (NotDetected); P aeruginosa Not Reported Not Detected (NotDetected); Proteus spp Not Reported Not Detected (NotDetected); Salmonella spp Not Reported Not Detected (NotDetected); Staph lugdunensis Not Reported Not Detected (NotDetected); Staph spp. Not Reported Not Detected (NotDetected); Staphaureus Not Reported Not Detected (NotDetected); Staphepi Not Reported Not Detected (NotDetected); Stenmaltophilia Not Reported Not Detected (NotDetected); Strep agal(GrpB) Not Reported Not Detected (NotDetected); Strep pneum Not Reported Not Detected (NotDetected); Strep pyog (GrpA) Not Reported Not Detected (NotDetected); Strep spp Not Reported DETECTED (NotDetected)
[2025-02-03 06:54] LABS: Streptococcus spp DETECTED (NotDetected)
[2025-02-03 07:09] LABS: Hematocrit (blood only) 36.2 % (37.0-47.0); Hemoglobin 12.0 g/dl (12.0-16.0); Immature Granulocytes # (auto) 0.04 K/uL (0.01-0.20); Immature Granulocytes % (auto) 0.7 %; Mean Corpuscular Hemoglobin 29.5 pg (25.0-34.0); Mean Corpuscular Volume 88.9 fL (80.0-100.0); Platelet Count 354 K/uL (130-400); RDW Standard Deviation 44.7 fL (36.4-46.3); Red Blood Count 4.07 M/uL (4.20-5.40); White Blood Count 5.74 K/ul (4.8-10.8)
[2025-02-03 07:20] LABS: Alanine Aminotransferase 60.0 U/L (7-52); Albumin Globulin Ratio 0.9 (0.9-2); Alkaline Phosphatase 154.0 U/L (34-104); Anion Gap 8.0 (3-11); Bilirubin,Total 0.4 mg/dl (0.2-1.0); Blood Urea Nitrogen 31.0 mg/dl (6-23); Calcium 9.5 mg/dl (8.6-10.3); Carbon Dioxide 23.0 mmol/L (21-32); Chloride 103.0 mmol/L (98-107); Creatinine Clr Calc Pharmacy 53.9 ml/min; Globulin 4.7 gm/dl (2.5-4.0); Glucose 125.0 mg/dl (70-99(Fasting)); Lipase 72.0 U/L (11-82); Potassium 4.6 mmol/L (3.5-5.1); Sodium 134.0 mmol/L (136-145); Total Protein 8.7 gm/dl (6.0-8.3)
[2025-02-03] MEDS: VITAMIN B COMPLEX TAB PO SCH (08:13)
[2025-02-03] MEDS: ASCORBIC ACID 500 MG TAB PO SCH (08:14)
[2025-02-03] MEDS: CHOLECALCIFEROL 125 MCG (5,000 UNITS) TAB PO SCH (08:14)
[2025-02-03] MEDS: POTASSIUM CHLORIDE 10 MEQ TABCR PO SCH (08:14)
[2025-02-03] MEDS: MULTIVITAMIN TAB PO SCH (08:14)
[2025-02-03] MEDS: FERROUS SULFATE 325 MG TAB PO SCH (08:14)
[2025-02-03] MEDS: cefTRIAXone SODIUM 1,000 MG/50 ML BAG IV SCH (10:08)
--- NOTE | 2025-02-03 12:01 | Hospitalist Progress Note ---
Date of Service February 03, 2025 Assessment & Plan (1) Bacteremia: Plan: Strep bacteremia Repeat blood cultures until negative Empiric IV Rocephin ID consultation (2) Viral illness: Plan: Suspected gastroenteritis but this could be a medication reaction. IV fluids ordered along with antiemetics as needed. Parenteral steroid therapy which helped before. Supportive care Stool positive EPEC (3) Transaminitis: Plan: Mildly elevated on admission along with mildly elevated lipase. Serial labs. Appears to be due to a viral illness although Gattex reaction remains a possibility. Repeat lipase normalized And LFTs improving (4) Volume depletion: Plan: With hyponatremia and acute kidney injury. IV fluids. Monitor intake and output. Serial labs Prerenal TEA is resolved. Avoid nephrotoxic meds (5) Urinary tract infection: Plan: Group B strep isolated in recent urine culture. Continue antibiotics as above (6) Crohn's disease: Plan: By history. History of colectomy and jejunostomy. Humira and Gattex are on hold Plan Hopeful discharge to home sometime this week pending clinical course and improvement Admission and Anticipated Discharge Date Admission Date: February 02, 2025 Subjective She tells me she feels pretty good. Diarrhea improved. No abdominal pain fevers chills nausea or any other symptoms. Review of Systems Review of Systems: Negative except as in HPI Physical Exam Physical Exam: General-alert and oriented x3, no fever, no chills HEENT-head atraumatic and normocephalic, pupils equal and reactive to light, extraocular muscles intact Neck-no lymphadenopathy or thyromegaly, trachea midline Chest-clear to auscultation. No rales, wheezing or rhonchi Cardiac-regular rate and rhythm, normal S1 and S2 Abdomen-normal bowel sounds, no hepatosplenomegaly. Nondistended. Normally functioning jejunostomy. Extremities-no cyanosis, clubbing, or edema Neuro-cranial nerves II through XII intact, motor and sensory function within normal limits, strength symmetrical, no focal deficits Psych-normal affect, normal mood Results & Data Results & Data Vital Signs (Past 12 Hours) Vital Signs Temp Pulse Pulse Resp BP Pulse Ox O2 Del Method 02/03/25 11:06 36.6 C 84 20 121/78 100 Room Air 02/03/25 07:34 36.6 C 73 20 111/68 97 Room Air 02/03/25 06:49 71 02/03/25 03:44 36.3 C L 76 20 100/60 98 Room Air 02/03/25 00:32 36.5 C 77 20 107/64 99 Room Air PG Care Time/CCT Total # of Minutes Spent Total Time Spent with Patient: Total time spent is greater than 50% in coordination of care (as documented) at patient's floor/unit and/or counseling patient: Coding Level of Care Code 49940 SUB INP/OBS CARE 2/35MIN Diagnoses Bacteremia R78.81 Viral illness B34.9 Transaminitis R74.01 Volume depletion E86.9 Urinary tract infection N39.0 Crohn's disease K50.90
--- NOTE | 2025-02-03 12:39 | Infectious Disease Consult ---
Date of Consultation February 03, 2025 Assessment & Plan (1) Bacteremia: (2) Gastroenteritis: (3) TEA (acute kidney injury): Plan Problems: #Strep bacteremia #EPEC #TEA #Crohn's disease on Humira, s/p colectomy Micro: 02/03 BCx x2: pending 02/02 BCx x2: GPCs in chains in 2/4 bottles 01/31 UCx: GBS, plus low counts of other mixed tino Abx: Ceftriaxone 1 g 02/03 Unasyn 02/02 - 02/03 54 yo F with Crohn's disease on Humira and previous colectomy with jejunostomy bag, recent admission 01/31-02/01 with N/V and increased fluid output in ostomy with presumed viral gastroenteritis who presented back to the hospital on 02/02 with flushing, nausea, dry heaving. On presentation, pt was afebrile, HR 121. Labs showed WBC 8.67, plt 534, Cr 2.27 (up from 0.95 on 02/01), AST 122, ALT 98, alk phos 204, lipase 356. UA with 6-10 WBCs. Stool pathogen panel positive for EPEC. CT A/P without contrast showed diffuse mild dilatation of small bowel loops which are fluid-filled, similar in appearance to 06/29/23, no evidence of high grade bowel obstruction. Some of this could represent a reservoir effect related to prior colectomy. Nonspecific gastroenteritis could have this appearance, and this may be chronic. Blood cultures were drawn. She was started on Unasyn given UCx from 01/31 growing GBS. BCx now growing GPCs in chains in 2/4 bottles. Biofire positive for Strep species. Unasyn changed to ceftriaxone. Discussion: Unclear source of Strep bacteremia, awaiting identification and sensitivities. Does not seem to be GBS based on Biofire. Could consider GI translocation in the setting of diarrhea. Recommendations: - Follow-up 02/02 blood cultures for identification of Strep species - Ordered repeat blood cultures from 02/03 - Continue ceftriaxone 2 g IV q24h - TTE ordered to evaluate for endocarditis - EPEC does not necessarily require antibiotic therapy unless severe, but regardless pt is on ceftriaxone for Strep bacteremia Will continue to follow. Consultation Information This patient recommendation is based on a telemedicine consult request which was completed asynchronously through chart review and information provided by the primary physician. The patient was not seen or examined today. The evaluation is consultative in nature and all patient care and treatment decisions can either be accepted or rejected by the patient's primary hospital-based treating physician using their own independent medical judgment for their patient. [employer] contact information: Please call [facility] [phone]. (Phone Number For Physician Use Only) An e-consult was performed as the video cart is not functioning. Time Spent Reviewing Chart: 31+ minutes History of Present Illness Reason for Consultation: Strep bacteremia Attending Physician: Karri Patel MD History of Present Illness 54 yo F with Crohn's disease on Humira and previous colectomy with jejunostomy bag, recent admission 01/31-02/01 with N/V and increased fluid output in ostomy with presumed viral gastroenteritis who presented back to the hospital on 02/02 with flushing, nausea, dry heaving. On presentation, pt was afebrile, HR 121. Labs showed WBC 8.67, plt 534, Cr 2.27 (up from 0.95 on 02/01), AST 122, ALT 98, alk phos 204, lipase 356. UA with 6-10 WBCs. Stool pathogen panel positive for EPEC. CT A/P without contrast showed diffuse mild dilatation of small bowel loops which are fluid-filled, similar in appearance to 06/29/23, no evidence of high grade bowel obstruction. Some of this could represent a reservoir effect related to prior colectomy. Nonspecific gastroenteritis could have this appearance, and this may be chronic. Blood cultures were drawn. She was started on Unasyn given UCx from 01/31 growing GBS. BCx now growing GPCs in chains in 2/4 bottles. Biofire positive for Strep species. Unasyn changed to ceftriaxone. Allergies Allergy/AdvReac Type Severity Reaction Status Date / Time grass pollen-perennial rye, Allergy Intermediate HAYFEVER Verified 02/02/25 14:12 standar SYMPTOMS house dust Allergy Intermediate HAYFEVER Verified 02/02/25 14:12 SYMPTOMS Iodinated Contrast Media Allergy Intermediate Hives Verified 02/02/25 14:12 mold Allergy Intermediate HAYFEVER Verified 02/02/25 14:12 SYMPTOMS vancomycin Allergy Intermediate HIVES Verified 02/02/25 14:12 Home Medications Medication Instructions Recorded Confirmed Type Lactobacillus rhamnosus GG 10 1 cap PO QAM 05/23/18 02/02/25 History billion cell-inulin 200 mg capsule ([facility] [employer] [facility]) cholecalciferol (vitamin D3) 125 5,000 units PO QAM 05/23/18 02/02/25 History mcg (5,000 unit) tablet potassium chloride 10 mEq 10 meq PO QAM 05/23/18 02/02/25 History tablet,extended release(part/cryst) venlafaxine 75 mg tablet 75 mg PO BID 05/23/18 02/02/25 History acetaminophen 500 mg tablet 1,000 mg PO Q6 PRN Fever Or Pain 05/14/20 02/02/25 History (Tylenol Extra Strength) adalimumab 40 mg/0.4 mL 40 mg subcut WK 06/20/20 02/02/25 History subcutaneous pen kit (Humira(CF) Pen) teduglutide 5 mg subcutaneous kit 0.345 mg subcut QAM 06/20/20 02/02/25 History (Gattex 30-Vial) multivitamin (Daily Multi-Vitamin 1 tab PO QAM 02/16/21 02/02/25 History tablet) azathioprine 50 mg tablet (Imuran) 100 mg PO QAM 04/09/21 02/02/25 History alpha lipoic acid 200 mg tablet 400 mg PO QAM 06/27/24 02/02/25 History loperamide 2 mg capsule 4 mg PO BID Diarrhea 06/27/24 02/02/25 History pantoprazole 40 mg granules 40 mg PO DAILYBB 06/27/24 02/02/25 History delayed-release for susp in packet ascorbic acid (vitamin C) 500 mg 500 mg PO QAM 12/05/24 02/02/25 History chewable tablet (Vitamin C) ketoconazole 2 % topical cream 1 applic topical QAM 01/31/25 02/02/25 History magnesium oxide 200 mg PO HS 01/31/25 02/02/25 History vitamin B complex 1 tab PO QAM 01/31/25 02/02/25 History ferrous sulfate 325 mg (65 mg 325 mg PO QAM 02/02/25 02/02/25 History iron) tablet Patient History Medical History Ileostomy in place HTN (hypertension) History of esophageal ulcer Short bowel syndrome Surgical History History of esophagogastroduodenoscopy (EGD) History of intestinal surgery 1988 - removed rectum, anus and large intestine and 14 inches small intestine and ileostomy 2015 removed small bowel (left 4 ft of bowel) History of removal of Port-a-Cath (05/18/20) Port removal. Dr. Gary 05/18/2020 History of vascular access device left chest port - recently removed r/t bacteremia (hospitalized [facility] 05/2020) Hx laparoscopic cholecystectomy Hx of colonoscopy S/P PICC central line placement Rt arm Family History Grandfather (Paternal) Colorectal cancer, Onset Age: 80 Mother History of thyroid disorder Giron syndrome Grandfather (Maternal) Leukemia Father Hx of CABG Other No pertinent family history Denies family history of Ovarian cancer Breast cancer Social History Smoking Status: Never smoker Second Hand Exposure: No; Do You Dip or Chew Tobacco: No; Hx Alcohol Use: No Hx Substance Use: No Preferred Language: Gabonese Communication Ability: Effective Visual Impairment: No Limitations Transverse Abdominal Muscle Surgeon Required: No Beliefs That Will Affect Care: None marital status: Current Living Situation: Spouse Feels Safe at Home: Yes Assistive Devices: Glasses Results & Data Vital Signs (Past 12 Hours) Vital Signs Temp Pulse Pulse Resp BP Pulse Ox O2 Del Method 02/03/25 11:06 36.6 C 84 20 121/78 100 Room Air 02/03/25 07:34 36.6 C 73 20 111/68 97 Room Air 02/03/25 06:49 71 02/03/25 03:44 36.3 C L 76 20 100/60 98 Room Air Laboratory Results Short CBC 02/03/25 Range/Units 05:50 WBC 5.74 (4.8-10.8) K/ul Hgb 12.0 D (12.0-16.0) g/dl Hct 36.2 L (37.0-47.0) % Plt Count 354 (130-400) K/uL BMP 02/03/25 05:50 Sodium 134 L Potassium 4.6 Chloride 103 Carbon Dioxide 23 BUN 31 H Creatinine 1.03 D Glucose 125 H Calcium 9.5 D Liver Function 02/03/25 Range/Units 05:50 Total Bilirubin 0.4 (0.2-1.0) mg/dl AST 58 H (13-39) U/L ALT 60 H (7-52) U/L Alkaline Phosphatase 154 H (34-104) U/L Albumin 4.0 (3.4-5.0) gm/dl Urine 02/02/25 Range/Units 14:46 Urine Color Dark Yellow Urine Appearance Cloudy A (Clear) Urine pH 5.0 (4.5-7.5) Ur Specific Isabella 1.022 (1.000-1.030) Urine Protein 2+ H (Negative) Urine Glucose (UA) Negative (Negative) Diagnostic Findings Abdomen/Pelvis CT 02/02/25 12:39 CT SCAN OF THE ABDOMEN AND PELVIS WITHOUT IV CONTRAST CLINICAL HISTORY: Generalized abdominal pain. Diarrhea. COMPARISON STUDY: Abdominal CT scans dated 06/29/2023 and 11/12/2020 TECHNIQUE: CT scan of the abdomen and pelvis is performed from the lung bases to the proximal femora. Images are reviewed in the axial, sagittal, and coronal p lanes. IV contrast was not administered for this examination. Note the examination was performed in suboptimal fashion without oral and IV contrast A dose lowering technique was utilized adhering to the principles of ALARA. CT DOSE: 624.62 mGy.cm FINDINGS: Lung bases: The heart is normal in size and without pericardial effusion. The lung bases are clear. There is a small hiatal hernia. Liver: The unenhanced liver is enlarged, measuring 18.6 cm in length. The liver is otherwise normal in contour and attenuation. There is no intrahepatic biliary ductal dilatation. Gallbladder: Surgically absent noting clips in the gallbladder fossa. Spleen: Normal in size and attenuation. Pancreas: The unenhanced pancreas is grossly unremarkable. Adrenal glands: Unremarkable. Kidneys: The unenhanced kidneys are normal in size and without hydronephrosis. There are no renal calculi identified. There is no evidence of contour deforming renal mass lesion. Abdominal vasculature: The abdominal aorta is normal in course and caliber noting mild atherosclerotic calcification. Bowel: There is postsurgical change from proctocolectomy with right lower quadrant ileostomy. The small bowel loops are mildly distended and fluid-filled, measuring up to 4.2 cm diameter. There is no transition point, as the loops are dilated to the ileostomy. There is no evidence of high-grade obstruction this is similar in appearance to the 06/29/2023 examination. Chronic fold thickening of the small bowel loops is similar to previous. Peritoneum: There is no intraperitoneal free air or abdominal ascites. Lymphadenopathy: There are numerous prominent mesenteric lymph nodes which measure up to 14 mm. Pelvic viscera: The bladder is decompressed and grossly unremarkable. The Uterus and adnexa are normal as visualized. Skeletal structures: No lytic or blastic lesions are seen. IMPRESSION: 1. There is postsurgical change from proctocolectomy with right lower quadrant ileostomy. 2. There is diffuse mild dilatation of the small bowel loops which are fluid- filled, and this is similar in appearance to the 06/29/2023 examination. There is no evidence of high-grade bowel obstruction, as the bowel loops are dilated to the level of the ileostomy. Some of this could represent a reservoir effect related to prior colectomy. A nonspecific gastroenteritis could have this appearance, and this may be chronic. An ileus would be impossible to exclude. Clinical correlation will be essential. 3. There are numerous prominent mesenteric lymph nodes which may be reactive. These have modestly increase in size from 06/29/2023 but are similar in appearance to the 11/12/2020 examination. 4. Hepatomegaly. 5. Additional findings as above. ACT 112: Negative or not required by law. Electronically signed by: Jordi Bailey M.D. 02/02/2025 2:00 PM Medications Administered Current Inpatient Medications Acetaminophen (Acetaminophen 500 Mg Tab) 1,000 mg PO Q6 PRN PRN Reason: Fever Or Pain Stop: 03/04/25 17:41 Last Admin: 02/02/25 21:05 Dose: 1,000 mg Ascorbic Acid (Ascorbic Acid 500 Mg Tab) 500 mg PO QAM [facility] Stop: 03/05/25 08:59 Last Admin: 02/03/25 08:14 Dose: 500 mg Azathioprine ([facility]athioprine 50 Mg Tab) [facility] [place]: 03/05/25 08:59 Last Admin: 02/03/25 08:13 Dose: 100 mg Ferrous Sulfate (Ferrous Sulfate 325 Mg Tab) [facility] [place]: 03/05/25 08:59 Last Admin: 02/03/25 08:14 Dose: 325 mg Heparin Sodium (Porcine) (Heparin Sod 5,000 Unit/0.5 Ml Vial) 5,000 units SQ Q12 [facility] Stop: 03/04/25 20:59 Last Admin: 02/03/25 08:15 Dose: 5,000 units Sodium Chloride (Nss) 1,000 mls @ 100 mls/hr IV .Q10H [facility] Stop: 02/05/25 17:41 Last Admin: 02/03/25 14:06 Dose: 100 mls/hr Methylprednisolone 40 mg/ (Syringe) 0.64 mls @ 1.5 mls/min IV Q8H [facility] Stop: 03/04/25 17:59 Last Admin: 02/03/25 10:08 Dose: 1.5 mls/min Ceftriaxone Sodium (Rocephin) 2,000 mg in 50 mls @ 100 mls/hr IV Q24H [facility] Stop: 02/16/25 09:29 Magnesium Oxide (Magnesium Oxide 400 Mg Tab) 400 mg PO HS [facility] Stop: 03/04/25 20:59 Last Admin: 02/02/25 21:03 Dose: 400 mg Multivitamins (Multivitamin Tab) 1 tab PO QAM [facility] Stop: 03/05/25 08:59 Last Admin: 02/03/25 08:14 Dose: 1 tab Ondansetron HCl (Ondansetron Inj 2 Mg/Ml 2 Ml Vial) 4 mg IV Q4H PRN PRN Reason: Nausea Stop: 03/04/25 17:41 Pantoprazole Sodium (Pantoprazole 40 Mg Tab) 40 mg PO DAILYBB [facility] Stop: 03/05/25 06:29 Last Admin: 02/03/25 04:18 Dose: 40 mg Potassium Chloride (Potassium Chloride 10 Meq Tabcr) 10 meq PO QAM [facility] Stop: 03/05/25 08:59 Last Admin: 02/03/25 08:14 Dose: 10 meq Venlafaxine HCl (Venlafaxine Hcl 37.5 Mg Tab) 75 mg PO BID [facility] Stop: 03/04/25 20:59 Last Admin: 02/03/25 08:15 Dose: 75 mg Vitamin B Complex (Vitamin B Complex Tab) 1 tab PO QAM [facility] Stop: 03/05/25 08:59 Last Admin: 02/03/25 08:13 Dose: 1 tab Vitamin D (Cholecalciferol 125 Mcg (5,000 Units) Tab) 125 mcg PO QAM [facility] Stop: 03/05/25 08:59 Last Admin: 02/03/25 08:14 Dose: 125 mcg
--- NOTE | 2025-02-03 21:57 | XCELERA ---
[id number] [id number]
[2025-02-04 06:10] LABS: Hematocrit (blood only) 32.1 % (37.0-47.0); Hemoglobin 10.3 g/dl (12.0-16.0); Immature Granulocytes # (auto) 0.06 K/uL (0.01-0.20); Immature Granulocytes % (auto) 0.9 %; Mean Corpuscular Hemoglobin 28.8 pg (25.0-34.0); Mean Corpuscular Volume 89.7 fL (80.0-100.0); Platelet Count 296 K/uL (130-400); RDW Standard Deviation 45.1 fL (36.4-46.3); Red Blood Count 3.58 M/uL (4.20-5.40); White Blood Count 6.60 K/ul (4.8-10.8)
--- NOTE | 2025-02-04 06:22 | Electrocardiogram Report ---
Test Reason : Blood Pressure : */* mmHG Vent. Rate : 105 BPM Atrial Rate : 105 BPM P-R Int : 132 ms QRS Dur : 68 ms QT Int : 312 ms P-R-T Axes : 41 75 62 degrees QTcB Int : 412 ms Sinus tachycardia Otherwise normal ECG When compared with ECG of 31-Jan-2025 16:18, No significant change was found Confirmed by Kirill Ballesteros ([id number]) on 02/04/2025 6:22:13 AM Referred By: REFERRED SELF Confirmed By: Kirill Ballesteros
--- NOTE | 2025-02-04 06:23 | Electrocardiogram Report ---
Test Reason : Blood Pressure : */* mmHG Vent. Rate : 79 BPM Atrial Rate : 79 BPM P-R Int : 146 ms QRS Dur : 72 ms QT Int : 382 ms P-R-T Axes : -20 -6 -13 degrees QTcB Int : 438 ms Normal sinus rhythm Inferior infarct , age undetermined Abnormal ECG When compared with ECG of 02-Feb-2025 12:03, Inferior infarct is now Present T wave inversion now evident in Inferior leads Confirmed by Kirill Ballesteros ([id number]) on 02/04/2025 6:23:27 AM Referred By: REFERRED SELF Confirmed By: Kirill Ballesteros
[2025-02-04 06:30] LABS: Alanine Aminotransferase 44.0 U/L (7-52); Albumin Globulin Ratio 0.9 (0.9-2); Alkaline Phosphatase 128.0 U/L (34-104); Anion Gap 5.0 (3-11); Bilirubin,Total 0.2 mg/dl (0.2-1.0); Blood Urea Nitrogen 17.0 mg/dl (6-23); Calcium 9.2 mg/dl (8.6-10.3); Carbon Dioxide 26.0 mmol/L (21-32); Chloride 106.0 mmol/L (98-107); Creatinine Clr Calc Pharmacy 70.3 ml/min; Globulin 3.8 gm/dl (2.5-4.0); Glucose 125.0 mg/dl (70-99(Fasting)); Lipase 81.0 U/L (11-82); Potassium 4.1 mmol/L (3.5-5.1); Sodium 137.0 mmol/L (136-145); Total Protein 7.4 gm/dl (6.0-8.3)
[2025-02-04] MEDS: cefTRIAXone SODIUM 2,000 MG/50 ML BAG IV SCH (08:50)
--- NOTE | 2025-02-04 11:27 | Hospitalist Progress Note ---
Date of Service February 04, 2025 Assessment & Plan (1) Bacteremia: Plan: 54 yo F with Crohn's disease on Humira and previous colectomy with jejunostomy bag, recent admission 01/31-02/01 with N/V and increased fluid output in ostomy with presumed viral gastroenteritis who presented back to the hospital on 02/02 with flushing, nausea, dry heaving. On presentation, pt was afebrile, HR 121. Labs showed WBC 8.67, plt 534, Cr 2.27 (up from 0.95 on 02/01), AST 122, ALT 98, alk phos 204, lipase 356. UA with 6-10 WBCs. Stool pathogen panel positive for EPEC. CT A/P without contrast reported "diffuse mild dilatation of small bowel loops which are fluid-filled, similar in appearance to 06/29/23, no evidence of high grade bowel obstruction. Some of this could represent a reservoir effect related to prior colectomy. Nonspecific gastroenteritis could have this appearance, and this may be chronic." She was started on Unasyn given UCx from 01/31 growing GBS. BCx now growing GPCs in chains in 2/4 bottles. Biofire positive for Strep species. Unasyn changed to ceftriaxone. Strep mitis bacteremia seeding from previous history bacteremia, GI bacterial translocation, ? Reported history of Bacteremia in the past from PICC line for TPN Repeat blood cultures NTD IV rocephin 2grams q24 hours. Sensitivities pending. TTE With 1.5 cm mitral valve vegetation Will need PICC once bacteremia confirmed cleared and 6-weeks IV antibiotics after last negative culture ID Following await further input (2) Viral illness: Plan: Suspected gastroenteritis but this could be a medication reaction. IV fluids ordered along with antiemetics as needed. Stool positive EPEC. supportive care for diarrhea. Covered with antibiotics anyway as above considering immunocompromised state (3) Transaminitis: Plan: Mildly elevated on admission along with mildly elevated lipase. Serial labs. Appears to be due to a viral illness although Gattex reaction remains a possibility. Repeat lipase normalized And LFTs improving (4) Volume depletion: Plan: With hyponatremia and acute kidney injury. IV fluids. Monitor intake and output. Serial labs Prerenal TEA is resolved. Avoid nephrotoxic meds (5) Urinary tract infection: Plan: Group B strep isolated in recent urine culture. Continue antibiotics as above (6) Crohn's disease: Plan: By history. History of colectomy and jejunostomy. Humira and Gattex are on hold Plan Disposition discharge possibly 2 to 3 days with home health IV abx Admission and Anticipated Discharge Date Admission Date: February 02, 2025 Subjective Doing well. No abdominal pain fevers chills chest pain shortness of breath nausea lightheadedness or any other symptoms We discussed extensively Findings of endocarditis, need for prolonged antibiotics pending ID input and all other aspects of plan going forward Review of Systems Review of Systems: Negative except as in HPI Physical Exam Physical Exam: General-alert and oriented x3, no fever, no chills HEENT-head atraumatic and normocephalic, pupils equal and reactive to light, extraocular muscles intact Neck-no lymphadenopathy or thyromegaly, trachea midline Chest-clear to auscultation. No rales, wheezing or rhonchi Cardiac-regular rate and rhythm, normal S1 and S2 Abdomen-normal bowel sounds, no hepatosplenomegaly. Nondistended. Normally functioning jejunostomy. Extremities-no cyanosis, clubbing, or edema Neuro-cranial nerves II through XII intact, motor and sensory function within normal limits, strength symmetrical, no focal deficits Psych-normal affect, normal mood Results & Data Results & Data Vital Signs (Past 12 Hours) Vital Signs Temp Pulse Pulse Resp BP Pulse Ox O2 Del Method 02/04/25 07:38 36.6 C 82 18 108/67 98 Room Air 02/04/25 06:45 62 02/04/25 03:10 36.5 C 62 16 94/56 L 99 Room Air 02/03/25 23:25 36.7 C 77 18 117/70 97 Room Air PG Care Time/CCT Total # of Minutes Spent Total Time Spent with Patient: Total time spent is greater than 50% in coordination of care (as documented) at patient's floor/unit and/or counseling patient: Coding Level of Care Code 49087 SUB INP/OBS CARE 2/35MIN Diagnoses Bacteremia R78.81 Viral illness B34.9 Transaminitis R74.01 Volume depletion E86.9 Urinary tract infection N39.0 Crohn's disease K50.90
--- NOTE | 2025-02-04 11:45 | Infectious Disease Progress Nt ---
Date of Service February 04, 2025 Assessment & Plan (1) Bacteremia: (2) Gastroenteritis: (3) Endocarditis of mitral valve: Plan Problems: #Strep mitis/oralis mitral valve endocarditis #EPEC #TEA: improved #Crohn's disease on Humira, s/p colectomy Micro: 02/03 BCx x2: NGTD 02/02 BCx x2: Strep mitis/oralis in 2/4 bottles 01/31 UCx: GBS, plus low counts of other mixed tino Abx: Ceftriaxone 1 g 02/03, 2 g 02/04 - present Unasyn 02/02 - 02/03 54 yo F with Crohn's disease on Humira and previous colectomy with jejunostomy bag, recent admission 01/31-02/01 with N/V and increased fluid output in ostomy with presumed viral gastroenteritis who presented back to the hospital on 02/02 with flushing, nausea, dry heaving. On presentation, pt was afebrile, HR 121. Labs showed WBC 8.67, plt 534, Cr 2.27 (up from 0.95 on 02/01), AST 122, ALT 98, alk phos 204, lipase 356. UA with 6-10 WBCs. Stool pathogen panel positive for EPEC. CT A/P without contrast showed diffuse mild dilatation of small bowel loops which are fluid-filled, similar in appearance to 06/29/23, no evidence of high grade bowel obstruction. Some of this could represent a reservoir effect related to prior colectomy. Nonspecific gastroenteritis could have this appearance, and this may be chronic. Blood cultures were drawn. She was started on Unasyn given UCx from 01/31 growing GBS. BCx grew GPCs in chains in 2/4 bottles, for which antibiotics were changed to ceftriaxone. Now identified as Strep mitis/oralis. TTE on 02/03 showed a 1.2 cm mobile echodensity on the MV, c/f vegetation. Recommendations: - Given large vegetation size, recommend cardiac surgery evaluation - Follow-up Strep mitis/oralis sensitivities - Follow-up 02/03 blood cultures for clearance - Continue ceftriaxone 2 g IV q24h - EPEC does not necessarily require antibiotic therapy unless severe, but regardless pt is on ceftriaxone for Strep bacteremia Will continue to follow. Admission and Anticipated Discharge Date Admission Date: February 02, 2025 Subjective This patient recommendation is based on a telemedicine consult request which was completed asynchronously through chart review and information provided by the primary physician. The patient was not seen or examined today. The evaluation is consultative in nature and all patient care and treatment decisions can either be accepted or rejected by the patient's primary hospital-based treating physician using their own independent medical judgment for their patient. Time Spent Reviewing Chart: 11 - 20 minutes TTE with 1.2 cm MV veg Results & Data Vital Signs (Past 12 Hours) Vital Signs Temp Pulse Pulse Resp BP Pulse Ox O2 Del Method 02/04/25 11:34 36.6 C 67 18 130/80 99 Room Air 02/04/25 07:38 36.6 C 82 18 108/67 98 Room Air 02/04/25 06:45 62 02/04/25 03:10 36.5 C 62 16 94/56 L 99 Room Air Laboratory Results Short CBC 02/04/25 Range/Units 05:46 WBC 6.60 (4.8-10.8) K/ul Hgb 10.3 L (12.0-16.0) g/dl Hct 32.1 L (37.0-47.0) % Plt Count 296 (130-400) K/uL BMP 02/04/25 05:46 Sodium 137 Potassium 4.1 Chloride 106 Carbon Dioxide 26 BUN 17 Creatinine 0.79 Glucose 125 H Calcium 9.2 Liver Function 02/04/25 Range/Units 05:46 Total Bilirubin 0.2 (0.2-1.0) mg/dl AST 40 H (13-39) U/L ALT 44 (7-52) U/L Alkaline Phosphatase 128 H (34-104) U/L Albumin 3.6 (3.4-5.0) gm/dl Medications Administered Current Inpatient Medications Acetaminophen (Acetaminophen 500 Mg Tab) 1,000 mg PO Q6 PRN PRN Reason: Fever Or Pain Stop: 03/04/25 17:41 Last Admin: 02/02/25 21:05 Dose: 1,000 mg Ascorbic Acid (Ascorbic Acid 500 Mg Tab) [facility] Stop: 03/05/25 08:59 Last Admin: 02/04/25 08:50 Dose: 500 mg Azathioprine (Azathioprine 50 Mg Tab) 100 [facility] Stop: 03/05/25 08:59 Last Admin: 02/04/25 08:50 Dose: 100 mg Ferrous Sulfate (Ferrous Sulfate 325 Mg Tab) 325 mg PO QAM [facility] Stop: 03/05/25 08:59 Last Admin: 02/04/25 08:50 Dose: 325 mg Heparin Sodium (Porcine) (Heparin Sod 5,000 Unit/0.5 Ml Vial) 5,000 units SQ Q12 [facility] Stop: 03/04/25 20:59 Last Admin: 02/04/25 08:50 Dose: 5,000 units Sodium Chloride (Nss) 1,000 mls @ 100 mls/hr IV .Q10H [facility] Stop: 02/05/25 17:41 Last Infusion: 02/04/25 11:00 Dose: 0 mls/hr Methylprednisolone 40 mg/ (Syringe) 0.64 mls @ 1.5 mls/min IV Q8H [facility] Stop: 03/04/25 17:59 Last Admin: 02/04/25 09:59 Dose: 1.5 mls/min Ceftriaxone Sodium (Rocephin) 2,000 mg in 50 mls @ 100 mls/hr IV Q24H [facility] Stop: 02/16/25 09:29 Last Infusion: 02/04/25 09:20 Dose: Infused Magnesium Oxide (Magnesium Oxide 400 Mg Tab) 400 mg PO HS [facility] Stop: 03/04/25 20:59 Last Admin: 02/03/25 20:25 Dose: 400 mg Multivitamins (Multivitamin Tab) 1 tab PO QAM [facility] Stop: 03/05/25 08:59 Last Admin: 02/04/25 08:50 Dose: 1 tab Ondansetron HCl (Ondansetron Inj 2 Mg/Ml 2 Ml Vial) 4 mg IV Q4H PRN PRN Reason: Nausea Stop: 03/04/25 17:41 Pantoprazole Sodium (Pantoprazole 40 Mg Tab) 40 mg PO DAILYBB [facility] Stop: 03/05/25 06:29 Last Admin: 02/04/25 05:37 Dose: 40 mg Potassium Chloride (Potassium Chloride 10 Meq Tabcr) 10 meq PO QAM [facility] Stop: 03/05/25 08:59 Last Admin: 02/04/25 08:50 Dose: 10 meq Venlafaxine HCl (Venlafaxine Hcl 37.5 Mg Tab) 75 mg PO BID [facility] Stop: 03/04/25 20:59 Last Admin: 02/04/25 08:50 Dose: 75 mg Vitamin B Complex (Vitamin B Complex Tab) 1 [facility] [place] Stop: 03/05/25 08:59 Last Admin: 02/04/25 08:50 Dose: 1 tab Vitamin D (Cholecalciferol 125 Mcg (5,000 Units) Tab) 125 mcg [facility] [place] Stop: 03/05/25 08:59 Last Admin: 02/04/25 08:50 Dose: 125 mcg
[2025-02-05 06:51] LABS: Hematocrit (blood only) 31.2 % (37.0-47.0); Hemoglobin 9.8 g/dl (12.0-16.0); Mean Corpuscular Hemoglobin 28.7 pg (25.0-34.0); Mean Corpuscular Volume 91.2 fL (80.0-100.0); Platelet Count 259 K/uL (130-400); RDW Standard Deviation 46.6 fL (36.4-46.3); Red Blood Count 3.42 M/uL (4.20-5.40); White Blood Count 7.42 K/ul (4.8-10.8)
[2025-02-05 07:17] LABS: Alanine Aminotransferase 44.0 U/L (7-52); Albumin Globulin Ratio 1.0 (0.9-2); Alkaline Phosphatase 113.0 U/L (34-104); Anion Gap 6.0 (3-11); Bilirubin,Total 0.2 mg/dl (0.2-1.0); Blood Urea Nitrogen 15.0 mg/dl (6-23); Calcium 8.9 mg/dl (8.6-10.3); Carbon Dioxide 26.0 mmol/L (21-32); Chloride 106.0 mmol/L (98-107); Creatinine Clr Calc Pharmacy 75.0 ml/min; Globulin 3.5 gm/dl (2.5-4.0); Glucose 114.0 mg/dl (70-99(Fasting)); Lipase 91.0 U/L (11-82); Potassium 4.1 mmol/L (3.5-5.1); Sodium 138.0 mmol/L (136-145); Total Protein 7.0 gm/dl (6.0-8.3)
[2025-02-05 07:29] LABS: Immature Granulocytes # (auto) 0.48 K/uL (0.01-0.20); Immature Granulocytes % (auto) 6.5 %; Polychromasia 1+
--- NOTE | 2025-02-05 11:39 | Infectious Disease Progress Nt ---
Date of Service February 05, 2025 Assessment & Plan (1) Bacteremia: (2) Gastroenteritis: (3) Endocarditis of mitral valve: Plan Problems: #Strep mitis/oralis bacteremia #Concern for mitral valve vegetation #EPEC #TEA: improved #Crohn's disease on Humira, s/p colectomy Micro: 02/03 BCx x2: NGTD 02/02 BCx x2: Strep mitis/oralis in 2/4 bottles 01/31 UCx: GBS, plus low counts of other mixed tino Abx: Ceftriaxone 1 g 02/03, 2 g 02/04 - present Unasyn 02/02 - 02/03 54 yo F with Crohn's disease on Humira and previous colectomy with jejunostomy bag, recent admission 01/31-02/01 with N/V and increased fluid output in ostomy with presumed viral gastroenteritis who presented back to the hospital on 02/02 with flushing, nausea, dry heaving. On presentation, pt was afebrile, HR 121. Labs showed WBC 8.67, plt 534, Cr 2.27 (up from 0.95 on 02/01), AST 122, ALT 98, alk phos 204, lipase 356. UA with 6-10 WBCs. Stool pathogen panel positive for EPEC. CT A/P without contrast showed diffuse mild dilatation of small bowel loops which are fluid-filled, similar in appearance to 06/29/23, no evidence of high grade bowel obstruction. Some of this could represent a reservoir effect related to prior colectomy. Nonspecific gastroenteritis could have this appearance, and this may be chronic. Blood cultures were drawn. She was started on Unasyn given UCx from 01/31 growing GBS. BCx grew GPCs in chains in 2/4 bottles, for which antibiotics were changed to ceftriaxone. Now identified as Strep mitis/oralis. TTE on 02/03 showed a 1.2 cm mobile echodensity on the MV, c/f vegetation. Case discussed with [place] [facility] surgery given vegetation size--they think it is artifact. Will pursue JUAN. Recommendations: - JUAN to further evaluate the mobile echodensity on the MV - Continue ceftriaxone 2 g IV q24h - Follow-up 02/03 blood cultures for clearance Will continue to follow. Admission and Anticipated Discharge Date Admission Date: February 02, 2025 Subjective This patient recommendation is based on a telemedicine consult request which was completed asynchronously through chart review and information provided by the primary physician. The patient was not seen or examined today. The evaluation is consultative in nature and all patient care and treatment decisions can either be accepted or rejected by the patient's primary hospital-based treating physician using their own independent medical judgment for their patient. An e-consult was performed as the video cart is not functioning Time Spent Reviewing Chart: 11 - 20 minutes Afebrile without leukocytosis Repeat bcx from 02/03 NGTD Results & Data Vital Signs (Past 12 Hours) Vital Signs Temp Pulse Pulse Resp BP Pulse Ox O2 Del Method 02/05/25 08:15 36.7 C 65 16 121/76 100 Room Air 02/05/25 06:45 64 02/05/25 02:19 36.5 C 77 18 105/63 96 Room Air
--- NOTE | 2025-02-05 11:49 | Hospitalist Progress Note ---
Date of Service February 05, 2025 Assessment & Plan (1) Bacteremia: Plan: 54 yo F with Crohn's disease on Humira and previous colectomy with jejunostomy bag, recent admission 01/31-02/01 with N/V and increased fluid output in ostomy with presumed viral gastroenteritis who presented back to the hospital on 02/02 with flushing, nausea, dry heaving. On presentation, pt was afebrile, HR 121. Labs showed WBC 8.67, plt 534, Cr 2.27 (up from 0.95 on 02/01), AST 122, ALT 98, alk phos 204, lipase 356. UA with 6-10 WBCs. Stool pathogen panel positive for EPEC. CT A/P without contrast reported "diffuse mild dilatation of small bowel loops which are fluid-filled, similar in appearance to 06/29/23, no evidence of high grade bowel obstruction. Some of this could represent a reservoir effect related to prior colectomy. Nonspecific gastroenteritis could have this appearance, and this may be chronic." She was started on Unasyn given UCx from 01/31 growing GBS. BCx now growing GPCs in chains in 2/4 bottles. Biofire positive for Strep species. Unasyn changed to ceftriaxone. Strep mitis/oralis bacteremia Risk factors previous history of bacteremia, recent dental procedures, questionable infective endocarditis, GI bacterial translocation? Reported history of Bacteremia in the past from PICC line for TPN. Also history of recent dental procedures including crown placement. Repeat blood cultures NTD IV rocephin 2 grams q24 hours TTE With 1.5 cm mitral valve vegetation. CT surgeon at [place] unimpressed with true vegetation feel it is artifact however in context of bacteremia and murmur, JUAN is warranted JUAN ordered Will need PICC once bacteremia confirmed cleared and 2 week versus 6-weeks IV antibiotic course pending the above ID Following (2) Viral illness: Plan: Suspected gastroenteritis but this could be a medication reaction. IV fluids ordered along with antiemetics as needed. Stool positive EPEC. supportive care for diarrhea. Covered with antibiotics anyway as above considering immunocompromised state (3) Transaminitis: Plan: Mildly elevated on admission along with mildly elevated lipase. Serial labs. Appears to be due to a viral illness although Gattex reaction remains a possibility. Repeat lipase normalized And LFTs improving (4) Volume depletion: Plan: With hyponatremia and acute kidney injury. IV fluids. Monitor intake and output. Serial labs Prerenal TEA is resolved. Avoid nephrotoxic meds (5) Urinary tract infection: Plan: Group B strep isolated in recent urine culture. Continue antibiotics as above (6) Crohn's disease: Plan: By history. History of colectomy and jejunostomy. Humira and Gattex and azathioprine are on hold Plan Disposition possibly discharge in 2 to 3 days with home IV abx Admission and Anticipated Discharge Date Admission Date: February 02, 2025 Subjective Unchanged entirely asymptomatic. No chest pain shortness with fever chills or any other symptoms. at bedside. We again went over everything extensively they were very appreciative Discussed the case with CT surgeon at [place] yesterday extensively. He discussed with block cuber over there and they do not feel there is a true vegetation on the mitral valve this may be artifact and calcified. He did not feel a JUAN needs to be done urgently but suggested having one done in near future. Discussed with ID attending who agrees with proceeding with JUAN Now also to guide antibiotic course. Patient agrees wants to get it done Review of Systems Review of Systems: Negative except as in HPI Physical Exam Physical Exam: General-alert and oriented x3, no fever, no chills HEENT-head atraumatic and normocephalic, pupils equal and reactive to light, extraocular muscles intact Neck-no lymphadenopathy or thyromegaly, trachea midline Chest-clear to auscultation. No rales, wheezing or rhonchi Cardiac-regular rate and rhythm, normal S1 and S2 Abdomen-normal bowel sounds, no hepatosplenomegaly. Nondistended. Normally functioning jejunostomy. Extremities-no cyanosis, clubbing, or edema Neuro-cranial nerves II through XII intact, motor and sensory function within no rmal limits, strength symmetrical, no focal deficits Psych-normal affect, normal mood Results & Data Results & Data Vital Signs (Past 12 Hours) Vital Signs Temp Pulse Pulse Resp BP Pulse Ox O2 Del Method 02/05/25 08:15 36.7 C 65 16 121/76 100 Room Air 02/05/25 06:45 64 02/05/25 02:19 36.5 C 77 18 105/63 96 Room Air PG Care Time/CCT Total # of Minutes Spent Total Time Spent with Patient: Total time spent is greater than 50% in coordination of care (as documented) at patient's floor/unit and/or counseling patient: Coding Level of Care Code 47270 SUB INP/OBS CARE MIN Diagnoses Bacteremia R78.81 Viral illness B34.9 Transaminitis R74.01 Volume depletion E86.9 Urinary tract infection N39.0 Crohn's disease K50.90
[2025-02-06 07:45] LABS: Hematocrit (blood only) 31.7 % (37.0-47.0); Hemoglobin 10.1 g/dl (12.0-16.0); Mean Corpuscular Hemoglobin 28.9 pg (25.0-34.0); Mean Corpuscular Volume 90.6 fL (80.0-100.0); Platelet Count 256 K/uL (130-400); RDW Standard Deviation 46.8 fL (36.4-46.3); Red Blood Count 3.50 M/uL (4.20-5.40); White Blood Count 9.21 K/ul (4.8-10.8)
[2025-02-06 08:07] LABS: Alanine Aminotransferase 44.0 U/L (7-52); Albumin Globulin Ratio 1.0 (0.9-2); Alkaline Phosphatase 101.0 U/L (34-104); Anion Gap 5.0 (3-11); Bilirubin,Total 0.2 mg/dl (0.2-1.0); Blood Urea Nitrogen 17.0 mg/dl (6-23); Calcium 9.2 mg/dl (8.6-10.3); Carbon Dioxide 30.0 mmol/L (21-32); Chloride 106.0 mmol/L (98-107); Creatinine Clr Calc Pharmacy 66.1 ml/min; Globulin 3.5 gm/dl (2.5-4.0); Glucose 80.0 mg/dl (70-99(Fasting)); Potassium 4.0 mmol/L (3.5-5.1); Sodium 141.0 mmol/L (136-145); Total Protein 6.9 gm/dl (6.0-8.3)
--- NOTE | 2025-02-06 12:59 | Hospitalist Progress Note ---
Date of Service February 06, 2025 Assessment & Plan (1) Bacteremia: (2) Gastroenteritis: (3) TEA (acute kidney injury): Plan 54 yo F with Crohn's disease on Humira and previous colectomy with jejunostomy bag, recent admission 01/31-02/01 with N/V and increased fluid output in ostomy with presumed viral gastroenteritis who presented back to the hospital on 02/02 with flushing, nausea, dry heaving. On presentation, pt was afebrile, HR 121. Labs showed WBC 8.67, plt 534, Cr 2.27 (up from 0.95 on 02/01), AST 122, ALT 98, alk phos 204, lipase 356. UA with 6-10 WBCs. Stool pathogen panel positive for EPEC. CT A/P without contrast reported "diffuse mild dilatation of small bowel l oops which are fluid-filled, similar in appearance to 06/29/23, no evidence of high grade bowel obstruction. Some of this could represent a reservoir effect related to prior colectomy. Nonspecific gastroenteritis could have this appearance, and this may be chronic." She was started on Unasyn given UCx from 01/31 growing GBS. BCx now growing GPCs in chains in 2/4 bottles. Biofire positive for Strep species. Unasyn changed to ceftriaxone. #bacteremia - blood cultures growing Gram positive cocci in chains - Strep mitis/oralis - patient feeling well this morning; hemodynamically stable and w/o fever/chills. CBC without leukocytosis - treating with IV Rocephin 2g q24h - ID consulted and appreciate recommendations - patient was originally planned for JUAN this morning given vegetation seen on mitral valve to r/o endocarditis. However, given patient's immunocompromised status due the Humira, plan is to place ultrasound guided peripheral IV for home IV management on discharge. Plan for f/u cultures and JUAN after 4 week antibiotic course to evaluation for resolution. #gastroenteritis - resolving? - could be due to viral infection due to N/V and increased ostomy output, however would also be the result of a medication reaction. - stool positive for EPEC - continue support care for diarrhea - continue abx as above due to immunocompromised state - patient does state her ostomy output has been improving to her baseline. Denies abdominal pain N/V. Remains without leukocytosis and hemodynamically stable. #transaminitis - mildly elevated lipase & LFTs on admission ; have been continuing to downtrend ; this is likely in the setting of the viral infection/gastroenteritis as above, #volume depletion #TEA - electrolytes have stabilized - BMP this morning nonactionable - Cr improved 0.84 - was managing with IV fluids, however have d/c since patient able to tolerate PO - I&Os, serial BMP - avoid nephrotoxic drugs #UTI - Group B strep isolated in recent urine culture - continue IV abx as above #Crohn's disease - history of colectomy and jejunostomy - Humira, Gattex and azathioprine on hold DVT: Dispo - plan for home d/c - discussed with patient about comfort level of self administering IV abx for which she is comfortable and willing. Working with case management to establish Home Health services for the patient before discharge. Plan for home tomorrow, however if approved early - okay to discharge today. Admission and Anticipated Discharge Date Admission Date: February 02, 2025 Supervising Physician Co-Signing Physician Notes I personally examined the patient and verified all marcos points of history and exam, discussed case, and agree with decision making with Dr Garduno Extensive discussions with patient, extensive discussions with ID throughout the day. Feeling good overall. Vitals noted, in general she is awake and alert pleasant no distress. HEENT normocephalic atraumatic mucous membranes moist. Breathing unlabored no accessory muscle use good effort. Skin without rashes pallor or icterus. Neuro without focal deficits. Labs and diagnostics noted. Strep bacteremiawith high concern on endocarditisafter discussion with infectious disease, in discussion with patientwe discussed several viable options, ranging from treating empirically as though the endocarditis is clearly real to pursuing a JUAN with the hope that if there is not a clear vegetation on JUAN we might be able to shorten the duration of treatment, and therefore resume her biologic for her Crohn's sooner. After discussing things in multiple directions with the patient, she felt most comfortable with treating as though she had endocarditis given the high suspicion, as well as her immune compromise making it reasonable to treat the bacteremia longer. I agree with this. Working on getting ceftriaxone set up for home. Would treat for 4 weeks. Discussed that we will get a repeat echocardiogram and repeat blood cultures about a week after cessation of treatment. Safe/stable for home once treatment is set up. She is quite comfortable with home IVs given that she was on TPN for years. Given that she will only need the antibiotics for about 4 weeks (slightly less) ultrasound-guided peripheral IV ordered. Subjective Patient seen and examined at bedside this morning. Awake, alert, and responding appropriately. Patient's was at bedside. No acute concerns. No overnight events. Reports feeling well this morning. Denies chest pain, shortness of breath, fever/chill. Has been NPO since midnight due to the plan of JUAN today. Otherwise denies abdominal pain, N/V. She states that her ostomy output has normalized to her baseline of 5x day. Physical Exam Constitutional: WD/WN, vitals as above Respiratory: normal respiratory effort, lungs clear to auscultation Cardiovascular: Rate/Rhythm: regular rate and regular rhythm Heart Sounds: normal S1 and normal S2 Gastrointestinal (Abdomen): normal bowel sounds, soft, nontender, no hepatosplenomegaly Musculoskeletal: Head/Neck/Chest: normocephalic and head atraumatic Extremities: extremities normal to inspection Skin: no rashes, warm and dry Neurologic: no focal neurological deficits; CN II-XII grossly intact Psychiatric: A+Ox3, euthymic affect Results & Data Results & Data Vital Signs (Past 12 Hours) Vital Signs Temp Pulse Pulse Pulse Resp BP BP 02/06/25 11:28 36.7 C 64 18 125/78 02/06/25 07:39 36.7 C 63 18 115/74 02/06/25 07:38 62 02/06/25 04:25 36.5 C 86 16 113/70 Pulse Ox O2 Del Method 02/06/25 11:28 99 Room Air 02/06/25 07:39 98 Room Air 02/06/25 07:38 02/06/25 04:25 99 Room Air Resident Activity Tracking Resident Involvement: Resident Care Provided Care Provided: Adult Hospital Medicine
--- NOTE | 2025-02-06 15:21 | Infectious Disease Progress Nt ---
Date of Service February 06, 2025 Assessment & Plan (1) Bacteremia: (2) Gastroenteritis: (3) Endocarditis of mitral valve: Plan Problems: #Strep mitis/oralis bacteremia and possible MV endocarditis #EPEC #TEA: improved #Crohn's disease on Humira, s/p colectomy Micro: 02/03 BCx x2: NGTD 02/02 BCx x2: Strep mitis/oralis in 2/4 bottles 01/31 UCx: GBS, plus low counts of other mixed tino Abx: Ceftriaxone 1 g 02/03, 2 g 02/04 - present Unasyn 02/02 - 02/03 54 yo F with Crohn's disease on Humira and previous colectomy with jejunostomy bag, recent admission 01/31-02/01 with N/V and increased fluid output in ostomy with presumed viral gastroenteritis who presented back to the hospital on 02/02 with flushing, nausea, dry heaving, found to have Strep mitis/oralis bacteremia with concern for MV endocarditis. On presentation, pt was afebrile, HR 121. Labs showed WBC 8.67, plt 534, Cr 2.27 (up from 0.95 on 02/01), AST 122, ALT 98, alk phos 204, lipase 356. UA with 6-10 WBCs. Stool pathogen panel positive for EPEC. CT A/P without contrast showed diffuse mild dilatation of small bowel loops which are fluid-filled, similar in appearance to 06/29/23, no evidence of high grade bowel obstruction. Some of this could represent a reservoir effect related to prior colectomy. Nonspecific gastroenteritis could have this appearance, and this may be chronic. Blood cultures were drawn. She was started on Unasyn given UCx from 01/31 growing GBS. BCx grew GPCs in chains in 2/4 bottles, for which antibiotics were changed to ceftriaxone. Now identified as Strep mitis/oralis. TTE on 02/03 showed a 1.2 cm mobile echodensity on the MV, c/f vegetation. Pt reports that she recently underwent a dental procedure--on 01/13, tooth ground down and retraction cord placed, and on 01/27 a crown was placed. She began experiencing N/V and loose stools and a fever on 01/29. No blood cultures were collected at her 01/31-8/23 admission, but wonder if she was bacteremic at that time as well. Case discussed with Ritu CT surgery given vegetation size--they think it is artifact. Planned to pursue [facility] inpatient, but no room on schedule. Therefore, will plan for 4 weeks of IV ceftriaxone for presumed Strep mitis/oralis mitral valve endocarditis. Ultrasound-guided peripheral IV placed 02/06--per primary team, can remain in place for a month. Recommendations: - Continue ceftriaxone 2 g IV q24h to complete a 4 week course of antibiotics from date of blood culture clearance (02/03 - 03/02/25) for treatment of presumed Strep mitis/oralis endocarditis - Would plan for repeat TTE at the end of antibiotic therapy - Discussed with pt's skilled nursing case manager, Dr. Benson at [facility], and agreed to hold pt's Humira and azathioprine while on endocarditis treatment. Ok to continue Gattex. - See below antibiotic discharge summary for monitor labs and fax number. Will arrange for follow-up in our telemedicine OPAT clinic Will sign off. Infectious Diseases OPAT Antibiotic Discharge Plan: Infectious Disease Diagnosis: Strep mitis/oralis [place] MV endocarditis IV antibiotics (dose, route, duration): ceftriaxone 2 g IV q24h, 4 weeks End-Date: 03/02/25 Additional oral antibiotics or antifungals while on IV therapy (drug, dose, duration): N/A Labs: Weekly CBC with diff, CMP. Please fax lab results to [phone] US-guided peripheral IV: Care per protocol, remove at end of therapy Repeat imaging recommendations (type of image, contrast, time frame): TTE at end of therapy Oral suppression after cessation of IV antibiotics (drug, dose, duration): No ID follow-up in: ~3 weeks Admission and Anticipated Discharge Date Admission Date: February 02, 2025 Subjective This patient recommendation is based on a telemedicine consult request which was completed asynchronously through chart review and information provided by the primary physician. The patient was not seen or examined today. The evaluation is consultative in nature and all patient care and treatment decisions can either be accepted or rejected by the patient's primary hospital-based treating physician using their own independent medical judgment for their patient. Time Spent Reviewing Chart: 11 - 20 minutes No acute events Results & Data Vital Signs (Past 12 Hours) Vital Signs Temp Pulse Pulse Pulse Resp BP BP 02/06/25 14:46 36.6 C 63 18 143/85 H 02/06/25 11:28 36.7 C 64 18 125/78 02/06/25 08:00 02/06/25 07:39 36.7 C 63 18 115/74 02/06/25 07:38 62 02/06/25 04:25 36.5 C 86 16 113/70 Pulse Ox O2 Del Method 02/06/25 14:46 100 Room Air 02/06/25 11:28 99 Room Air 02/06/25 08:00 Room Air 02/06/25 07:39 98 Room Air 02/06/25 07:38 02/06/25 04:25 99 Room Air
--- NOTE | 2025-02-06 18:16 | Billing Data ---
Date of Service February 06, 2025 Coding Level of Care Code 18325 SUB INP/OBS CARE MIN
[2025-02-07 10:15] LABS: Hematocrit (blood only) 35.3 % (37.0-47.0); Hemoglobin 11.5 g/dl (12.0-16.0); Mean Corpuscular Hemoglobin 29.3 pg (25.0-34.0); Mean Corpuscular Volume 90.1 fL (80.0-100.0); Platelet Count 309 K/uL (130-400); RDW Standard Deviation 45.2 fL (36.4-46.3); Red Blood Count 3.92 M/uL (4.20-5.40); White Blood Count 8.08 K/ul (4.8-10.8)
[2025-02-07 10:28] LABS: Anion Gap 9.0 (3-11); Blood Urea Nitrogen 17.0 mg/dl (6-23); Calcium 9.4 mg/dl (8.6-10.3); Carbon Dioxide 27.0 mmol/L (21-32); Chloride 98.0 mmol/L (98-107); Creatinine Clr Calc Pharmacy 64.6 ml/min; Glucose 172.0 mg/dl (70-99(Fasting)); Potassium 3.7 mmol/L (3.5-5.1); Sodium 134.0 mmol/L (136-145)
[2025-02-07 15:10] VITALS: RESP 16; TEMP 98.4; O2SAT 98
--- NOTE | 2025-02-07 16:40 | Hospitalist Progress Note ---
Date of Service February 07, 2025 Assessment & Plan (1) Bacteremia: (2) Gastroenteritis: (3) TEA (acute kidney injury): Plan 54 yo F with Crohn's disease on Humira and previous colectomy with jejunostomy bag, recent admission 01/31-02/01 with N/V and increased fluid output in ostomy with presumed viral gastroenteritis who presented back to the hospital on 02/02 with flushing, nausea, dry heaving. On presentation, pt was afebrile, HR 121. Labs showed WBC 8.67, plt 534, Cr 2.27 (up from 0.95 on 02/01), AST 122, ALT 98, alk phos 204, lipase 356. UA with 6-10 WBCs. Stool pathogen panel positive for EPEC. CT A/P without contrast reported "diffuse mild dilatation of small bowel l oops which are fluid-filled, similar in appearance to 06/29/23, no evidence of high grade bowel obstruction. Some of this could represent a reservoir effect related to prior colectomy. Nonspecific gastroenteritis could have this appearance, and this may be chronic." She was started on Unasyn given UCx from 01/31 growing GBS. BCx now growing GPCs in chains in 2/4 bottles. Biofire positive for Strep species. Unasyn changed to ceftriaxone. #bacteremia - blood cultures growing Gram positive cocci in chains - Strep mitis/oralis - patient feeling well this morning; hemodynamically stable and w/o fever/chills. CBC without leukocytosis - treating with IV Rocephin 2g q24h - ID consulted and appreciate recommendations - patient was originally planned for [facility] this morning given vegetation seen on mitral valve to r/o endocarditis. However, given patient's immunocompromised status due the Humira, plan is to place ultrasound guided peripheral IV for home IV management on discharge. Plan for f/u cultures and TTE after 4 week antibiotic course to evaluation for resolution. Working with case management to coordinate home health services for patient for IV abx. #gastroenteritis - resolved - could be due to viral infection due to N/V and increased ostomy output, however would also be the result of a medication reaction. - stool positive for EPEC - continue support care for diarrhea - continue abx as above due to immunocompromised state - patient does state her ostomy output has been improving to her baseline. Denies abdominal pain N/V. Remains without leukocytosis and hemodynamically stable. #transaminitis - resolved - mildly elevated lipase & LFTs on admission ; have been continuing to downtrend ; this is likely in the setting of the viral infection/gastroenteritis as above, #volume depletion #TEA - electrolytes have stabilized - Na 134, otherwise BMP nonactionable - Cr improved 0.86 - was managing with IV fluids, however have d/c since patient able to tolerate PO - I&Os, serial BMP - avoid nephrotoxic drugs #UTI - Group B strep isolated in recent urine culture - continue IV abx as above - patient denying urinary symptoms, fever/chills at bedside this morning. #Crohn's disease - history of colectomy and jejunostomy - holding immunosuppressive therapy however, will resume Humira and azathioprine on discharge and continue Gattex - Humira, Gattex and azathioprine on hold DVT: heparin 5000 units q12 Dispo - plan for home d/c - discussed with patient about comfort level of self administering IV abx for which she is comfortable and willing. Working with case management to establish Home Health services for the patient before discharge. Plan for home tomorrow, however if approved early - okay to discharge today. Admission and Anticipated Discharge Date Admission Date: February 02, 2025 Supervising Physician Co-Signing Physician Notes I personally examined the patient and verified all marcos points of history and exam, discussed case, and agree with decision making with Dr Garduno Subjective Patient seen and examined at bedside this morning. Alert, awake, and responding appropriately. No overnight events. Patient does note to having "brain fog" and suddenly having a hard time remembering why she was in the hospital. Noted that this experience has been overwhelming for her. Denies any new onset weakness/loss of sensation. Patient visibly flushed in the room and anxious appearing. Denies chest pain, palpitations, SOB. Has been tolerating diet well and notes ostomy output has normalized Review of Systems Review of Systems: All systems reviewed & are unremarkable except as noted in HPI & below Physical Exam Constitutional: WD/WN, vitals as above Respiratory: normal respiratory effort, lungs clear to auscultation Cardiovascular: Rate/Rhythm: regular rate and regular rhythm Heart Sounds: normal S1 and normal S2 Gastrointestinal (Abdomen): normal bowel sounds, soft, nontender, no hepatosplenomegaly Musculoskeletal: Head/Neck/Chest: normocephalic and head atraumatic Extremities: extremities normal to inspection and strength 5/5 throughout Skin: no rashes, warm and dry Neurologic: PERRL, EOMI, accommodation nl, no face palsy, no dysarthria normal touch/pain/proprioception, CN's II-XI intact bilaterally, moves all extremities and awake Speech / Cognition: + abnormal speech Motor/Sensory: no tremor, normal movement and no sensory deficit Psychiatric: A+Ox3, euthymic affect Results & Data Results & Data Vital Signs (Past 12 Hours) Vital Signs Temp Pulse Pulse Resp BP Pulse Ox O2 Del Method 02/07/25 15:28 89 02/07/25 15:08 36.9 C 80 16 112/71 98 Room Air 02/07/25 11:37 36.4 C L 82 18 127/76 100 Room Air 02/07/25 08:00 Room Air 02/07/25 07:46 36.7 C 68 20 115/76 99 Room Air 02/07/25 07:21 61 Resident Activity Tracking Resident Involvement: Resident Care Provided Care Provided: Adult Hospital Medicine
[2025-02-07 18:01] VITALS: BP 113/70; PULSE 83
--- NOTE | 2025-02-07 18:28 | Discharge Summary ---
Discharge Summary Date of Service February 07, 2025 Principal Dx & Hospital Course #1 = Principal Diagnosis (1) Bacteremia: (2) Gastroenteritis: (3) TEA (acute kidney injury): Plan . #bacteremia - blood cultures growing Gram positive cocci in chains - Strep mitis/oralis - patient feeling well this morning; hemodynamically stable and w/o fever/chills. CBC without leukocytosis - treating with IV Rocephin 2g q24h - After review of echocardiogram, discussions with patient and discussions with infectious diseaseseemed most sensible to treat for 4 weeks assuming that the vegetation would be realparticularly given her immunocompromise state. In discussion with the patient we did discuss that this would have her off of her Humira for a little bit longer, but she also agreed that the risk/benefit was worth treating for 4 weeks (we discussed [facility] might see that the vegetation was not real and we might be able to treat for 2 weeks instead of 4, but she and I both agreed that the risk/benefit on this seemed needless for the procedure especially given that the Crohn's most recently was affecting her esophagus) #gastroenteritis - resolving? - could be due to viral infection due to N/V and increased ostomy output, however would also be the result of a medication reaction. - stool positive for EPEC - symptoms seem to have improved #transaminitis - mildly elevated lipase & LFTs on admission ; have been continuing to downtrend ; this is likely in the setting of the viral infection/gastroenteritis as above, outpatient follow-up #volume depletion #TEA - electrolytes have stabilized - BMP this morning nonactionable - Cr improved-outpatient follow-up #Crohn's disease - history of colectomy and jejunostomy - Humira, Gattex and azathioprine on hold Home today4 weeks of ceftriaxone. Blood cultures and repeat echocardiogram roughly a week after last date of treatment (last day of treatment set for 03/04) Notes For Next Care Provider IV Rocephin for endocarditis through 03/04roughly week of 03/12 please check echocardiogram and repeat blood cultures Medication Changes From Visit ceftriaxone 2 g daily through 03/04 Admission HPI Per Admitting Provider 54-year-old white female who was just discharged yesterday, February 01, with suspected viral illness. She responded quickly to parenteral steroid therapy and IV fluids. Her symptoms recurred today with flushing, nausea, dry heaves. She has yet to take her scheduled prednisone tapering dose as an outpatient. LFTs are noted to be slightly elevated and lipase is mildly elevated. CT of the abdomen reveals previous colectomy and cholecystectomy with presence of ileostomy and dilated small bowel loops but no obvious obstruction. Urine culture obtained on January 31 is growing group B strep. Blood cultures ordered and pending. This may be a persistent viral illness but recurrent symptoms raise the question of possible medication allergic reaction with transaminitis and mild pancreatitis. Her daily teduglutide( Gattix) injections could possibly be the culprit. She also takes Humira subcutaneously but only on a weekly basis. Stool BioFire pending on the ileostomy bag output. Unasyn has been started for the strep isolated in the urine. Blood cultures are pending. She is admitted for further evaluation and treatment. Discharge Exam in general she is awake alert oriented pleasant no distress. HEENT normocephalic atraumatic mucous membranes moist. Breathing unlabored no a ccessory muscle use good effort. Skin without rashes pallor or icterus. Neuro without focal deficits. Walking in the hallway well. Updated Medication List Medication Instructions Recorded Confirmed Type Lactobacillus rhamnosus GG 10 1 cap PO QAM 05/23/18 02/02/25 History billion cell-inulin 200 mg capsule (Amara) cholecalciferol (vitamin D3) 125 5,000 units PO QAM 05/23/18 02/02/25 History mcg (5,000 unit) tablet potassium chloride 10 mEq 10 meq PO QAM 05/23/18 02/02/25 History tablet,extended release(part/cryst) venlafaxine 75 mg tablet 75 mg PO BID 05/23/18 02/02/25 History acetaminophen 500 mg tablet 1,000 mg PO Q6 PRN Fever Or Pain 05/14/20 02/02/25 History (Tylenol Extra Strength) adalimumab 40 mg/0.4 mL 40 mg subcut WK 06/20/20 02/02/25 History subcutaneous pen kit (Humira(CF) Pen) teduglutide 5 mg subcutaneous kit 0.345 mg subcut QAM 06/20/20 02/02/25 History (Gattex 30-Vial) multivitamin (Daily Multi-Vitamin 1 tab PO QAM 02/16/21 02/02/25 History tablet) azathioprine 50 mg tablet (Imuran) 100 mg PO QAM 04/09/21 02/02/25 History alpha lipoic acid 200 mg tablet 400 mg PO QAM 06/27/24 02/02/25 History loperamide 2 mg capsule 4 mg PO BID Diarrhea 06/27/24 02/02/25 History pantoprazole 40 mg granules 40 mg PO DAILYBB 06/27/24 02/02/25 History delayed-release for susp in packet ascorbic acid (vitamin C) 500 mg 500 mg PO QAM 12/05/24 02/02/25 History chewable tablet (Vitamin C) ketoconazole 2 % topical cream 1 applic topical QAM 01/31/25 02/02/25 History magnesium oxide 200 mg PO HS 01/31/25 02/02/25 History vitamin B complex 1 tab PO QAM 01/31/25 02/02/25 History ferrous sulfate 325 mg (65 mg 325 mg PO QAM 02/02/25 02/02/25 History iron) tablet Hospital Stay Data Consultations 02/02/25 14:22 ED Decision to Admit Stat 02/03/25 08:09 Consult Infectious Diseases Routine 02/04/25 12:00 Consult Thoracic Surgery Routine Diagnostic Imagining Performed 02/02/25 12:39 CT abd pelvis wo con Stat Pending Results Patient Have Any Pending Studies at Discharge: No Discharge Instructions Given to Patient (Per Discharging Provider) You were admitted to [facility] for a blood stream infection and endocarditis (infection of your heart valve) with Strep bacteria. You were started on IV antibiotics during you stay for treatment and will plan to continue after discharge. A peripheral IV was placed to be used for your home IV antibiotic administration. We will continue IV antibiotics for 4 weeks from the day of your positive blood cultures (02/03-03/02/25) for treatment. Follow-up with PCP within 1 week. Appointment set 02/11/2025 for 1pm. Arrival time 12:45pm Please also follow-up with your infectious disease GI doctor within 1-2 weeks. Total Time Total Time Spent Total Time Spent (In Minutes): <30
--- NOTE | 2025-02-07 18:28 | Billing Data ---
Date of Service February 07, 2025 Coding Level of Care Code 15048 IN/OBS DISCH 30 MIN/LESS
== END 2025-02-07 18:22 | disposition home health service (06) | DRG 289 ==
LOC: SUATTDRO → ED 11:52 → SUATTDRO 15:22 → 2W 15:22
DX: R74.01 Elevation of levels of liver transaminase levels; A04.0 Enteropathogenic Escherichia coli infection; N39.0 Urinary tract infection, site not specified; R78.81 Bacteremia; E86.0 Dehydration; N17.9 Acute kidney failure, unspecified; K52.9 Noninfective gastroenteritis and colitis, unspecified; K50.90 Crohn's disease, unspecified, without complications; I33.0 Acute and subacute infective endocarditis; Z91.041 Radiographic dye allergy status; E87.1 Hypo-osmolality and hyponatremia; D84.9 Immunodeficiency, unspecified; B95.4 Other streptococcus as the cause of diseases classified elsewhere